=== PATIENT | female | born 1965 | race Two or more races ===

== ENCOUNTER 2017-03-18 12:18 | Emergency (ER) | payer MEDICARE, OTHER ==
[2017-03-18 12:25] VITALS: BP 127/71; PULSE 81; TEMP 97.5; BMI 39.1
[2017-03-18] MEDS ORDERED: SODIUM CHLORIDE 0.9% 1000 ML INFUS.BAG IV ONE (13:14)
--- NOTE | 2017-03-18 13:26 | PDOC ---
History of Present Illness - General Chief Complaint: Pain Stated Complaint: CONSTIPATED Time Seen by Provider: 03/18/17 12:57 History Source: Patient Exam Limitations: No Limitations - History of Present Illness Initial Comments: 03/18/17 13:23 The patient is a 51F with a PMH of HTN, DM, hypothyroidism, depression, and anxiety who presents to the ED with 2.5-3 weeks of constipation. She has not had a bowel movement or any type of feces excretion in 3 weeks. She has been passing gas. She has no hx of abdominal surgery. She is also complaining of CP that is 3 days old, and she describes it as a pressure in her chest that radiates everywhere and is associated with SOB. She also states that she has palpitations and feels dizzy. All: none Soc: does not smoke, drink, or use recreational drugs Has a hx of hep c but was treated w/ susie. Past History - Past Medical History Allergies/Adverse Reactions: Allergies Allergy/AdvReac Type Severity Reaction Status Date / Time No Known Drug Allergies Allergy Verified 03/18/17 12:22 Home Medications: Ambulatory Orders Clonazepam [KlonoPIN] 1 mg PO DAILY 01/17/14 Levothyroxine Sodium [Synthroid] 150 mcg PO DAILY 01/17/14 Lisinopril [Prinivil] 10 mg PO DAILY 01/17/14 Oxycodone HCl [Roxicodone] 30 mg PO TID 01/17/14 Sertraline HCl [Zoloft -] 200 mg PO HS 01/17/14 Furosemide [Lasix -] 40 mg PO DAILY 01/31/14 Trazodone HCl 100 mg PO HS 10/26/14 Zolpidem Tartrate [Ambien] 10 mg PO HS 10/26/14 Aripiprazole [Abilify -] 2 mg PO DAILY 08/17/15 Atorvastatin Ca [Lipitor] 20 mg PO DAILY 08/17/15 Clonazepam 2 mg PO HS 08/17/15 Duloxetine HCl [Cymbalta -] 60 mg PO DAILY 08/17/15 Gabapentin 600 mg PO TID 08/17/15 Omeprazole [Prilosec] 20 mg PO DAILY 08/17/15 Estradiol [Estrace] 42.5 gm VG HS #1 cream.appl 08/18/15 Anemia: No Asthma: No Cancer: No Cardiac Disorders: No CVA: No COPD: No CHF: No Dementia: No Diabetes: No GI Disorders: Yes (GERD, COLON POLYP, RECTAL BLEEDING) Disorders: No HTN: Yes Hypercholesterolemia: Yes Liver Disease: No Psychiatric Problems: Yes (DEPRESSION, ANXEITY) Seizures: No Thyroid Disease: Yes (HYPOTHYROIDISM) Other medical history: FIBROMYALGIA - Surgical History Abdominal Surgery: No Appendectomy: No Cardiac Surgery: No Cholecystectomy: No Lung Surgery: No Neurologic Surgery: Yes (CERVICAL NECK SX) Orthopedic Surgery: No - Immunization History Immunization Up to Date: Yes - Psycho/Social/Smoking Cessation Hx Anxiety: No Suicidal Ideation: No Smoking History: Never smoked Have you smoked in the past 12 months: No Information on smoking cessation initiated: No Hx Alcohol Use: No Drug/Substance Use Hx: No Substance Use Type: None Hx Substance Use Treatment: No Review of Systems - Review of Systems Able to Perform ROS?: Yes Is the patient limited Tristanian proficient: No Constitutional: Yes: Chills. No: Fever Respiratory: Yes: Shortness of Breath Cardiac (ROS): Yes: Chest Pain, Lightheadedness, Palpitations ABD/GI: Yes: Other (diffuse abd pain) : No: Burning, Dysuria, Discharge Neurological: No: Numbness, Tingling, Weakness *Physical Exam - Vital Signs Last Vital Signs Temp Pulse Resp BP Pulse Ox 97.5 F L 81 18 127/71 100 03/18/17 12:22 03/18/17 12:22 03/18/17 12:22 03/18/17 12:22 03/18/17 12:22 - Physical Exam General Appearance: Yes: Nourished, Appropriately Dressed, Obese HEENT: positive: Normal Voice, Hearing Grossly Normal Respiratory/Chest: positive: Lungs Clear, Normal Breath Sounds. negative: Chest Tender, Respiratory Distress, Accessory Muscle Use, Labored Respiration Cardiovascular: positive: Regular Rhythm, Regular Rate, S1, S2. negative: Diastolic Murmur, Systolic Murmur Gastrointestinal/Abdominal: positive: Tender, Flat, Soft, Increased Bowel Sounds , Distended. negative: Guarding Musculoskeletal: positive: CVA Tenderness, CVA Tenderness (L) Extremity: positive: Swelling (1+ in b/l lower extremities) Integumentary: positive: Dry, Warm. negative: Clammy, Diaphoresis Neurologic: positive: Fully Oriented, Normal Mood/Affect, Motor Strength 5/5 ED Treatment Course - LABORATORY CBC & Chemistry Diagram: 03/18/17 13:10 03/18/17 13:10 Medical Decision Making - Medical Decision Making 03/18/17 13:31 The patient is a 51F with a PMH of DM, HTN, hypothyroidism, depression, anxiety , depression who presents with 3 weeks of constipation and 3 days of CP. I want to R/O ACS and treat her constipation by R/O an obstruction. I will reassess after labs return. *DC/Admit/Observation/Transfer Diagnosis at time of Disposition: Constipation Qualifiers: Constipation type: unspecified constipation type Qualified Code(s): K59.00 - Constipation, unspecified - Discharge Dispostion Disposition: HOME Condition at time of disposition: Improved Admit: No - Referrals Referrals: Ki Pat MD, MD [Primary Care Provider] - Mario Gaming MD [Staff Physician] - - Patient Instructions Printed Discharge Instructions: Constipation (Alternative Therapy), DI for Constipation, Increased Dietary Fiber May Improve Constipation Conditions With Pelvic Krishan Additional Instructions: Please return to the ER if symptoms persist, worsen, or if new symptoms arise. Please follow up with Dr. Gaming ([phone]) for the fluid found on your CT. Print Language: LITHUANIAN - Attestations Physician Attestion: 03/18/17 17:52 I, Dr. Renard Juarez, attest that this document has been prepared under my direction and personally reviewed by me in its entirety. I further attest, that it accurately reflects all work, treatment, procedures and medical decision -making performed by me.
[2017-03-18 14:18] LABS: BASOPHIL 0.7 % (0-2.0); EOSINOPHIL 2.7 % (0-4.5); MCH 32.3 pg (25.7-33.7); MCHC 33.7 g/dl (32.0-36.0); MEAN CELL VOLUME 95.9 fl (80-96); MEAN PLT VOLUME 9.1 fl (7.5-11.1); NEUTROPHILS 65.9 % (42.8-82.8); WHITE BLOOD COUNT 11.5 K/mm3 (4.0-10.0)
[2017-03-18 15:00] LABS: URINE APPEARANCE SLCLOUDY; URINE BILIRUBIN NEGATIVE (NEGATIVE); URINE BLOOD 1+ (NEGATIVE); URINE COLOR YELLOW; URINE GLUCOSE (UA) NEGATIVE (NEGATIVE); URINE KETONE NEGATIVE (NEGATIVE); URINE NITRITE NEGATIVE (NEGATIVE); URINE PROTEIN NEGATIVE (NEGATIVE); URINE UROBILINOGEN NEGATIVE mg/dL (0.2-1.0)
[2017-03-18 15:20] LABS: URINE LEUK ESTERASE 2+ (NEGATIVE)
[2017-03-18 15:24] LABS: PLATELET COUNT 330 K/MM3 (134-434)
[2017-03-18 15:52] LABS: URINE BACTERIA RARE /hpf (NONE SEEN); URINE HYALINE CAST 17 /lpf; URINE MUCUS RARE; URINE RBC 1 /hpf (0-3); URINE WBC 11 /hpf (3-5)
--- NOTE | 2017-03-18 16:16 | PDOC ---
Attending Attestation - Resident Resident Name: QuetemijosRenard - ED Attending Attestation I have performed the following: I have examined & evaluated the patient, The case was reviewed & discussed with the resident, I agree w/resident's findings & plan, Exceptions are as noted - HPI HPI: 03/18/17 16:06 51 yo F presenting with a complaint of 1) constipation x 3 weeks 2) chest pain 3) Recent renal stent (to be removed tomorrow) no fevers No chills No nausea, vomiting - Physicial Exam PE: 03/18/17 16:11 - Medical Decision Making 03/18/17 16:11 51 yo f presenting to the ER with a complaint of constipation and chest pain Will do labs Will do CT Will re assess 03/18/17 19:03 Laboratory Tests 03/18/17 03/18/17 03/18/17 13:10 13:45 17:50 WBC 11.5 H Hgb 14.2 Hct 42.3 Plt Count 330 BUN Creatinine Troponin I < 0.02 Urine Blood 1+ H Ur Leukocyte Esterase 2+ H Urine RBC 1 Urine WBC 11 03/18/17 17:50 WBC Hgb Hct Plt Count BUN 15 D Creatinine 1.1 H Troponin I Urine Blood Ur Leukocyte Esterase Urine RBC Urine WBC UTI Pt had recent urinary stent Should be given abx Heart Score/ECG Review #1 ECG reviewed & interpreted by me at: 16:16 03/18/17 16:16 Twelve-lead EKG was performed and reviewed by me. There is normal sinus rhythm with a normal rate of 59 bpm. The axis is normal. The intervals are normal - pr: 142ms, QRS:94ms, QTc:439ms. There are no ST elevations or depressions. T wave flattening through out
[2017-03-18] MEDS ORDERED: MINERAL OIL ENEMA 133 ML ENEMA PR ONE (16:45)
[2017-03-18] MEDS ORDERED: SODIUM PHOSPHATE/NA BIPHOS 133 ML ENEMA PR ONE (17:08)
[2017-03-18 18:27] LABS: ALBUMIN 4.6 g/dl (3.4-5.0); ANION GAP 9 (8-16); CALCIUM 8.8 mg/dL (8.5-10.1); CO2 28 mmol/L (21-32); GLUCOSE,RANDOM 129 mg/dL (74-106)
[2017-03-18 18:31] LABS: ALK PHOS 67 U/L (45-117); BILIRUBIN,TOTAL 0.4 mg/dL (0.2-1.0); CREATININE 1.1 mg/dL (0.55-1.02); SGOT/AST 34 U/L (15-37); SGPT/ALT 35 U/L (12-78); TOT PROT 8.4 g/dl (6.4-8.2)
--- NOTE | 2017-03-18 20:52 | EKG ---
Test Reason : Blood Pressure : / mmHG Vent. Rate : 059 BPM Atrial Rate : 059 BPM P-R Int : 142 ms QRS Dur : 094 ms QT Int : 444 ms P-R-T Axes : 035 -03 010 degrees QTc Int : 439 ms SINUS BRADYCARDIA NONSPECIFIC T WAVE ABNORMALITY ABNORMAL ECG WHEN COMPARED WITH ECG OF 27-SEP-2015 23:45, NONSPECIFIC T WAVE ABNORMALITY HAS REPLACED INVERTED T WAVES IN INFERIOR LEADS NONSPECIFIC T WAVE ABNORMALITY NOW EVIDENT IN LATERAL LEADS REPEAT EKG IF CLINICALLY INDICATED Confirmed by VANESSA ESTEVES MD ([id number]) on 03/18/2017 8:52:17 PM Referred By: Confirmed By:VANESSA ESTEVES MD
== END 2017-03-18 19:37 | disposition home or self-care (01) ==
LOC: JER 12:18
DX: K59.00 Constipation, unspecified (principal); I10 Essential (primary) hypertension; E11.9 Type 2 diabetes mellitus without complications; E03.9 Hypothyroidism, unspecified; F32.9 Major depressive disorder, single episode, unspecified; F41.9 Anxiety disorder, unspecified; K21.9 Gastro-esophageal reflux disease without esophagitis; M79.7 Fibromyalgia
CPT/HCPCS: 36415; 74176-TC; 80053; 81003; 81015; 84484; 85025; 93005; 93010; 99285-25

== ENCOUNTER 2017-04-29 14:20 | Observation (INO) | payer MEDICARE, OTHER ==
[2017-04-29 14:49] VITALS: BMI 38.4
--- NOTE | 2017-04-29 15:31 | PDOC ---
Attending Attestation - HPI HPI: 04/29/17 16:54 51 y/o F with a PMHx of fibromyalgia, bladder stimulator with frequent UTIs, presents to the ED from PT office after taking Oxycodone 10 mg. Patient is prescribed oxycodone for her fibromyalgia for when she needs it. However, every time she takes it she becomes lethargic and out of it. Patient was on her way to physical therapy today, who told her not to take the Oxycodone, but she did anyway. When she got to PT, they felt she was too sedated to participate and told her to go to the ED. At the office, her BP was 80 systolic. Patients is at the bedside, providing history. He confirms that this is her usual state after taking oxycodone. Patients only complaint is dysuria. Denies chest pain, SOB, nausea, vomiting, diarrhea. - Physicial Exam PE: 04/29/17 16:54 GENERAL: Awake, alert, and fully oriented, in no acute distress. Lethargic. HEAD: No signs of trauma EYES: PERRLA, EOMI, sclera anicteric, conjunctiva clear ENT: Auricles normal inspection, hearing grossly normal, nares patent, oropharynx clear without exudates. Moist mucosa NECK: Normal ROM, supple, no lymphadenopathy, JVD, or masses LUNGS: Breath sounds equal, clear to auscultation bilaterally. No wheezes, and no crackles HEART: Regular rate and rhythm, normal S1 and S2, no murmurs, rubs or gallops ABDOMEN: Soft, nontender, normoactive bowel sounds. No guarding, no rebound. No masses EXTREMITIES: Moving all extremities. Normal range of motion, no edema. No clubbing or cyanosis. No cords, erythema, or tenderness NEUROLOGICAL: Cranial nerves II through XII grossly intact. Normal speech. SKIN: Warm, Dry, normal turgor, no rashes or lesions noted. - Medical Decision Making 04/29/17 16:54 Documentation prepared by India Connor, acting as medical observer for Shelby Oropeza DO. <India Connor - Last Filed: 04/29/17 16:54> - Resident Resident Name: Ki Degroot - ED Attending Attestation I have performed the following: I have examined & evaluated the patient, The case was reviewed & discussed with the resident, I agree w/resident's findings & plan, Exceptions are as noted - Medical Decision Making 04/29/17 19:54 a/p: 51yo female with lethargy after taking oxycodone today -concern for polypharmacy -will check labs -head ct -place in obs 04/29/17 19:57 pt more awake 04/29/17 19:57 case discussed with [employer] for medicine who accepts pt to obs under Dr. Olivares 04/29/17 19:58 I, Dr. Shelby Oropeza, DO, attest that this document has been prepared under my direction and personally reviewed by me in its entirety. I further attest, that it accurately reflects all work, treatment, procedures and medical decision -making performed by me. <Shelby Oropeza - Last Filed: 04/29/17 19:58> Discharge Disposition - Discharge Dispostion Last Admission D/C Date: 10/02/15 Admit: Yes <Shelby Oropeza - Last Filed: 04/29/17 19:58> - Diagnosis Polypharmacy - Discharge Dispostion Condition at time of disposition: Stable Heart Score/ECG Review - ECG Intrepretation Comment:: 04/29/17 17:11 sinus at 64, nl axis, nl interval, t wave flattening diffusely, t wave inversions v3-v6 <Shelby Oropeza - Last Filed: 04/29/17 19:58>
[2017-04-29 15:52] LABS: BASOPHIL 0.7 % (0-2.0); EOSINOPHIL 2.4 % (0-4.5); MCHC 33.4 g/dl (32.0-36.0); MEAN CELL VOLUME 95.8 fl (80-96); MEAN PLT VOLUME 8.6 fl (7.5-11.1); NEUTROPHILS 60.2 % (42.8-82.8); PLATELET COUNT 276 K/MM3 (134-434); WHITE BLOOD COUNT 8.3 K/mm3 (4.0-10.0)
[2017-04-29] MEDS ORDERED: SODIUM CHLORIDE 1,000 ML IV STA (15:55)
--- NOTE | 2017-04-29 16:21 | PDOC ---
History of Present Illness - General Chief Complaint: Weakness Stated Complaint: WEAKNESS Time Seen by Provider: 04/29/17 15:24 History Source: Patient, Family Exam Limitations: Clinical Condition - History of Present Illness Initial Comments: 04/29/17 16:16 Patient is a 51F with history of fibromyalgia, DM, GERD, HLD and hypothyroidism here today complaining of hypotension. She was at her therapists office when it was noticed her blood pressure was in the high 80s and she was confused. Her family member says that she took oxycodone 10 today, which normally makes her confused. She also takes ambien and klonopin. She is confused but is able to respond to questions with redirection. She says that she took one oxycodone pill today and that she has had some pain with urination, but is unsure how long that is going on. Her family member states that she's had bladder stimulator installed before and that has led to problems in the past. Patient denies focal weakness, chest pain, abdominal pain and shortness of breath. She denies fevers, chills, nausea and vomiting. Past History - Past Medical History Allergies/Adverse Reactions: Allergies Allergy/AdvReac Type Severity Reaction Status Date / Time No Known Drug Allergies Allergy Verified 04/29/17 14:49 Home Medications: Ambulatory Orders Clonazepam [KlonoPIN] 1 mg PO DAILY 01/17/14 Levothyroxine Sodium [Synthroid] 150 mcg PO DAILY 01/17/14 Lisinopril [Prinivil] 10 mg PO DAILY 01/17/14 Oxycodone HCl [Roxicodone] 30 mg PO TID 01/17/14 Sertraline HCl [Zoloft -] 200 mg PO HS 01/17/14 Furosemide [Lasix -] 40 mg PO DAILY 01/31/14 Trazodone HCl 100 mg PO HS 10/26/14 Zolpidem Tartrate [Ambien] 10 mg PO HS 10/26/14 Aripiprazole [Abilify -] 2 mg PO DAILY 08/17/15 Atorvastatin Ca [Lipitor] 20 mg PO DAILY 08/17/15 Clonazepam 2 mg PO HS 08/17/15 Duloxetine HCl [Cymbalta -] 60 mg PO DAILY 08/17/15 Gabapentin 600 mg PO TID 08/17/15 Omeprazole [Prilosec] 20 mg PO DAILY 08/17/15 Estradiol [Estrace] 42.5 gm VG HS #1 cream.appl 08/18/15 Anemia: No Asthma: No Cancer: No Cardiac Disorders: No CVA: No COPD: No CHF: No Dementia: No Diabetes: No GI Disorders: Yes (GERD, COLON POLYP, RECTAL BLEEDING) Disorders: No HTN: Yes Hypercholesterolemia: Yes Liver Disease: No Psychiatric Problems: Yes (DEPRESSION, ANXEITY) Seizures: No Thyroid Disease: Yes (HYPOTHYROIDISM) - Surgical History Abdominal Surgery: No Appendectomy: No Cardiac Surgery: No Cholecystectomy: No Lung Surgery: No Neurologic Surgery: Yes (CERVICAL NECK SX) Orthopedic Surgery: No - Immunization History Immunization Up to Date: Yes - Suicide/Smoking/Psychosocial Hx Smoking History: Never smoked Have you smoked in the past 12 months: No Hx Alcohol Use: No Drug/Substance Use Hx: (denies) Substance Use Type: None Hx Substance Use Treatment: No Review of Systems - Review of Systems Comments:: 04/29/17 16:19 GENERAL/CONSTITUTIONAL: No fever or chills. Positive for generalized weakness. HEAD, EYES, EARS, NOSE AND THROAT: No change in vision. No sore throat. CARDIOVASCULAR: No chest pain or shortness of breath RESPIRATORY: No cough, wheezing, or hemoptysis. GASTROINTESTINAL: No nausea, vomiting, diarrhea or constipation. GENITOURINARY: Positive for dysuria. Negative for frequency, or change in urination. MUSCULOSKELETAL: No joint or muscle swelling or pain. No neck or back pain. SKIN: No rash NEUROLOGIC: No headache, vertigo, loss of consciousness, or change in strength/ sensation. HEMATOLOGIC/LYMPHATIC: No anemia, easy bleeding, or history of blood clots. ALLERGIC/IMMUNOLOGIC: No hives or skin allergy. *Physical Exam - Vital Signs Last Vital Signs Temp Pulse Resp BP Pulse Ox 97.3 F L 68 18 100/55 90 L 04/29/17 14:37 04/29/17 14:37 04/29/17 14:37 04/29/17 16:10 04/29/17 14:37 - Physical Exam Comments: 04/29/17 16:20 GENERAL: Sleepy but arousable. Fully oriented but easily distracted. In no acute distress HEAD: No signs of trauma, normocephalic, atraumatic EYES: PERRLA, pupils 3mm EOMI, sclera anicteric, conjunctiva clear ENT: Auricles normal inspection, hearing grossly normal, nares patent, oropharynx clear without exudates. Moist mucosa LUNGS: No distress, speaks full sentences, clear to auscultation bilaterally HEART: Regular rate and rhythm, normal S1 and S2, no murmurs, rubs or gallops, peripheral pulses normal and equal bilaterally. ABDOMEN: Soft, nontender, normoactive bowel sounds. No guarding, no rebound. No masses EXTREMITIES: Normal inspection, Normal range of motion, no edema. No clubbing or cyanosis. NEUROLOGICAL: Cranial nerves II through XII grossly intact. Normal speech, no focal sensorimotor deficits SKIN: Warm, Dry, normal turgor, no rashes or lesions noted. ED Treatment Course - LABORATORY CBC & Chemistry Diagram: 04/29/17 13:14 04/29/17 18:50 - ADDITIONAL ORDERS Additional order review: 04/29/17 13:14 RBC 4.15 MCV 95.8 MCHC 33.4 RDW 14.0 MPV 8.6 Neutrophils % 60.2 Lymphocytes % 31.5 D Monocytes % 5.2 Eosinophils % 2.4 Basophils % 0.7 - RADIOLOGY Radiology Studies Ordered: Category Date Time Status HEAD CT WITHOUT CONTRAST [CT] Stat CT Scan 04/29/17 15:55 Ordered Medical Decision Making - Medical Decision Making 04/29/17 16:21 51F with history of fibromyalgia, htn, dm, hld and hypothyroidism here today complaining of weakness. Vital signs stable, sbp is 100. Differential diagnosis includes, but is not limited to: polypharmacy causing accidental minor opiate overdose, acs, arrhythmia, hypoglycemia, intracranial mass. Will treat with fluids. Will evaluate with labs, ecg and CXR. 04/29/17 16:27 ECG shows normal sinus rhythm, normal rate, QT prolonged to 480ms, no st elevations, flattened t waves in I, II, II, aVL, aVF, V1, V4-6. Inverted t wave in V3. 04/29/17 17:22 CXR shows no acute cardiopulmonary process. 04/29/17 19:32 CT head shows no acute process. 04/29/17 20:27 Laboratory Tests 04/29/17 04/29/17 04/29/17 13:14 13:14 18:50 WBC 8.3 Hgb 13.3 Hct 39.8 Plt Count 276 INR 1.19 H Troponin I < 0.02 CBC normal, INR slightly elevated, trop neg, cmp reassuring. Admitted for observation for polypharmacy, possible overdose. *DC/Admit/Observation/Transfer Diagnosis at time of Disposition: Polypharmacy - Discharge Dispostion Condition at time of disposition: Stable - Referrals Referrals: Ki Pat MD, [Primary Care Provider] -
[2017-04-29 16:43] LABS: INR 1.19 (0.82-1.09); PROTHROMBIN TIME (PATIENT) 13.1 SEC (9.98-11.88)
[2017-04-29] MEDS ORDERED: LIDOCAINE HCL 1%, 10 MG/ML (50 mL VIAL) SQ ONE (17:00)
[2017-04-29] MEDS ORDERED: LIDOCAINE HCL 1%, 10 MG/ML (20ML VIAL) ONE (17:00)
[2017-04-29 19:28] LABS: ALBUMIN 3.8 g/dl (3.4-5.0); ANION GAP 6 (8-16); BILIRUBIN,TOTAL 0.4 mg/dL (0.2-1.0); CALCIUM 8.7 mg/dL (8.5-10.1); CO2 27 mmol/L (21-32); CREATININE 0.7 mg/dL (0.55-1.02); GLUCOSE,RANDOM 98 mg/dL (74-106); SGPT/ALT 30 U/L (12-78); TOT PROT 7.4 g/dl (6.4-8.2)
[2017-04-29 19:29] LABS: ALK PHOS 53 U/L (45-117)
[2017-04-29 19:36] LABS: SGOT/AST 30 U/L (15-37)
[2017-04-29 19:39] LABS: CPK 353 IU/L (26-192); TROPONIN I < 0.02 ng/ml (0.00-0.05)
--- NOTE | 2017-04-29 19:43 | EKG ---
Test Reason : Blood Pressure : / mmHG Vent. Rate : 064 BPM Atrial Rate : 064 BPM P-R Int : 138 ms QRS Dur : 088 ms QT Int : 466 ms P-R-T Axes : 019 -05 -03 degrees QTc Int : 480 ms NORMAL SINUS RHYTHM NONSPECIFIC T WAVE ABNORMALITY PROLONGED QT ABNORMAL ECG WHEN COMPARED WITH ECG OF 18-MAR-2017 15:08, NONSPECIFIC T WAVE ABNORMALITY, WORSE IN ANTERIOR LEADS REPEAT EKG IF CLINICALLY INDICATED Confirmed by VANESSA ESTEVES MD ([id number]) on 04/29/2017 7:43:04 PM Referred By: Confirmed By:VANESSA ESTEVES MD
--- NOTE | 2017-04-29 21:13 | HP ---
Admitting History and Physical - Primary Care Physician PCP: Ki Pat MD - Admission Chief Complaint: lethargic after taking Oxycodone 30mg History of Present Illness: This is a 51yo woman with PMH: HTN, fibromyalgia, hypothyroidism, anxiety, depression, OAB s/p bladder stimulator who presents today with lethargy after taking 30mg of oxycodone today prior to doctor's appointment. She arrived at her PMD with lethargy and was noted to have a SBP in the 80's. She denies, fevers, chills, chest pain, headaches, SOB, dizziness, nausea, vomiting or diarrhea. She endorses abdominal pain, back pain, pain at her joints, RLE pain all of which she states as her usual fibromyalgia pain. She states she took the oxycodone because the pain in her hands was worse today. History Source: Patient, Significant Other Limitations to Obtaining History: No Limitations - Past Medical History Cardiovascular: Yes: HTN, Hyperlipdemia Gastrointestinal: Yes: GERD Hepatobiliary: Yes: Hepatitis C (treated with Harvoni) Rheumatology: Yes: Fibromyalgia Endocrine: Yes: Hypothyroidism, Other (hypothyroidism) - Smoking History Smoking history: Never smoked Have you smoked in the past 12 months: No - Alcohol/Substance Use Hx Alcohol Use: No History of Substance Use: reports: None - Social History Usual Living Arrangement: Yes: With Significant Other ADL: Support Services (6 hours daily) History of Recent Travel: No Home Medications - Allergies Allergies/Adverse Reactions: Allergies Allergy/AdvReac Type Severity Reaction Status Date / Time No Known Drug Allergies Allergy Verified 04/29/17 14:49 - Home Medications Home Medications: Ambulatory Orders Clonazepam [KlonoPIN] 1 mg PO DAILY 01/17/14 Levothyroxine Sodium [Synthroid] 150 mcg PO DAILY 01/17/14 Lisinopril [Prinivil] 10 mg PO DAILY 01/17/14 Oxycodone HCl [Roxicodone] 30 mg PO TID 01/17/14 Sertraline HCl [Zoloft -] 200 mg PO HS 01/17/14 Furosemide [Lasix -] 40 mg PO DAILY 01/31/14 Trazodone HCl 100 mg PO HS 10/26/14 Zolpidem Tartrate [Ambien] 10 mg PO HS 10/26/14 Aripiprazole [Abilify -] 2 mg PO DAILY 08/17/15 Atorvastatin Ca [Lipitor] 20 mg PO DAILY 08/17/15 Clonazepam 2 mg PO HS 08/17/15 Duloxetine HCl [Cymbalta -] 60 mg PO DAILY 08/17/15 Gabapentin 600 mg PO TID 08/17/15 Omeprazole [Prilosec] 20 mg PO DAILY 08/17/15 Estradiol [Estrace] 42.5 gm VG HS #1 cream.appl 08/18/15 Family Disease History - Family Disease History Family Disease History: Heart Disease: Mother ( of PA at 46), Sister (x2 of PA age 56 and 60) Review of Systems - Review of Systems Constitutional: reports: No Symptoms Eyes: reports: No Symptoms HENT: reports: Throat Pain Neck: reports: Pain on Movement Cardiovascular: reports: No Symptoms Respiratory: reports: No Symptoms Gastrointestinal: reports: Abdominal Pain Breasts: reports: No Symptoms Reported Musculoskeletal: reports: Back Pain, Extremity Pain (bilateral lower and bilateral fingers x10), Joint Pain Integumentary: reports: No Symptoms Neurological: reports: No Symptoms Endocrine: reports: No Symptoms Hematology/Lymphatic: reports: No Symptoms Psychiatric: reports: No Symptoms Physical Examination Vital Signs: Vital Signs Temperature 97.5 F L 04/29/17 20:31 Pulse Rate 80 04/29/17 20:31 Respiratory Rate 16 04/29/17 20:31 Blood Pressure 119/60 04/29/17 20:31 O2 Sat by Pulse Oximetry (%) 96 04/29/17 20:31 Constitutional: Yes: No Distress, Calm Eyes: Yes: WNL, Conjunctiva Clear, EOM Intact HENT: Yes: WNL Neck: Yes: Supple, Trachea Midline. No: Lymphadenopathy, Tenderness Cardiovascular: Yes: Regular Rate and Rhythm. No: Bruit, JVD, Gallop, Murmur, Rub Respiratory: Yes: Regular, CTA Bilaterally. No: Accessory Muscle Use Gastrointestinal: Yes: Normal Bowel Sounds, Soft, Abdomen, Obese. No: Distention, Tenderness ...Rectal Exam: Yes: Deferred Renal/: Yes: WNL Musculoskeletal: Yes: Back Pain, Joint Stiffness, Muscle Pain, Muscle Weakness Extremities: Yes: WNL Edema: No Peripheral Pulses: Left Radial: 2+, Right Radial: 2+, Left Doralis Pedis: 2+, Right Dorsalis Pedis: 2+ Integumentary: Yes: WNL Neurological: Yes: Oriented, Cran Nerves II-XII Intact, Lethargy (easily arousable to voice). No: Confusion, Loss of Sensation, Numbness, Paresthesia ...Motor Strength: RLE (3/5- ambulates with cane at baseline) Psychiatric: Yes: WNL Labs: CBC, BMP 04/29/17 13:14 04/29/17 18:50 Imaging - Results Chest X-ray: Report Reviewed, Image Reviewed Cat Scan: Report Reviewed, Image Reviewed EKG: Image Reviewed Problem List - Problems (1) Polypharmacy Code(s): Z79.899 - OTHER DOG BEHAVIORIST (CURRENT) DRUG THERAPY (2) HTN (hypertension) Code(s): I10 - ESSENTIAL (PRIMARY) HYPERTENSION (3) Hypothyroid Code(s): E03.9 - HYPOTHYROIDISM, UNSPECIFIED (4) Fibromyalgia Code(s): M79.7 - FIBROMYALGIA Assessment/Plan A: 51 year old woman with continued lethargy after taking her prn oxycodone. P: 1. Polypharmacy - pt does not have an active med list with her and does not know the names of her medications - many psychoactive medications on her med list from previous visits - pharmacy closed when called to verify medications - will need to contact Medicine Cabinet to verify meds - hold sedatives until verified 2. HTN - hold meds- given hypotension earlier today - monitor BP - restart home meds when MS improves and doses verified 3. Hypothyroidism - synthroid 4. Anxiety - no acute issues - hold meds until verified 5. Depression - no acute issues - hold meds until verified 6. Fibromyalgia - hold meds until MS improves - restart meds once MS improves and doses verified 7. F/E/N - low Na diet - replete prn 8. PPX - sqh Dispo- observation overnight with probable discharge in AM Visit type - Emergency Visit Emergency Visit: Yes Care time: The patient presented to the Emergency Department on the above date and was hospitalized for further evaluation of their emergent condition. - New Patient This patient is new to me today: Yes Date on this admission: 04/29/17 - Critical Care Critical Care patient: No
[2017-04-30 06:19] VITALS: BP 129/72; PULSE 70; TEMP 98.1
[2017-04-30 08:17] LABS: BASOPHIL 0.5 % (0-2.0); EOSINOPHIL 2.6 % (0-4.5); MCH 31.6 pg (25.7-33.7); MEAN CELL VOLUME 95.9 fl (80-96); MEAN PLT VOLUME 8.6 fl (7.5-11.1); NEUTROPHILS 57.4 % (42.8-82.8); PLATELET COUNT 254 K/MM3 (134-434); RDW 13.7 % (11.6-15.6); WHITE BLOOD COUNT 9.4 K/mm3 (4.0-10.0)
[2017-04-30 08:43] LABS: ANION GAP 7 (8-16); CALCIUM 8.6 mg/dL (8.5-10.1); CO2 31 mmol/L (21-32); GLUCOSE,RANDOM 81 mg/dL (74-106)
[2017-04-30 08:48] LABS: CREATININE 0.7 mg/dL (0.55-1.02); PHOSPHOROUS 2.6 mg/dL (2.5-4.9)
--- NOTE | 2017-04-30 10:34 | DS ---
Physical Examination Vital Signs: Vital Signs Temperature 98.1 F 04/30/17 06:00 Pulse Rate 70 04/30/17 06:00 Respiratory Rate 18 04/30/17 06:00 Blood Pressure 129/72 04/30/17 06:00 O2 Sat by Pulse Oximetry (%) 97 04/30/17 00:48 Labs: CBC, BMP 04/30/17 06:30 04/30/17 06:30 Discharge Summary Reason For Visit: POLYPHARMACY Current Active Problems Fibromyalgia (Acute) Polypharmacy (Acute) Condition: Improved - Instructions Diet, Activity, Other Instructions: Please return to the ED with new, persistent, or worsening symptoms. Please follow-up with providers as indicated. Referrals: Fortunato Blankenship MD [Staff Physician] - (Please follow-up with Dr. Blankenship (pain management) within the next 2-3 days for management of your chronic pain secondary to fibromyalgia) Ki Pat MD, MD [Primary Care Provider] - (Please follow-up with your primary care provider as scheduled today.) Disposition: HOME - Home Medications Comprehensive Discharge Medication List: Ambulatory Orders Clonazepam [KlonoPIN] 1 mg PO DAILY 01/17/14 Levothyroxine Sodium [Synthroid] 150 mcg PO DAILY 01/17/14 Lisinopril [Prinivil] 10 mg PO DAILY 01/17/14 Oxycodone HCl [Roxicodone] 30 mg PO TID 01/17/14 Sertraline HCl [Zoloft -] 200 mg PO HS 01/17/14 Furosemide [Lasix -] 40 mg PO DAILY 01/31/14 Trazodone HCl 100 mg PO HS 10/26/14 Zolpidem Tartrate [Ambien] 10 mg PO HS 10/26/14 Atorvastatin Ca [Lipitor] 20 mg PO DAILY 08/17/15 Omeprazole [Prilosec] 20 mg PO DAILY 08/17/15 Clonazepam 1 mg PO HS #0 tab 04/30/17 Duloxetine HCl [Cymbalta -] 30 mg PO DAILY #0 tab 04/30/17
[2017-04-30] MEDS ORDERED: HEPARIN NA (PORCINE) 5,000 UNITS/ML 1ML VIAL SQ SCH (22:00)
== END 2017-04-30 10:45 | disposition home health service (06) ==
LOC: JER 14:20 → JERBED 19:58 → J6S 04-30 00:28
PROVIDERS: ADMIT Internal Medicine; ATTEND Registered Nurse
PROC: 3E0337Z Introduction of Electrolytic and Water Balance Substance into Peripheral Vein, Percutaneous Approach (ICD-10-PCS; principal; 2017-04-29)
DX: M79.7 Fibromyalgia (principal); T40.2X5A Adverse effect of other opioids, initial encounter; R53.83 Other fatigue; E11.9 Type 2 diabetes mellitus without complications; K21.9 Gastro-esophageal reflux disease without esophagitis; E78.5 Hyperlipidemia, unspecified; E03.9 Hypothyroidism, unspecified; I10 Essential (primary) hypertension; F41.9 Anxiety disorder, unspecified; F32.9 Major depressive disorder, single episode, unspecified; B18.2 Chronic viral hepatitis C; Z79.891 Long term (current) use of opiate analgesic; Y92.9 Unspecified place or not applicable
CPT/HCPCS: 36415; 70450-TC; 71010-TC; 80048; 80053; 82553; 84100; 84484; 85025; 85610; 93005; 93010; 99285-25; G0378

== ENCOUNTER 2017-08-04 19:34 | Inpatient (IN) | payer MEDICARE, OTHER ==
[2017-08-04 19:49] VITALS: BMI 36.6
[2017-08-04] MEDS ORDERED: SODIUM CHLORIDE 1,000 ML IV STA (19:51)
[2017-08-04] MEDS ORDERED: ONDANSETRON 4 MG/2 ML VIAL IVPUSH ONE (19:51)
--- NOTE | 2017-08-04 19:52 | PDOC ---
Rapid Medical Evaluation Time Seen by Provider: 08/04/17 19:47 Medical Evaluation: Allergies Allergy/AdvReac Type Severity Reaction Status Date / Time No Known Drug Allergies Allergy Verified 06/03/17 11:52 08/04/17 19:47 The patient presents with a chief complaint of: LLQ pain with fevers for 2-3 days. Pain goes to the back. Hx of UTI's in the past. Pt endorses vomiting. I have performed a brief in-person evaluation of this patient; Pertinent physical exam findings: LLQ pain, Temp 99 orally, CVA tenderness b/l, Diffuse abdominal tenderness. I have ordered the following: CBC, CMP, PT/INR, UA, UC, The patient will proceed to the ED for further evaluation.
--- NOTE | 2017-08-04 20:12 | PDOC ---
History of Present Illness - History of Present Illness Initial Comments: 08/04/17 20:26 Ms. Decker is a 51 yo female w/ pmh of fibromyalgia, DM, GERD, HLD, hypothyroidism, hysterectomy 2/2 prolapse, urinary slings x2, bladder stimulator with frequent UTIs, and recent admission 06/04 for pyelonephritis who presents complaining of dysuria, abdominal pain radiating to her back, and subjective fevers and chills. She reports this feels exactly like her prior UTIs. The patient denies chest pain, shortness of breath, headache and dizziness. Denies vomit, diarrhea and constipation. Allergies: NKDA <Stephen Mccarty - Last Filed: 08/04/17 22:03> <Diane Torres - Last Filed: 08/05/17 00:32> - General Chief Complaint: Pain, Acute Stated Complaint: STOMACH PAIN Time Seen by Provider: 08/04/17 19:47 Past History - Past Medical History Anemia: No Asthma: No Cancer: No Cardiac Disorders: No CVA: No COPD: No CHF: No Dementia: No Diabetes: No GI Disorders: Yes (GERD, COLON POLYP, RECTAL BLEEDING) Disorders: No HTN: Yes Hypercholesterolemia: Yes Liver Disease: No Psychiatric Problems: Yes (DEPRESSION, ANXEITY) Seizures: No Thyroid Disease: Yes (HYPOTHYROIDISM) - Surgical History Abdominal Surgery: No Appendectomy: No Cardiac Surgery: No Cholecystectomy: No Lung Surgery: No Neurologic Surgery: Yes (CERVICAL NECK SX) Orthopedic Surgery: No - Immunization History Immunization Up to Date: Yes - Suicide/Smoking/Psychosocial Hx Smoking History: Never smoked Have you smoked in the past 12 months: No Information on smoking cessation initiated: No Hx Alcohol Use: No Drug/Substance Use Hx: No Substance Use Type: None Hx Substance Use Treatment: No <Stephen Mccarty - Last Filed: 08/04/17 22:03> <Diane Torres - Last Filed: 08/05/17 00:32> - Past Medical History Allergies/Adverse Reactions: Allergies Allergy/AdvReac Type Severity Reaction Status Date / Time No Known Drug Allergies Allergy Verified 08/04/17 19:50 Home Medications: Ambulatory Orders Levothyroxine Sodium [Synthroid] 150 mcg PO DAILY 01/17/14 Lisinopril [Prinivil] 10 mg PO DAILY 01/17/14 Oxycodone HCl [Roxicodone] 30 mg PO TID 01/17/14 Zolpidem Tartrate [Ambien] 10 mg PO HS 10/26/14 Atorvastatin Ca [Lipitor] 20 mg PO DAILY 08/17/15 Omeprazole [Prilosec] 20 mg PO DAILY 08/17/15 Clonazepam 1 mg PO HS #0 tab 04/30/17 Duloxetine HCl [Cymbalta -] 30 mg PO DAILY #0 tab 04/30/17 Pregabalin [Lyrica] 0 mg PO DAILY 06/03/17 Acetaminophen [Tylenol .Regular Strength -] 650 mg PO Q4H PRN #0 tablet Trazodone HCl 100 mg PO HS #0 tab 06/06/17 Review of Systems - Review of Systems Comments:: 08/04/17 20:55 GENERAL/CONSTITUTIONAL: +Subjective fever and chills for 1 day. No weakness. HEAD, EYES, EARS, NOSE AND THROAT: No change in vision. No ear pain or discharge. No sore throat. CARDIOVASCULAR: No chest pain or shortness of breath RESPIRATORY: +1 day cough after being out in the cold last night. No wheezing or hemoptysis. GASTROINTESTINAL: No nausea, vomiting, diarrhea or constipation. GENITOURINARY: Dysuria with increase in frequency for the last day. MUSCULOSKELETAL: No joint or muscle swelling or pain. No neck or back pain. SKIN: No rash NEUROLOGIC: No headache, vertigo, loss of consciousness, or change in strength/ sensation. ENDOCRINE: No increased thirst. No abnormal weight change HEMATOLOGIC/LYMPHATIC: No anemia, easy bleeding, or history of blood clots. ALLERGIC/IMMUNOLOGIC: No hives or skin allergy. <Stephen Mccarty - Last Filed: 08/04/17 22:03> *Physical Exam - Vital Signs Last Vital Signs Temp Pulse Resp BP Pulse Ox 99 F 92 H 22 125/72 96 08/04/17 19:47 08/04/17 19:47 08/04/17 19:47 08/04/17 19:47 08/04/17 19:47 - Physical Exam Comments: 08/04/17 20:58 GENERAL: Awake, alert, and fully oriented, in no acute distress HEAD: No signs of trauma, normocephalic, atraumatic EYES: PERRLA, EOMI, sclera anicteric, conjunctiva clear ENT: Auricles normal inspection, hearing grossly normal, nares patent, oropharynx clear without exudates. Moist mucosa NECK: Normal ROM, supple, no lymphadenopathy, JVD, or masses LUNGS: No distress, speaks full sentences, clear to auscultation bilaterally HEART: Regular rate and rhythm, normal S1 and S2, no murmurs, rubs or gallops, peripheral pulses normal and equal bilaterally. ABDOMEN: +Diffusely TTP, Soft, normoactive bowel sounds. No guarding, no rebound. No masses EXTREMITIES: Normal inspection, Normal range of motion, no edema. No clubbing or cyanosis. NEUROLOGICAL: Cranial nerves II through XII grossly intact. Normal speech, normal gait, no focal sensorimotor deficits SKIN: Warm, Dry, normal turgor, no rashes or lesions noted. <Stephen Mccarty - Last Filed: 08/04/17 22:03> - Vital Signs Last Vital Signs Temp Pulse Resp BP Pulse Ox 99 F 61 18 127/74 95 08/04/17 19:47 08/04/17 23:15 08/04/17 23:15 08/04/17 23:15 08/04/17 23:15 <Diane Torres - Last Filed: 08/05/17 00:32> ED Treatment Course - LABORATORY CBC & Chemistry Diagram: 08/04/17 20:10 08/04/17 20:10 <Stephen Mccarty - Last Filed: 08/04/17 22:03> - LABORATORY CBC & Chemistry Diagram: 08/04/17 20:10 08/04/17 20:10 - ADDITIONAL ORDERS Additional order review: Laboratory Results 08/04/17 08/04/17 08/04/17 21:10 21:10 21:10 PT with INR INR PTT (Actin FS) VBG pH 7.51 H POC VBG pCO2 31.0 L POC VBG pO2 61.9 H Mixed VBG HCO3 25.1 H Sodium Potassium Chloride Carbon Dioxide Anion Gap BUN Creatinine Creat Clearance w eGFR Random Glucose Lactic Acid 1.5 Calcium Total Bilirubin AST ALT Alkaline Phosphatase Creatine Kinase Troponin I Total Protein Albumin Lipase Urine Color Urine Appearance Urine pH Ur Specific [place] Urine Protein Urine Glucose (UA) Urine Ketones Urine Blood Urine Nitrite Urine Bilirubin Urine Urobilinogen Ur Leukocyte Esterase Urine WBC (Auto) Urine RBC (Auto) Ur Epithelial Cells Blood Type A POSITIVE Antibody Screen Negative 08/04/17 08/04/17 08/04/17 21:00 21:00 20:10 PT with INR INR PTT (Actin FS) 29.8 VBG pH POC VBG pCO2 POC VBG pO2 Mixed VBG HCO3 Sodium Potassium Chloride Carbon Dioxide Anion Gap BUN Creatinine Creat Clearance w eGFR Random Glucose Lactic Acid Calcium Total Bilirubin AST ALT Alkaline Phosphatase Creatine Kinase 48 Troponin I < 0.02 Total Protein Albumin Lipase 100 Urine Color Urine Appearance Urine pH Ur Specific [place] Urine Protein Urine Glucose (UA) Urine Ketones Urine Blood Urine Nitrite Urine Bilirubin Urine Urobilinogen Ur Leukocyte Esterase Urine WBC (Auto) Urine RBC (Auto) Ur Epithelial Cells Blood Type Antibody Screen 08/04/17 08/04/17 08/04/17 20:10 20:10 20:06 PT with INR 14.10 H INR 1.25 H PTT (Actin FS) VBG pH POC VBG pCO2 POC VBG pO2 Mixed VBG HCO3 Sodium 137 Potassium 3.7 Chloride 103 Carbon Dioxide 24 Anion Gap 10 BUN 8 D Creatinine 0.8 Creat Clearance w eGFR > 60 Random Glucose 116 H Lactic Acid Calcium 8.6 Total Bilirubin 0.7 D AST 13 L D ALT 22 D Alkaline Phosphatase 92 D Creatine Kinase Troponin I Total Protein 7.6 Albumin 3.5 Lipase Urine Color Yellow Urine Appearance Cloudy Urine pH 6.0 Ur Specific [place] 1.008 Urine Protein 1+ H Urine Glucose (UA) Negative Urine Ketones Negative Urine Blood 2+ H Urine Nitrite Positive Urine Bilirubin Negative Urine Urobilinogen Negative Ur Leukocyte Esterase 3+ H Urine WBC (Auto) 1425 Urine RBC (Auto) 27 Ur Epithelial Cells Many Blood Type Antibody Screen 08/04/17 20:10 RBC 4.38 MCV 88.6 MCHC 33.4 RDW 13.4 MPV 8.2 Neutrophils % 71.2 D Lymphocytes % 19.3 D Monocytes % 8.9 Eosinophils % 0.3 D Basophils % 0.3 - Medications Given in the ED: ED Medications Discontinued Medications Generic Name Dose Route Start Last Admin Trade Name Freq PRN Reason Stop Dose Admin Sodium Chloride 1,000 mls @ 1,000 mls/hr 08/04/17 19:51 08/04/17 21:21 Normal Saline - IV 08/04/17 20:50 Not Given ASDIR STA Ondansetron HCl 4 mg 08/04/17 19:51 08/04/17 21:00 Zofran Injection IVPUSH 08/04/17 19:52 4 mg ONCE ONE Administration Piperacillin Sod/Tazobactam Sod 3.375 gm 08/04/17 21:45 08/04/17 22:28 Zosyn 3.375gm Ivpb (Pre-Docked) IVPB 08/04/17 21:46 3.375 gm ONCE ONE Administration Protocol Sodium Chloride 3,089 ml 08/04/17 20:33 08/04/17 21:21 Normal Saline - 30 ml/kg (3089 ml) 08/04/17 20:34 3,089 ml IV Administration ONCE STA <Diane Torres - Last Filed: 08/05/17 00:32> Medical Decision Making - Medical Decision Making 08/04/17 22:03 Patient presents w/ symptoms c/w UTI. Sepsis workup confirmatory for urosepsis. Zosyn started, patient admitted for further treatment. <Stephen Mccarty - Last Filed: 08/04/17 22:03> *DC/Admit/Observation/Transfer <Stephen Mccarty - Last Filed: 08/04/17 22:03> - Discharge Dispostion Admit: Yes <Diane Torres - Last Filed: 08/05/17 00:32> Diagnosis at time of Disposition: Pyelonephritis, Fever, UTI (urinary tract infection), Cystitis - Discharge Dispostion Condition at time of disposition: Guarded - Referrals Referrals: Ki Pat MD, MD [Primary Care Provider] -
[2017-08-04 20:24] LABS: BASO % 0.3 % (0-2.0); EOS % 0.3 % (0-4.5); HEMATOCRIT 38.8 % (32.4-45.2); LYMPH % 19.3 % (8-40); MCH 29.6 pg (25.7-33.7); MCHC 33.4 g/dl (32.0-36.0); MEAN CELL VOLUME 88.6 fl (80-96); MEAN PLT VOLUME 8.2 fl (7.5-11.1); MONO % 8.9 % (3.8-10.2); NEUT % 71.2 % (42.8-82.8); PLATELET COUNT 372 K/MM3 (134-434); RBC 4.38 M/mm3 (3.60-5.2); RDW 13.4 % (11.6-15.6); WHITE BLOOD COUNT 14.9 K/mm3 (4.0-10.0)
[2017-08-04] MEDS ORDERED: SODIUM CHLORIDE 0.9% 1000 ML INFUS.BAG IV STA (20:33)
[2017-08-04 20:37] LABS: URINE APPEARANCE CLOUDY; URINE BILIRUBIN NEGATIVE (NEGATIVE); URINE BLOOD 2+ (NEGATIVE); URINE COLOR YELLOW; URINE GLUCOSE (UA) NEGATIVE (NEGATIVE); URINE KETONE NEGATIVE (NEGATIVE); URINE NITRITE POSITIVE (NEGATIVE); URINE UROBILINOGEN NEGATIVE mg/dL (0.2-1.0)
[2017-08-04 20:39] LABS: URINE LEUK ESTERASE 3+ (NEGATIVE); URINE PROTEIN 1+ (NEGATIVE)
[2017-08-04 20:40] LABS: EPI CELLS MANY /HPF (FEW)
[2017-08-04 20:42] LABS: INR 1.25 (0.82-1.09); PROTHROMBIN TIME (PATIENT) 14.1 SEC (9.98-11.88)
[2017-08-04] MEDS ORDERED: ONDANSETRON 4 MG/2 ML VIAL ONE (20:48)
[2017-08-04 20:50] LABS: ALBUMIN 3.5 g/dl (3.4-5.0); ANION GAP 10 (8-16); BLOOD UREA NITROGEN 8 mg/dL (7-18); CALCIUM 8.6 mg/dL (8.5-10.1); CHLORIDE 103 mmol/L (98-107); CO2 24 mmol/L (21-32); CREATININE 0.8 mg/dL (0.55-1.02); GLUCOSE,RANDOM 116 mg/dL (74-106); POTASSIUM 3.7 mmol/L (3.5-5.1); SGOT/AST 13 U/L (15-37); SGPT/ALT 22 U/L (12-78); SODIUM 137 mmol/L (136-145)
[2017-08-04 20:51] LABS: ALK PHOS 92 U/L (45-117); BILIRUBIN,TOTAL 0.7 mg/dL (0.2-1.0); TOT PROT 7.6 g/dl (6.4-8.2)
[2017-08-04 21:19] LABS: VENOUS PH 7.51 (7.32-7.42); VENOUS PO2 61.9 mmHg (28-48)
[2017-08-04] MEDS ORDERED: PIPERACILLIN/TAZOB 3.375 GM/50 ML PRE-DOCKED IVPB ONE (21:45)
--- NOTE | 2017-08-04 23:49 | PDOC ---
Attending Attestation - Resident Resident Name: Stephen Mccarty - ED Attending Attestation I have performed the following: I have examined & evaluated the patient, The case was reviewed & discussed with the resident, I agree w/resident's findings & plan - HPI HPI: 08/04/17 23:45 Pt comes with abd pain, fever, dysuria, flank pain and long hx of issues, including incontinence of urine, multiple procedures for bladder lifting, and most recently some kind of stent placement in May 2017. Pt is also being evaluated by oncology for cancer, she's not sure what type. Pt has diffuse abd tenderness in the ER 08/04/17 23:48 Fever and dysuria and abd pain and nausea began today. - Physicial Exam PE: 08/04/17 23:47 Diffusely tender in the lower abdomen and periumbilical area. Pt is afebrile in the ER. Flank pain with percussion as well as palpation. Pt is awake and alert. Mild distress. - Medical Decision Making 08/04/17 23:48 Admit to hospitalist, as pt's PMD is Dr. Pat. Pt's urologist is Dr. Gretchen Baez. Pt will be admitted for pyelonephritis.
[2017-08-05] MEDS ORDERED: ZOLPIDEM TARTRATE 5 MG TABLET PO ONE (00:27)
--- NOTE | 2017-08-05 00:34 | PN ---
Teaching Attending Note Name of Resident: Mars Yoo ATTENDING PHYSICIAN STATEMENT I saw and evaluated the patient. I reviewed the resident's note and discussed the case with the resident. I agree with the resident's findings and plan as documented. SUBJECTIVE: OBJECTIVE: ASSESSMENT AND PLAN:
--- NOTE | 2017-08-05 00:52 | HP ---
CHIEF COMPLAINT: Abdominal Pain/ Fever PCP: Dr. Pat HISTORY OF PRESENT ILLNESS: 51 F with pmhx. of cervical stenosis, fibromyalgia, hysterectomy due to prolapse , urinary incontinance, cane to ambulate, Obturator externus mass/posterior nasophryngeal mass (being [facility] out[facility]) and recurrent UTI's, L. ureteral stent ( 05.20), who presents with dysuria, abdominal pain, and fevers at home. No chest pain or pressure. States she did not measure her temp. Also, notes bilateral flank pain. ER course was notable for: (1) + UA (2) CT Abdomen orderes (3) Zosyn given in ED Recent Travel: NO PAST MEDICAL HISTORY: HTN, HLD PAST SURGICAL HISTORY: As Above Social History: Smoking: No Alcohol:No Drugs: No Family History: Allergies No Known Drug Allergies Allergy (Verified 08/04/17 19:50) HOME MEDICATIONS: Home Medications Medication Instructions Recorded Levothyroxine Sodium [Synthroid] 150 mcg PO DAILY 01/17/14 Lisinopril [Prinivil] 10 mg PO DAILY 01/17/14 Oxycodone HCl [Roxicodone] 30 mg PO TID 01/17/14 Zolpidem Tartrate [Ambien] 10 mg PO HS 10/26/14 Atorvastatin Ca [Lipitor] 20 mg PO DAILY 08/17/15 Omeprazole [Prilosec] 20 mg PO DAILY 08/17/15 Clonazepam 1 mg PO HS #0 tab 04/30/17 Duloxetine HCl [Cymbalta -] 30 mg PO DAILY #0 tab 04/30/17 Pregabalin [Lyrica] 0 mg PO DAILY 06/03/17 Acetaminophen [Tylenol .Regular 650 mg PO Q4H PRN #0 tablet 06/06/17 Strength -] Trazodone HCl 100 mg PO HS #0 tab 06/06/17 REVIEW OF SYSTEMS CONSTITUTIONAL: Absent: fever, chills, diaphoresis, generalized weakness, malaise, loss of appetite, weight change HEENT: Absent: rhinorrhea, nasal congestion, throat pain, throat swelling, difficulty swallowing, mouth swelling, ear pain, eye pain, visual changes CARDIOVASCULAR: Absent: chest pain, syncope, palpitations, irregular heart rate, lightheadedness , peripheral edema RESPIRATORY: Absent: cough, shortness of breath, dyspnea with exertion, orthopnea, wheezing, stridor, hemoptysis GASTROINTESTINAL: Absent: abdominal pain, abdominal distension, nausea, vomiting, diarrhea, constipation, melena, hematochezia GENITOURINARY: Absent: dysuria, frequency, urgency, hesitancy, hematuria, flank pain, genital pain MUSCULOSKELETAL: Absent: myalgia, arthralgia, joint swelling, back pain, neck pain SKIN: Absent: rash, itching, pallor HEMATOLOGIC/IMMUNOLOGIC: Absent: easy bleeding, easy bruising, lymphadenopathy, frequent infections ENDOCRINE: Absent: unexplained weight gain, unexplained weight loss, heat intolerance, cold intolerance NEUROLOGIC: Absent: headache, focal weakness or paresthesias, dizziness, unsteady gait, seizure, mental status changes, bladder or bowel incontinence PSYCHIATRIC: Absent: anxiety, depression, suicidal or homicidal ideation, hallucinations. PHYSICAL EXAMINATION Vital Signs - 24 hr 08/04/17 08/04/17 19:47 23:15 Temperature 99 F Pulse Rate 92 H Pulse Rate [ 61 Apical] Respiratory 22 18 Rate Blood Pressure 125/72 Blood Pressure 127/74 [Right Arm] O2 Sat by Pulse 96 95 Oximetry (%) GENERAL: Awake, alert, and fully oriented, in no acute distress. HEAD: Normal with no signs of trauma. EYES: Pupils equal, round and reactive to light, extraocular movements intact, sclera anicteric, conjunctiva clear. No lid lag. EARS, NOSE, THROAT: Ears normal, nares patent, oropharynx clear without exudates. Moist mucous membranes. NECK: Normal range of motion, supple without lymphadenopathy, JVD, or masses. LUNGS: Breath sounds equal, clear to auscultation bilaterally. No wheezes, and no crackles. No accessory muscle use. HEART: Regular rate and rhythm, normal S1 and S2 without murmur, rub or gallop. ABDOMEN: Soft, nontender, not distended, normoactive bowel sounds, no guarding, no rebound, no masses. No hepatomegaly or splenomegaly. MUSCULOSKELETAL: Normal range of motion at all joints. No bony deformities or tenderness. No CVA tenderness. UPPER EXTREMITIES: 2+ pulses, warm, well-perfused. No cyanosis. No clubbing. No peripheral edema. LOWER EXTREMITIES: 2+ pulses, warm, well-perfused. No calf tenderness. No peripheral edema. NEUROLOGICAL: Cranial nerves II-XII intact. Normal speech. Normal gait. PSYCHIATRIC: Cooperative. Good eye contact. Appropriate mood and affect. SKIN: Warm, dry, normal turgor, no rashes or lesions noted, normal capillary refill. Laboratory Results - last 24 hr 08/04/17 08/04/17 08/04/17 20:06 20:10 20:10 WBC 14.9 H D RBC 4.38 Hgb 13.0 D Hct 38.8 MCV 88.6 MCH 29.6 MCHC 33.4 RDW 13.4 Plt Count 372 D MPV 8.2 Neutrophils % 71.2 D Lymphocytes % 19.3 D Monocytes % 8.9 Eosinophils % 0.3 D Basophils % 0.3 PT with INR INR PTT (Actin FS) VBG pH POC VBG pCO2 POC VBG pO2 Mixed VBG HCO3 Sodium 137 Potassium 3.7 Chloride 103 Carbon Dioxide 24 Anion Gap 10 BUN 8 D Creatinine 0.8 Creat Clearance w eGFR > 60 Random Glucose 116 H Lactic Acid Calcium 8.6 Total Bilirubin 0.7 D AST 13 L D ALT 22 D Alkaline Phosphatase 92 D Creatine Kinase Troponin I Total Protein 7.6 Albumin 3.5 Lipase Urine Color Yellow Urine Appearance Cloudy Urine pH 6.0 Ur Specific [place] 1.008 Urine Protein 1+ H Urine Glucose (UA) Negative Urine Ketones Negative Urine Blood 2+ H Urine Nitrite Positive Urine Bilirubin Negative Urine Urobilinogen Negative Ur Leukocyte Esterase 3+ H Urine WBC (Auto) 1425 Urine RBC (Auto) 27 Ur Epithelial Cells Many Blood Type Antibody Screen 08/04/17 08/04/17 08/04/17 20:10 20:10 21:00 WBC RBC Hgb Hct MCV MCH MCHC RDW Plt Count MPV Neutrophils % Lymphocytes % Monocytes % Eosinophils % Basophils % PT with INR 14.10 H INR 1.25 H PTT (Actin FS) 29.8 VBG pH POC VBG pCO2 POC VBG pO2 Mixed VBG HCO3 Sodium Potassium Chloride Carbon Dioxide Anion Gap BUN Creatinine Creat Clearance w eGFR Random Glucose Lactic Acid Calcium Total Bilirubin AST ALT Alkaline Phosphatase Creatine Kinase Troponin I Total Protein Albumin Lipase 100 Urine Color Urine Appearance Urine pH Ur Specific [place] Urine Protein Urine Glucose (UA) Urine Ketones Urine Blood Urine Nitrite Urine Bilirubin Urine Urobilinogen Ur Leukocyte Esterase Urine WBC (Auto) Urine RBC (Auto) Ur Epithelial Cells Blood Type Antibody Screen 08/04/17 08/04/17 08/04/17 21:00 21:10 21:10 WBC RBC Hgb Hct MCV MCH MCHC RDW Plt Count MPV Neutrophils % Lymphocytes % Monocytes % Eosinophils % Basophils % PT with INR INR PTT (Actin FS) VBG pH 7.51 H POC VBG pCO2 31.0 L POC VBG pO2 61.9 H Mixed VBG HCO3 25.1 H Sodium Potassium Chloride Carbon Dioxide Anion Gap BUN Creatinine Creat Clearance w eGFR Random Glucose Lactic Acid 1.5 Calcium Total Bilirubin AST ALT Alkaline Phosphatase Creatine Kinase 48 Troponin I < 0.02 Total Protein Albumin Lipase Urine Color Urine Appearance Urine pH Ur Specific [place] Urine Protein Urine Glucose (UA) Urine Ketones Urine Blood Urine Nitrite Urine Bilirubin Urine Urobilinogen Ur Leukocyte Esterase Urine WBC (Auto) Urine RBC (Auto) Ur Epithelial Cells Blood Type Antibody Screen 08/04/17 21:10 WBC RBC Hgb Hct MCV MCH MCHC RDW Plt Count MPV Neutrophils % Lymphocytes % Monocytes % Eosinophils % Basophils % PT with INR INR PTT (Actin FS) VBG pH POC VBG pCO2 POC VBG pO2 Mixed VBG HCO3 Sodium Potassium Chloride Carbon Dioxide Anion Gap BUN Creatinine Creat Clearance w eGFR Random Glucose Lactic Acid Calcium Total Bilirubin AST ALT Alkaline Phosphatase Creatine Kinase Troponin I Total Protein Albumin Lipase Urine Color Urine Appearance Urine pH Ur Specific [place] Urine Protein Urine Glucose (UA) Urine Ketones Urine Blood Urine Nitrite Urine Bilirubin Urine Urobilinogen Ur Leukocyte Esterase Urine WBC (Auto) Urine RBC (Auto) Ur Epithelial Cells Blood Type A POSITIVE Antibody Screen Negative Home Medications Medication Instructions Recorded Levothyroxine Sodium [Synthroid] 150 mcg PO DAILY 01/17/14 Lisinopril [Prinivil] 10 mg PO DAILY 01/17/14 Oxycodone HCl [Roxicodone] 30 mg PO TID 01/17/14 Zolpidem Tartrate [Ambien] 10 mg PO HS 10/26/14 Atorvastatin Ca [Lipitor] 20 mg PO DAILY 08/17/15 Omeprazole [Prilosec] 20 mg PO DAILY 08/17/15 Clonazepam 1 mg PO HS #0 tab 04/30/17 Duloxetine HCl [Cymbalta -] 30 mg PO DAILY #0 tab 04/30/17 Pregabalin [Lyrica] 0 mg PO DAILY 06/03/17 Acetaminophen [Tylenol .Regular 650 mg PO Q4H PRN #0 tablet 06/06/17 Strength -] Trazodone HCl 100 mg PO HS #0 tab 06/06/17 ASSESSMENT/PLAN: 51 F with pmhx. of cervical stenosis, fibromyalgia, hysterectomy due to prolapse , urinary incontinance, cane to ambulate, Obturator externus mass/posterior nasophryngeal mass (being [facility] outpt) and recurrent UTIs, ?ureteral stent placement who presents with dysuria and flank pain being admitted for pyelonephritis 1.) Pyelonephritis - Ceftriaxone - Ucx- Prior cx's + for Prov. Stuarti and E. Coli - CT abdomen- ?hydro - Consulted 2.) HTN - C/W home meds 3.) Nasophryngeal/Obturator mass - Being [facility] oupt. - Outpt, Pet/Ct 4.) Fibromyalgia - C/W home pain meds 5.) Dvt Ppx - Heparin [address] in Med-sx Visit type - Emergency Visit Emergency Visit: Yes ED Registration Date: 08/05/17 Care time: The patient presented to the Emergency Department on the above date and was hospitalized for further evaluation of their emergent condition. - New Patient This patient is new to me today: Yes Date on this admission: 08/05/17 - Critical Care Critical Care patient: No
[2017-08-05] MEDS ORDERED: oxyCODONE HCL 5 MG TABLET ONE ×3 (06:19→14:55)
[2017-08-05] MEDS: oxyCODONE HCL 5 MG TABLET PO SCH ×3 (06:26→21:23)
[2017-08-05] MEDS ORDERED: LEVOTHYROXINE NA 25 MCG TABLET (FP) ONE (07:57)
[2017-08-05] MEDS: LEVOTHYROXINE NA 150 MCG TABLET PO SCH (07:57)
[2017-08-05 08:01] LABS: HEMATOCRIT 34.6 % (32.4-45.2); HEMOGLOBIN 11.2 GM/dL (10.7-15.3); MCH 29.2 pg (25.7-33.7); MCHC 32.5 g/dl (32.0-36.0); MEAN CELL VOLUME 90.1 fl (80-96); MEAN PLT VOLUME 7.8 fl (7.5-11.1); PLATELET COUNT 298 K/MM3 (134-434); RBC 3.84 M/mm3 (3.60-5.2); RDW 13.6 % (11.6-15.6); WHITE BLOOD COUNT 11.9 K/mm3 (4.0-10.0)
[2017-08-05 08:22] LABS: ANION GAP 7 (8-16); BLOOD UREA NITROGEN 8 mg/dL (7-18); CALCIUM 7.5 mg/dL (8.5-10.1); CHLORIDE 107 mmol/L (98-107); CO2 26 mmol/L (21-32); CREATININE 0.6 mg/dL (0.55-1.02); GLUCOSE,RANDOM 101 mg/dL (74-106); SODIUM 140 mmol/L (136-145)
[2017-08-05 08:23] LABS: POTASSIUM 3.7 mmol/L (3.5-5.1)
[2017-08-05 08:28] LABS: INR 1.26 (0.82-1.09); PROTHROMBIN TIME (PATIENT) 14.2 SEC (9.98-11.88)
[2017-08-05 08:30] LABS: ACTIVATED PTT 26.1 SECONDS (26.9-34.4)
[2017-08-05] MEDS ORDERED: CEFTRIAXONE 1 GM/50 ML BAG ONE (09:33)
[2017-08-05] MEDS ORDERED: PREGABALIN 25 MG CAPSULE ONE (09:33)
[2017-08-05] MEDS ORDERED: CEFTRIAXONE 1 G/50 ML PREMIX 50 ML IVPB SCH (10:00)
[2017-08-05] MEDS: ATORVASTATIN CA 20 MG TABLET (FP) PO SCH (10:01)
[2017-08-05] MEDS: DULoxetine HCL 30 MG CAPSULE.DR (FP) PO SCH (10:01)
[2017-08-05] MEDS: PREGABALIN 25 MG CAPSULE PO SCH (10:01)
[2017-08-05] MEDS: PANTOPRAZOLE 20 MG TABLET (FP) PO SCH (10:01)
[2017-08-05] MEDS: LISINOPRIL 10 MG TABLET (FP) PO SCH (10:01)
--- NOTE | 2017-08-05 14:12 | CON.ID ---
Consult Consult Specialty:: infectious diseases Reason for Consultation:: abd pain,uti - History of Present Illness Chief Complaint: abd pain uti,flank pain History of Present Illness: 51 yo female w/ pmh of fibromyalgia, DM, GERD, HLD, hypothyroidism, hysterectomy 2/2 prolapse, urinary slings x2, bladder stimulator with frequent UTIs, and recent admission 06/04 for pyelonephritis who presents complaining of dysuria, abdominal pain radiating to her back, and subjective fevers and chills. She reports this feels exactly like her prior UTIs. patient mentions that the pain is severe and radiating to the flanks she cannot give number on fevers but says she is in a lot of distress sh has been following with urology patient is obese in the er work up was done and ct scan showed a l air in the rt kidney ,ueter collecting system patient also c/o of lot of pain - History Source History Provided By: Patient - Past Medical History Cardio/Vascular: Yes: HTN, Hyperlipdemia Gastrointestinal: Yes: GERD Hepatobiliary: Yes: Hepatitis C (treated with Harvoni) Rheumatology: Yes: Fibromyalgia Endocrine: Yes: Hypothyroidism, Other (hypothyroidism) - Alcohol/Substance Use Hx Alcohol Use: No History of Substance Use: reports: None - Smoking History Smoking history: Never smoked Have you smoked in the past 12 months: No - Social History ADL: Support Services (6 hours daily) History of Recent Travel: No Home Medications - Allergies Allergies/Adverse Reactions: Allergies Allergy/AdvReac Type Severity Reaction Status Date / Time No Known Drug Allergies Allergy Verified 08/04/17 19:50 - Home Medications Home Medications: Ambulatory Orders Levothyroxine Sodium [Synthroid] 150 mcg PO DAILY 01/17/14 Lisinopril [Prinivil] 10 mg PO DAILY 01/17/14 Oxycodone HCl [Roxicodone] 30 mg PO TID 01/17/14 Zolpidem Tartrate [Ambien] 10 mg PO HS 10/26/14 Atorvastatin Ca [Lipitor] 20 mg PO DAILY 08/17/15 Omeprazole [Prilosec] 20 mg PO DAILY 08/17/15 Clonazepam 1 mg PO HS #0 tab 04/30/17 Duloxetine HCl [Cymbalta -] 30 mg PO DAILY #0 tab 04/30/17 Pregabalin [Lyrica] 0 mg PO DAILY 06/03/17 Acetaminophen [Tylenol .Regular Strength -] 650 mg PO Q4H PRN #0 tablet Trazodone HCl 100 mg PO HS #0 tab 06/06/17 Family Disease History - Family Disease History Family Disease History: Heart Disease: Mother ( of [place] at 46), Sister (x2 of [place] age 56 and 60) Review of Systems - Review of Systems Constitutional: reports: Fever Eyes: reports: No Symptoms HENT: reports: No Symptoms Neck: reports: No Symptoms Cardiovascular: reports: No Symptoms Respiratory: reports: No Symptoms Gastrointestinal: reports: No Symptoms Genitourinary: reports: Other (suprapubic pain, bilat flank pain) Musculoskeletal: reports: No Symptoms Integumentary: reports: No Symptoms Neurological: reports: No Symptoms Endocrine: reports: No Symptoms Hematology/Lymphatic: reports: No Symptoms Psychiatric: reports: No Symptoms Physical Exam Vital Signs: Vital Signs Temperature 98.1 F 08/05/17 11:25 Pulse Rate 80 08/05/17 12:31 Respiratory Rate 18 08/05/17 12:31 Blood Pressure 119/88 08/05/17 12:31 O2 Sat by Pulse Oximetry (%) 98 08/05/17 12:32 Constitutional: Yes: Mild Distress, Obese Neck: Yes: Supple Cardiovascular: Yes: Regular Rate and Rhythm Respiratory: Yes: Regular, CTA Bilaterally Gastrointestinal: Yes: Normal Bowel Sounds, Soft Renal/: Yes: Other (suprapubic pain) Musculoskeletal: Yes: WNL Extremities: Yes: WNL Neurological: Yes: Alert, Oriented Psychiatric: Yes: Alert, Oriented Labs: CBC, BMP 08/05/17 07:38 08/05/17 07:38 Assessment/Plan after looking at the ct scan i am worried that the patient might be having empysematous pyelitits or could be having severe pyelo though the ct scan says it could be due to recent instrumentation i am worried it could be the above thing we will wait for the blood cx to come and urine cx to come and then see how to deal with the problem Problem List - Problems (1) Cystitis Code(s): N30.90 - CYSTITIS, UNSPECIFIED WITHOUT HEMATURIA (2) Fever Code(s): R50.9 - FEVER, UNSPECIFIED Qualifiers: Fever type: unspecified Qualified Code(s): R50.9 - Fever, unspecified (3) Pyelonephritis Code(s): N12 - TUBULO-INTERSTITIAL NEPHRITIS, NOT SPCF ACUTE OR CHRONIC (4) UTI (urinary tract infection) Code(s): N39.0 - URINARY TRACT INFECTION, SITE NOT SPECIFIED Qualifiers: Urinary tract infection type: acute pyelonephritis Qualified Code(s): N10 - Acute pyelonephritis (5) Bronchitis with asthma, acute Code(s): J20.9 - ACUTE BRONCHITIS, UNSPECIFIED; J45.909 - UNSPECIFIED ASTHMA, UNCOMPLICATED 6 r/o emphysematous pyelitis plan will start patient on zosyn hydration very close watch on patient turning septic rest continue current mgmt
[2017-08-05] MEDS ORDERED: PIPERACILLIN/TAZOB 3.375 GM 3.375 GM in DEXTROSE 5%-WATER - 100 ML IVPB SCH (14:15)
--- NOTE | 2017-08-05 15:20 | PN ---
Progress Note, Physician Chief Complaint: AWAKE ALERT CHART AND NOTES REVIEWED - Current Medication List Current Medications: Active Medications Atorvastatin Calcium (Lipitor -) 20 mg PO DAILY [facility] Last Admin: 08/05/17 10:01 Dose: 20 mg Clonazepam (Klonopin -) 1 mg PO HS [facility] Duloxetine HCl (Cymbalta -) 30 mg PO DAILY [facility] Last Admin: 08/05/17 10:01 Dose: 30 mg Piperacillin/Tazobactam/Dextrose (Zosyn 3.375gm Ivpb (Premix)) 50 mls @ 100 mls /hr IVPB Q8H-IV [facility] PRN Reason: Protocol Levothyroxine Sodium (Synthroid -) 150 mcg PO DAILY@0700 [facility] Last Admin: 08/05/17 07:57 Dose: 150 mcg Lisinopril (Prinivil) 10 mg PO DAILY [facility] Last Admin: 08/05/17 10:01 Dose: 10 mg Oxycodone HCl (Roxicodone -) 30 mg PO TID [facility] Last Admin: 08/05/17 14:55 Dose: 30 mg Pantoprazole Sodium (Protonix -) 20 mg PO DAILY [facility] Last Admin: 08/05/17 10:01 Dose: 20 mg Pregabalin (Lyrica -) 25 mg PO DAILY [facility] Last Admin: 08/05/17 10:01 Dose: 25 mg Trazodone HCl (Desyrel -) 100 mg PO HS [facility] Zolpidem Tartrate (Ambien -) 10 mg PO HS PRN PRN Reason: INSOMNIA - Objective Vital Signs: Vital Signs Temperature 98.1 F 08/05/17 11:25 Pulse Rate 81 08/05/17 14:10 Respiratory Rate 18 08/05/17 14:10 Blood Pressure 120/69 08/05/17 14:10 O2 Sat by Pulse Oximetry (%) 95 08/05/17 14:10 Constitutional: Yes: Mild Distress Eyes: Yes: WNL HENT: Yes: WNL Neck: Yes: WNL Cardiovascular: Yes: WNL Respiratory: Yes: WNL Gastrointestinal: Yes: WNL Genitourinary: Yes: Other Musculoskeletal: Yes: Back Pain Extremities: Yes: WNL Edema: No Peripheral Pulses WNL: Yes Integumentary: Yes: WNL Wound/Incision: Yes: Clean/Dry Neurological: Yes: WNL ...Motor Strength: WNL Psychiatric: Yes: WNL Labs: CBC, BMP 08/05/17 07:38 08/05/17 07:38 INR, PTT INR 1.26 (0.82-1.09) H 08/05/17 07:38 Problem List - Problems (1) Cystitis Code(s): N30.90 - CYSTITIS, UNSPECIFIED WITHOUT HEMATURIA (2) Fever Code(s): R50.9 - FEVER, UNSPECIFIED Qualifiers: Fever type: unspecified Qualified Code(s): R50.9 - Fever, unspecified (3) Pyelonephritis Code(s): N12 - TUBULO-INTERSTITIAL NEPHRITIS, NOT SPCF ACUTE OR CHRONIC (4) UTI (urinary tract infection) Code(s): N39.0 - URINARY TRACT INFECTION, SITE NOT SPECIFIED Qualifiers: Urinary tract infection type: acute pyelonephritis Qualified Code(s): N10 - Acute pyelonephritis (5) Bronchitis with asthma, acute Code(s): J20.9 - ACUTE BRONCHITIS, UNSPECIFIED; J45.909 - UNSPECIFIED ASTHMA, UNCOMPLICATED Assessment/Plan ID AND CONSULT IV ABX PAIN CONTROL
[2017-08-05] MEDS ORDERED: SODIUM CHLORIDE NASAL SPRAY 44 ML BOTTLE NS PRN (17:48)
[2017-08-05] MEDS ORDERED: traZODone HCL 50 MG TABLET (FP) ONE (21:01)
[2017-08-05] MEDS: clonazePAM 0.5 MG TABLET PO SCH (21:24)
[2017-08-05] MEDS ORDERED: traZODone HCL 100 MG TABLET (FP) PO SCH (22:00)
--- NOTE | 2017-08-06 01:22 | HOSP ---
Subjective - Review of Symptoms Events since last encounter: Nurse called to report allergic reaction. Subjective: pt reports she had hives on abdomen, arms and was itching on the outside of her neck. She denies any difficulty swallowing or tickle in her throat. Physical Examination Vital Signs: Vital Signs Temperature 97.9 F 08/06/17 00:29 Pulse Rate 89 08/06/17 00:29 Respiratory Rate 20 08/06/17 00:29 Blood Pressure 148/77 08/06/17 00:29 O2 Sat by Pulse Oximetry (%) 96 08/05/17 21:34 Constitutional: Yes: No Distress, Calm Cardiovascular: Yes: WNL Respiratory: Yes: WNL Gastrointestinal: Yes: WNL Integumentary: Yes: Other (no hives, no areas of erythema. No swelling noted to face.) Labs: CBC, BMP 08/05/17 07:38 08/05/17 07:38 Hospitalist Encounter Assessment: Probable allergic reaction to zosyn. Resolved at time of exam approx 1h post benadryl. will DC zosyn. s/p ceftriaxone at 10am yesterday. Will hold further antibiotic until ID reevaluates. Addendum [id number] DW Dr. Aragon who will evaluate pt and order antibiotic.
[2017-08-06] MEDS: LEVOTHYROXINE NA 150 MCG TABLET PO SCH (06:11)
[2017-08-06] MEDS: oxyCODONE HCL 5 MG TABLET PO SCH ×3 (06:11→21:31)
[2017-08-06] MEDS: LISINOPRIL 10 MG TABLET (FP) PO SCH (09:20)
[2017-08-06] MEDS: PREGABALIN 25 MG CAPSULE PO SCH (09:20)
[2017-08-06] MEDS: PANTOPRAZOLE 20 MG TABLET (FP) PO SCH (09:20)
[2017-08-06] MEDS: DULoxetine HCL 30 MG CAPSULE.DR (FP) PO SCH (09:20)
[2017-08-06] MEDS: ATORVASTATIN CA 20 MG TABLET (FP) PO SCH (09:20)
[2017-08-06] MEDS: hydrOXYzine HCL 25 MG TABLET (FP) PO SCH ×4 (09:35→23:08)
--- NOTE | 2017-08-06 10:50 | PN ---
Progress Note, Physician Chief Complaint: AWAKE ALERT EVENTS REVIEWED REACTION TO ZOSYN BENADRYL GIVEN PATIENT NO COMPLAINTS AT TIS TIME OF RASH OR FEVER - Current Medication List Current Medications: Active Medications Atorvastatin Calcium (Lipitor -) 20 mg PO DAILY [facility] Last Admin: 08/06/17 09:20 Dose: 20 mg Clonazepam (Klonopin -) 1 mg PO HS [facility] Last Admin: 08/05/17 21:24 Dose: 1 mg Duloxetine HCl (Cymbalta -) 30 mg PO DAILY [facility] Last Admin: 08/06/17 09:20 Dose: 30 mg Hydroxyzine HCl (Atarax -) 25 mg PO Q6HPO [facility] Last Admin: 08/06/17 09:35 Dose: 25 mg Meropenem (Merrem (Restricted To Id) -) 1 gm in 20 mls @ 240 mls/hr IVPUSH Q8H- IV [facility] PRN Reason: Protocol Levothyroxine Sodium (Synthroid -) 150 mcg PO DAILY@0700 [facility] Last Admin: 08/06/17 06:11 Dose: 150 mcg Lisinopril (Prinivil) 10 mg PO DAILY [facility] Last Admin: 08/06/17 09:20 Dose: 10 mg Oxycodone HCl (Roxicodone -) 30 mg PO TID [facility] Last Admin: 08/06/17 06:11 Dose: 30 mg Pantoprazole Sodium (Protonix -) 20 mg PO DAILY [facility] Last Admin: 08/06/17 09:20 Dose: 20 mg Pregabalin (Lyrica -) 25 mg PO DAILY [facility] Last Admin: 08/06/17 09:20 Dose: 25 mg Sodium Chloride ([place] Nasal [place] -) 2 spray NS BID PRN PRN Reason: NASAL CONGESTION Last Admin: 08/05/17 21:20 Dose: 2 spray Trazodone HCl (Desyrel -) 100 mg PO HS [facility] Zolpidem Tartrate (Ambien -) 10 mg PO HS PRN PRN Reason: INSOMNIA - Objective Vital Signs: Vital Signs Temperature 98.3 F 08/06/17 09:00 Pulse Rate 79 08/06/17 09:00 Respiratory Rate 20 08/06/17 09:00 Blood Pressure 122/53 08/06/17 09:00 O2 Sat by Pulse Oximetry (%) 95 08/06/17 09:00 Constitutional: Yes: No Distress Eyes: Yes: WNL HENT: Yes: WNL Neck: Yes: WNL Cardiovascular: Yes: WNL Respiratory: Yes: WNL Gastrointestinal: Yes: WNL Musculoskeletal: Yes: Back Pain, Muscle Weakness Edema: No Peripheral Pulses WNL: Yes Integumentary: Yes: WNL Wound/Incision: Yes: Clean/Dry Neurological: Yes: WNL ...Motor Strength: WNL Psychiatric: Yes: WNL Labs: CBC, BMP 08/05/17 07:38 08/05/17 07:38 INR, PTT INR 1.26 (0.82-1.09) H 08/05/17 07:38 Problem List - Problems (1) Cystitis Code(s): N30.90 - CYSTITIS, UNSPECIFIED WITHOUT HEMATURIA (2) Fever Code(s): R50.9 - FEVER, UNSPECIFIED Qualifiers: Fever type: unspecified Qualified Code(s): R50.9 - Fever, unspecified (3) Pyelonephritis Code(s): N12 - TUBULO-INTERSTITIAL NEPHRITIS, NOT SPCF ACUTE OR CHRONIC (4) UTI (urinary tract infection) Code(s): N39.0 - URINARY TRACT INFECTION, SITE NOT SPECIFIED Qualifiers: Urinary tract infection type: acute pyelonephritis Qualified Code(s): N10 - Acute pyelonephritis (5) Bronchitis with asthma, acute Code(s): J20.9 - ACUTE BRONCHITIS, UNSPECIFIED; J45.909 - UNSPECIFIED ASTHMA, UNCOMPLICATED Assessment/Plan IV ABX DISCUSSED WITH ID WILL MONITOR FOR PYELONEPHRITIS VS PNEUMONITIS. AFEBRILE, LEUKOCYTES TRENDING DOWN TOLERATING PO DIET AWAIT CX DVT PROPHYLAXIS
[2017-08-06] MEDS: MEROPENEM 1 GM PUSH 1 GM/20 ML DISP.SYRIN IVPUSH SCH ×2 (12:11→17:10)
--- NOTE | 2017-08-06 13:18 | EKG ---
Test Reason : Blood Pressure : / mmHG Vent. Rate : 054 BPM Atrial Rate : 054 BPM P-R Int : 126 ms QRS Dur : 090 ms QT Int : 454 ms P-R-T Axes : 036 011 005 degrees QTc Int : 430 ms POOR DATA QUALITY, INTERPRETATION MAY BE ADVERSELY AFFECTED SINUS BRADYCARDIA WITH MARKED SINUS ARRHYTHMIA OTHERWISE NORMAL ECG WHEN COMPARED WITH ECG OF 03-JUN-2017 11:10, NONSPECIFIC T WAVE ABNORMALITY NO LONGER EVIDENT IN LATERAL LEADS Confirmed by LC GOTTI MD ([id number]) on 08/06/2017 1:18:29 PM Referred By: Confirmed By:LC GOTTI MD
--- NOTE | 2017-08-06 16:32 | PN ---
Progress Note, Physician History of Present Illness: still with lot of pain developed some rash to and wierd feeling to zosyn switched abx pain still present slightly better - Current Medication List Current Medications: Active Medications Atorvastatin Calcium (Lipitor -) 20 mg PO DAILY [facility] Last Admin: 08/06/17 09:20 Dose: 20 mg Clonazepam (Klonopin -) 1 mg PO HS [facility] Last Admin: 08/05/17 21:24 Dose: 1 mg Duloxetine HCl (Cymbalta -) 30 mg PO DAILY [facility] Last Admin: 08/06/17 09:20 Dose: 30 mg Hydroxyzine HCl (Atarax -) 25 mg PO Q6HPO [facility] Last Admin: 08/06/17 11:56 Dose: 25 mg Meropenem (Merrem (Restricted To Id) -) 1 gm in 20 mls @ 240 mls/hr IVPUSH Q8H- IV [facility] PRN Reason: Protocol Last Admin: 08/06/17 12:11 Dose: 240 mls/hr Levothyroxine Sodium (Synthroid -) 150 mcg PO DAILY@0700 [facility] Last Admin: 08/06/17 06:11 Dose: 150 mcg Lisinopril (Prinivil) 10 mg PO DAILY [facility] Last Admin: 08/06/17 09:20 Dose: 10 mg Oxycodone HCl (Roxicodone -) 30 mg PO TID [facility] Last Admin: 08/06/17 13:19 Dose: 30 mg Pantoprazole Sodium (Protonix -) 20 mg PO DAILY [facility] Last Admin: 08/06/17 09:20 Dose: 20 mg Pregabalin (Lyrica -) 25 mg PO DAILY [facility] Last Admin: 08/06/17 09:20 Dose: 25 mg Sodium Chloride ([place] Nasal [place] -) 2 spray NS BID PRN PRN Reason: NASAL CONGESTION Last Admin: 08/05/17 21:20 Dose: 2 spray Trazodone HCl (Desyrel -) 100 mg PO HS [facility] Zolpidem Tartrate (Ambien -) 10 mg PO HS PRN PRN Reason: INSOMNIA - Objective Vital Signs: Vital Signs Temperature 97.5 F L 08/06/17 14:02 Pulse Rate 99 H 08/06/17 14:02 Respiratory Rate 20 08/06/17 14:02 Blood Pressure 111/66 08/06/17 14:02 O2 Sat by Pulse Oximetry (%) 95 08/06/17 09:00 Constitutional: Yes: Calm, Mild Distress, Obese Cardiovascular: Yes: Regular Rate and Rhythm Respiratory: Yes: Regular, CTA Bilaterally Gastrointestinal: Yes: Normal Bowel Sounds, Soft Genitourinary: Yes: Other (suprapubic tenderness with some flank discomfort) Musculoskeletal: Yes: WNL Extremities: Yes: WNL Neurological: Yes: Alert, Oriented Psychiatric: Yes: Alert, Oriented Labs: CBC, BMP 08/05/17 07:38 08/05/17 07:38 INR, PTT INR 1.26 (0.82-1.09) H 08/05/17 07:38 Assessment/Plan after looking at the ct scan i am worried that the patient might be having empysematous pyelitits or could be having severe pyelo though the ct scan says it could be due to recent instrumentation i am worried it could be the above thing we will wait for the blood cx to come and urine cx to come and then see how to deal with the problem Problem List - Problems (1) Cystitis Code(s): N30.90 - CYSTITIS, UNSPECIFIED WITHOUT HEMATURIA (2) Fever Code(s): R50.9 - FEVER, UNSPECIFIED Qualifiers: Fever type: unspecified Qualified Code(s): R50.9 - Fever, unspecified (3) Pyelonephritis Code(s): N12 - TUBULO-INTERSTITIAL NEPHRITIS, NOT SPCF ACUTE OR CHRONIC (4) UTI (urinary tract infection) Code(s): N39.0 - URINARY TRACT INFECTION, SITE NOT SPECIFIED Qualifiers: Urinary tract infection type: acute pyelonephritis Qualified Code(s): N10 - Acute pyelonephritis (5) Bronchitis with asthma, acute Code(s): J20.9 - ACUTE BRONCHITIS, UNSPECIFIED; J45.909 - UNSPECIFIED ASTHMA, UNCOMPLICATED 6 r/o emphysematous pyelitis 7 gm negative bactermia patient has positive blood cx and urine cx plan will change abx to meropenam very close watch rest as per primary team ct current mgmt
[2017-08-06] MEDS ORDERED: PT OWN MED DRAWER 7, Y5N ONE ×2 (17:06→23:00)
[2017-08-06] MEDS: clonazePAM 0.5 MG TABLET PO SCH (21:30)
[2017-08-06] MEDS: ZOLPIDEM TARTRATE 5 MG TABLET PO PRN (21:30)
[2017-08-06] MEDS: traZODone HCL 50 MG TABLET (FP) PO SCH (21:30)
[2017-08-07] MEDS ORDERED: PT OWN MED DRAWER 7, Y5N ONE ×4 (01:10→16:59)
[2017-08-07] MEDS: MEROPENEM 1 GM PUSH 1 GM/20 ML DISP.SYRIN IVPUSH SCH ×3 (02:00→17:03)
[2017-08-07] MEDS: hydrOXYzine HCL 25 MG TABLET (FP) PO SCH ×3 (06:20→17:03)
[2017-08-07] MEDS: LEVOTHYROXINE NA 150 MCG TABLET PO SCH (06:20)
[2017-08-07] MEDS: oxyCODONE HCL 5 MG TABLET PO SCH ×3 (06:21→21:18)
[2017-08-07 08:04] LABS: HEMATOCRIT 35.1 % (32.4-45.2); HEMOGLOBIN 11.3 GM/dL (10.7-15.3); MCH 29.3 pg (25.7-33.7); MCHC 32.2 g/dl (32.0-36.0); MEAN PLT VOLUME 7.7 fl (7.5-11.1); PLATELET COUNT 327 K/MM3 (134-434); RBC 3.86 M/mm3 (3.60-5.2); RDW 13.5 % (11.6-15.6)
[2017-08-07 09:00] LABS: ALBUMIN 2.8 g/dl (3.4-5.0); ANION GAP 7 (8-16); BILIRUBIN,TOTAL 0.2 mg/dL (0.2-1.0); BLOOD UREA NITROGEN 3 mg/dL (7-18); CALCIUM 8.6 mg/dL (8.5-10.1); CHLORIDE 103 mmol/L (98-107); CO2 31 mmol/L (21-32); CREATININE 0.7 mg/dL (0.55-1.02); GLUCOSE,RANDOM 94 mg/dL (74-106); POTASSIUM 3.9 mmol/L (3.5-5.1); SGOT/AST 15 U/L (15-37); SGPT/ALT 23 U/L (12-78); SODIUM 141 mmol/L (136-145); TOT PROT 6.6 g/dl (6.4-8.2)
[2017-08-07 09:01] LABS: ALK PHOS 70 U/L (45-117)
[2017-08-07] MEDS: PREGABALIN 25 MG CAPSULE PO SCH (09:08)
[2017-08-07] MEDS: PANTOPRAZOLE 20 MG TABLET (FP) PO SCH (09:08)
[2017-08-07] MEDS: ATORVASTATIN CA 20 MG TABLET (FP) PO SCH (09:08)
[2017-08-07] MEDS: LISINOPRIL 10 MG TABLET (FP) PO SCH (09:09)
[2017-08-07] MEDS: DULoxetine HCL 30 MG CAPSULE.DR (FP) PO SCH (09:09)
--- NOTE | 2017-08-07 17:14 | PN ---
Physical Exam: SUBJECTIVE: Patient seen and examined OBJECTIVE: Vital Signs Period Temp Pulse Resp BP Sys/Richard Pulse Ox Last 24 Hr 98.1 F-99.6 F 80-101 20-20 98-121/61-74 93-95 GENERAL: The patient is awake, alert, and fully oriented, in no acute distress. LUNGS: Breath sounds equal, clear to auscultation bilaterally. HEART: Regular rate and rhythm, S1, S2 without murmur, rub or gallop. ABDOMEN: SNTND NEUROLOGICAL: Cranial nerves II through XII grossly intact. Normal speech, gait not observed. Laboratory Results - last 24 hr 08/07/17 08/07/17 06:00 06:00 WBC 8.0 D RBC 3.86 Hgb 11.3 Hct 35.1 MCV 91.0 MCH 29.3 MCHC 32.2 RDW 13.5 Plt Count 327 MPV 7.7 Sodium 141 Potassium 3.9 Chloride 103 Carbon Dioxide 31 Anion Gap 7 L BUN 3 L D Creatinine 0.7 Creat Clearance w eGFR > 60 Random Glucose 94 Calcium 8.6 Total Bilirubin 0.2 D AST 15 ALT 23 Alkaline Phosphatase 70 D Total Protein 6.6 Albumin 2.8 L Active Medications Generic Name Dose Route Start Last Admin Trade Name Freq PRN Reason Stop Dose Admin Atorvastatin Calcium 20 mg 08/05/17 10:00 08/07/17 09:08 Lipitor - PO 20 mg DAILY [facility] Administration Clonazepam 1 mg 08/05/17 22:00 08/06/17 21:30 Klonopin - PO 1 mg HS [facility] Administration Duloxetine HCl 30 mg 08/05/17 10:00 08/07/17 09:09 Cymbalta - PO 30 mg DAILY [facility] Administration Hydroxyzine HCl 25 mg 08/06/17 08:30 08/07/17 17:03 Atarax - PO 25 mg Q6HPO [facility] Administration Meropenem 1 gm in 20 mls @ 240 mls/hr 08/06/17 10:00 08/07/17 17:03 Merrem (Restricted To Id) - IVPUSH 240 mls/hr Q8H-IV [facility] Administration Protocol Levothyroxine Sodium 150 mcg 08/05/17 07:00 08/07/17 06:20 Synthroid - PO 150 mcg DAILY@0700 [facility] Administration Lisinopril 10 mg 08/05/17 10:00 08/07/17 09:09 Prinivil PO 10 mg DAILY [facility] Administration Oxycodone HCl 30 mg 08/05/17 06:00 08/07/17 13:40 Roxicodone - PO 30 mg TID [facility] Administration Pantoprazole Sodium 20 mg 08/05/17 10:00 08/07/17 09:08 Protonix - PO 20 mg DAILY [facility] Administration Pregabalin 25 mg 08/05/17 10:00 08/07/17 09:08 Lyrica - PO 25 mg DAILY [facility] Administration Sodium Chloride 2 spray 08/05/17 17:48 08/05/17 21:20 [place] Nasal [place] - NS 2 spray BID PRN Administration NASAL CONGESTION Trazodone HCl 100 mg 08/06/17 22:00 08/06/17 21:30 Desyrel - PO 100 mg HS [facility] Administration Zolpidem Tartrate 10 mg 08/05/17 02:02 08/06/17 21:30 Ambien - PO 10 mg HS PRN Administration INSOMNIA Microbiology 08/06/17 10:45 Blood - Arterial Blood Culture - Preliminary NO GROWTH OBTAINED AFTER 24 HOURS, INCUBATION TO CONTINUE FOR 4 DAYS. 08/06/17 10:30 Blood - Arterial Blood Culture - Preliminary NO GROWTH OBTAINED AFTER 24 HOURS, INCUBATION TO CONTINUE FOR 4 DAYS. 08/04/17 21:10 Blood - Peripheral Venous Blood Culture - Preliminary Escherichia Coli Pending Organism 08/04/17 21:10 Blood - Peripheral Venous Blood Culture - Preliminary Pending Organism 08/04/17 20:06 Urine - Urine Clean Catch Urine Culture - Final Escherichia Coli ASSESSMENT/PLAN: A/P: 51yo woman with pmh hypothyroidism, htn, hld who is admittd for UTI Uti - Meropenem - ID following - E. Coli bacteremia PPX - sq Visit type - Emergency Visit Emergency Visit: Yes ED Registration Date: 08/05/17 Care time: The patient presented to the Emergency Department on the above date and was hospitalized for further evaluation of their emergent condition. - New Patient This patient is new to me today: Yes Date on this admission: 08/07/17 - Critical Care Critical Care patient: No
[2017-08-07] MEDS: clonazePAM 0.5 MG TABLET PO SCH (21:17)
[2017-08-07] MEDS: traZODone HCL 50 MG TABLET (FP) PO SCH (21:17)
[2017-08-08] MEDS: hydrOXYzine HCL 25 MG TABLET (FP) PO SCH ×5 (00:33→23:15)
[2017-08-08] MEDS: MEROPENEM 1 GM PUSH 1 GM/20 ML DISP.SYRIN IVPUSH SCH ×3 (01:11→17:27)
[2017-08-08] MEDS: oxyCODONE HCL 5 MG TABLET PO SCH ×3 (05:58→21:31)
[2017-08-08] MEDS: LEVOTHYROXINE NA 150 MCG TABLET PO SCH (05:59)
[2017-08-08 07:47] LABS: BASO % 1.1 % (0-2.0); EOS % 4.1 % (0-4.5); HEMATOCRIT 34.7 % (32.4-45.2); HEMOGLOBIN 11.3 GM/dL (10.7-15.3); LYMPH % 28.1 % (8-40); MCH 29.6 pg (25.7-33.7); MCHC 32.6 g/dl (32.0-36.0); MEAN CELL VOLUME 90.6 fl (80-96); MEAN PLT VOLUME 7.5 fl (7.5-11.1); MONO % 8.4 % (3.8-10.2); NEUT % 58.3 % (42.8-82.8); PLATELET COUNT 343 K/MM3 (134-434); RBC 3.83 M/mm3 (3.60-5.2); RDW 13.4 % (11.6-15.6); WHITE BLOOD COUNT 7.8 K/mm3 (4.0-10.0)
[2017-08-08 08:54] LABS: ANION GAP 9 (8-16); BLOOD UREA NITROGEN 4 mg/dL (7-18); CALCIUM 8.7 mg/dL (8.5-10.1); CHLORIDE 102 mmol/L (98-107); CO2 31 mmol/L (21-32); CREATININE 0.6 mg/dL (0.55-1.02); GLUCOSE,RANDOM 103 mg/dL (74-106); POTASSIUM 4.2 mmol/L (3.5-5.1); SODIUM 142 mmol/L (136-145)
[2017-08-08] MEDS ORDERED: PT OWN MED DRAWER 7, Y5N ONE ×2 (09:09→17:24)
[2017-08-08] MEDS: PREGABALIN 25 MG CAPSULE PO SCH (09:11)
[2017-08-08] MEDS: DULoxetine HCL 30 MG CAPSULE.DR (FP) PO SCH (09:11)
[2017-08-08] MEDS: ATORVASTATIN CA 20 MG TABLET (FP) PO SCH (09:11)
[2017-08-08] MEDS: LISINOPRIL 10 MG TABLET (FP) PO SCH (09:11)
[2017-08-08] MEDS: PANTOPRAZOLE 20 MG TABLET (FP) PO SCH (09:11)
--- NOTE | 2017-08-08 10:23 | PN ---
Progress Note, Physician History of Present Illness: still c/o of pain in the abd left side rt side no pain - Current Medication List Current Medications: Active Medications Atorvastatin Calcium (Lipitor -) 20 mg PO DAILY [facility] Last Admin: 08/08/17 09:11 Dose: 20 mg Clonazepam (Klonopin -) 1 mg PO HS [facility] Last Admin: 08/07/17 21:17 Dose: 1 mg Duloxetine HCl (Cymbalta -) 30 mg PO DAILY [facility] Last Admin: 08/08/17 09:11 Dose: 30 mg Hydroxyzine HCl (Atarax -) 25 mg PO Q6HPO [facility] Last Admin: 08/08/17 05:59 Dose: 25 mg Meropenem (Merrem (Restricted To Id) -) 1 gm in 20 mls @ 240 mls/hr IVPUSH Q8H- IV [facility] PRN Reason: Protocol Last Admin: 08/08/17 09:11 Dose: 240 mls/hr Levothyroxine Sodium (Synthroid -) 150 mcg PO DAILY@0700 [facility] Last Admin: 08/08/17 05:59 Dose: 150 mcg Lisinopril (Prinivil) 10 mg PO DAILY [facility] Last Admin: 08/08/17 09:11 Dose: 10 mg Oxycodone HCl (Roxicodone -) 30 mg PO TID [facility] Last Admin: 08/08/17 05:58 Dose: 30 mg Pantoprazole Sodium (Protonix -) 20 mg PO DAILY [facility] Last Admin: 08/08/17 09:11 Dose: 20 mg Pregabalin (Lyrica -) 25 mg PO DAILY [facility] Last Admin: 08/08/17 09:11 Dose: 25 mg Sodium Chloride ([place] Nasal [place] -) 2 spray NS BID PRN PRN Reason: NASAL CONGESTION Last Admin: 08/05/17 21:20 Dose: 2 spray Trazodone HCl (Desyrel -) 100 mg PO HS [facility] Last Admin: 08/07/17 21:17 Dose: 100 mg Zolpidem Tartrate (Ambien -) 10 mg PO HS PRN PRN Reason: INSOMNIA Last Admin: 08/06/17 21:30 Dose: 10 mg - Objective Vital Signs: Vital Signs Temperature 98.7 F 08/08/17 09:00 Pulse Rate 90 08/08/17 09:00 Respiratory Rate 20 08/08/17 09:00 Blood Pressure 131/74 08/08/17 09:00 O2 Sat by Pulse Oximetry (%) 96 08/08/17 09:00 Constitutional: Yes: Calm, Mild Distress, Obese Cardiovascular: Yes: Regular Rate and Rhythm Respiratory: Yes: Regular, CTA Bilaterally Gastrointestinal: Yes: Normal Bowel Sounds, Soft Musculoskeletal: Yes: WNL Extremities: Yes: WNL Neurological: Yes: Alert, Oriented Psychiatric: Yes: Alert, Oriented Labs: CBC, BMP 08/08/17 06:00 08/08/17 06:00 INR, PTT INR 1.26 (0.82-1.09) H 08/05/17 07:38 Assessment/Plan after looking at the ct scan i am worried that the patient might be having empysematous pyelitits or could be having severe pyelo though the ct scan says it could be due to recent instrumentation i am worried it could be the above thing we will wait for the blood cx to come and urine cx to come and then see how to deal with the problem Problem List - Problems (1) Cystitis Code(s): N30.90 - CYSTITIS, UNSPECIFIED WITHOUT HEMATURIA (2) Fever Code(s): R50.9 - FEVER, UNSPECIFIED Qualifiers: Fever type: unspecified Qualified Code(s): R50.9 - Fever, unspecified (3) Pyelonephritis Code(s): N12 - TUBULO-INTERSTITIAL NEPHRITIS, NOT SPCF ACUTE OR CHRONIC (4) UTI (urinary tract infection) Code(s): N39.0 - URINARY TRACT INFECTION, SITE NOT SPECIFIED Qualifiers: Urinary tract infection type: acute pyelonephritis Qualified Code(s): N10 - Acute pyelonephritis (5) Bronchitis with asthma, acute Code(s): J20.9 - ACUTE BRONCHITIS, UNSPECIFIED; J45.909 - UNSPECIFIED ASTHMA, UNCOMPLICATED 6 r/o emphysematous pyelitis 7 gm negative bactermia patient has positive blood cx and urine cx plan continue meropenam await for urology to see the patient rest continue current mgmt and as primary team repat cx negative after 24 hours
[2017-08-08] MEDS ORDERED: POLYETHYLENE GLYCOL 3350 119 GM BTL PO ONE (11:30)
[2017-08-08] MEDS ORDERED: MAGNESIUM HYDROX 2400MG/30ML ORAL SUSPENSION 30 ML CUP PO ONE (11:30)
--- NOTE | 2017-08-08 12:10 | PN ---
Progress Note, Physician Chief Complaint: AWAKE ALERT STILL WITH PAIN - Current Medication List Current Medications: Active Medications Atorvastatin Calcium (Lipitor -) 20 mg PO DAILY [facility] Last Admin: 08/08/17 09:11 Dose: 20 mg Clonazepam (Klonopin -) 1 mg PO HS [facility] Last Admin: 08/07/17 21:17 Dose: 1 mg Duloxetine HCl (Cymbalta -) 30 mg PO DAILY [facility] Last Admin: 08/08/17 09:11 Dose: 30 mg Hydroxyzine HCl (Atarax -) 25 mg PO Q6HPO [facility] Last Admin: 08/08/17 11:25 Dose: 25 mg Meropenem (Merrem (Restricted To Id) -) 1 gm in 20 mls @ 240 mls/hr IVPUSH Q8H- IV JAVIER PRN Reason: Protocol Last Admin: 08/08/17 09:11 Dose: 240 mls/hr Levothyroxine Sodium (Synthroid -) 150 mcg PO DAILY@0700 [facility] Last Admin: 08/08/17 05:59 Dose: 150 mcg Lisinopril (Prinivil) 10 mg PO DAILY [facility] Last Admin: 08/08/17 09:11 Dose: 10 mg Oxycodone HCl (Roxicodone -) 30 mg PO TID [facility] Last Admin: 08/08/17 05:58 Dose: 30 mg Pantoprazole Sodium (Protonix -) 20 mg PO DAILY [facility] Last Admin: 08/08/17 09:11 Dose: 20 mg Polyethylene Glycol (Miralax (For Daily Use) -) 17 gm PO DAILY [facility] Pregabalin (Lyrica -) 25 mg PO DAILY [facility] Last Admin: 08/08/17 09:11 Dose: 25 mg Sodium Chloride ([place] Nasal [place] -) 2 spray NS BID PRN PRN Reason: NASAL CONGESTION Last Admin: 08/05/17 21:20 Dose: 2 spray Trazodone HCl (Desyrel -) 100 mg PO HS [facility] Last Admin: 08/07/17 21:17 Dose: 100 mg Zolpidem Tartrate (Ambien -) 10 mg PO HS PRN PRN Reason: INSOMNIA Last Admin: 08/06/17 21:30 Dose: 10 mg - Objective Vital Signs: Vital Signs Temperature 98.7 F 08/08/17 09:00 Pulse Rate 90 08/08/17 09:00 Respiratory Rate 20 08/08/17 09:00 Blood Pressure 131/74 08/08/17 09:00 O2 Sat by Pulse Oximetry (%) 96 08/08/17 09:00 Constitutional: Yes: Mild Distress Eyes: Yes: WNL HENT: Yes: WNL Neck: Yes: WNL Cardiovascular: Yes: WNL Respiratory: Yes: WNL Gastrointestinal: Yes: WNL Genitourinary: Yes: WNL Musculoskeletal: Yes: Back Pain, Muscle Weakness Extremities: Yes: WNL Edema: No Peripheral Pulses WNL: Yes Integumentary: Yes: WNL Wound/Incision: Yes: Clean/Dry Neurological: Yes: Pre-Existing Deficit ...Motor Strength: LLE, RLE Psychiatric: Yes: Other Labs: CBC, BMP 08/08/17 06:00 08/08/17 06:00 INR, PTT INR 1.26 (0.82-1.09) H 08/05/17 07:38 Problem List - Problems (1) Cystitis Code(s): N30.90 - CYSTITIS, UNSPECIFIED WITHOUT HEMATURIA (2) Fever Code(s): R50.9 - FEVER, UNSPECIFIED Qualifiers: Fever type: unspecified Qualified Code(s): R50.9 - Fever, unspecified (3) Pyelonephritis Code(s): N12 - TUBULO-INTERSTITIAL NEPHRITIS, NOT SPCF ACUTE OR CHRONIC (4) UTI (urinary tract infection) Code(s): N39.0 - URINARY TRACT INFECTION, SITE NOT SPECIFIED Qualifiers: Urinary tract infection type: acute pyelonephritis Qualified Code(s): N10 - Acute pyelonephritis (5) Bronchitis with asthma, acute Code(s): J20.9 - ACUTE BRONCHITIS, UNSPECIFIED; J45.909 - UNSPECIFIED ASTHMA, UNCOMPLICATED Assessment/Plan IV ABX CONSULT OOB TO CHAIR PT EVAL PAIN CONTROL
--- NOTE | 2017-08-08 12:54 | CON.GU ---
Consult Consult Specialty:: for Dr. Baez Referred by:: Rosmery Reason for Consultation:: pyelonephritis - History of Present Illness Chief Complaint: abd pain, fever History of Present Illness: 51 yo f pres to ER c/o fever, abd and flank pain, found to have UTI/ pyelonephritis and gas in R renal collecting system and proximal ureter. - History Source History Provided By: Patient, Medical Record Limitations to Obtaining History: No Limitations - Past Medical History Cardio/Vascular: Yes: HTN, Hyperlipdemia Gastrointestinal: Yes: GERD Hepatobiliary: Yes: Hepatitis C (treated with Harvoni) Rheumatology: Yes: Fibromyalgia Endocrine: Yes: Hypothyroidism, Other (hypothyroidism) - Alcohol/Substance Use Hx Alcohol Use: No History of Substance Use: reports: None - Smoking History Smoking history: Never smoked Have you smoked in the past 12 months: No - Social History ADL: Support Services (6 hours daily) History of Recent Travel: No Home Medications - Allergies Allergies/Adverse Reactions: Allergies Allergy/AdvReac Type Severity Reaction Status Date / Time piperacillin [From Zosyn] Allergy Verified 08/06/17 19:15 tazobactam [From Zosyn] Allergy Verified 08/06/17 19:15 - Home Medications Home Medications: Ambulatory Orders Levothyroxine Sodium [Synthroid] 150 mcg PO DAILY 01/17/14 Lisinopril [Prinivil] 10 mg PO DAILY 01/17/14 Oxycodone HCl [Roxicodone] 30 mg PO TID 01/17/14 Zolpidem Tartrate [Ambien] 10 mg PO HS 10/26/14 Atorvastatin Ca [Lipitor] 20 mg PO DAILY 08/17/15 Omeprazole [Prilosec] 20 mg PO DAILY 08/17/15 Clonazepam 1 mg PO HS #0 tab 04/30/17 Duloxetine HCl [Cymbalta -] 30 mg PO DAILY #0 tab 04/30/17 Pregabalin [Lyrica] 0 mg PO DAILY 06/03/17 Acetaminophen [Tylenol .Regular Strength -] 650 mg PO Q4H PRN #0 tablet Trazodone HCl 100 mg PO HS #0 tab 06/06/17 Family Disease History - Family Disease History Family Disease History: Heart Disease: Mother ( of [place] at 46), Sister (x2 of [place] age 56 and 60) Physical Exam- Vital Signs: Vital Signs Temperature 98.7 F 08/08/17 09:00 Pulse Rate 90 08/08/17 09:00 Respiratory Rate 20 08/08/17 09:00 Blood Pressure 131/74 08/08/17 09:00 O2 Sat by Pulse Oximetry (%) 96 08/08/17 09:00 Constitutional: Yes: Well Nourished Labs: CBC, BMP 08/08/17 06:00 08/08/17 06:00 Imaging - Results Cat Scan: Report Reviewed, Image Reviewed Assessment/Plan Imp: emphysematous R pyelonephritis, UTI, urinary incontinence Rec: urine c+s, IV abxs, f/u w Dr. Baez after disch.
[2017-08-08] MEDS: clonazePAM 0.5 MG TABLET PO SCH (21:30)
[2017-08-08] MEDS: traZODone HCL 50 MG TABLET (FP) PO SCH (21:30)
[2017-08-08] MEDS: ZOLPIDEM TARTRATE 5 MG TABLET PO PRN (21:31)
[2017-08-09] MEDS: MEROPENEM 1 GM PUSH 1 GM/20 ML DISP.SYRIN IVPUSH SCH ×3 (01:43→17:23)
[2017-08-09] MEDS: oxyCODONE HCL 5 MG TABLET PO SCH ×3 (06:28→22:29)
[2017-08-09] MEDS: LEVOTHYROXINE NA 150 MCG TABLET PO SCH (06:28)
[2017-08-09] MEDS: hydrOXYzine HCL 25 MG TABLET (FP) PO SCH ×3 (06:28→17:24)
[2017-08-09] MEDS ORDERED: PT OWN MED DRAWER 7, Y5N ONE ×2 (09:44→17:06)
[2017-08-09] MEDS: ATORVASTATIN CA 20 MG TABLET (FP) PO SCH (10:03)
[2017-08-09] MEDS: LISINOPRIL 10 MG TABLET (FP) PO SCH (10:03)
[2017-08-09] MEDS: PANTOPRAZOLE 20 MG TABLET (FP) PO SCH (10:03)
[2017-08-09] MEDS: PREGABALIN 25 MG CAPSULE PO SCH (10:03)
[2017-08-09] MEDS: DULoxetine HCL 30 MG CAPSULE.DR (FP) PO SCH (10:03)
[2017-08-09] MEDS: POLYETHYLENE GLYCOL 3350 119 GM BTL PO SCH (10:04)
--- NOTE | 2017-08-09 10:31 | PN ---
Progress Note, Physician History of Present Illness: C/O FLANK PAIN C/O COUGH - Current Medication List Current Medications: Active Medications Atorvastatin Calcium (Lipitor -) 20 mg PO DAILY [facility] Last Admin: 08/09/17 10:03 Dose: 20 mg Clonazepam (Klonopin -) 1 mg PO HS [facility] Last Admin: 08/08/17 21:30 Dose: 1 mg Duloxetine HCl (Cymbalta -) 30 mg PO DAILY [facility] Last Admin: 08/09/17 10:03 Dose: 30 mg Hydroxyzine HCl (Atarax -) 25 mg PO Q6HPO [facility] Last Admin: 08/09/17 06:28 Dose: 25 mg Meropenem (Merrem (Restricted To Id) -) 1 gm in 20 mls @ 240 mls/hr IVPUSH Q8H- IV JAVIER PRN Reason: Protocol Last Admin: 08/09/17 10:04 Dose: 240 mls/hr Levothyroxine Sodium (Synthroid -) 150 mcg PO DAILY@0700 [facility] Last Admin: 08/09/17 06:28 Dose: 150 mcg Lisinopril (Prinivil) 10 mg PO DAILY [facility] Last Admin: 08/09/17 10:03 Dose: 10 mg Oxycodone HCl (Roxicodone -) 30 mg PO TID [facility] Last Admin: 08/09/17 06:28 Dose: 30 mg Pantoprazole Sodium (Protonix -) 20 mg PO DAILY [facility] Last Admin: 08/09/17 10:03 Dose: 20 mg Polyethylene Glycol (Miralax (For Daily Use) -) 17 gm PO DAILY [facility] Last Admin: 08/09/17 10:04 Dose: 17 grams Pregabalin (Lyrica -) 25 mg PO DAILY [facility] Last Admin: 08/09/17 10:03 Dose: 25 mg Sodium Chloride ([place] Nasal [place] -) 2 spray NS BID PRN PRN Reason: NASAL CONGESTION Last Admin: 08/05/17 21:20 Dose: 2 spray Trazodone HCl (Desyrel -) 100 mg PO HS [facility] Last Admin: 08/08/17 21:30 Dose: 100 mg Zolpidem Tartrate (Ambien -) 10 mg PO HS PRN PRN Reason: INSOMNIA Last Admin: 08/08/17 21:31 Dose: 10 mg - Objective Vital Signs: Vital Signs Temperature 98.1 F 08/09/17 05:00 Pulse Rate 62 08/09/17 05:00 Respiratory Rate 18 08/09/17 05:00 Blood Pressure 116/56 08/09/17 05:00 O2 Sat by Pulse Oximetry (%) 98 08/08/17 21:37 Cardiovascular: Yes: Regular Rate and Rhythm Respiratory: Yes: Regular, CTA Bilaterally Gastrointestinal: Yes: Normal Bowel Sounds, Soft, Tenderness Labs: CBC, BMP 08/08/17 06:00 08/08/17 06:00 INR, PTT INR 1.26 (0.82-1.09) H 08/05/17 07:38 Problem List - Problems (1) Pyelonephritis Assessment/Plan: IV ABX ID AND UROLOGY ON [employer] LABS FUA Code(s): N12 - TUBULO-INTERSTITIAL NEPHRITIS, NOT SPCF ACUTE OR CHRONIC (2) Cough Assessment/Plan: CXR NEBS Code(s): R05 - COUGH (3) HTN (hypertension) Assessment/Plan: Vital Signs Period Temp Pulse Resp BP Sys/Richard Pulse Ox Last 24 Hr 98 F-98.4 F 60-82 18-18 114-135/56-76 96-98 Code(s): I10 - ESSENTIAL (PRIMARY) HYPERTENSION
[2017-08-09 10:59] LABS: BASO % 0.5 % (0-2.0); EOS % 4.2 % (0-4.5); HEMATOCRIT 36.4 % (32.4-45.2); HEMOGLOBIN 11.8 GM/dL (10.7-15.3); LYMPH % 34.1 % (8-40); MCH 29.5 pg (25.7-33.7); MCHC 32.4 g/dl (32.0-36.0); MEAN CELL VOLUME 91.3 fl (80-96); MEAN PLT VOLUME 7.2 fl (7.5-11.1); MONO % 8.8 % (3.8-10.2); NEUT % 52.4 % (42.8-82.8); PLATELET COUNT 332 K/MM3 (134-434); RBC 3.99 M/mm3 (3.60-5.2); RDW 13.4 % (11.6-15.6); WHITE BLOOD COUNT 7.2 K/mm3 (4.0-10.0)
[2017-08-09 11:14] LABS: CHLORIDE 100 mmol/L (98-107); CREATININE 0.6 mg/dL (0.55-1.02); POTASSIUM 4.3 mmol/L (3.5-5.1); SODIUM 141 mmol/L (136-145)
[2017-08-09 11:28] LABS: ALK PHOS 67 U/L (45-117); ANION GAP 5 (8-16); BILIRUBIN,TOTAL 0.6 mg/dL (0.2-1.0); BLOOD UREA NITROGEN 7 mg/dL (7-18); CALCIUM 8.5 mg/dL (8.5-10.1); CO2 36 mmol/L (21-32); GLUCOSE,RANDOM 101 mg/dL (74-106); SGOT/AST 15 U/L (15-37); SGPT/ALT 20 U/L (12-78); TOT PROT 6.9 g/dl (6.4-8.2)
--- NOTE | 2017-08-09 13:22 | EKG ---
Test Reason : Blood Pressure : / mmHG Vent. Rate : 055 BPM Atrial Rate : 055 BPM P-R Int : 134 ms QRS Dur : 084 ms QT Int : 436 ms P-R-T Axes : 050 019 013 degrees QTc Int : 417 ms POOR DATA QUALITY, INTERPRETATION MAY BE ADVERSELY AFFECTED SINUS BRADYCARDIA OTHERWISE NORMAL ECG WHEN COMPARED WITH ECG OF 04-AUG-2017 23:00, NO SIGNIFICANT CHANGE WAS FOUND Confirmed by FELIBERTO AHUJA, ERVIN ([id number]) on 08/09/2017 1:22:32 PM Referred By: Jennifer REID Confirmed By:ERVIN DAO MD
--- NOTE | 2017-08-09 13:24 | PN ---
Progres Note Chief Complaint: pt w/o c/o - Objective Vital Signs: Vital Signs Temperature 98.0 F 08/09/17 10:34 Pulse Rate 82 08/09/17 10:34 Respiratory Rate 18 08/09/17 10:34 Blood Pressure 130/60 08/09/17 10:34 O2 Sat by Pulse Oximetry (%) 96 08/09/17 09:00 Labs/Additional Data: CBC, BMP 08/09/17 10:00 08/09/17 10:00 INR, PTT INR 1.26 (0.82-1.09) H 08/05/17 07:38 Blood Type Blood Type A POSITIVE 08/04/17 21:10 Antibody Screen Negative 08/04/17 21:10 Imaging - Results X-ray: Report Reviewed Assessment/Plan Imp: ecoli emphysematous R pyelonephritis Rec: cont iv abxs, change to PO per ID.
[2017-08-09 13:39] LABS: ERYTHROCYTE SEDIMENTATION RATE 53 mm/hr (0-30)
--- NOTE | 2017-08-09 13:51 | PN ---
Progress Note, Physician History of Present Illness: Infectious Disease f/u: Pt states she is feeling better. Still with some Rt flank pain but improved. Lt sided abdominal mild discomfort only when she coughs occasionally but she is not short of breath or producing sputum. Is afebrile and without other complaints. - Current Medication List Current Medications: Active Medications Atorvastatin Calcium (Lipitor -) 20 mg PO DAILY [facility] Last Admin: 08/09/17 10:03 Dose: 20 mg Clonazepam (Klonopin -) 1 mg PO HS [facility] Last Admin: 08/08/17 21:30 Dose: 1 mg Duloxetine HCl (Cymbalta -) 30 mg PO DAILY [facility] Last Admin: 08/09/17 10:03 Dose: 30 mg Hydroxyzine HCl (Atarax -) 25 mg PO Q6HPO [facility] Last Admin: 08/09/17 11:49 Dose: 25 mg Meropenem (Merrem (Restricted To Id) -) 1 gm in 20 mls @ 240 mls/hr IVPUSH Q8H- IV JAVIER PRN Reason: Protocol Last Admin: 08/09/17 10:04 Dose: 240 mls/hr Levothyroxine Sodium (Synthroid -) 150 mcg PO DAILY@0700 [facility] Last Admin: 08/09/17 06:28 Dose: 150 mcg Lisinopril (Prinivil) 10 mg PO DAILY [facility] Last Admin: 08/09/17 10:03 Dose: 10 mg Oxycodone HCl (Roxicodone -) 30 mg PO TID [facility] Last Admin: 08/09/17 13:41 Dose: 30 mg Pantoprazole Sodium (Protonix -) 20 mg PO DAILY [facility] Last Admin: 08/09/17 10:03 Dose: 20 mg Polyethylene Glycol (Miralax (For Daily Use) -) 17 gm PO DAILY [facility] Last Admin: 08/09/17 10:04 Dose: 17 grams Pregabalin (Lyrica -) 25 mg PO DAILY [facility] Last Admin: 08/09/17 10:03 Dose: 25 mg Sodium Chloride ([place] Nasal [place] -) 2 spray NS BID PRN PRN Reason: NASAL CONGESTION Last Admin: 08/05/17 21:20 Dose: 2 spray Trazodone HCl (Desyrel -) 100 mg PO HS [facility] Last Admin: 08/08/17 21:30 Dose: 100 mg Zolpidem Tartrate (Ambien -) 10 mg PO HS PRN PRN Reason: INSOMNIA Last Admin: 08/08/17 21:31 Dose: 10 mg - Objective Vital Signs: Vital Signs Temperature 98.3 F 08/09/17 13:25 Pulse Rate 61 08/09/17 13:25 Respiratory Rate 18 08/09/17 13:25 Blood Pressure 124/76 08/09/17 13:25 O2 Sat by Pulse Oximetry (%) 96 08/09/17 09:00 Constitutional: Yes: No Distress, Calm HENT: Yes: Atraumatic Neck: Yes: Supple Cardiovascular: Yes: Regular Rate and Rhythm Respiratory: Yes: CTA Bilaterally Gastrointestinal: Yes: Normal Bowel Sounds, Soft Genitourinary: Yes: CVA Tenderness - Right (minimal) Extremities: Yes: WNL Integumentary: Yes: WNL Neurological: Yes: Alert, Oriented Labs: CBC, BMP 08/09/17 10:00 08/09/17 10:00 INR, PTT INR 1.26 (0.82-1.09) H 08/05/17 07:38 Microbiology 08/06/17 10:45 Blood - Arterial Blood Culture - Preliminary NO GROWTH OBTAINED AFTER 72 HOURS, INCUBATION TO CONTINUE FOR 2 DAYS. 08/06/17 10:30 Blood - Arterial Blood Culture - Preliminary NO GROWTH OBTAINED AFTER 72 HOURS, INCUBATION TO CONTINUE FOR 2 DAYS. 08/04/17 21:10 Blood - Peripheral Venous Blood Culture - Final Brevundimonas Species 08/04/17 21:10 Blood - Peripheral Venous Blood Culture - Final Escherichia Coli Corynebacterium Minutissumum Streptococcus Viridans 08/04/17 20:06 Urine - Urine Clean Catch Urine Culture - Final Escherichia Coli Problem List - Problems (1) Pyelonephritis Code(s): N12 - TUBULO-INTERSTITIAL NEPHRITIS, NOT SPCF ACUTE OR CHRONIC (2) UTI (urinary tract infection) Code(s): N39.0 - URINARY TRACT INFECTION, SITE NOT SPECIFIED Qualifiers: Urinary tract infection type: acute pyelonephritis Qualified Code(s): N10 - Acute pyelonephritis Assessment/Plan Rt emphysematous pyelonephritis Polymicrobial Bacteremia Leukocytosis/Fever - resolved - latest blood cultures normal - cont IV antibiotics for now, evaluation noted monitor closely
[2017-08-09] MEDS: traZODone HCL 50 MG TABLET (FP) PO SCH (22:28)
[2017-08-09] MEDS: clonazePAM 0.5 MG TABLET PO SCH (22:28)
[2017-08-09] MEDS: ALBUTEROL SO4 2.5/IPRATROPIUM 0.5 INH SOL 3 ML VIAL.NEB. NEB SCH (23:35)
[2017-08-10] MEDS: hydrOXYzine HCL 25 MG TABLET (FP) PO SCH ×4 (01:28→18:31)
[2017-08-10] MEDS: MEROPENEM 1 GM PUSH 1 GM/20 ML DISP.SYRIN IVPUSH SCH ×3 (01:29→18:31)
[2017-08-10] MEDS: oxyCODONE HCL 5 MG TABLET PO SCH ×3 (06:23→22:00)
[2017-08-10] MEDS: LEVOTHYROXINE NA 150 MCG TABLET PO SCH (06:24)
[2017-08-10] MEDS: ALBUTEROL SO4 2.5/IPRATROPIUM 0.5 INH SOL 3 ML VIAL.NEB. NEB SCH ×4 (06:24→23:03)
[2017-08-10 06:36] LABS: SERUM IRON SATURATION 22 % (15-55); TOTAL IRON BINDING CAPACITY 251 ug/dL (250-450); UIBC 195 ug/dL (131-425)
[2017-08-10] MEDS ORDERED: PT OWN MED DRAWER 7, Y5N ONE ×2 (09:07→18:17)
[2017-08-10] MEDS: PREGABALIN 25 MG CAPSULE PO SCH (09:12)
[2017-08-10] MEDS: DULoxetine HCL 30 MG CAPSULE.DR (FP) PO SCH (09:12)
[2017-08-10] MEDS: PANTOPRAZOLE 20 MG TABLET (FP) PO SCH (09:12)
[2017-08-10] MEDS: LISINOPRIL 10 MG TABLET (FP) PO SCH (09:12)
[2017-08-10] MEDS: ATORVASTATIN CA 20 MG TABLET (FP) PO SCH (09:12)
[2017-08-10] MEDS: POLYETHYLENE GLYCOL 3350 119 GM BTL PO SCH (09:13)
--- NOTE | 2017-08-10 11:32 | PN ---
Progress Note, Physician History of Present Illness: C/O LESS FLANK PAIN NO COUGH - Current Medication List Current Medications: Active Medications Albuterol/Ipratropium (Duoneb -) 1 amp NEB QIDR [facility] Last Admin: 08/10/17 06:24 Dose: 1 amp Atorvastatin Calcium (Lipitor -) 20 mg PO DAILY [facility] Last Admin: 08/10/17 09:12 Dose: 20 mg Clonazepam (Klonopin -) 1 mg PO HS [facility] Last Admin: 08/09/17 22:28 Dose: 1 mg Duloxetine HCl (Cymbalta -) 30 mg PO DAILY [facility] Last Admin: 08/10/17 09:12 Dose: 30 mg Hydroxyzine HCl (Atarax -) 25 mg PO Q6HPO [facility] Last Admin: 08/10/17 11:07 Dose: 25 mg Meropenem (Merrem (Restricted To Id) -) 1 gm in 20 mls @ 240 mls/hr IVPUSH Q8H- IV JAVIER PRN Reason: Protocol Last Admin: 08/10/17 09:12 Dose: 240 mls/hr Levothyroxine Sodium (Synthroid -) 150 mcg PO DAILY@0700 [facility] Last Admin: 08/10/17 06:24 Dose: 150 mcg Lisinopril (Prinivil) 10 mg PO DAILY [facility] Last Admin: 08/10/17 09:12 Dose: 10 mg Oxycodone HCl (Roxicodone -) 30 mg PO TID [facility] Last Admin: 08/10/17 06:23 Dose: 30 mg Pantoprazole Sodium (Protonix -) 20 mg PO DAILY [facility] Last Admin: 08/10/17 09:12 Dose: 20 mg Polyethylene Glycol (Miralax (For Daily Use) -) 17 gm PO DAILY [facility] Last Admin: 08/10/17 09:13 Dose: 17 grams Pregabalin (Lyrica -) 25 mg PO DAILY [facility] Last Admin: 08/10/17 09:12 Dose: 25 mg Sodium Chloride ([place] Nasal [place] -) 2 spray NS BID PRN PRN Reason: NASAL CONGESTION Last Admin: 08/05/17 21:20 Dose: 2 spray Trazodone HCl (Desyrel -) 100 mg PO HS [facility] Last Admin: 08/09/17 22:28 Dose: 100 mg - Objective Vital Signs: Vital Signs Temperature 97.7 F 08/10/17 09:09 Pulse Rate 77 08/10/17 09:09 Respiratory Rate 18 08/10/17 09:09 Blood Pressure 120/73 08/10/17 09:09 O2 Sat by Pulse Oximetry (%) 98 08/09/17 20:40 Cardiovascular: Yes: Regular Rate and Rhythm Respiratory: Yes: Regular, CTA Bilaterally Gastrointestinal: Yes: Normal Bowel Sounds, Soft. No: Tenderness Labs: CBC, BMP 08/09/17 10:00 08/09/17 10:00 INR, PTT INR 1.26 (0.82-1.09) H 08/05/17 07:38 Problem List - Problems (1) Pyelonephritis Assessment/Plan: IV ABX ID AND UROLOGY ON [employer] LABS FUA Code(s): N12 - TUBULO-INTERSTITIAL NEPHRITIS, NOT SPCF ACUTE OR CHRONIC (2) Cough Assessment/Plan: RESOLVED CXR NOTED NEBS Code(s): R05 - COUGH (3) HTN (hypertension) Assessment/Plan: Vital Signs Period Temp Pulse Resp BP Sys/Richard Pulse Ox Last 24 Hr 98 F-98.4 F 60-82 18-18 114-135/56-76 96-98 Code(s): I10 - ESSENTIAL (PRIMARY) HYPERTENSION
--- NOTE | 2017-08-10 13:16 | PN ---
Progress Note, Physician History of Present Illness: Pt states she feel a bit better today. No new complaints. No fever/chills. - Current Medication List Current Medications: Active Medications Albuterol/Ipratropium (Duoneb -) 1 amp NEB QIDR [facility] Last Admin: 08/10/17 12:00 Dose: 1 amp Atorvastatin Calcium (Lipitor -) 20 mg PO DAILY [facility] Last Admin: 08/10/17 09:12 Dose: 20 mg Clonazepam (Klonopin -) 1 mg PO HS [facility] Last Admin: 08/09/17 22:28 Dose: 1 mg Duloxetine HCl (Cymbalta -) 30 mg PO DAILY [facility] Last Admin: 08/10/17 09:12 Dose: 30 mg Hydroxyzine HCl (Atarax -) 25 mg PO Q6HPO [facility] Last Admin: 08/10/17 11:07 Dose: 25 mg Meropenem (Merrem (Restricted To Id) -) 1 gm in 20 mls @ 240 mls/hr IVPUSH Q8H- IV JAVIER PRN Reason: Protocol Last Admin: 08/10/17 09:12 Dose: 240 mls/hr Levothyroxine Sodium (Synthroid -) 150 mcg PO DAILY@0700 [facility] Last Admin: 08/10/17 06:24 Dose: 150 mcg Lisinopril (Prinivil) 10 mg PO DAILY [facility] Last Admin: 08/10/17 09:12 Dose: 10 mg Oxycodone HCl (Roxicodone -) 30 mg PO TID [facility] Last Admin: 08/10/17 06:23 Dose: 30 mg Pantoprazole Sodium (Protonix -) 20 mg PO DAILY [facility] Last Admin: 08/10/17 09:12 Dose: 20 mg Polyethylene Glycol (Miralax (For Daily Use) -) 17 gm PO DAILY [facility] Last Admin: 08/10/17 09:13 Dose: 17 grams Pregabalin (Lyrica -) 25 mg PO DAILY [facility] Last Admin: 08/10/17 09:12 Dose: 25 mg Sodium Chloride ([place] Nasal [place] -) 2 spray NS BID PRN PRN Reason: NASAL CONGESTION Last Admin: 08/05/17 21:20 Dose: 2 spray Trazodone HCl (Desyrel -) 100 mg PO HS [facility] Last Admin: 08/09/17 22:28 Dose: 100 mg - Objective Vital Signs: Vital Signs Temperature 97.7 F 08/10/17 09:09 Pulse Rate 77 08/10/17 09:09 Respiratory Rate 18 08/10/17 09:09 Blood Pressure 120/73 08/10/17 09:09 O2 Sat by Pulse Oximetry (%) 95 08/10/17 09:00 Constitutional: Yes: No Distress, Calm Neck: Yes: Supple Cardiovascular: Yes: Regular Rate and Rhythm Respiratory: Yes: CTA Bilaterally Gastrointestinal: Yes: Normal Bowel Sounds, Soft Genitourinary: Yes: CVA Tenderness - Right Extremities: Yes: WNL Neurological: Yes: Alert, Oriented Labs: CBC, BMP 08/09/17 10:00 08/09/17 10:00 INR, PTT INR 1.26 (0.82-1.09) H 08/05/17 07:38 Problem List - Problems (1) Pyelonephritis Code(s): N12 - TUBULO-INTERSTITIAL NEPHRITIS, NOT SPCF ACUTE OR CHRONIC (2) UTI (urinary tract infection) Code(s): N39.0 - URINARY TRACT INFECTION, SITE NOT SPECIFIED Qualifiers: Urinary tract infection type: acute pyelonephritis Qualified Code(s): N10 - Acute pyelonephritis Assessment/Plan Rt emphysematous pyelonephritis Polymicrobial Bacteremia Leukocytosis/Fever - resolved - continue current antibiotics - does not appear septic, is afebrile, without acute distress
--- NOTE | 2017-08-10 13:52 | CON.GI ---
Consult Consult Specialty:: GI Reason for Consultation:: generalized abdomina pain since . - History of Present Illness History of Present Illness: Chart reviewed. Events noted. A 51 yof with chronic constipation on senna and Amitiza daily at home presented with generalized abdominal pain of acute onset w/o nausea, vomiting, diarrhea, jaundice, join, skin symptoms. Had fever, chills. No recent travel, exposure to ill, new medications. NO dysphagia, odynophagia, dyspepsia, GERD-like sympotoms. No melena, hematochezia, hematemesis. Reports recurrent UTIs and was admitted on Friday with working diagnosis of pyelonephritis/UTI. A CT a/p few days ago showed air in renal system, no acute GI findings. Follow up x-ray of the abdoen yesterday revealed dilated colon. No BMs since 08/03/17. Colonoscopy 3 years go was normal. No hx of EGD. Hx of HCV s/p Rx with Harvoni. - History Source History Provided By: Patient, Medical Record - Past Medical History Cardio/Vascular: Yes: HTN, Hyperlipdemia Gastrointestinal: Yes: GERD Hepatobiliary: Yes: Hepatitis C (treated with Harvoni) Rheumatology: Yes: Fibromyalgia Endocrine: Yes: Hypothyroidism, Other (hypothyroidism) - Alcohol/Substance Use Hx Alcohol Use: No History of Substance Use: reports: None - Smoking History Smoking history: Never smoked Have you smoked in the past 12 months: No - Social History ADL: Support Services (6 hours daily) History of Recent Travel: No Home Medications - Allergies Allergies/Adverse Reactions: Allergies Allergy/AdvReac Type Severity Reaction Status Date / Time piperacillin [From Zosyn] Allergy Verified 08/06/17 19:15 tazobactam [From Zosyn] Allergy Verified 08/06/17 19:15 - Home Medications Home Medications: Ambulatory Orders Levothyroxine Sodium [Synthroid] 150 mcg PO DAILY 01/17/14 Lisinopril [Prinivil] 10 mg PO DAILY 01/17/14 Oxycodone HCl [Roxicodone] 30 mg PO TID 01/17/14 Zolpidem Tartrate [Ambien] 10 mg PO HS 10/26/14 Atorvastatin Ca [Lipitor] 20 mg PO DAILY 08/17/15 Omeprazole [Prilosec] 20 mg PO DAILY 08/17/15 Clonazepam 1 mg PO HS #0 tab 04/30/17 Duloxetine HCl [Cymbalta -] 30 mg PO DAILY #0 tab 04/30/17 Pregabalin [Lyrica] 0 mg PO DAILY 06/03/17 Acetaminophen [Tylenol .Regular Strength -] 650 mg PO Q4H PRN #0 tablet Trazodone HCl 100 mg PO HS #0 tab 06/06/17 Family Disease History - Family Disease History Family Disease History: Heart Disease: Mother ( of [place] at 46), Sister (x2 of [place] age 56 and 60) Review of Systems Findings/Remarks: As per H&P ankita HPI Physical Exam-GI Vital Signs: Vital Signs Temperature 97.7 F 08/10/17 09:09 Pulse Rate 77 08/10/17 09:09 Respiratory Rate 18 08/10/17 09:09 Blood Pressure 120/73 08/10/17 09:09 O2 Sat by Pulse Oximetry (%) 95 08/10/17 09:00 Constitutional: Yes: Well Nourished, No Distress, Calm Eyes: Yes: Conjunctiva Clear HENT: Yes: Atraumatic Neck: Yes: Supple Cardiovascular: Yes: Regular Rate and Rhythm Respiratory: Yes: Regular Gastrointestinal Inspection: Yes: Distention ...Auscultate: Yes: Normoactive Bowel Sounds ...Palpate: No: Firm/Rigid, Guarding, Tenderness Neurological: Yes: Alert, Oriented Labs: CBC, BMP 08/09/17 10:00 08/09/17 10:00 INR, PTT INR 1.26 (0.82-1.09) H 08/05/17 07:38 Laboratory Tests 08/04/17 08/04/17 08/04/17 10:02 20:06 20:10 WBC 14.9 H D RBC 4.38 Hgb 13.0 D Hct 38.8 MCV 88.6 MCH 29.6 MCHC 33.4 RDW 13.4 Plt Count 372 D MPV 8.2 Neutrophils % 71.2 D Lymphocytes % 19.3 D Monocytes % 8.9 Eosinophils % 0.3 D Basophils % 0.3 ESR PT with INR INR PTT (Actin FS) 29.8 VBG pH POC VBG pCO2 POC VBG pO2 Mixed VBG HCO3 Sodium Potassium Chloride Carbon Dioxide Anion Gap BUN Creatinine Creat Clearance w eGFR Random Glucose Lactic Acid Calcium Iron TIBC Iron Saturation Ferritin Total Bilirubin AST ALT Alkaline Phosphatase Creatine Kinase Troponin I C-Reactive Protein Total Protein Albumin Lipase TSH Urine Color Yellow Urine Appearance Cloudy Urine pH 6.0 Ur Specific [place] 1.008 Urine Protein 1+ H Urine Glucose (UA) Negative Urine Ketones Negative Urine Blood 2+ H Urine Nitrite Positive Urine Bilirubin Negative Urine Urobilinogen Negative Ur Leukocyte Esterase 3+ H Urine WBC (Auto) 1425 Urine RBC (Auto) 27 Ur Epithelial Cells Many Blood Type Antibody Screen 08/04/17 08/04/17 08/04/17 20:10 20:10 20:10 WBC RBC Hgb Hct MCV MCH MCHC RDW Plt Count MPV Neutrophils % Lymphocytes % Monocytes % Eosinophils % Basophils % ESR PT with INR 14.10 H INR 1.25 H PTT (Actin FS) VBG pH POC VBG pCO2 POC VBG pO2 Mixed VBG HCO3 Sodium 137 Potassium 3.7 Chloride 103 Carbon Dioxide 24 Anion Gap 10 BUN 8 D Creatinine 0.8 Creat Clearance w eGFR > 60 Random Glucose 116 H Lactic Acid Calcium 8.6 Iron TIBC Iron Saturation Ferritin Total Bilirubin 0.7 D AST 13 L D ALT 22 D Alkaline Phosphatase 92 D Creatine Kinase Troponin I C-Reactive Protein Total Protein 7.6 Albumin 3.5 Lipase 100 TSH Urine Color Urine Appearance Urine pH Ur Specific [place] Urine Protein Urine Glucose (UA) Urine Ketones Urine Blood Urine Nitrite Urine Bilirubin Urine Urobilinogen Ur Leukocyte Esterase Urine WBC (Auto) Urine RBC (Auto) Ur Epithelial Cells Blood Type Antibody Screen 08/04/17 08/04/17 08/04/17 21:00 21:10 21:10 WBC RBC Hgb Hct MCV MCH MCHC RDW Plt Count MPV Neutrophils % Lymphocytes % Monocytes % Eosinophils % Basophils % ESR PT with INR INR PTT (Actin FS) VBG pH 7.51 H POC VBG pCO2 31.0 L POC VBG pO2 61.9 H Mixed VBG HCO3 25.1 H Sodium Potassium Chloride Carbon Dioxide Anion Gap BUN Creatinine Creat Clearance w eGFR Random Glucose Lactic Acid 1.5 Calcium Iron TIBC Iron Saturation Ferritin Total Bilirubin AST ALT Alkaline Phosphatase Creatine Kinase 48 Troponin I < 0.02 C-Reactive Protein Total Protein Albumin Lipase TSH Urine Color Urine Appearance Urine pH Ur Specific [place] Urine Protein Urine Glucose (UA) Urine Ketones Urine Blood Urine Nitrite Urine Bilirubin Urine Urobilinogen Ur Leukocyte Esterase Urine WBC (Auto) Urine RBC (Auto) Ur Epithelial Cells Blood Type Antibody Screen 08/04/17 08/05/17 08/05/17 21:10 07:38 07:38 WBC 11.9 H RBC 3.84 Hgb 11.2 D Hct 34.6 MCV 90.1 MCH 29.2 MCHC 32.5 RDW 13.6 Plt Count 298 MPV 7.8 Neutrophils % Lymphocytes % Monocytes % Eosinophils % Basophils % ESR PT with INR 14.20 H INR 1.26 H PTT (Actin FS) 26.1 L VBG pH POC VBG pCO2 POC VBG pO2 Mixed VBG HCO3 Sodium Potassium Chloride Carbon Dioxide Anion Gap BUN Creatinine Creat Clearance w eGFR Random Glucose Lactic Acid Calcium Iron TIBC Iron Saturation Ferritin Total Bilirubin AST ALT Alkaline Phosphatase Creatine Kinase Troponin I C-Reactive Protein Total Protein Albumin Lipase TSH Urine Color Urine Appearance Urine pH Ur Specific [place] Urine Protein Urine Glucose (UA) Urine Ketones Urine Blood Urine Nitrite Urine Bilirubin Urine Urobilinogen Ur Leukocyte Esterase Urine WBC (Auto) Urine RBC (Auto) Ur Epithelial Cells Blood Type A POSITIVE Antibody Screen Negative 08/05/17 08/07/17 08/07/17 07:38 06:00 06:00 WBC 8.0 D RBC 3.86 Hgb 11.3 Hct 35.1 MCV 91.0 MCH 29.3 MCHC 32.2 RDW 13.5 Plt Count 327 MPV 7.7 Neutrophils % Lymphocytes % Monocytes % Eosinophils % Basophils % ESR PT with INR INR PTT (Actin FS) VBG pH POC VBG pCO2 POC VBG pO2 Mixed VBG HCO3 Sodium 140 141 Potassium 3.7 3.9 Chloride 107 103 Carbon Dioxide 26 31 Anion Gap 7 L 7 L BUN 8 3 L D Creatinine 0.6 D 0.7 Creat Clearance w eGFR > 60 Random Glucose 101 94 Lactic Acid Calcium 7.5 L 8.6 Iron TIBC Iron Saturation Ferritin Total Bilirubin 0.2 D AST 15 ALT 23 Alkaline Phosphatase 70 D Creatine Kinase Troponin I C-Reactive Protein Total Protein 6.6 Albumin 2.8 L Lipase TSH Urine Color Urine Appearance Urine pH Ur Specific [place] Urine Protein Urine Glucose (UA) Urine Ketones Urine Blood Urine Nitrite Urine Bilirubin Urine Urobilinogen Ur Leukocyte Esterase Urine WBC (Auto) Urine RBC (Auto) Ur Epithelial Cells Blood Type Antibody Screen 08/08/17 08/08/17 08/09/17 06:00 06:00 10:00 WBC 7.8 RBC 3.83 Hgb 11.3 Hct 34.7 MCV 90.6 MCH 29.6 MCHC 32.6 RDW 13.4 Plt Count 343 MPV 7.5 Neutrophils % 58.3 Lymphocytes % 28.1 D Monocytes % 8.4 Eosinophils % 4.1 D Basophils % 1.1 D ESR PT with INR INR PTT (Actin FS) VBG pH POC VBG pCO2 POC VBG pO2 Mixed VBG HCO3 Sodium 142 141 Potassium 4.2 4.3 Chloride 102 100 Carbon Dioxide 31 36 H Anion Gap 9 5 L BUN 4 L D 7 D Creatinine 0.6 0.6 Creat Clearance w eGFR > 60 Random Glucose 103 101 Lactic Acid Calcium 8.7 8.5 Iron TIBC Iron Saturation Ferritin 114.989 Total Bilirubin 0.6 D AST 15 ALT 20 Alkaline Phosphatase 67 Creatine Kinase 42 Troponin I < 0.02 C-Reactive Protein 2.4 H D Total Protein 6.9 Albumin 3.0 L Lipase TSH 1.35 D Urine Color Urine Appearance Urine pH Ur Specific [place] Urine Protein Urine Glucose (UA) Urine Ketones Urine Blood Urine Nitrite Urine Bilirubin Urine Urobilinogen Ur Leukocyte Esterase Urine WBC (Auto) Urine RBC (Auto) Ur Epithelial Cells Blood Type Antibody Screen 08/09/17 08/09/17 10:00 10:00 WBC 7.2 RBC 3.99 Hgb 11.8 Hct 36.4 MCV 91.3 MCH 29.5 MCHC 32.4 RDW 13.4 Plt Count 332 MPV 7.2 L Neutrophils % 52.4 Lymphocytes % 34.1 D Monocytes % 8.8 Eosinophils % 4.2 Basophils % 0.5 ESR 53 H PT with INR INR PTT (Actin FS) VBG pH POC VBG pCO2 POC VBG pO2 Mixed VBG HCO3 Sodium Potassium Chloride Carbon Dioxide Anion Gap BUN Creatinine Creat Clearance w eGFR Random Glucose Lactic Acid Calcium Iron 56 TIBC 251 Iron Saturation 22 Ferritin Total Bilirubin AST ALT Alkaline Phosphatase Creatine Kinase Troponin I C-Reactive Protein Total Protein Albumin Lipase TSH Urine Color Urine Appearance Urine pH Ur Specific [place] Urine Protein Urine Glucose (UA) Urine Ketones Urine Blood Urine Nitrite Urine Bilirubin Urine Urobilinogen Ur Leukocyte Esterase Urine WBC (Auto) Urine RBC (Auto) Ur Epithelial Cells Blood Type Antibody Screen Imaging - Results Chest X-ray: Report Reviewed X-ray: Report Reviewed (Distended colon) Cat Scan: Report Reviewed (No acute GI pathology) Problem List - Problems (1) Cystitis Code(s): N30.90 - CYSTITIS, UNSPECIFIED WITHOUT HEMATURIA (2) Pyelonephritis Code(s): N12 - TUBULO-INTERSTITIAL NEPHRITIS, NOT SPCF ACUTE OR CHRONIC (3) UTI (urinary tract infection) Code(s): N39.0 - URINARY TRACT INFECTION, SITE NOT SPECIFIED Qualifiers: Urinary tract infection type: acute pyelonephritis Qualified Code(s): N10 - Acute pyelonephritis (4) Constipation Code(s): K59.00 - CONSTIPATION, UNSPECIFIED Qualifiers: Constipation type: unspecified constipation type Qualified Code(s): K59.00 - Constipation, unspecified (5) Fibromyalgia Code(s): M79.7 - FIBROMYALGIA Assessment/Plan Probably slow transit constipation with recent x-ray evidence of dilated colon. CT a/p 5 days ago offered no acute GI pathology. Normal liver chemistry, ALP, bili, Hgb. The pain may be related to the underlying, acute renal issues that are being addressed. As discussed with the patient, trial of Golyte-based bowel prep today followed by Miramax 17 g tid-bid. Restart Amitiza on discharge. Will follow
[2017-08-10] MEDS ORDERED: PEG 3350/NA SULF BICARB CL/KCL 4000 ML SOLN.RECON PO ONE (14:03)
[2017-08-10] MEDS ORDERED: BISACODYL 5 MG TABLET.DR (FP) PO ONE (14:03)
--- NOTE | 2017-08-10 14:27 | CONS ---
DATE OF CONSULTATION: DATE OF DICTATION: 08/10/2017 The patient is a 51-year-old female with history of emphysematous pyelonephritis. Urine cultures grew out Escherichia coli. Presently, the patient's temperature maximum is 98, her blood pressure is 120/73. Her last CBC revealed a white count of 7.2, hemoglobin 11.8, hematocrit 36.2. Chemistries revealed BUN 7, creatinine 7.6, random glucose is 101. The urine still shows 2+ blood, positive nitrites. The patient is complaining of itching. She is presently voiding without dysuria or frequency. A previous CT scan of the abdomen and pelvis revealed moderate amount of air within the right collecting system and ureter and the urinary bladder. There was no evidence of urinary tract stones, mass lesions, or obstruction. There was a cystic structure, proximal left thigh, of uncertain etiology. An MRI with gadolinium will be performed to assess the etiology of the mass. Presently, the patient is afebrile, her abdomen is soft. There is no CVA tenderness. Her fever and flank pain have resolved. She is urologically stable for discharge. Will workup the left upper thigh lesion as an outpatient. LAYLA NARANJO M.D. [id number]
[2017-08-10] MEDS: traZODone HCL 50 MG TABLET (FP) PO SCH (22:00)
[2017-08-10] MEDS: clonazePAM 0.5 MG TABLET PO SCH (22:00)
[2017-08-11] MEDS: hydrOXYzine HCL 25 MG TABLET (FP) PO SCH ×4 (00:05→17:11)
[2017-08-11] MEDS: MEROPENEM 1 GM PUSH 1 GM/20 ML DISP.SYRIN IVPUSH SCH ×3 (02:36→17:11)
[2017-08-11] MEDS: oxyCODONE HCL 5 MG TABLET PO SCH ×3 (05:56→21:57)
[2017-08-11] MEDS: LEVOTHYROXINE NA 150 MCG TABLET PO SCH (05:59)
[2017-08-11] MEDS: ALBUTEROL SO4 2.5/IPRATROPIUM 0.5 INH SOL 3 ML VIAL.NEB. NEB SCH ×3 (06:24→17:14)
[2017-08-11] MEDS: DULoxetine HCL 30 MG CAPSULE.DR (FP) PO SCH (09:36)
[2017-08-11] MEDS: ATORVASTATIN CA 20 MG TABLET (FP) PO SCH (09:36)
[2017-08-11] MEDS: PREGABALIN 25 MG CAPSULE PO SCH (09:36)
[2017-08-11] MEDS: PANTOPRAZOLE 20 MG TABLET (FP) PO SCH (09:37)
[2017-08-11] MEDS: POLYETHYLENE GLYCOL 3350 119 GM BTL PO SCH ×3 (09:37→21:56)
[2017-08-11] MEDS: LISINOPRIL 10 MG TABLET (FP) PO SCH (09:37)
--- NOTE | 2017-08-11 11:12 | PN ---
Progress Note, Physician History of Present Illness: Chart reviewed. Had good bms after 2/3 of Golytely. No melena, hematochezia. Abdomen not distended. Still has generalized abdominal pain and states it's similar to Fibromyalgia-type pain. - Current Medication List Current Medications: Active Medications Albuterol/Ipratropium (Duoneb -) 1 amp NEB QIDR [facility] Last Admin: 08/11/17 06:24 Dose: 1 amp Atorvastatin Calcium (Lipitor -) 20 mg PO DAILY [facility] Last Admin: 08/11/17 09:36 Dose: 20 mg Clonazepam (Klonopin -) 1 mg PO HS [facility] Last Admin: 08/10/17 22:00 Dose: 1 mg Duloxetine HCl (Cymbalta -) 30 mg PO DAILY [facility] Last Admin: 08/11/17 09:36 Dose: 30 mg Hydroxyzine HCl (Atarax -) 25 mg PO Q6HPO [facility] Last Admin: 08/11/17 05:55 Dose: 25 mg Meropenem (Merrem (Restricted To Id) -) 1 gm in 20 mls @ 240 mls/hr IVPUSH Q8H- IV JAVIER PRN Reason: Protocol Last Admin: 08/11/17 09:36 Dose: 240 mls/hr Levothyroxine Sodium (Synthroid -) 150 mcg PO DAILY@0700 [facility] Last Admin: 08/11/17 05:59 Dose: 150 mcg Lisinopril (Prinivil) 10 mg PO DAILY [facility] Last Admin: 08/11/17 09:37 Dose: 10 mg Oxycodone HCl (Roxicodone -) 30 mg PO TID [facility] Last Admin: 08/11/17 05:56 Dose: 30 mg Pantoprazole Sodium (Protonix -) 20 mg PO DAILY [facility] Last Admin: 08/11/17 09:37 Dose: 20 mg Polyethylene Glycol (Miralax (For Daily Use) -) 17 gm PO DAILY [facility] Last Admin: 08/11/17 09:37 Dose: 17 grams Pregabalin (Lyrica -) 25 mg PO DAILY [facility] Last Admin: 08/11/17 09:36 Dose: 25 mg Sodium Chloride ([place] Nasal [place] -) 2 spray NS BID PRN PRN Reason: NASAL CONGESTION Last Admin: 08/05/17 21:20 Dose: 2 spray Trazodone HCl (Desyrel -) 100 mg PO HS [facility] Last Admin: 08/10/17 22:00 Dose: 100 mg - Objective Vital Signs: Vital Signs Temperature 98.3 F 08/11/17 06:00 Pulse Rate 72 08/11/17 06:00 Respiratory Rate 18 08/11/17 06:00 Blood Pressure 116/75 08/11/17 06:00 O2 Sat by Pulse Oximetry (%) 96 08/10/17 21:00 Constitutional: Yes: Well Nourished, No Distress, Calm Eyes: Yes: Conjunctiva Clear HENT: Yes: Atraumatic Neck: Yes: Supple Cardiovascular: Yes: Regular Rate and Rhythm Respiratory: Yes: Regular Gastrointestinal: No: Distention, Melena, Rectal Bleeding, Tenderness, Tenderness, Epigastrium, Tenderness, Rebound Neurological: Yes: Alert, Oriented Labs: CBC, BMP 08/09/17 10:00 08/09/17 10:00 INR, PTT INR 1.26 (0.82-1.09) H 08/05/17 07:38 Problem List - Problems (1) Cystitis Code(s): N30.90 - CYSTITIS, UNSPECIFIED WITHOUT HEMATURIA (2) Pyelonephritis Code(s): N12 - TUBULO-INTERSTITIAL NEPHRITIS, NOT SPCF ACUTE OR CHRONIC (3) UTI (urinary tract infection) Code(s): N39.0 - URINARY TRACT INFECTION, SITE NOT SPECIFIED Qualifiers: Urinary tract infection type: acute pyelonephritis Qualified Code(s): N10 - Acute pyelonephritis (4) Constipation Code(s): K59.00 - CONSTIPATION, UNSPECIFIED Qualifiers: Constipation type: unspecified constipation type Qualified Code(s): K59.00 - Constipation, unspecified (5) Fibromyalgia Code(s): M79.7 - FIBROMYALGIA Assessment/Plan Probably slow transit constipation with recent x-ray evidence of dilated colon. CT a/p 5 days ago offered no acute GI pathology. Normal liver chemistry, ALP, bili, Hgb. The pain may be related to fibromyalgia and/or underlying, acute renal issues that are being addressed. Will continue to monitor Miralax po tid Renal work up in progress fibromyalgia pain management.
--- NOTE | 2017-08-11 13:07 | PN ---
Progress Note, Physician History of Present Illness: patient continues to feels still very sick sweating at night according to her abd pain left side still present - Current Medication List Current Medications: Active Medications Albuterol/Ipratropium (Duoneb -) 1 amp NEB QIDR [facility] Last Admin: 08/11/17 06:24 Dose: 1 amp Atorvastatin Calcium (Lipitor -) 20 mg PO DAILY [facility] Last Admin: 08/11/17 09:36 Dose: 20 mg Clonazepam (Klonopin -) 1 mg PO HS [facility] Last Admin: 08/10/17 22:00 Dose: 1 mg Duloxetine HCl (Cymbalta -) 30 mg PO DAILY [facility] Last Admin: 08/11/17 09:36 Dose: 30 mg Hydroxyzine HCl (Atarax -) 25 mg PO Q6HPO [facility] Last Admin: 08/11/17 05:55 Dose: 25 mg Meropenem (Merrem (Restricted To Id) -) 1 gm in 20 mls @ 240 mls/hr IVPUSH Q8H- IV JAVIER PRN Reason: Protocol Last Admin: 08/11/17 09:36 Dose: 240 mls/hr Levothyroxine Sodium (Synthroid -) 150 mcg PO DAILY@0700 [facility] Last Admin: 08/11/17 05:59 Dose: 150 mcg Lisinopril (Prinivil) 10 mg PO DAILY [facility] Last Admin: 08/11/17 09:37 Dose: 10 mg Oxycodone HCl (Roxicodone -) 30 mg PO TID [facility] Last Admin: 08/11/17 05:56 Dose: 30 mg Pantoprazole Sodium (Protonix -) 20 mg PO DAILY [facility] Last Admin: 08/11/17 09:37 Dose: 20 mg Polyethylene Glycol (Miralax (For Daily Use) -) 17 gm PO TID [facility] Pregabalin (Lyrica -) 25 mg PO DAILY [facility] Last Admin: 08/11/17 09:36 Dose: 25 mg Sodium Chloride ([place] Nasal [place] -) 2 spray NS BID PRN PRN Reason: NASAL CONGESTION Last Admin: 08/05/17 21:20 Dose: 2 spray Trazodone HCl (Desyrel -) 100 mg PO HS [facility] Last Admin: 08/10/17 22:00 Dose: 100 mg - Objective Vital Signs: Vital Signs Temperature 98.2 F 08/11/17 09:00 Pulse Rate 76 08/11/17 09:00 Respiratory Rate 20 08/11/17 09:00 Blood Pressure 107/64 08/11/17 09:00 O2 Sat by Pulse Oximetry (%) 96 08/11/17 09:00 Constitutional: Yes: Calm, Moderate Distress Cardiovascular: Yes: Regular Rate and Rhythm Respiratory: Yes: Regular, CTA Bilaterally Gastrointestinal: Yes: Normal Bowel Sounds, Soft Musculoskeletal: Yes: WNL Extremities: Yes: WNL Neurological: Yes: Alert, Oriented Psychiatric: Yes: Alert, Oriented Labs: CBC, BMP 08/09/17 10:00 08/09/17 10:00 INR, PTT INR 1.26 (0.82-1.09) H 08/05/17 07:38 Assessment/Plan Problem List - Problems (1) Cystitis Code(s): N30.90 - CYSTITIS, UNSPECIFIED WITHOUT HEMATURIA (2) Fever Code(s): R50.9 - FEVER, UNSPECIFIED Qualifiers: Fever type: unspecified Qualified Code(s): R50.9 - Fever, unspecified (3) Pyelonephritis Code(s): N12 - TUBULO-INTERSTITIAL NEPHRITIS, NOT SPCF ACUTE OR CHRONIC (4) UTI (urinary tract infection) Code(s): N39.0 - URINARY TRACT INFECTION, SITE NOT SPECIFIED Qualifiers: Urinary tract infection type: acute pyelonephritis Qualified Code(s): N10 - Acute pyelonephritis (5) Bronchitis with asthma, acute Code(s): J20.9 - ACUTE BRONCHITIS, UNSPECIFIED; J45.909 - UNSPECIFIED ASTHMA, UNCOMPLICATED 6 r/o emphysematous pyelitis 7 gm negative bactermia patient has positive blood cx and urine cx plan continue meropenam cx negative so far patient will need 2 weeks of abx close watch on the aptient patient remaining afebrile with vitals wnl
--- NOTE | 2017-08-11 13:35 | PN ---
Progress Note, Physician Chief Complaint: complaining of right sided flank pain on iv abx - Current Medication List Current Medications: Active Medications Albuterol/Ipratropium (Duoneb -) 1 amp NEB QIDR [facility] Last Admin: 08/11/17 11:06 Dose: 1 amp Atorvastatin Calcium (Lipitor -) 20 mg PO DAILY [facility] Last Admin: 08/11/17 09:36 Dose: 20 mg Clonazepam (Klonopin -) 1 mg PO HS [facility] Last Admin: 08/10/17 22:00 Dose: 1 mg Duloxetine HCl (Cymbalta -) 30 mg PO DAILY [facility] Last Admin: 08/11/17 09:36 Dose: 30 mg Hydroxyzine HCl (Atarax -) 25 mg PO Q6HPO [facility] Last Admin: 08/11/17 05:55 Dose: 25 mg Meropenem (Merrem (Restricted To Id) -) 1 gm in 20 mls @ 240 mls/hr IVPUSH Q8H- IV [facility] PRN Reason: Protocol Last Admin: 08/11/17 09:36 Dose: 240 mls/hr Levothyroxine Sodium (Synthroid -) 150 mcg PO DAILY@0700 [facility] Last Admin: 08/11/17 05:59 Dose: 150 mcg Lisinopril (Prinivil) 10 mg PO DAILY [facility] Last Admin: 08/11/17 09:37 Dose: 10 mg Oxycodone HCl (Roxicodone -) 30 mg PO TID [facility] Last Admin: 08/11/17 05:56 Dose: 30 mg Pantoprazole Sodium (Protonix -) 20 mg PO DAILY [facility] Last Admin: 08/11/17 09:37 Dose: 20 mg Polyethylene Glycol (Miralax (For Daily Use) -) 17 gm PO TID [facility] Pregabalin (Lyrica -) 25 mg PO DAILY [facility] Last Admin: 08/11/17 09:36 Dose: 25 mg Sodium Chloride ([place] Nasal [place] -) 2 spray NS BID PRN PRN Reason: NASAL CONGESTION Last Admin: 08/05/17 21:20 Dose: 2 spray Trazodone HCl (Desyrel -) 100 mg PO HS [facility] Last Admin: 08/10/17 22:00 Dose: 100 mg - Objective Vital Signs: Vital Signs Temperature 98.2 F 08/11/17 09:00 Pulse Rate 57 L 08/11/17 11:05 Respiratory Rate 20 08/11/17 09:00 Blood Pressure 107/64 08/11/17 09:00 O2 Sat by Pulse Oximetry (%) 94 L 08/11/17 11:05 Constitutional: Yes: Calm Cardiovascular: Yes: Regular Rate and Rhythm, S1, S2 Respiratory: Yes: CTA Bilaterally Gastrointestinal: Yes: Other (right sided tenderness) Neurological: Yes: Alert, Oriented Labs: CBC, BMP 08/09/17 10:00 08/09/17 10:00 INR, PTT INR 1.26 (0.82-1.09) H 08/05/17 07:38 Problem List - Problems (1) Pyelonephritis Assessment/Plan: iv abx per ID Code(s): N12 - TUBULO-INTERSTITIAL NEPHRITIS, NOT SPCF ACUTE OR CHRONIC (2) Fibromyalgia Assessment/Plan: duloxetine Code(s): M79.7 - FIBROMYALGIA (3) HTN (hypertension) Assessment/Plan: lisinopriil Code(s): I10 - ESSENTIAL (PRIMARY) HYPERTENSION (4) Hypothyroid Assessment/Plan: tsh ok on synthroid Code(s): E03.9 - HYPOTHYROIDISM, UNSPECIFIED
[2017-08-11] MEDS: clonazePAM 0.5 MG TABLET PO SCH (21:54)
[2017-08-11] MEDS: traZODone HCL 50 MG TABLET (FP) PO SCH (21:55)
[2017-08-12] MEDS: hydrOXYzine HCL 25 MG TABLET (FP) PO SCH ×2 (00:55→06:17)
[2017-08-12] MEDS: MEROPENEM 1 GM PUSH 1 GM/20 ML DISP.SYRIN IVPUSH SCH ×2 (01:13→10:18)
[2017-08-12] MEDS: ALBUTEROL SO4 2.5/IPRATROPIUM 0.5 INH SOL 3 ML VIAL.NEB. NEB SCH ×2 (06:15)
[2017-08-12] MEDS: POLYETHYLENE GLYCOL 3350 119 GM BTL PO SCH (06:18)
[2017-08-12] MEDS: LEVOTHYROXINE NA 150 MCG TABLET PO SCH (06:18)
[2017-08-12] MEDS ORDERED: PT OWN MED DRAWER 7, Y5N ONE (09:26)
[2017-08-12] MEDS: DULoxetine HCL 30 MG CAPSULE.DR (FP) PO SCH (10:18)
[2017-08-12] MEDS: LISINOPRIL 10 MG TABLET (FP) PO SCH (10:19)
[2017-08-12] MEDS: PANTOPRAZOLE 20 MG TABLET (FP) PO SCH (10:19)
[2017-08-12] MEDS ORDERED: ALBUTEROL SO4 2.5/IPRATROPIUM 0.5 INH SOL 3 ML VIAL.NEB. NEB SCH (10:22)
[2017-08-12] MEDS: ATORVASTATIN CA 20 MG TABLET (FP) PO SCH (10:24)
--- NOTE | 2017-08-12 12:22 | PN ---
Progress Note, Physician History of Present Illness: States abdominal pain better today. No events. No melena, hematochezia. Abdomen not distended. - Current Medication List Current Medications: Active Medications Albuterol/Ipratropium (Duoneb -) 1 amp NEB RQID [facility] Last Admin: 08/12/17 12:02 Dose: 1 amp Atorvastatin Calcium (Lipitor -) 20 mg PO DAILY [facility] Last Admin: 08/12/17 10:24 Dose: 20 mg Clonazepam (Klonopin -) 1 mg PO HS [facility] Last Admin: 08/11/17 21:54 Dose: 1 mg Duloxetine HCl (Cymbalta -) 30 mg PO DAILY [facility] Last Admin: 08/12/17 10:18 Dose: 30 mg Hydroxyzine HCl (Atarax -) 25 mg PO Q6HPO [facility] Last Admin: 08/12/17 06:17 Dose: Not Given Meropenem (Merrem (Restricted To Id) -) 1 gm in 20 mls @ 240 mls/hr IVPUSH Q8H- IV [facility] PRN Reason: Protocol Last Admin: 08/12/17 10:18 Dose: 240 mls/hr Levothyroxine Sodium (Synthroid -) 150 mcg PO DAILY@0700 [facility] Last Admin: 08/12/17 06:18 Dose: 150 mcg Lisinopril (Prinivil) 10 mg PO DAILY [facility] Last Admin: 08/12/17 10:19 Dose: 10 mg Pantoprazole Sodium (Protonix -) 20 mg PO DAILY [facility] Last Admin: 08/12/17 10:19 Dose: 20 mg Polyethylene Glycol (Miralax (For Daily Use) -) 17 gm PO TID [facility] Last Admin: 08/12/17 06:18 Dose: 17 gm Sodium Chloride ([place] -) 2 spray NS BID PRN PRN Reason: NASAL CONGESTION Last Admin: 08/05/17 21:20 Dose: 2 spray Trazodone HCl (Desyrel -) 100 mg PO [facility] Last Admin: 08/11/17 21:55 Dose: 100 mg - Objective Vital Signs: Vital Signs Temperature 98.4 F 08/12/17 06:00 Pulse Rate 69 08/12/17 06:00 Respiratory Rate 18 08/12/17 06:00 Blood Pressure 122/66 08/12/17 06:00 O2 Sat by Pulse Oximetry (%) 96 08/11/17 20:43 Constitutional: Yes: No Distress, Calm Eyes: Yes: Conjunctiva Clear HENT: Yes: Atraumatic Neurological: Yes: Alert, Oriented Labs: CBC, BMP 08/09/17 10:00 08/09/17 10:00 INR, PTT INR 1.26 (0.82-1.09) H 08/05/17 07:38 Problem List - Problems (1) Cystitis Code(s): N30.90 - CYSTITIS, UNSPECIFIED WITHOUT HEMATURIA (2) Pyelonephritis Code(s): N12 - TUBULO-INTERSTITIAL NEPHRITIS, NOT SPCF ACUTE OR CHRONIC (3) UTI (urinary tract infection) Code(s): N39.0 - URINARY TRACT INFECTION, SITE NOT SPECIFIED Qualifiers: Urinary tract infection type: acute pyelonephritis Qualified Code(s): N10 - Acute pyelonephritis (4) Constipation Code(s): K59.00 - CONSTIPATION, UNSPECIFIED Qualifiers: Constipation type: unspecified constipation type Qualified Code(s): K59.00 - Constipation, unspecified (5) Fibromyalgia Code(s): M79.7 - FIBROMYALGIA Assessment/Plan Will continue to monitor Miralax po bid Renal work up in progress fibromyalgia pain management.
--- NOTE | 2017-08-12 14:26 | PN ---
Progress Note, Physician History of Present Illness: still continues to c/o of abd pain sweating - Current Medication List Current Medications: Active Medications Albuterol/Ipratropium (Duoneb -) 1 amp NEB RQID [facility] Last Admin: 08/12/17 12:02 Dose: 1 amp Atorvastatin Calcium (Lipitor -) 20 mg PO DAILY [facility] Last Admin: 08/12/17 10:24 Dose: 20 mg Clonazepam (Klonopin -) 1 mg PO HS [facility] Last Admin: 08/11/17 21:54 Dose: 1 mg Duloxetine HCl (Cymbalta -) 30 mg PO DAILY [facility] Last Admin: 08/12/17 10:18 Dose: 30 mg Hydroxyzine HCl (Atarax -) 25 mg PO Q6HPO [facility] Last Admin: 08/12/17 06:17 Dose: Not Given Meropenem (Merrem (Restricted To Id) -) 1 gm in 20 mls @ 240 mls/hr IVPUSH Q8H- IV [facility] PRN Reason: Protocol Last Admin: 08/12/17 10:18 Dose: 240 mls/hr Levothyroxine Sodium (Synthroid -) 150 mcg PO DAILY@0700 [facility] Last Admin: 08/12/17 06:18 Dose: 150 mcg Lisinopril (Prinivil) 10 mg PO DAILY [facility] Last Admin: 08/12/17 10:19 Dose: 10 mg Pantoprazole Sodium (Protonix -) 20 mg PO DAILY [facility] Last Admin: 08/12/17 10:19 Dose: 20 mg Polyethylene Glycol (Miralax (For Daily Use) -) 17 gm PO TID [facility] Last Admin: 08/12/17 06:18 Dose: 17 gm Sodium Chloride ([place] Nasal [place] -) 2 spray NS BID PRN PRN Reason: NASAL CONGESTION Last Admin: 08/05/17 21:20 Dose: 2 spray Trazodone HCl (Desyrel -) 100 mg PO HS [facility] Last Admin: 08/11/17 21:55 Dose: 100 mg - Objective Vital Signs: Vital Signs Temperature 98.4 F 08/12/17 06:00 Pulse Rate 69 08/12/17 06:00 Respiratory Rate 18 08/12/17 06:00 Blood Pressure 122/66 08/12/17 06:00 O2 Sat by Pulse Oximetry (%) 96 01/08/18 20:43 Constitutional: Yes: Calm, Mild Distress, Obese Cardiovascular: Yes: Regular Rate and Rhythm Respiratory: Yes: Regular, CTA Bilaterally Gastrointestinal: Yes: Normal Bowel Sounds, Soft Musculoskeletal: Yes: WNL Extremities: Yes: WNL Neurological: Yes: Alert, Oriented Psychiatric: Yes: Alert, Oriented Labs: CBC, BMP 08/09/17 10:00 08/09/17 10:00 INR, PTT INR 1.26 (0.82-1.09) H 08/05/17 07:38 Assessment/Plan Problem List - Problems (1) Cystitis Code(s): N30.90 - CYSTITIS, UNSPECIFIED WITHOUT HEMATURIA (2) Fever Code(s): R50.9 - FEVER, UNSPECIFIED Qualifiers: Fever type: unspecified Qualified Code(s): R50.9 - Fever, unspecified (3) Pyelonephritis Code(s): N12 - TUBULO-INTERSTITIAL NEPHRITIS, NOT SPCF ACUTE OR CHRONIC (4) UTI (urinary tract infection) Code(s): N39.0 - URINARY TRACT INFECTION, SITE NOT SPECIFIED Qualifiers: Urinary tract infection type: acute pyelonephritis Qualified Code(s): N10 - Acute pyelonephritis (5) Bronchitis with asthma, acute Code(s): J20.9 - ACUTE BRONCHITIS, UNSPECIFIED; J45.909 - UNSPECIFIED ASTHMA, UNCOMPLICATED 6 r/o emphysematous pyelitis 7 gm negative bactermia patient has positive blood cx and urine cx plan continue meropenam cx negative so far patient will need 2 weeks of abx continue monitoring wbc and vitals normal
[2017-08-12 14:57] VITALS: BP 124/58; PULSE 82; TEMP 98.7
--- NOTE | 2017-08-12 15:09 | DS ---
Physical Examination Vital Signs: Vital Signs Temperature 98.7 F 08/12/17 14:56 Pulse Rate 82 08/12/17 14:56 Respiratory Rate 18 08/12/17 14:56 Blood Pressure 124/58 08/12/17 14:56 O2 Sat by Pulse Oximetry (%) 96 08/11/17 20:43 Constitutional: Yes: Mild Distress Eyes: Yes: WNL HENT: Yes: WNL Neck: Yes: WNL Cardiovascular: Yes: WNL Respiratory: Yes: WNL Gastrointestinal: Yes: Tenderness Renal/: Yes: WNL Musculoskeletal: Yes: Back Pain, Muscle Pain, Muscle Weakness Extremities: Yes: WNL Edema: No Peripheral Pulses WNL: Yes Integumentary: Yes: WNL Wound/Incision: Yes: Clean/Dry Neurological: Yes: WNL ...Motor Strength: WNL Psychiatric: Yes: WNL Labs: CBC, BMP 08/09/17 10:00 08/09/17 10:00 Discharge Summary Reason For Visit: URINIARY TRACT INFECTION,FEVER,PYELONEPHRITIS Current Active Problems Cough (Acute) Cystitis (Acute) Fever (Acute) Pyelonephritis (Acute) UTI (urinary tract infection) (Acute) Procedures: Principal: CT SCAN Hospital Course: ADMITTED FOR PYELONEPHRITIS AND SEEN BY DR MACY NARANJO. PATIENT WAS CLEARED BUT NEEDS 14 DAYS OF ABX. CEFTIN 500MG FOR 14DAYS Condition: Improved - Instructions Diet, Activity, Other Instructions: LOW SALT DIET SEE DR PAT IN 3 DAYS FOR LABS Referrals: Ki Pat MD, MD [Primary Care Provider] - Disposition: VNS/HOME HEALTH CARE - Home Medications Comprehensive Discharge Medication List: Ambulatory Orders Levothyroxine Sodium [Synthroid] 150 mcg PO DAILY 01/17/14 Lisinopril [Prinivil] 10 mg PO DAILY 01/17/14 Oxycodone HCl [Roxicodone] 30 mg PO TID 01/17/14 Zolpidem Tartrate [Ambien] 10 mg PO HS 10/26/14 Atorvastatin Ca [Lipitor] 20 mg PO DAILY 08/17/15 Omeprazole [Prilosec] 20 mg PO DAILY 08/17/15 Clonazepam 1 mg PO HS #0 tab 04/30/17 Duloxetine HCl [Cymbalta -] 30 mg PO DAILY #0 tab 04/30/17 Pregabalin [Lyrica] 0 mg PO DAILY 06/03/17 Acetaminophen [Tylenol .Regular Strength -] 650 mg PO Q4H PRN #0 tablet Trazodone HCl 100 mg PO HS #0 tab 06/06/17
[2017-08-12] MEDS ORDERED: CEFUROXIME AXETIL 500 MG TABLET PO SCH (22:00)
== END 2017-08-12 18:11 | disposition home health service (06) | DRG 690 ==
LOC: JER 19:34 → JERBED 08-05 00:32 → J7W 08-05 15:58
PROVIDERS: ADMIT Family Medicine; ATTEND Family Medicine
DX: N10 Acute pyelonephritis (principal); E11.9 Type 2 diabetes mellitus without complications; E78.5 Hyperlipidemia, unspecified; E03.9 Hypothyroidism, unspecified; M79.7 Fibromyalgia; K63.5 Polyp of colon; F41.8 Other specified anxiety disorders; N30.80 Other cystitis without hematuria; J34.89 Other specified disorders of nose and nasal sinuses; J20.9 Acute bronchitis, unspecified; J45.909 Unspecified asthma, uncomplicated; L27.1 Localized skin eruption due to drugs and medicaments taken internally; T36.0X5A Adverse effect of penicillins, initial encounter; R50.9 Fever, unspecified; N39.498 Other specified urinary incontinence; B96.29 Other Escherichia coli [E. coli] as the cause of diseases classified elsewhere; D72.828 Other elevated white blood cell count; R05 Cough; K59.00 Constipation, unspecified
CPT/HCPCS: 36415; 71045-TC; 71046-TC; 74019-TC; 74176; 80048; 80053; 81003; 81015; 82550; 82728; 82803; 83540; 83550; 83605; 83690; 84443; 84484; 85025; 85027; 85610; 85651; 85730; 86140; 86850; 86900; 86901; 87040; 87077; 87086; 87186; 93005; 93010; 94640; 99285-25

== ENCOUNTER 2018-02-04 15:55 | Inpatient (IN) | payer OTHER ==
[2018-02-04 16:06] VITALS: BMI 35.9
--- NOTE | 2018-02-04 16:07 | PDOC ---
History of Present Illness - General Chief Complaint: SIRS, Suspected/Possible Stated Complaint: BACK PAIN Time Seen by Provider: 02/04/18 16:07 - History of Present Illness Initial Comments: 02/04/18 16:29 52 year old female with PMH of chronic UTI, pyelo, HTN, fibromyalgia, sleep apnea, depression, anxiety presents to ED today for burning with urination, lower back pain, fever since this morning. She states her fever was a 103-104F today, she took two aleve with resolution of fever. LMP at 41 years old. Past History - Past Medical History Allergies/Adverse Reactions: Allergies Allergy/AdvReac Type Severity Reaction Status Date / Time piperacillin [From Zosyn] Allergy Hives Verified 02/04/18 23:14 tazobactam [From Zosyn] Allergy Hives Verified 02/04/18 23:14 Home Medications: Ambulatory Orders RX: Levothyroxine Sodium [Synthroid] 150 mcg PO DAILY 01/17/14 RX: Lisinopril [Prinivil] 10 mg PO DAILY 01/17/14 RX: Oxycodone HCl [Roxicodone] 30 mg PO TID PRN 01/17/14 RX: Atorvastatin Ca [Lipitor] 20 mg PO DAILY 08/17/15 RX: Omeprazole [Prilosec] 20 mg PO DAILY 08/17/15 RX: Duloxetine HCl [Cymbalta -] 30 mg PO DAILY #0 tab 04/30/17 RX: Acetaminophen [Tylenol .Regular Strength -] 650 mg PO Q4H PRN #0 tablet 10/18 RX: Trazodone HCl 100 mg PO HS #0 tab 06/06/17 RX: Polyethylene Glycol 3350 [Miralax 119 gm Btl -] 17 gm PO BID 02/04/18 RX: clonazePAM [Clonazepam] 0.5 mg PO BID 02/04/18 RX: Ketorolac Tromethamine [Toradol -] 10 mg PO Q6HPO PRN #10 tablet MDD 3 02/10 RX: Sulfamethoxazole/Trimethoprim [Bactrim DS -] 1 each PO BID #10 tablet MDD 2 02/10/18 Sulfamethoxazole/Trimethoprim [Bactrim Ds -] 1 tab PO BID #14 tablet MDD 2 02/10 Anemia: No Asthma: No Cancer: No Cardiac Disorders: No CVA: No COPD: No CHF: No DVT: No Dementia: No Diabetes: No GI Disorders: Yes (GERD, COLON POLYP, RECTAL BLEEDING) Disorders: No HTN: Yes Hypercholesterolemia: Yes Liver Disease: No Psychiatric Problems: Yes (DEPRESSION, ANXEITY) Seizures: No Thyroid Disease: Yes (HYPOTHYROIDISM) Other medical history: fibromyalgia - Surgical History Abdominal Surgery: No Appendectomy: No Cardiac Surgery: No Cholecystectomy: No Lung Surgery: No Neurologic Surgery: Yes (CERVICAL NECK SX) Orthopedic Surgery: No - Immunization History Immunization Up to Date: Yes - Suicide/Smoking/Psychosocial Hx Smoking History: Never smoked Have you smoked in the past 12 months: No Information on smoking cessation initiated: No Hx Alcohol Use: No Drug/Substance Use Hx: No Substance Use Type: None Hx Substance Use Treatment: No Review of Systems - Review of Systems Comments:: 02/04/18 16:31 General: positive for fever, chills, night sweats. negative for generalized weakness. HEENT: negative for sore throat, rhinorrhea, ear pain. Heart: negative for chest pain, palpitations, syncope, lower extremity swelling. Respiratory: negative for shortness of breath, cough, sputum production, hematemesis. Abdomen: positive for abdominal pain, constipation. negative for nausea, vomiting, diarrhea, blood in stool. : positive for dysuria, urinary frequency. negative for hematuria. Musculoskeletal: positive for back pain. negative for joint pain, joint swelling. Neurological: negative for headache, dizziness, numbness, tingling, Skin: negative for rash, laceration, abrasion. *Physical Exam - Vital Signs Last Vital Signs Temp Pulse Resp BP Pulse Ox 99.7 F H 115 H 20 152/79 97 02/04/18 16:01 02/04/18 16:01 02/04/18 16:01 02/04/18 16:01 02/04/18 16:01 - Physical Exam Comments: 02/04/18 16:33 General: awake, alert and oriented X3, no apparent distress HEENT: head is normocephalic, atraumatic. EOMI. PERRLA. Neck: supple without lymphadenopathy Heart: regular rate, normal rhythm. no murmurs, rubs or gallops. Lungs: clear to auscultation bilaterally. no crackles, rhonchi or wheezing. no stridor. Abdomen: CVA tenderness positive bilaterally, right greater than left. soft. generalized tenderness, worse in the lower abdomen, RLQ>LLQ. normal bowel sounds. no rebound, guarding, masses. Extremities: no cyanosis, no edema. Neurological: CN2-12 intact. 5/5 muscle strength all extremities. Sensation intact all extremities. ED Treatment Course - LABORATORY CBC & Chemistry Diagram: 02/10/18 07:00 02/10/18 07:00 Medical Decision Making - Medical Decision Making 02/10/18 12:18 Initial Vital Signs Temp Pulse Resp BP Pulse Ox 99.7 F H 115 H 20 152/79 97 02/04/18 16:01 02/04/18 16:01 02/04/18 16:01 02/04/18 16:01 02/04/18 16:01 Laboratory Tests 02/04/18 02/04/18 02/04/18 16:56 17:14 17:14 WBC 15.2 H RBC 4.47 Hgb 12.6 Hct 38.8 MCV 86.8 MCH 28.2 MCHC 32.5 RDW 13.8 Plt Count 313 MPV 8.0 D Sodium 141 Potassium 3.7 Chloride 103 Carbon Dioxide 28 Anion Gap 10 BUN 10 Creatinine 0.8 Creat Clearance w eGFR > 60 Random Glucose 88 Lactic Acid Calcium 9.1 Total Bilirubin 0.7 AST 39 H ALT 49 Alkaline Phosphatase 109 Total Protein 8.1 Albumin 3.9 Urine Color Carri Urine Appearance Turbid Urine pH 6.0 Ur Specific [place] 1.010 Urine Protein 2+ H Urine Glucose (UA) Negative Urine Ketones Negative Urine Blood 2+ H Urine Nitrite Negative Urine Bilirubin Negative Urine Urobilinogen 2.0 H Ur Leukocyte Esterase 3+ H Urine WBC (Auto) 2359 Urine RBC (Auto) 49 Urine Bacteria Moderate Urine Yeast Rare 02/04/18 17:14 WBC RBC Hgb Hct MCV MCH MCHC RDW Plt Count MPV Sodium Potassium Chloride Carbon Dioxide Anion Gap BUN Creatinine Creat Clearance w eGFR Random Glucose Lactic Acid 1.1 Calcium Total Bilirubin AST ALT Alkaline Phosphatase Total Protein Albumin Urine Color Urine Appearance Urine pH Ur Specific [place] Urine Protein Urine Glucose (UA) Urine Ketones Urine Blood Urine Nitrite Urine Bilirubin Urine Urobilinogen Ur Leukocyte Esterase Urine WBC (Auto) Urine RBC (Auto) Urine Bacteria Urine Yeast CT Abdomen and Pelvis - bilateral hydronephrosis and hydroureter with thickening of the urinary bladder wall. Hypodense left pelvic mass. *DC/Admit/Observation/Transfer Diagnosis at time of Disposition: Pyelonephritis, SIRS (systemic inflammatory response syndrome) - Discharge Dispostion Condition at time of disposition: Guarded Decision to Admit order: Yes - Prescriptions - Referrals - Patient Instructions - Post Discharge Activity
--- NOTE | 2018-02-04 16:19 | PDOC ---
Attending Attestation - HPI HPI: 02/04/18 17:43 The patient is a 52 year old female, with a significant past medical history of chronic UTI, pyelo, HTN, fibromyalgia, sleep apnea, depression, anxiety, who presents to the ED complaining of fever, chills, frequency and dysuria. She reports that her fever has been as high as 104 degrees Fahrenheit. She notes that she took Aleve at 11am today. She states that she was at [facility] 2 weeks ago and was treated with antibiotics and admitted for pyelo. The patient denies chest pain, shortness of breath, headache and dizziness. Denies nausea, vomiting, diarrhea or constipation. Denies urgency and hematuria. Allergies: Zosyn Past surgical history: Cervical Neck Surgery Social History: No alcohol, tobacco or drug use reported Urology: DR. Blaise Baez - Physicial Exam PE: 02/04/18 17:46 Constitutional: Awake, alert, oriented. No acute distress. Head: Normocephalic. Atraumatic Eyes: PERRL. EOMI. Conjunctivae are not pale. ENT: Mucous membranes are moist and intact. Posterior pharynx without exudates or erythema. Uvula midline. Neck: Supple. Full ROM. No lymphadenopathy. Cardiovascular: (+) Tachycardia. Regular rhythm. S1, S2 regular. Distal pulses are 2+ and symmetric. Pulmonary/Chest: No evidence of respiratory distress. Clear to auscultation bilaterally No wheezing, rales or rhonchi. Abdominal: (+) Generalized abdominal tenderness. Soft and non-distended. No rebound, guarding or rigidity. No organomegaly. No palpable masses. Good bowel sounds. Back: (+) Bilateral CVA tenderness, right greater than left. Musculoskeletal: No edema. No cyanosis. No clubbing. Full range of motion in all extremities. Nocalf tenderness. Radial/pedal pulses are intact and 2+ bilaterally Skin: Skin is warm and dry. No petechiae. No purpura. Neurological: Alert and oriented to person, place, and time. Cranial nerves II -XII are grossly intact. Normal speech. Strength is grossly symmetric. No sensory deficits. Psychiatric: Good eye contact. Normal interaction, affect and behavior. <Shreyas Coleman - Last Filed: 02/04/18 17:48> - Resident Resident Name: Braulio,Laury - ED Attending Attestation I have performed the following: I have examined & evaluated the patient, The case was reviewed & discussed with the resident, I agree w/resident's findings & plan, Exceptions are as noted - Medical Decision Making 02/04/18 16:19 I, Dr. Shelby Oropeza, DO, attest that this document has been prepared under my direction and personally reviewed by me in its entirety. I further attest, that it accurately reflects all work, treatment, procedures and medical decision -making performed by me. 02/04/18 17:00 a/p: 52yo female with fever of 104 today and dysuria -at [facility] 2 weeks ago, treated with abx and admitted for pyelo -fever today, chills today -urine sample is purulent -b/l cva ttp -Urology is DR. Blaise Snow -will send labs, cultures, ua, ucx, lactate -took aleve at 11am -will give ivf hydration, will start iv abx - merrem per last cultures -will need ID consult -ct abd/pelvis to eval pyelo 02/04/18 17:55 UTI on labs lactate 1 iv abx ordered concern for pyelo had emphysematous pyelo in 02/04/18 19:44 case discussed with Vandana savage [facility] who accepts pt to service <Shelby Oropeza - Last Filed: 02/04/18 19:54> Discharge Disposition <Shreyas Coleman - Last Filed: 02/04/18 17:48> - Discharge Dispostion Decision to Admit order: Yes <Shelby Oropeza - Last Filed: 02/04/18 19:54> - Diagnosis Pyelonephritis - Discharge Dispostion Condition at time of disposition: Guarded - Referrals Referrals: Ki Pat MD, MD [Primary Care Provider] - - Patient Instructions - Post Discharge Activity Heart Score/ECG Review - ECG Intrepretation Comment:: 02/04/18 19:54 sinus at 71, nl axis, nl interval, no acute st/t wave findings <Shelby Oropeza - Last Filed: 02/04/18 19:54>
[2018-02-04] MEDS ORDERED: SODIUM CHLORIDE 1,000 ML IV STA (16:44)
[2018-02-04] MEDS ORDERED: morphine CARPU-JECT 4 MG/1 ML DISP.SYRIN IVPUSH ONE (16:44)
[2018-02-04] MEDS ORDERED: ACETAMINOPHEN 1000 MG/100 ML VIAL (NON FORMULARY) IVPB ONE (16:51)
[2018-02-04] MEDS ORDERED: MEROPENEM 1 GM in DEXTROSE 5%-WATER 100 ML IVPB ONE (17:00)
[2018-02-04 17:08] LABS: URINE APPEARANCE TURBID; URINE BILIRUBIN NEGATIVE (<2.0 mg/dL); URINE COLOR AMBER; URINE GLUCOSE (UA) NEGATIVE (NEGATIVE); URINE KETONE NEGATIVE (NEGATIVE); URINE NITRITE NEGATIVE (NEGATIVE)
[2018-02-04 17:10] LABS: URINE LEUK ESTERASE 3+ (NEGATIVE); URINE PROTEIN 2+ (NEGATIVE)
[2018-02-04 17:14] LABS: URINE BACTERIA MODERATE /hpf (NONE SEEN); YEAST RARE
[2018-02-04] MEDS ORDERED: morphine SULFATE 4 MG/ML VIAL ONE (17:20)
[2018-02-04] MEDS ORDERED: ACETAMINOPHEN INJECTION 100 ML IVPB ONE (17:20)
[2018-02-04 17:23] LABS: HEMATOCRIT 38.8 % (32.4-45.2); HEMOGLOBIN 12.6 GM/dL (10.7-15.3); MCH 28.2 pg (25.7-33.7); MCHC 32.5 g/dl (32.0-36.0); MEAN CELL VOLUME 86.8 fl (80-96); PLATELET COUNT 313 K/MM3 (134-434); RBC 4.47 M/mm3 (3.60-5.2); RDW 13.8 % (11.6-15.6); WHITE BLOOD COUNT 15.2 K/mm3 (4.0-10.0)
[2018-02-04 17:52] LABS: ALBUMIN 3.9 g/dl (3.4-5.0); ANION GAP 10 (8-16); BILIRUBIN,TOTAL 0.7 mg/dL (0.2-1.0); BLOOD UREA NITROGEN 10 mg/dL (7-18); CALCIUM 9.1 mg/dL (8.5-10.1); CHLORIDE 103 mmol/L (98-107); CO2 28 mmol/L (21-32); CREATININE 0.8 mg/dL (0.55-1.02); GLUCOSE,RANDOM 88 mg/dL (74-106); POTASSIUM 3.7 mmol/L (3.5-5.1); SGOT/AST 39 U/L (15-37); SGPT/ALT 49 U/L (12-78); SODIUM 141 mmol/L (136-145); TOT PROT 8.1 g/dl (6.4-8.2)
[2018-02-04 17:53] LABS: ALK PHOS 109 U/L (45-117)
[2018-02-04] MEDS ORDERED: ONDANSETRON 4 MG/2 ML VIAL IVPUSH PRN (21:02)
--- NOTE | 2018-02-04 21:08 | HP ---
CHIEF COMPLAINT: B/L flank pain, hematuria, urgency, fever PCP: Trisha Pat, Urology: Castillo Baez HISTORY OF PRESENT ILLNESS: This is a 52 year old female with a significant past medical history of UTI/ pyelo who presented to the ED with fever (up to 104 at home), chills, frequency and dysuria. Pt also reports B/L flank pain. She was admitted at [facility] for UTI/ pyelo 2 weeks ago and treated with 4 days of IV antibiotics. She was admitted here for emphysematous R pyelonephritis in August and treated with meropenem. ER course was notable for: (1) WBC 15.2 (2) u/a c/w UTI Recent Travel: pt denies PAST MEDICAL HISTORY: UTI/pyelonephritis, HTN, fibromyalgia, sleep apnea, depression, anxiety, Hep C s /p Harvoni tx, hypothyroid PAST SURGICAL HISTORY: c-spine surgery hysterectomy bladder sling and multiple revisions Social History: Smoking: pt denies Alcohol: pt denies Drugs: pt denies Family History: mother age 46, brain aneurysm sisters age 56 and 60, brain aneurysm Allergies piperacillin [From Zosyn] Allergy (Verified 02/04/18 16:01) hives tazobactam [From Zosyn] Allergy (Verified 02/04/18 16:01) hives HOME MEDICATIONS: 3 Medication Instructions Recorded Levothyroxine Sodium [Synthroid] 150 mcg PO DAILY 01/17/14 Lisinopril [Prinivil] 10 mg PO DAILY 01/17/14 Oxycodone HCl [Roxicodone] 30 mg PO TID 01/17/14 Zolpidem Tartrate [Ambien] 10 mg PO HS 10/26/14 Atorvastatin Ca [Lipitor] 20 mg PO DAILY 08/17/15 Omeprazole [Prilosec] 20 mg PO DAILY 08/17/15 Duloxetine HCl [Cymbalta -] 30 mg PO DAILY #0 tab 04/30/17 clonazePAM [Clonazepam] 1 mg PO HS #0 tab 04/30/17 Acetaminophen [Tylenol .Regular 650 mg PO Q4H PRN #0 tablet 06/06/17 Strength -] Trazodone HCl 100 mg PO HS #0 tab 06/06/17 Cefuroxime Axetil [Ceftin -] 500 mg PO BID #14 tablet 08/12/17 Polyethylene Glycol 3350 [Miralax 17 gm PO TID bottle 08/12/17 119 gm Btl -] Sodium Chloride Nasal [place] [[place] 2 spray NS BID PRN spray 08/12/17 [place] Nasal [place] -] hydrOXYzine HCL [Atarax -] 25 mg PO Q6HPO #30 tablet 08/12/17 REVIEW OF SYSTEMS CONSTITUTIONAL: Present: fever, chills Absent: diaphoresis, generalized weakness, malaise, loss of appetite, weight change HEENT: Absent: rhinorrhea, nasal congestion, throat pain, throat swelling, difficulty swallowing, mouth swelling, ear pain, eye pain, visual changes CARDIOVASCULAR: Absent: chest pain, syncope, palpitations, irregular heart rate, lightheadedness , peripheral edema RESPIRATORY: Absent: cough, shortness of breath, dyspnea with exertion, orthopnea, wheezing, stridor, hemoptysis GASTROINTESTINAL: Absent: abdominal pain, abdominal distension, nausea, vomiting, diarrhea, constipation, melena, hematochezia GENITOURINARY: Present: dysuria, frequency, flank pain Absent: urgency, hesitancy, hematuria, genital pain MUSCULOSKELETAL: Absent: myalgia, arthralgia, joint swelling, back pain, neck pain SKIN: Absent: rash, itching, pallor HEMATOLOGIC/IMMUNOLOGIC: Absent: easy bleeding, easy bruising, lymphadenopathy, frequent infections ENDOCRINE: Absent: unexplained weight gain, unexplained weight loss, heat intolerance, cold intolerance NEUROLOGIC: Absent: headache, focal weakness or paresthesias, dizziness, unsteady gait, seizure, mental status changes, bladder or bowel incontinence PSYCHIATRIC: Absent: anxiety, depression, suicidal or homicidal ideation, hallucinations. PHYSICAL EXAMINATION Vital Signs - 24 hr 3 02/04/18 02/04/18 02/04/18 16:01 17:14 19:13 Temperature 99.7 F H 98.5 F Pulse Rate 115 H Pulse Rate [ 89 66 Left Radial] Respiratory 20 16 16 Rate Blood Pressure 152/79 Blood Pressure 111/65 109/77 [Right Arm] O2 Sat by Pulse 97 98 98 Oximetry (%) GENERAL: Awake, alert, and fully oriented, in no acute distress. HEAD: Normal with no signs of trauma. EYES: Pupils equal, round and reactive to light, extraocular movements intact, sclera anicteric, conjunctiva clear. No lid lag. EARS, NOSE, THROAT: Ears normal, nares patent, oropharynx clear without exudates. Moist mucous membranes. NECK: Normal range of motion, supple without lymphadenopathy, JVD, or masses. LUNGS: Breath sounds equal, clear to auscultation bilaterally. No wheezes, and no crackles. No accessory muscle use. HEART: Regular rate and rhythm, normal S1 and S2 without murmur, rub or gallop. ABDOMEN: Soft, nontender, not distended, normoactive bowel sounds, no guarding, no rebound, no masses. No hepatomegaly or splenomegaly. MUSCULOSKELETAL: Normal range of motion at all joints. No bony deformities or tenderness. B/L CVA tenderness L>R. UPPER EXTREMITIES: 2+ pulses, warm, well-perfused. No cyanosis. No clubbing. No peripheral edema. LOWER EXTREMITIES: 2+ pulses, warm, well-perfused. No calf tenderness. No peripheral edema. NEUROLOGICAL: Cranial nerves II-XII intact. Normal speech. Normal gait. PSYCHIATRIC: Cooperative. Good eye contact. Appropriate mood and affect. SKIN: Warm, dry, normal turgor, no rashes or lesions noted, normal capillary refill. Laboratory Results - last 24 hr 3 02/04/18 02/04/18 02/04/18 16:56 17:14 17:14 WBC 15.2 H RBC 4.47 Hgb 12.6 Hct 38.8 MCV 86.8 MCH 28.2 MCHC 32.5 RDW 13.8 Plt Count 313 MPV 8.0 D Sodium 141 Potassium 3.7 Chloride 103 Carbon Dioxide 28 Anion Gap 10 BUN 10 Creatinine 0.8 Creat Clearance w eGFR > 60 Random Glucose 88 Lactic Acid 1.1 Calcium 9.1 Total Bilirubin 0.7 AST 39 H ALT 49 Alkaline Phosphatase 109 Total Protein 8.1 Albumin 3.9 Urine Color Carri Urine Appearance Turbid Urine pH 6.0 Ur Specific [place] 1.010 Urine Protein 2+ H Urine Glucose (UA) Negative Urine Ketones Negative Urine Blood 2+ H Urine Nitrite Negative Urine Bilirubin Negative Urine Urobilinogen 2.0 H Ur Leukocyte Esterase 3+ H Urine WBC (Auto) 2359 Urine RBC (Auto) 49 Urine Bacteria Moderate Urine Yeast Rare ECG Normal sinus rhythm vent rate 71, QTC [address]/T wave changes Radiology Reports CT abdomen/pelvis without contrast PRELIMINARY REPORT FROM IMAGING MACHINIST MECHANIC FINDINGS: Liver, spleen, pancreas, adrenals, gallbladder, kidneys, bowel, appendix, aorta , bones \T\ soft tissues show no definite acute abnormality, unless noted below. IMPRESSION: Bilateral renal cortical scarring. Bilateral moderate hydronephrosis and hydroureter and stranding. No calculi seen. Lateral wall appears thickened. Compatible with urinary tract infection. 4 cm hypodensity seen at left piriformis muscle (possible hematoma, abscess, or low density mass). THIS DOCUMENT HAS BEEN ELECTRONICALLY SIGNED Sekou Pope MD 02/04/2018 20:16 EST ASSESSMENT/PLAN: 52yF with PMH UTI/pyelonephritis, HTN, fibromyalgia, sleep apnea, depression, anxiety, Hep C s/p Harvoni tx, hypothyroid presented to the ED with fever, chills, dysuria, frequency and flank pain. pyelonephritis - cont merropenem, previous culture sensitive to same - ID consult - urology consult - follow final CT reading ? mass L piriformis - follow final CT reading - consider CT with contrast for further imaging. HTN - cont home lisinopril sleep apnea - pt reports that she was on CPAP or BiPAP at home but machine is broken. She does not know her settings. depression/anxiety - cont home cymbalta, xanax, atarax fibromyalgia - cont home oxycodone PRN, cymbalta DVT PPX - heparin 5000u TID FEN - tolerating po - BMP in am - low sodium diet as tolerated Dispo: pt admitted for further inpatient management. Visit type - Emergency Visit Emergency Visit: Yes ED Registration Date: 02/04/18 Care time: The patient presented to the Emergency Department on the above date and was hospitalized for further evaluation of their emergent condition. - New Patient This patient is new to me today: Yes Date on this admission: 02/04/18 - Critical Care Critical Care patient: No Hospitalist Screening - Colonoscopy Questionnaire Colonoscopy Questionnaire: Colonoscopy Questionnaire - Patient: 50 - 75 years old and never had a screening colonoscopy: Unknown History of colon or rectal polyps, or CA: Unknown History of IBD, Crohn's disease or UC: Unknown History of abdominal radiation therapy as a child: Unknown - Relative: 1 with colon or rectal CA, or polyps at age 60 or younger: Unknown Colon or rectal CA diagnosed at age 45 or younger: Unknown Multiple relatives with colon or rectal CA: Unknown - Outcome: Screening Result: Negative Screen
[2018-02-04] MEDS ORDERED: hydrOXYzine HCL 25 MG TABLET (FP) PO PRN (21:12)
[2018-02-04] MEDS ORDERED: ACETAMINOPHEN 325 MG TABLET (FP) PO PRN (21:12)
[2018-02-04] MEDS ORDERED: oxyCODONE HCL 5 MG TABLET PO PRN (21:12)
[2018-02-04] MEDS ORDERED: SODIUM CHLORIDE NASAL SPRAY 44 ML BOTTLE NS PRN (21:12)
[2018-02-04] MEDS: HEPARIN NA (PORCINE) 5,000 UNITS/ML 1ML VIAL SQ SCH (23:28)
[2018-02-04] MEDS: clonazePAM 0.5 MG TABLET PO SCH (23:29)
[2018-02-04] MEDS: traZODone HCL 50 MG TABLET (FP) PO SCH (23:29)
[2018-02-04] MEDS: ZOLPIDEM TARTRATE 5 MG TABLET PO PRN (23:29)
[2018-02-04] MEDS: POLYETHYLENE GLYCOL 3350 119 GM BTL PO SCH (23:30)
[2018-02-05] MEDS ORDERED: MEROPENEM 1 GM in DEXTROSE 5%-WATER 100 ML IVPB ONE (02:00)
[2018-02-05] MEDS: LEVOTHYROXINE NA 75 MCG TABLET (FP) PO SCH (06:17)
[2018-02-05] MEDS: HEPARIN NA (PORCINE) 5,000 UNITS/ML 1ML VIAL SQ SCH ×3 (06:17→21:04)
[2018-02-05 07:37] LABS: BASO % 0.4 % (0-2.0); EOS % 3.5 % (0-4.5); HEMATOCRIT 36.2 % (32.4-45.2); HEMOGLOBIN 11.8 GM/dL (10.7-15.3); LYMPH % 40.8 % (8-40); MCH 28.9 pg (25.7-33.7); MCHC 32.6 g/dl (32.0-36.0); MEAN CELL VOLUME 88.7 fl (80-96); MEAN PLT VOLUME 7.9 fl (7.5-11.1); MONO % 8.2 % (3.8-10.2); NEUT % 47.1 % (42.8-82.8); PLATELET COUNT 263 K/MM3 (134-434); RBC 4.08 M/mm3 (3.60-5.2); RDW 13.9 % (11.6-15.6); WHITE BLOOD COUNT 8.1 K/mm3 (4.0-10.0)
[2018-02-05 08:10] LABS: ANION GAP 8 (8-16); BLOOD UREA NITROGEN 12 mg/dL (7-18); CALCIUM 8.2 mg/dL (8.5-10.1); CHLORIDE 104 mmol/L (98-107); CO2 31 mmol/L (21-32); CREATININE 0.7 mg/dL (0.55-1.02); GLUCOSE,RANDOM 89 mg/dL (74-106); MAGNESIUM 2.1 mg/dL (1.8-2.4); PHOSPHOROUS 4.8 mg/dL (2.5-4.9); POTASSIUM 3.9 mmol/L (3.5-5.1); SODIUM 143 mmol/L (136-145)
--- NOTE | 2018-02-05 09:46 | CON.ID ---
Consult Consult Specialty:: infectious diseases Reason for Consultation:: rt flank pain,fever - History of Present Illness Chief Complaint: rt flank pain,fever History of Present Illness: 52 year old female, with a significant past medical history of chronic UTI, pyelo, HTN, fibromyalgia, sleep apnea, depression, anxiety, who presents to the ED complaining of fever, chills, frequency and dysuria. She reports that her fever has been as high as 105 She notes that she took Aleve . She states that she was at [facility] 2 weeks ago and was treated with antibiotics and admitted for pyelo. according to the patient he was only treated for 4 days and then send home and she had not given any abx to go home now patient coming again with the pain i the rt flank The patient denies chest pain, shortness of breath, headache and dizziness. Denies nausea, vomiting, diarrhea or constipation. Denies urgency and hematuria. - History Source History Provided By: Patient Limitations to Obtaining History: No Limitations - Past Medical History Cardio/Vascular: Yes: HTN, Hyperlipdemia Gastrointestinal: Yes: GERD Hepatobiliary: Yes: Hepatitis C (treated with Harvoni) Rheumatology: Yes: Fibromyalgia Endocrine: Yes: Hypothyroidism, Other (hypothyroidism) - Alcohol/Substance Use Hx Alcohol Use: No History of Substance Use: reports: None - Smoking History Smoking history: Never smoked Have you smoked in the past 12 months: No - Social History ADL: Support Services (6 hours daily) History of Recent Travel: No Home Medications - Allergies Allergies/Adverse Reactions: Allergies Allergy/AdvReac Type Severity Reaction Status Date / Time piperacillin [From Zosyn] Allergy Hives Verified 02/04/18 23:14 tazobactam [From Zosyn] Allergy Hives Verified 02/04/18 23:14 - Home Medications Home Medications: Ambulatory Orders Levothyroxine Sodium [Synthroid] 150 mcg PO DAILY 01/17/14 Lisinopril [Prinivil] 10 mg PO DAILY 01/17/14 Oxycodone HCl [Roxicodone] 30 mg PO TID PRN 01/17/14 Zolpidem Tartrate [Ambien] 10 mg PO HS 10/26/14 Atorvastatin Ca [Lipitor] 20 mg PO DAILY 08/17/15 Omeprazole [Prilosec] 20 mg PO DAILY 08/17/15 Duloxetine HCl [Cymbalta -] 30 mg PO DAILY #0 tab 04/30/17 Acetaminophen [Tylenol .Regular Strength -] 650 mg PO Q4H PRN #0 tablet Trazodone HCl 100 mg PO HS #0 tab 06/06/17 Cefuroxime Axetil [Ceftin -] 500 mg PO BID #14 tablet 08/12/17 Sodium Chloride Nasal [place] [[place] Nasal [place] -] 2 spray NS BID PRN spray 08/12/17 Polyethylene Glycol 3350 [Miralax 119 gm Btl -] 17 gm PO BID 02/04/18 clonazePAM [Clonazepam] 0.5 mg PO BID 02/04/18 hydrOXYzine HCL [Atarax -] 25 mg PO Q6HPO PRN 02/04/18 Family Disease History - Family Disease History Family Disease History: Heart Disease: Mother ( of [place] at 46), Sister (x2 of [place] age 56 and 60) Review of Systems - Review of Systems Constitutional: reports: Fever Eyes: reports: No Symptoms HENT: reports: No Symptoms Neck: reports: No Symptoms Cardiovascular: reports: No Symptoms Respiratory: reports: No Symptoms Gastrointestinal: reports: No Symptoms Genitourinary: reports: Flank Pain Musculoskeletal: reports: No Symptoms Integumentary: reports: No Symptoms Neurological: reports: No Symptoms Endocrine: reports: No Symptoms Hematology/Lymphatic: reports: No Symptoms Psychiatric: reports: No Symptoms Physical Exam Vital Signs: Vital Signs Temperature 98.4 F 02/05/18 09:03 Pulse Rate 73 02/05/18 09:03 Respiratory Rate 18 02/05/18 09:03 Blood Pressure 90/50 02/05/18 09:03 O2 Sat by Pulse Oximetry (%) 98 02/04/18 19:50 Constitutional: Yes: Well Nourished, Obese HENT: Yes: Atraumatic, Normocephalic Neck: Yes: Supple, Trachea Midline Cardiovascular: Yes: Regular Rate and Rhythm Respiratory: Yes: Regular, CTA Bilaterally Gastrointestinal: Yes: Normal Bowel Sounds, Soft Renal/: Yes: CVA Tenderness - Right Musculoskeletal: Yes: WNL Extremities: Yes: WNL Neurological: Yes: Alert, Oriented Psychiatric: Yes: Alert Labs: CBC, BMP 02/05/18 06:20 02/05/18 06:20 Imaging - Results Chest X-ray: Report Reviewed, Image Reviewed X-ray: Report Reviewed, Image Reviewed Assessment/Plan after looking at the patient and the imaging studies diagnosis of pyelo is on the lower side will await for all results to come katie pyelo uti abd pain fever plan will start patient on meropenam await for all cx reports urology to see the patient rest continue current mgmt
[2018-02-05] MEDS ORDERED: PT OWN MED DRAWER 7, Y5N ONE ×2 (09:52→18:32)
[2018-02-05] MEDS: ATORVASTATIN CA 20 MG TABLET (FP) PO SCH (10:04)
[2018-02-05] MEDS: DULoxetine HCL 30 MG CAPSULE.DR (FP) PO SCH (10:04)
[2018-02-05] MEDS: LISINOPRIL 10 MG TABLET (FP) PO SCH (10:04)
[2018-02-05] MEDS: clonazePAM 0.5 MG TABLET PO SCH ×2 (10:05→21:04)
[2018-02-05] MEDS: POLYETHYLENE GLYCOL 3350 119 GM BTL PO SCH ×2 (10:05→21:04)
--- NOTE | 2018-02-05 11:17 | PN ---
Progress Note, Physician Chief Complaint: Hydronephrosis History of Present Illness: NAD, in bed take oxycodone ER 30 mg TID prn at home for fibromyalgia? received her usual dose, is still c/o pain BL hydronephrosis without uretral obstruction Seen by ID, on IV abx Awaiting Urology consult BC/UC pending otherwise self ambulatory - Current Medication List Current Medications: Active Medications Acetaminophen (Tylenol -) 650 mg PO Q6H PRN PRN Reason: FEVER Atorvastatin Calcium (Lipitor -) 20 mg PO DAILY [facility] Last Admin: 02/05/18 10:04 Dose: 20 mg Clonazepam (Klonopin -) 0.5 mg PO BID [facility] Last Admin: 02/05/18 10:05 Dose: 0.5 mg Duloxetine HCl (Cymbalta -) 30 mg PO DAILY [facility] Last Admin: 02/05/18 10:04 Dose: 30 mg Heparin Sodium (Porcine) (Heparin -) 5,000 unit SQ TID [facility] Last Admin: 02/05/18 06:17 Dose: 5,000 unit Hydroxyzine HCl (Atarax -) 25 mg PO Q6H PRN PRN Reason: ANXIETY Meropenem 1 gm/ Dextrose 100 mls @ 200 mls/hr IVPB Q8H-IV JAVIER Levothyroxine Sodium (Synthroid -) 150 mcg PO DAILY@0700 [facility] Last Admin: 02/05/18 06:17 Dose: 150 mcg Lisinopril (Prinivil) 10 mg PO DAILY [facility] Last Admin: 02/05/18 10:04 Dose: 10 mg Ondansetron HCl (Zofran Injection) 4 mg IVPUSH Q6H PRN PRN Reason: NAUSEA Oxycodone HCl (Roxicodone -) 30 mg PO Q8H PRN PRN Reason: PAIN LEVEL 6-10 Last Admin: 02/04/18 23:29 Dose: 30 mg Polyethylene Glycol (Miralax (For Daily Use) -) 17 gm PO BID [facility] Last Admin: 02/05/18 10:05 Dose: 17 gm Sodium Chloride ([place] Nasal [place] -) 2 spray NS BID PRN PRN Reason: NASAL CONGESTION Trazodone HCl (Desyrel -) 100 mg PO HS [facility] Last Admin: 02/04/18 23:29 Dose: 100 mg Zolpidem Tartrate (Ambien -) 10 mg PO HS PRN PRN Reason: INSOMNIA Last Admin: 02/04/18 23:29 Dose: 10 mg - Objective Vital Signs: Vital Signs Temperature 98.4 F 02/05/18 09:03 Pulse Rate 73 02/05/18 09:03 Respiratory Rate 18 02/05/18 09:03 Blood Pressure 90/50 02/05/18 09:03 O2 Sat by Pulse Oximetry (%) 98 02/04/18 19:50 Constitutional: Yes: Well Nourished, No Distress, Calm Cardiovascular: Yes: Regular Rate and Rhythm Respiratory: Yes: Regular Gastrointestinal: Yes: Normal Bowel Sounds, Soft Genitourinary: Yes: CVA Tenderness - Left, CVA Tenderness - Right Musculoskeletal: Yes: WNL Extremities: Yes: WNL Edema: No Peripheral Pulses WNL: Yes Neurological: Yes: Alert, Oriented Psychiatric: Yes: Alert, Oriented Labs: CBC, BMP 02/05/18 06:20 02/05/18 06:20 Problem List - Problems (1) Pyelonephritis Assessment/Plan: -ID consult appreciated -IV Meropenum, Ecoli in UC in the past -UC pending Code(s): N12 - TUBULO-INTERSTITIAL NEPHRITIS, NOT SPCF ACUTE OR CHRONIC (2) Leukocytosis Assessment/Plan: -Improved -monitor trend -afebrile Code(s): D72.829 - ELEVATED WHITE BLOOD CELL COUNT, UNSPECIFIED (3) UTI (urinary tract infection) Assessment/Plan: -Awaiting Urology consult -UC pending -ID on board -IV abx Code(s): N39.0 - URINARY TRACT INFECTION, SITE NOT SPECIFIED Qualifiers: Urinary tract infection type: acute pyelonephritis Qualified Code(s): N10 - Acute pyelonephritis Assessment/Plan see problem list DVT prophylaxis
--- NOTE | 2018-02-05 11:29 | EKG ---
Test Reason : Blood Pressure : / mmHG Vent. Rate : 071 BPM Atrial Rate : 071 BPM P-R Int : 124 ms QRS Dur : 090 ms QT Int : 408 ms P-R-T Axes : 041 012 020 degrees QTc Int : 443 ms POOR DATA QUALITY, INTERPRETATION MAY BE ADVERSELY AFFECTED NORMAL SINUS RHYTHM NORMAL ECG WHEN COMPARED WITH ECG OF 09-AUG-2017 10:28, NO SIGNIFICANT CHANGE WAS FOUND Confirmed by ROSANNE AHUJA, ADILIA ([id number]) on 02/05/2018 11:28:51 AM Referred By: Confirmed By:ADILIA LAY MD
[2018-02-05] MEDS: MEROPENEM 1 GM in DEXTROSE 5%-WATER 100 ML IVPB SCH ×2 (12:25→18:38)
[2018-02-05] MEDS ORDERED: morphine SULFATE 4 MG/ML VIAL IVPUSH PRN (14:11)
[2018-02-05] MEDS ORDERED: RANITIDINE HCL 150 MG TABLET (FP) PO ONE (18:00)
--- NOTE | 2018-02-05 19:13 | CONS ---
DATE OF CONSULTATION: DATE OF DICTATION: 02/05/2018 HISTORY OF PRESENT ILLNESS: The patient is a 52-year-old female admitted via the emergency room on February 04, 2018, with fever and bilateral flank pain. The patient came in with a diagnosis of pyelonephritis. Her temperature was 104 Fahrenheit at home. She also had chills, frequency, dysuria and urgency. The patient also reported bilateral flank pain. She was admitted to [facility] 2 years prior to history of bilateral pyelonephritis. She was on IV antibiotics and was discharged home. Here she was admitted with a diagnosis of emphysematous pyelonephritis and was treated with meropenem in August 2016. She denies any recent travel. She does have a history of high blood pressure, fibromyalgia, sleep apnea, depression, anxiety. She has had a history of hepatitis C and was treated with Harvoni. The patient also has history of hypothyroidism. She has had a hysterectomy, a bladder sling and C spine surgery in the past. She denies any ethanolism, tobacco or drugs. The patient was commenced on Zosyn. PHYSICAL EXAMINATION: Abdomen: Soft. There was bilateral CVA tenderness. There was also suprapubic tenderness. Extremities: Revealed full range of motion with no cyanosis, clubbing or edema. STUDIES: The patient's white count was 16,200 on admission. Her urinalysis revealed 2+ blood. CT scan of the abdomen revealed bilateral hydroureteronephrosis to the level of the bladder. There appeared to be thickening of the bladder. There was also a 4 cm hypodense left piriformis muscle mass. DIAGNOSIS: The patient is admitted with a diagnosis of pyelonephritis, bilateral hydroureteronephrosis, a left pelvic mass over the left piriformis muscle. Will recommend a cystoscopy and bilateral retrograde pyelogram, possible bilateral stenting, possibly biopsy of the bladder when patient is cleared. Will follow with you. Мария [id number]
[2018-02-05] MEDS: traZODone HCL 50 MG TABLET (FP) PO SCH (21:05)
[2018-02-05] MEDS: oxyCODONE HCL 5 MG TABLET PO PRN (21:06)
[2018-02-05] MEDS: ZOLPIDEM TARTRATE 5 MG TABLET PO PRN (22:41)
[2018-02-06] MEDS ORDERED: PT OWN MED DRAWER 7, Y5N ONE ×4 (01:52→17:38)
[2018-02-06] MEDS: MEROPENEM 1 GM in DEXTROSE 5%-WATER 100 ML IVPB SCH ×3 (02:21→17:39)
[2018-02-06] MEDS: HEPARIN NA (PORCINE) 5,000 UNITS/ML 1ML VIAL SQ SCH ×3 (06:42→22:13)
[2018-02-06] MEDS: LEVOTHYROXINE NA 75 MCG TABLET (FP) PO SCH (06:43)
--- NOTE | 2018-02-06 10:23 | PN ---
Progress Note, Physician History of Present Illness: stable leukocytosis has resolved patient c/o of some itching no fevers - Current Medication List Current Medications: Active Medications Acetaminophen (Tylenol -) 650 mg PO Q6H PRN PRN Reason: FEVER Atorvastatin Calcium (Lipitor -) 20 mg PO DAILY [facility] Last Admin: 02/05/18 10:04 Dose: 20 mg Clonazepam (Klonopin -) 0.5 mg PO BID [facility] Last Admin: 02/05/18 21:04 Dose: 0.5 mg Duloxetine HCl (Cymbalta -) 30 mg PO DAILY [facility] Last Admin: 02/05/18 10:04 Dose: 30 mg Heparin Sodium (Porcine) (Heparin -) 5,000 unit SQ TID [facility] Last Admin: 02/06/18 06:42 Dose: 5,000 unit Hydroxyzine HCl (Atarax -) 25 mg PO Q6H PRN PRN Reason: ANXIETY Meropenem 1 gm/ Dextrose 100 mls @ 200 mls/hr IVPB Q8H-IV [facility] Last Admin: 02/06/18 02:21 Dose: 200 mls/hr Levothyroxine Sodium (Synthroid -) 150 mcg PO DAILY@0700 [facility] Last Admin: 02/06/18 06:43 Dose: 150 mcg Lisinopril (Prinivil) 10 mg PO DAILY [facility] Last Admin: 02/05/18 10:04 Dose: 10 mg Morphine Sulfate (Morphine Sulfate) 6 mg IVPUSH Q8H PRN PRN Reason: PAIN LEVEL 7 - 10 Last Admin: 02/05/18 15:14 Dose: 6 mg Ondansetron HCl (Zofran Injection) 4 mg IVPUSH Q6H PRN PRN Reason: NAUSEA Oxycodone HCl (Roxicodone -) 30 mg PO Q8H PRN PRN Reason: PAIN LEVEL 4 - 6 Last Admin: 02/05/18 21:06 Dose: 30 mg Polyethylene Glycol (Miralax (For Daily Use) -) 17 gm PO BID [facility] Last Admin: 02/05/18 21:04 Dose: 17 gm Sodium Chloride ([place] Nasal [place] -) 2 spray NS BID PRN PRN Reason: NASAL CONGESTION Trazodone HCl (Desyrel -) 100 mg PO HS [facility] Last Admin: 02/05/18 21:05 Dose: 100 mg Zolpidem Tartrate (Ambien -) 10 mg PO HS PRN PRN Reason: INSOMNIA Last Admin: 02/05/18 22:41 Dose: 10 mg - Objective Vital Signs: Vital Signs Temperature 98.3 F 02/06/18 06:00 Pulse Rate 54 L 02/06/18 06:00 Respiratory Rate 20 02/06/18 06:00 Blood Pressure 119/71 02/06/18 06:00 O2 Sat by Pulse Oximetry (%) 96 02/05/18 21:00 Constitutional: Yes: Calm, Mild Distress Cardiovascular: Yes: Regular Rate and Rhythm Respiratory: Yes: Regular, CTA Bilaterally Gastrointestinal: Yes: Normal Bowel Sounds, Soft Musculoskeletal: Yes: WNL Extremities: Yes: WNL Neurological: Yes: Alert, Oriented Psychiatric: Yes: Alert, Oriented Labs: CBC, BMP 02/05/18 06:20 02/05/18 06:20 Assessment/Plan pyelo uti abd pain fever all cx results noted urine still not back plan await for urology to see the patient await for urine cx to come back if urology no intervention and urine cx is negative can stop abx
[2018-02-06] MEDS: LISINOPRIL 10 MG TABLET (FP) PO SCH (10:51)
[2018-02-06] MEDS: DULoxetine HCL 30 MG CAPSULE.DR (FP) PO SCH (10:51)
[2018-02-06] MEDS: POLYETHYLENE GLYCOL 3350 119 GM BTL PO SCH ×2 (10:51→22:06)
[2018-02-06] MEDS: clonazePAM 0.5 MG TABLET PO SCH ×2 (10:52→22:11)
[2018-02-06] MEDS: ATORVASTATIN CA 20 MG TABLET (FP) PO SCH (10:52)
--- NOTE | 2018-02-06 11:16 | PN ---
Progress Note, Physician Chief Complaint: Hydronephrosis History of Present Illness: NAD, in bed take oxycodone ER 30 mg TID prn at home for fibromyalgia? received her usual dose, is still c/o pain BL hydronephrosis without uretral obstruction Seen by ID, on IV abx Urology consult BC/UC pending otherwise self ambulatory - Current Medication List Current Medications: Active Medications Acetaminophen (Tylenol -) 650 mg PO Q6H PRN PRN Reason: FEVER Atorvastatin Calcium (Lipitor -) 20 mg PO DAILY [facility] Last Admin: 02/06/18 10:52 Dose: 20 mg Clonazepam (Klonopin -) 0.5 mg PO BID [facility] Last Admin: 02/06/18 10:52 Dose: 0.5 mg Duloxetine HCl (Cymbalta -) 30 mg PO DAILY [facility] Last Admin: 02/06/18 10:51 Dose: 30 mg Heparin Sodium (Porcine) (Heparin -) 5,000 unit SQ TID [facility] Last Admin: 02/06/18 06:42 Dose: 5,000 unit Hydroxyzine HCl (Atarax -) 25 mg PO Q6H PRN PRN Reason: ANXIETY Meropenem 1 gm/ Dextrose 100 mls @ 200 mls/hr IVPB Q8H-IV [facility] Last Admin: 02/06/18 10:50 Dose: 200 mls/hr Ketorolac Tromethamine (Toradol) 10 mg PO Q6HPO [facility] Stop: 02/11/18 11:59 Levothyroxine Sodium (Synthroid -) 150 mcg PO DAILY@0700 [facility] Last Admin: 02/06/18 06:43 Dose: 150 mcg Lisinopril (Prinivil) 10 mg PO DAILY [facility] Last Admin: 02/06/18 10:51 Dose: 10 mg Ondansetron HCl (Zofran Injection) 4 mg IVPUSH Q6H PRN PRN Reason: NAUSEA Oxycodone HCl (Roxicodone -) 30 mg PO Q8H PRN PRN Reason: PAIN LEVEL 4 - 6 Last Admin: 02/05/18 21:06 Dose: 30 mg Polyethylene Glycol (Miralax (For Daily Use) -) 17 gm PO BID [facility] Last Admin: 02/06/18 10:51 Dose: 17 gm Sodium Chloride ([place] Nasal [place] -) 2 spray NS BID PRN PRN Reason: NASAL CONGESTION Trazodone HCl (Desyrel -) 100 mg PO HS [facility] Last Admin: 02/05/18 21:05 Dose: 100 mg Zolpidem Tartrate (Ambien -) 10 mg PO HS PRN PRN Reason: INSOMNIA Last Admin: 02/05/18 22:41 Dose: 10 mg - Objective Vital Signs: Vital Signs Temperature 98.3 F 02/06/18 06:00 Pulse Rate 54 L 02/06/18 06:00 Respiratory Rate 20 02/06/18 06:00 Blood Pressure 119/71 02/06/18 06:00 O2 Sat by Pulse Oximetry (%) 96 02/05/18 21:00 Constitutional: Yes: Well Nourished, No Distress, Calm Cardiovascular: Yes: Regular Rate and Rhythm Respiratory: Yes: Regular Gastrointestinal: Yes: Normal Bowel Sounds, Soft Musculoskeletal: Yes: WNL Extremities: Yes: WNL Edema: No Peripheral Pulses WNL: Yes Neurological: Yes: Alert, Oriented Psychiatric: Yes: Alert, Oriented Labs: CBC, BMP 02/05/18 06:20 02/05/18 06:20 Problem List - Problems (1) Pyelonephritis Assessment/Plan: -ID consult appreciated -IV Meropenum, Ecoli in UC in the past -UC pending Code(s): N12 - TUBULO-INTERSTITIAL NEPHRITIS, NOT SPCF ACUTE OR CHRONIC (2) Leukocytosis Assessment/Plan: -Improved -monitor trend -afebrile Code(s): D72.829 - ELEVATED WHITE BLOOD CELL COUNT, UNSPECIFIED (3) UTI (urinary tract infection) Assessment/Plan: -Urology consult -UC pending -ID on board -IV abx Code(s): N39.0 - URINARY TRACT INFECTION, SITE NOT SPECIFIED Qualifiers: Urinary tract infection type: acute pyelonephritis Qualified Code(s): N10 - Acute pyelonephritis (4) Hydronephrosis Assessment/Plan: -seen by Urology -plan for cystoscopy with JJ stents Code(s): N13.30 - UNSPECIFIED HYDRONEPHROSIS Assessment/Plan see problem list
[2018-02-06] MEDS: KETOROLAC TROMETHAMINE 10 MG TABLET PO SCH ×2 (11:43→17:33)
[2018-02-06] MEDS ORDERED: PHENAZOPYRIDINE HCL 100 MG TABLET (FP) PO PRN (12:13)
--- NOTE | 2018-02-06 18:05 | PN ---
Progress Note (short form) - Note Progress Note: UROLOGY NOTE 52 Y/O Female patient with history of recurrent UTI, OAB, SNM implant, developed pyelonephritis on IV antibiotics, CT-scan bilateral hydronephrosis, thick bladder wall and left pelvic mass. plan: will schedule her for cystoscopy and bilateral URS, JJ stent insertion.
[2018-02-06] MEDS: traZODone HCL 50 MG TABLET (FP) PO SCH (22:12)
[2018-02-06] MEDS: oxyCODONE HCL 5 MG TABLET PO PRN (22:22)
[2018-02-06] MEDS: ZOLPIDEM TARTRATE 5 MG TABLET PO PRN (22:22)
[2018-02-07] MEDS: KETOROLAC TROMETHAMINE 10 MG TABLET PO SCH ×4 (01:23→17:25)
[2018-02-07] MEDS: MEROPENEM 1 GM in DEXTROSE 5%-WATER 100 ML IVPB SCH ×3 (03:08→17:22)
[2018-02-07] MEDS: HEPARIN NA (PORCINE) 5,000 UNITS/ML 1ML VIAL SQ SCH ×3 (06:07→21:18)
[2018-02-07] MEDS: LEVOTHYROXINE NA 75 MCG TABLET (FP) PO SCH (06:07)
--- NOTE | 2018-02-07 07:15 | PN ---
Progress Note, Physician Chief Complaint: Hydronephrosis History of Present Illness: NAD, in bed take oxycodone ER 30 mg TID prn at home for fibromyalgia? received her usual dose, is still c/o pain BL hydronephrosis without uretral obstruction Seen by ID, on IV abx Urology consult appreciated- Plan for cystoscopy with JJ stents otherwise self ambulatory - Current Medication List Current Medications: Active Medications Acetaminophen (Tylenol -) 650 mg PO Q6H PRN PRN Reason: FEVER Last Admin: 02/06/18 22:12 Dose: 650 mg Atorvastatin Calcium (Lipitor -) 20 mg PO DAILY [facility] Last Admin: 02/06/18 10:52 Dose: 20 mg Clonazepam (Klonopin -) 0.5 mg PO BID [facility] Last Admin: 02/06/18 22:11 Dose: 0.5 mg Duloxetine HCl (Cymbalta -) 30 mg PO DAILY [facility] Last Admin: 02/06/18 10:51 Dose: 30 mg Heparin Sodium (Porcine) (Heparin -) 5,000 unit SQ TID [facility] Last Admin: 02/07/18 06:07 Dose: 5,000 unit Hydroxyzine HCl (Atarax -) 25 mg PO Q6H PRN PRN Reason: ANXIETY Meropenem 1 gm/ Dextrose 100 mls @ 200 mls/hr IVPB Q8H-IV [facility] Last Admin: 02/07/18 03:08 Dose: 200 mls/hr Ketorolac Tromethamine (Toradol) 10 mg PO Q6HPO [facility] Stop: 02/11/18 11:59 Last Admin: 02/07/18 07:05 Dose: Not Given Levothyroxine Sodium (Synthroid -) 150 mcg PO DAILY@0700 [facility] Last Admin: 02/07/18 06:07 Dose: 150 mcg Lisinopril (Prinivil) 10 mg PO DAILY [facility] Last Admin: 02/06/18 10:51 Dose: 10 mg Ondansetron HCl (Zofran Injection) 4 mg IVPUSH Q6H PRN PRN Reason: NAUSEA Oxycodone HCl (Roxicodone -) 30 mg PO Q8H PRN PRN Reason: PAIN LEVEL 4 - 6 Last Admin: 02/06/18 22:22 Dose: 30 mg Phenazopyridine HCl (Pyridium -) 100 mg PO TID PRN PRN Reason: dysuria Polyethylene Glycol (Miralax (For Daily Use) -) 17 gm PO BID [facility] Last Admin: 02/06/18 22:06 Dose: Not Given Sodium Chloride ([place] Nasal [place] -) 2 spray NS BID PRN PRN Reason: NASAL CONGESTION Trazodone HCl (Desyrel -) 100 mg PO HS [facility] Last Admin: 02/06/18 22:12 Dose: 100 mg Zolpidem Tartrate (Ambien -) 10 mg PO HS PRN PRN Reason: INSOMNIA Last Admin: 02/06/18 22:22 Dose: 10 mg - Objective Vital Signs: Vital Signs Temperature 98.6 F 02/06/18 21:00 Pulse Rate 53 L 02/06/18 21:00 Respiratory Rate 20 02/06/18 21:00 Blood Pressure 133/70 02/06/18 21:00 O2 Sat by Pulse Oximetry (%) 97 02/06/18 21:00 Constitutional: Yes: Well Nourished, No Distress, Calm Cardiovascular: Yes: Regular Rate and Rhythm Respiratory: Yes: Regular Gastrointestinal: Yes: Normal Bowel Sounds, Soft, Abdomen, Obese Edema: No Peripheral Pulses WNL: Yes Neurological: Yes: Alert, Oriented Psychiatric: Yes: Alert, Oriented Labs: CBC, BMP 02/05/18 06:20 02/05/18 06:20 Problem List - Problems (1) Pyelonephritis Assessment/Plan: -ID consult appreciated -IV Meropenum, Ecoli in UC in the past -UC: Microbiology 02/04/18 17:30 Blood Culture - Preliminary Blood - Peripheral Venous NO GROWTH OBTAINED AFTER 48 HOURS, INCUBATION TO CONTINUE FOR 3 DAYS. 02/04/18 17:14 Blood Culture - Preliminary Blood - Peripheral Venous NO GROWTH OBTAINED AFTER 48 HOURS, INCUBATION TO CONTINUE FOR 3 DAYS. 02/04/18 16:56 Urine Culture - Preliminary Urine - Urine Clean Catch Pseudomonas Species Code(s): N12 - TUBULO-INTERSTITIAL NEPHRITIS, NOT SPCF ACUTE OR CHRONIC (2) Leukocytosis Assessment/Plan: -Improved -monitor trend -afebrile Code(s): D72.829 - ELEVATED WHITE BLOOD CELL COUNT, UNSPECIFIED (3) UTI (urinary tract infection) Assessment/Plan: -Urology consult -UC pending -ID on board -IV abx Code(s): N39.0 - URINARY TRACT INFECTION, SITE NOT SPECIFIED Qualifiers: Urinary tract infection type: acute pyelonephritis Qualified Code(s): N10 - Acute pyelonephritis (4) Hydronephrosis Assessment/Plan: -seen by Urology -plan for cystoscopy with JJ stents Code(s): N13.30 - UNSPECIFIED HYDRONEPHROSIS Assessment/Plan see problem list DVT prophylaxis
[2018-02-07] MEDS ORDERED: PT OWN MED DRAWER 7, Y5N ONE ×3 (08:58→17:24)
[2018-02-07] MEDS: DULoxetine HCL 30 MG CAPSULE.DR (FP) PO SCH (09:03)
[2018-02-07] MEDS: LISINOPRIL 10 MG TABLET (FP) PO SCH (09:03)
[2018-02-07] MEDS: clonazePAM 0.5 MG TABLET PO SCH ×2 (09:03→21:18)
[2018-02-07] MEDS: ATORVASTATIN CA 20 MG TABLET (FP) PO SCH (09:03)
[2018-02-07] MEDS: POLYETHYLENE GLYCOL 3350 119 GM BTL PO SCH ×2 (09:05→21:20)
--- NOTE | 2018-02-07 15:35 | PN ---
Progress Note, Physician History of Present Illness: Pt seen and examined. Pt with decrease in Rt abd pain, afebrile. c/o nonspecific itching but no rash. No other specific complaints. - Current Medication List Current Medications: Active Medications Acetaminophen (Tylenol -) 650 mg PO Q6H PRN PRN Reason: FEVER Last Admin: 02/06/18 22:12 Dose: 650 mg Atorvastatin Calcium (Lipitor -) 20 mg PO DAILY [facility] Last Admin: 02/07/18 09:03 Dose: 20 mg Clonazepam (Klonopin -) 0.5 mg PO BID [facility] Last Admin: 02/07/18 09:03 Dose: 0.5 mg Duloxetine HCl (Cymbalta -) 30 mg PO DAILY [facility] Last Admin: 02/07/18 09:03 Dose: 30 mg Heparin Sodium (Porcine) (Heparin -) 5,000 unit SQ TID [facility] Last Admin: 02/07/18 14:36 Dose: 5,000 unit Hydroxyzine HCl (Atarax -) 25 mg PO Q6H PRN PRN Reason: ANXIETY Meropenem 1 gm/ Dextrose 100 mls @ 200 mls/hr IVPB Q8H-IV [facility] Last Admin: 02/07/18 09:03 Dose: 200 mls/hr Ketorolac Tromethamine (Toradol) 10 mg PO Q6HPO [facility] Stop: 02/11/18 11:59 Last Admin: 02/07/18 12:36 Dose: Not Given Levothyroxine Sodium (Synthroid -) 150 mcg PO DAILY@0700 [facility] Last Admin: 02/07/18 06:07 Dose: 150 mcg Lisinopril (Prinivil) 10 mg PO DAILY [facility] Last Admin: 02/07/18 09:03 Dose: 10 mg Ondansetron HCl (Zofran Injection) 4 mg IVPUSH Q6H PRN PRN Reason: NAUSEA Oxycodone HCl (Roxicodone -) 30 mg PO Q8H PRN PRN Reason: PAIN LEVEL 4 - 6 Last Admin: 02/06/18 22:22 Dose: 30 mg Phenazopyridine HCl (Pyridium -) 100 mg PO TID PRN PRN Reason: dysuria Last Admin: 02/07/18 09:03 Dose: 100 mg Polyethylene Glycol (Miralax (For Daily Use) -) 17 gm PO BID [facility] Last Admin: 02/07/18 09:05 Dose: 17 gm Sodium Chloride ([place] Nasal [place] -) 2 spray NS BID PRN PRN Reason: NASAL CONGESTION Trazodone HCl (Desyrel -) 100 mg PO HS [facility] Last Admin: 02/06/18 22:12 Dose: 100 mg Zolpidem Tartrate (Ambien -) 10 mg PO HS PRN PRN Reason: INSOMNIA Last Admin: 02/06/18 22:22 Dose: 10 mg - Objective Vital Signs: Vital Signs Temperature 97.9 F 02/07/18 15:10 Pulse Rate 73 02/07/18 15:10 Respiratory Rate 18 02/07/18 15:10 Blood Pressure 129/71 02/07/18 15:10 O2 Sat by Pulse Oximetry (%) 97 02/07/18 09:00 Constitutional: Yes: No Distress, Calm Cardiovascular: Yes: Regular Rate and Rhythm Respiratory: Yes: Regular Gastrointestinal: Yes: Normal Bowel Sounds, Soft, Tenderness (Rt abd pain without guarding) Genitourinary: Yes: WNL Extremities: Yes: WNL Integumentary: Yes: WNL Neurological: Yes: Alert, Oriented Labs: CBC, BMP 02/05/18 06:20 02/05/18 06:20 Problem List - Problems (1) Leukocytosis Code(s): D72.829 - ELEVATED WHITE BLOOD CELL COUNT, UNSPECIFIED (2) Pyelonephritis Code(s): N12 - TUBULO-INTERSTITIAL NEPHRITIS, NOT SPCF ACUTE OR CHRONIC (3) HTN (hypertension) Code(s): I10 - ESSENTIAL (PRIMARY) HYPERTENSION (4) Hydronephrosis Code(s): N13.30 - UNSPECIFIED HYDRONEPHROSIS (5) UTI (urinary tract infection) Code(s): N39.0 - URINARY TRACT INFECTION, SITE NOT SPECIFIED Qualifiers: Urinary tract infection type: acute pyelonephritis Qualified Code(s): N10 - Acute pyelonephritis Assessment/Plan 52 y.o. female with recurrent UTI/pyelonephritis, b/l hydronephrosis presenting with dysuria, Rt sided abd pain and leukocytosis. Previous history of E. coli UTI Pseudomonas UTI/Pyelonephritis Resolved leukocytosis - continue antibiotics - Urology following, plan for cystoscopy/JJ stent wbc normal, pt with some improvement in pain, remains afebrile
[2018-02-07] MEDS: traZODone HCL 50 MG TABLET (FP) PO SCH (21:19)
[2018-02-07] MEDS: oxyCODONE HCL 5 MG TABLET PO PRN (21:59)
[2018-02-08] MEDS ORDERED: PT OWN MED DRAWER 7, Y5N ONE ×5 (00:32→17:05)
[2018-02-08] MEDS: KETOROLAC TROMETHAMINE 10 MG TABLET PO SCH ×4 (00:35→17:16)
[2018-02-08] MEDS: MEROPENEM 1 GM in DEXTROSE 5%-WATER 100 ML IVPB SCH ×3 (01:17→17:17)
[2018-02-08] MEDS: HEPARIN NA (PORCINE) 5,000 UNITS/ML 1ML VIAL SQ SCH ×3 (06:18→21:06)
[2018-02-08] MEDS: LEVOTHYROXINE NA 75 MCG TABLET (FP) PO SCH (06:19)
--- NOTE | 2018-02-08 06:32 | PN ---
Progress Note, Physician Chief Complaint: Hydronephrosis History of Present Illness: NAD, in bed take oxycodone ER 30 mg TID prn at home for fibromyalgia? received her usual dose, is still c/o pain BL hydronephrosis without uretral obstruction Seen by ID, on IV abx Urology consult BC negative UC shows Pseudomonas otherwise self ambulatory Going for Cystoscopy tomorrow - Current Medication List Current Medications: Active Medications Acetaminophen (Tylenol -) 650 mg PO Q6H PRN PRN Reason: FEVER Last Admin: 02/06/18 22:12 Dose: 650 mg Atorvastatin Calcium (Lipitor -) 20 mg PO DAILY [facility] Last Admin: 02/07/18 09:03 Dose: 20 mg Clonazepam (Klonopin -) 0.5 mg PO BID [facility] Last Admin: 02/07/18 21:18 Dose: 0.5 mg Duloxetine HCl (Cymbalta -) 30 mg PO DAILY [facility] Last Admin: 02/07/18 09:03 Dose: 30 mg Heparin Sodium (Porcine) (Heparin -) 5,000 unit SQ TID [facility] Last Admin: 02/08/18 06:18 Dose: 5,000 unit Hydroxyzine HCl (Atarax -) 25 mg PO Q6H PRN PRN Reason: ANXIETY Meropenem 1 gm/ Dextrose 100 mls @ 200 mls/hr IVPB Q8H-IV [facility] Last Admin: 02/08/18 01:17 Dose: 200 mls/hr Ketorolac Tromethamine (Toradol) 10 mg PO Q6HPO [facility] Stop: 02/11/18 11:59 Last Admin: 02/08/18 06:21 Dose: 10 mg Levothyroxine Sodium (Synthroid -) 150 mcg PO DAILY@0700 [facility] Last Admin: 02/08/18 06:19 Dose: 150 mcg Lisinopril (Prinivil) 10 mg PO DAILY [facility] Last Admin: 02/07/18 09:03 Dose: 10 mg Ondansetron HCl (Zofran Injection) 4 mg IVPUSH Q6H PRN PRN Reason: NAUSEA Oxycodone HCl (Roxicodone -) 30 mg PO Q8H PRN PRN Reason: PAIN LEVEL 4 - 6 Last Admin: 02/07/18 21:59 Dose: 30 mg Phenazopyridine HCl (Pyridium -) 100 mg PO TID PRN PRN Reason: dysuria Last Admin: 02/07/18 09:03 Dose: 100 mg Polyethylene Glycol (Miralax (For Daily Use) -) 17 gm PO BID [facility] Last Admin: 02/07/18 21:20 Dose: 17 gm Sodium Chloride ([place] Nasal [place] -) 2 spray NS BID PRN PRN Reason: NASAL CONGESTION Trazodone HCl (Desyrel -) 100 mg PO HS [facility] Last Admin: 02/07/18 21:19 Dose: 100 mg - Objective Vital Signs: Vital Signs Temperature 98.1 F 02/08/18 01:00 Pulse Rate 74 02/08/18 01:00 Respiratory Rate 18 02/08/18 01:00 Blood Pressure 120/65 02/08/18 01:00 O2 Sat by Pulse Oximetry (%) 98 02/07/18 21:00 Constitutional: Yes: Well Nourished, No Distress, Calm Cardiovascular: Yes: Regular Rate and Rhythm Respiratory: Yes: Regular Gastrointestinal: Yes: Normal Bowel Sounds, Soft, Abdomen, Obese Musculoskeletal: Yes: WNL Extremities: Yes: WNL Edema: No Peripheral Pulses WNL: Yes Neurological: Yes: Alert, Oriented Psychiatric: Yes: Alert, Oriented Labs: CBC, BMP 02/05/18 06:20 02/05/18 06:20 Problem List - Problems (1) Pyelonephritis Assessment/Plan: -ID consult appreciated -IV Meropenum day 5 Code(s): N12 - TUBULO-INTERSTITIAL NEPHRITIS, NOT SPCF ACUTE OR CHRONIC (2) Leukocytosis Assessment/Plan: -Improved -monitor trend -afebrile Code(s): D72.829 - ELEVATED WHITE BLOOD CELL COUNT, UNSPECIFIED (3) UTI (urinary tract infection) Assessment/Plan: -Urology consult - shows pseudomonas -ID on board -IV abx Code(s): N39.0 - URINARY TRACT INFECTION, SITE NOT SPECIFIED Qualifiers: Urinary tract infection type: acute pyelonephritis Qualified Code(s): N10 - Acute pyelonephritis (4) Hydronephrosis Assessment/Plan: -seen by Urology -plan for cystoscopy with JJ stents on Friday Code(s): N13.30 - UNSPECIFIED HYDRONEPHROSIS Assessment/Plan see problem list
[2018-02-08] MEDS: LISINOPRIL 10 MG TABLET (FP) PO SCH (09:37)
[2018-02-08] MEDS: DULoxetine HCL 30 MG CAPSULE.DR (FP) PO SCH (09:37)
[2018-02-08] MEDS: clonazePAM 0.5 MG TABLET PO SCH ×2 (09:37→21:06)
[2018-02-08] MEDS: ATORVASTATIN CA 20 MG TABLET (FP) PO SCH (09:37)
[2018-02-08] MEDS: Methylnaltrexone Bromide 12 MG/0.6 ML KIT SQ SCH (11:05)
[2018-02-08] MEDS: traZODone HCL 50 MG TABLET (FP) PO SCH (21:06)
--- NOTE | 2018-02-08 22:51 | PN ---
Progress Note (short form) - Note Progress Note: UROLOGY NOTE. pt. with aditi. hydronephrosis and a hypodense lt. pelvic mass. Will go for cysto aditi. retro., poss. aditi. jj stents in am.
[2018-02-08] MEDS: oxyCODONE HCL 5 MG TABLET PO PRN (23:44)
[2018-02-09] MEDS: KETOROLAC TROMETHAMINE 10 MG TABLET PO SCH ×4 (00:05→17:35)
[2018-02-09] MEDS ORDERED: PT OWN MED DRAWER 7, Y5N ONE ×3 (01:07→17:07)
[2018-02-09] MEDS: MEROPENEM 1 GM in DEXTROSE 5%-WATER 100 ML IVPB SCH ×3 (01:31→17:10)
[2018-02-09] MEDS: HEPARIN NA (PORCINE) 5,000 UNITS/ML 1ML VIAL SQ SCH ×3 (06:06→21:18)
[2018-02-09] MEDS: LEVOTHYROXINE NA 75 MCG TABLET (FP) PO SCH (07:02)
[2018-02-09 08:24] LABS: BASO % 0.5 % (0-2.0); EOS % 3.3 % (0-4.5); HEMATOCRIT 37.8 % (32.4-45.2); HEMOGLOBIN 12.5 GM/dL (10.7-15.3); MCH 29.2 pg (25.7-33.7); MEAN CELL VOLUME 88.3 fl (80-96); MEAN PLT VOLUME 7.9 fl (7.5-11.1); MONO % 8.4 % (3.8-10.2); NEUT % 48.8 % (42.8-82.8); PLATELET COUNT 299 K/MM3 (134-434); RBC 4.28 M/mm3 (3.60-5.2); RDW 13.7 % (11.6-15.6); WHITE BLOOD COUNT 6.7 K/mm3 (4.0-10.0)
[2018-02-09 08:47] LABS: ALBUMIN 3.5 g/dl (3.4-5.0); ANION GAP 6 (8-16); BLOOD UREA NITROGEN 12 mg/dL (7-18); CALCIUM 9.5 mg/dL (8.5-10.1); CHLORIDE 103 mmol/L (98-107); CO2 32 mmol/L (21-32); GLUCOSE,RANDOM 79 mg/dL (74-106); POTASSIUM 4.1 mmol/L (3.5-5.1); SODIUM 141 mmol/L (136-145)
[2018-02-09 08:51] LABS: ALK PHOS 94 U/L (45-117); BILIRUBIN,TOTAL 0.3 mg/dL (0.2-1.0); CREATININE 0.8 mg/dL (0.55-1.02); SGOT/AST 43 U/L (15-37); SGPT/ALT 55 U/L (12-78); TOT PROT 7.7 g/dl (6.4-8.2)
[2018-02-09 08:57] LABS: INR 1.09 (0.82-1.09); PROTHROMBIN TIME (PATIENT) 12.3 SEC (9.7-13.0)
[2018-02-09 09:00] LABS: ACTIVATED PTT 31.8 SECONDS (25.2-36.5)
--- NOTE | 2018-02-09 10:31 | PN ---
Progress Note, Physician Chief Complaint: patient seen and examined in bed no distress sleeping afebrile normal WBC - Current Medication List Current Medications: Active Medications Acetaminophen (Tylenol -) 650 mg PO Q6H PRN PRN Reason: FEVER Last Admin: 02/06/18 22:12 Dose: 650 mg Atorvastatin Calcium (Lipitor -) 20 mg PO DAILY [facility] Last Admin: 02/08/18 09:37 Dose: 20 mg Clonazepam (Klonopin -) 0.5 mg PO BID [facility] Last Admin: 02/08/18 21:06 Dose: 0.5 mg Duloxetine HCl (Cymbalta -) 30 mg PO DAILY [facility] Last Admin: 02/08/18 09:37 Dose: 30 mg Heparin Sodium (Porcine) (Heparin -) 5,000 unit SQ TID [facility] Last Admin: 02/09/18 06:06 Dose: Not Given Hydroxyzine HCl (Atarax -) 25 mg PO Q6H PRN PRN Reason: ANXIETY Meropenem 1 gm/ Dextrose 100 mls @ 200 mls/hr IVPB Q8H-IV [facility] Last Admin: 02/09/18 09:12 Dose: 200 mls/hr Ketorolac Tromethamine (Toradol) 10 mg PO Q6HPO [facility] Stop: 02/11/18 11:59 Last Admin: 02/09/18 07:02 Dose: Not Given Levothyroxine Sodium (Synthroid -) 150 mcg PO DAILY@0700 [facility] Last Admin: 02/09/18 07:02 Dose: Not Given Lisinopril (Prinivil) 10 mg PO DAILY [facility] Last Admin: 02/08/18 09:37 Dose: 10 mg Methylnaltrexone [place] (Relistor -) 12 mg SQ DAILY [facility] Last Admin: 02/08/18 11:05 Dose: 12 mg Ondansetron HCl (Zofran Injection) 4 mg IVPUSH Q6H PRN PRN Reason: NAUSEA Oxycodone HCl (Roxicodone -) 30 mg PO Q8H PRN PRN Reason: PAIN LEVEL 4 - 6 Last Admin: 02/08/18 23:44 Dose: 30 mg Phenazopyridine HCl (Pyridium -) 100 mg PO TID PRN PRN Reason: dysuria Last Admin: 02/07/18 09:03 Dose: 100 mg Sodium Chloride ([place] Nasal [place] -) 2 spray NS BID PRN PRN Reason: NASAL CONGESTION Trazodone HCl (Desyrel -) 100 mg PO HS [facility] Last Admin: 02/08/18 21:06 Dose: 100 mg - Objective Vital Signs: Vital Signs Temperature 97.7 F 02/09/18 10:07 Pulse Rate 62 02/09/18 10:07 Respiratory Rate 16 02/09/18 10:07 Blood Pressure 120/64 02/09/18 10:07 O2 Sat by Pulse Oximetry (%) 98 02/08/18 20:31 Constitutional: Yes: Calm Cardiovascular: Yes: Regular Rate and Rhythm, S1, S2 Respiratory: Yes: CTA Bilaterally Gastrointestinal: Yes: Normal Bowel Sounds, Soft Edema: No Neurological: Yes: Alert Labs: CBC, BMP 02/09/18 07:00 02/09/18 07:00 INR, PTT INR 1.09 (0.82-1.09) 02/09/18 07:00 Problem List - Problems (1) Hydronephrosis Assessment/Plan: NPO going for cystocopy today possible JJ stents placement urology on board Code(s): N13.30 - UNSPECIFIED HYDRONEPHROSIS (2) Hypothyroid Assessment/Plan: on synthroid check tsh Code(s): E03.9 - HYPOTHYROIDISM, UNSPECIFIED (3) UTI (urinary tract infection) Assessment/Plan: Microbiology 02/04/18 16:56 Urine - Urine Clean Catch Urine Culture - Final Pseudomonas Aeruginosa IV meropenem Code(s): N39.0 - URINARY TRACT INFECTION, SITE NOT SPECIFIED Qualifiers: Urinary tract infection type: acute pyelonephritis Qualified Code(s): N10 - Acute pyelonephritis
[2018-02-09] MEDS: clonazePAM 0.5 MG TABLET PO SCH ×2 (11:09→21:18)
[2018-02-09] MEDS: ATORVASTATIN CA 20 MG TABLET (FP) PO SCH (11:10)
[2018-02-09] MEDS: LISINOPRIL 10 MG TABLET (FP) PO SCH (11:10)
[2018-02-09] MEDS: DULoxetine HCL 30 MG CAPSULE.DR (FP) PO SCH (11:10)
[2018-02-09] MEDS: Methylnaltrexone Bromide 12 MG/0.6 ML KIT SQ SCH (11:32)
--- NOTE | 2018-02-09 11:48 | PN ---
Progress Note, Physician History of Present Illness: stable plan for procedure and stent - Current Medication List Current Medications: Active Medications Acetaminophen (Tylenol -) 650 mg PO Q6H PRN PRN Reason: FEVER Last Admin: 02/06/18 22:12 Dose: 650 mg Atorvastatin Calcium (Lipitor -) 20 mg PO DAILY [facility] Last Admin: 02/09/18 11:10 Dose: Not Given Clonazepam (Klonopin -) 0.5 mg PO BID [facility] Last Admin: 02/09/18 11:09 Dose: Not Given Duloxetine HCl (Cymbalta -) 30 mg PO DAILY [facility] Last Admin: 02/09/18 11:10 Dose: Not Given Heparin Sodium (Porcine) (Heparin -) 5,000 unit SQ TID [facility] Last Admin: 02/09/18 06:06 Dose: Not Given Hydroxyzine HCl (Atarax -) 25 mg PO Q6H PRN PRN Reason: ANXIETY Meropenem 1 gm/ Dextrose 100 mls @ 200 mls/hr IVPB Q8H-IV [facility] Last Admin: 02/09/18 09:12 Dose: 200 mls/hr Ketorolac Tromethamine (Toradol) 10 mg PO Q6HPO [facility] Stop: 02/11/18 11:59 Last Admin: 02/09/18 11:10 Dose: Not Given Levothyroxine Sodium (Synthroid -) 150 mcg PO DAILY@0700 [facility] Last Admin: 02/09/18 07:02 Dose: Not Given Lisinopril (Prinivil) 10 mg PO DAILY [facility] Last Admin: 02/09/18 11:10 Dose: Not Given Methylnaltrexone [place] (Relistor -) 12 mg SQ DAILY [facility] Last Admin: 02/09/18 11:32 Dose: Not Given Ondansetron HCl (Zofran Injection) 4 mg IVPUSH Q6H PRN PRN Reason: NAUSEA Oxycodone HCl (Roxicodone -) 30 mg PO Q8H PRN PRN Reason: PAIN LEVEL 4 - 6 Last Admin: 02/08/18 23:44 Dose: 30 mg Phenazopyridine HCl (Pyridium -) 100 mg PO TID PRN PRN Reason: dysuria Last Admin: 02/07/18 09:03 Dose: 100 mg Sodium Chloride ([place] Nasal [place] -) 2 spray NS BID PRN PRN Reason: NASAL CONGESTION Trazodone HCl (Desyrel -) 100 mg PO HS [facility] Last Admin: 02/08/18 21:06 Dose: 100 mg - Objective Vital Signs: Vital Signs Temperature 97.7 F 02/09/18 10:07 Pulse Rate 62 02/09/18 10:07 Respiratory Rate 16 02/09/18 10:07 Blood Pressure 120/64 02/09/18 10:07 O2 Sat by Pulse Oximetry (%) 98 02/08/18 20:31 Constitutional: Yes: No Distress, Calm, Obese Eyes: Yes: Conjunctiva Clear Cardiovascular: Yes: Regular Rate and Rhythm Respiratory: Yes: Regular, CTA Bilaterally Gastrointestinal: Yes: Normal Bowel Sounds, Soft Musculoskeletal: Yes: WNL Extremities: Yes: WNL Neurological: Yes: Alert, Oriented Psychiatric: Yes: Alert, Oriented Labs: CBC, BMP 02/09/18 07:00 02/09/18 07:00 INR, PTT INR 1.09 (0.82-1.09) 02/09/18 07:00 Assessment/Plan pyelo uti abd pain fever all cx results noted urine still not back plan continue current mgmt rest as per primary team
--- NOTE | 2018-02-09 14:50 | OP ---
Operative Note - Note: Operative Date: 02/09/18 Pre-Operative Diagnosis: Bilateral Hydronephrosis Operation: Cysto Insertion Bilateral Stents Findings: Golf hole shaped ureteral orifices possible vesico ureteral reflux Post-Operative Diagnosis: Same as Pre-op Anesthesia: General Drains & Tubes with Location: Bilateral Stents 24f 6mm Operative Report Dictated: Yes
[2018-02-09] MEDS ORDERED: LACTATED RINGERS SOLUTION 1,000 ML IV SCH ×2 (15:00→15:21)
[2018-02-09] MEDS ORDERED: ACETAMINOPHEN 325 MG TABLET (FP) PO PRN (15:21)
[2018-02-09] MEDS ORDERED: hydrOXYzine HCL 25 MG TABLET (FP) PO PRN (15:21)
[2018-02-09] MEDS: SULFAMETHOXAZOLE/TRIMETHOPRIM 800MG/160MG D.S. TABLET PO SCH (21:18)
[2018-02-09] MEDS: traZODone HCL 50 MG TABLET (FP) PO SCH (21:18)
[2018-02-09] MEDS: oxyCODONE HCL 5 MG TABLET PO PRN (21:18)
[2018-02-09] MEDS ORDERED: MELATONIN 5 MG TABLETS PO ONE (23:45)
[2018-02-10] MEDS ORDERED: PT OWN MED DRAWER 7, Y5N ONE ×2 (01:19→10:30)
[2018-02-10] MEDS: KETOROLAC TROMETHAMINE 10 MG TABLET PO SCH ×2 (01:35→06:42)
[2018-02-10] MEDS: MEROPENEM 1 GM in DEXTROSE 5%-WATER 100 ML IVPB SCH ×2 (01:39→10:31)
--- NOTE | 2018-02-10 06:24 | OP ---
DATE OF OPERATION: 02/09/2018 SURGEON: Nano Oliver MD ANESTHESIA: General. PREOPERATIVE DIAGNOSES: Bilateral hydronephrosis, recurrent urinary tract infection. POSTOPERATIVE DIAGNOSES: Bilateral hydronephrosis, recurrent urinary tract infection. PROCEDURE: Bilateral stent placement, cystoscopy. FINDINGS: Urethra normal. Bladder shows marked trabeculation. Areas of cystitis changes noted. Both ureteral orifices are laterally placed with a golf-hole type of opening, most likely causing vesicoureteral reflux bilaterally. The upper tracts look slightly dilated. No point of obstruction noted. DESCRIPTION OF PROCEDURE: Patient in lithotomy position under anesthesia was prepped and draped in the usual manner. Using 22 scope cystoscopy performed and findings were noted above. Then, a guidewire was placed and x-rays taken. Then the stent placed, confirmed with x-ray. Patient tolerated the procedure well and left the operating room in satisfactory condition. Мария BOWMAN/[id number]
[2018-02-10] MEDS: HEPARIN NA (PORCINE) 5,000 UNITS/ML 1ML VIAL SQ SCH (06:40)
[2018-02-10] MEDS: LEVOTHYROXINE NA 75 MCG TABLET (FP) PO SCH (06:42)
[2018-02-10 07:35] VITALS: TEMP 98.6
[2018-02-10 08:01] LABS: BASO % 0.6 % (0-2.0); HEMATOCRIT 39.8 % (32.4-45.2); HEMOGLOBIN 13.2 GM/dL (10.7-15.3); LYMPH % 41.1 % (8-40); MCH 29.4 pg (25.7-33.7); MCHC 33.1 g/dl (32.0-36.0); MEAN CELL VOLUME 88.6 fl (80-96); MONO % 5.9 % (3.8-10.2); NEUT % 49.4 % (42.8-82.8); PLATELET COUNT 339 K/MM3 (134-434); RBC 4.49 M/mm3 (3.60-5.2); WHITE BLOOD COUNT 7.9 K/mm3 (4.0-10.0)
[2018-02-10 08:39] LABS: ALBUMIN 3.8 g/dl (3.4-5.0); BILIRUBIN,TOTAL 0.4 mg/dL (0.2-1.0); BLOOD UREA NITROGEN 13 mg/dL (7-18); CALCIUM 9.4 mg/dL (8.5-10.1); CO2 28 mmol/L (21-32); CREATININE 0.9 mg/dL (0.55-1.02); GLUCOSE,RANDOM 149 mg/dL (74-106); SGOT/AST 37 U/L (15-37); SGPT/ALT 56 U/L (12-78); TOT PROT 8.3 g/dl (6.4-8.2)
[2018-02-10 08:48] VITALS: BP 120/60; PULSE 72
[2018-02-10 08:48] LABS: ALK PHOS 97 U/L (45-117); ANION GAP 10 (8-16); CHLORIDE 101 mmol/L (98-107); POTASSIUM 3.7 mmol/L (3.5-5.1); SODIUM 139 mmol/L (136-145)
[2018-02-10 08:49] LABS: CHOLESTEROL 164 mg/dL (50-200); TRIGLYCERIDES 230 mg/dL (35-160)
[2018-02-10 08:51] LABS: HDL CHOLESTEROL 56 mg/dL (40-60)
--- NOTE | 2018-02-10 09:49 | DS ---
Physical Examination Vital Signs: Vital Signs Temperature 98.6 F 02/10/18 08:47 Pulse Rate 72 02/10/18 08:47 Respiratory Rate 18 02/10/18 08:47 Blood Pressure 120/60 02/10/18 08:47 O2 Sat by Pulse Oximetry (%) 96 02/09/18 16:07 Constitutional: Yes: Calm Neck: Yes: Trachea Midline Cardiovascular: Yes: Regular Rate and Rhythm, S1, S2 Respiratory: Yes: CTA Bilaterally Gastrointestinal: Yes: Normal Bowel Sounds, Soft Edema: No Neurological: Yes: Alert, Oriented Labs: CBC, BMP 02/10/18 07:00 02/10/18 07:00 Discharge Summary Reason For Visit: PYELONEPHRITIS Current Active Problems Leukocytosis (Acute) Pyelonephritis (Acute) Hospital Course: CHIEF COMPLAINT: B/L flank pain, hematuria, urgency, fever PCP: Trisha Pat, Urology: Castillo Baez HISTORY OF PRESENT ILLNESS: This is a 52 year old female with a significant past medical history of UTI/ pyelo who presented to the ED with fever (up to 104 at home), chills, frequency and dysuria. Pt also reports B/L flank pain. She was admitted at [facility] for UTI/ pyelo 2 weeks ago and treated with 4 days of IV antibiotics. She was admitted here for emphysematous R pyelonephritis in August and treated with meropenem. ER course was notable for: (1) WBC 15.2 (2) u/a c/w UTI Recent Travel: pt denies PAST MEDICAL HISTORY: UTI/pyelonephritis, HTN, fibromyalgia, sleep apnea, depression, anxiety, Hep C s /p Harvoni tx, hypothyroid PAST SURGICAL HISTORY: c-spine surgery hysterectomy bladder sling and multiple revisions - Note: Operative Date: 02/09/18 Pre-Operative Diagnosis: Bilateral Hydronephrosis Operation: Cysto Insertion Bilateral Stents Findings: Golf hole shaped ureteral orifices possible vesico ureteral reflux Post-Operative Diagnosis: Same as Pre-op Anesthesia: General Drains & Tubes with Location: Bilateral Stents 24f 6mm Operative Report Dictated: Yes patient started on meropenem iv abx s/p stents placement and then now changed to bactrim and toradol to follow up with urology in one week Condition: Guarded - Instructions Diet, Activity, Other Instructions: bactrim for one week folllow up with urology in one week Referrals: Nano Oliver MD [Staff Physician] - 2 Weeks (to folllow up regarding stent placement) Ki Pat MD, MD [Primary Care Provider] - 1 Week Disposition: HOME - Home Medications Comprehensive Discharge Medication List: Ambulatory Orders Levothyroxine Sodium [Synthroid] 150 mcg PO DAILY 01/17/14 Lisinopril [Prinivil] 10 mg PO DAILY 01/17/14 Oxycodone HCl [Roxicodone] 30 mg PO TID PRN 01/17/14 Zolpidem Tartrate [Ambien] 10 mg PO HS 10/26/14 Atorvastatin Ca [Lipitor] 20 mg PO DAILY 08/17/15 Omeprazole [Prilosec] 20 mg PO DAILY 08/17/15 Duloxetine HCl [Cymbalta -] 30 mg PO DAILY #0 tab 04/30/17 Acetaminophen [Tylenol .Regular Strength -] 650 mg PO Q4H PRN #0 tablet Trazodone HCl 100 mg PO HS #0 tab 06/06/17 Cefuroxime Axetil [Ceftin -] 500 mg PO BID #14 tablet 08/12/17 Sodium Chloride Nasal [place] [[place] Nasal [place] -] 2 spray NS BID PRN spray 08/12/17 Polyethylene Glycol 3350 [Miralax 119 gm Btl -] 17 gm PO BID 02/04/18 clonazePAM [Clonazepam] 0.5 mg PO BID 02/04/18 hydrOXYzine HCL [Atarax -] 25 mg PO Q6HPO PRN 02/04/18
[2018-02-10] MEDS ORDERED: DULoxetine HCL 30 MG CAPSULE.DR (FP) PO SCH (10:00)
[2018-02-10] MEDS ORDERED: ATORVASTATIN CA 20 MG TABLET (FP) PO SCH (10:00)
[2018-02-10] MEDS ORDERED: PANTOPRAZOLE 20 MG TABLET (FP) PO SCH (10:00)
[2018-02-10] MEDS: LISINOPRIL 10 MG TABLET (FP) PO SCH (10:20)
[2018-02-10] MEDS: SULFAMETHOXAZOLE/TRIMETHOPRIM 800MG/160MG D.S. TABLET PO SCH (10:21)
[2018-02-10] MEDS: clonazePAM 0.5 MG TABLET PO SCH (10:22)
[2018-02-10] MEDS: Methylnaltrexone Bromide 12 MG/0.6 ML KIT SQ SCH (10:35)
== END 2018-02-10 12:02 | disposition home or self-care (01) | DRG 690 ==
LOC: JER 15:55 → JERBED 19:47 → J8W 22:25
PROVIDERS: ADMIT Internal Medicine; ATTEND Family Medicine
PROC: 0T788DZ Dilation of Bilateral Ureters with Intraluminal Device, Via Natural or Artificial Opening Endoscopic (ICD-10-PCS; principal; 2018-02-09 11:00)
DX: N12 Tubulo-interstitial nephritis, not specified as acute or chronic (principal); M79.7 Fibromyalgia; I10 Essential (primary) hypertension; F32.9 Major depressive disorder, single episode, unspecified; F41.9 Anxiety disorder, unspecified; G47.30 Sleep apnea, unspecified; B19.20 Unspecified viral hepatitis C without hepatic coma; E03.9 Hypothyroidism, unspecified; E66.9 Obesity, unspecified; D72.829 Elevated white blood cell count, unspecified; N13.30 Unspecified hydronephrosis; N10 Acute pyelonephritis; B96.5 Pseudomonas (aeruginosa) (mallei) (pseudomallei) as the cause of diseases classified elsewhere; N13.70 Vesicoureteral-reflux, unspecified
CPT/HCPCS: 36415; 71045-TC-FY; 74176-TC; 76000-TC-FY; 80048; 80053; 80061; 81003; 81015; 83605; 83721; 83735; 84100; 84439; 84443; 85025; 85027; 85610; 85730; 87040; 87086; 87186; 93005; 93010; 94760; 99285-25; J0131; J1644; J7030

== ENCOUNTER 2018-04-17 14:16 | Inpatient (IN) | payer OTHER ==
--- NOTE | 2018-04-17 14:30 | PDOC ---
Rapid Medical Evaluation Time Seen by Provider: 04/17/18 14:27 Medical Evaluation: Allergies Allergy/AdvReac Type Severity Reaction Status Date / Time piperacillin [From Zosyn] Allergy Hives Verified 02/04/18 23:14 tazobactam [From Zosyn] Allergy Hives Verified 02/04/18 23:14 04/17/18 14:27 I have performed a brief in-person evaluation of this patient. The patient presents with a chief complaint of:lower abd pain radiating to back w/ dysuria and frequency x 2 days, similar to prior utis. No hematuria, n/v/f/ c. H/o recurrent utis, pyelo, s/p b/l ureteral stents placed at [facility] 02/18, f/u with , Dr Gretchen Baez, HTN, hypothyroid and fibromyalgia. Also reports dry mouth x weeks. Pertinent physical exam findings:stable w/ +ttp to and mid suprapubic area, no CVAT I have ordered the following:labs/ua/ucx The patient will proceed to the ED for further evaluation. Discharge Disposition - Diagnosis Dysuria - Referrals - Patient Instructions - Post Discharge Activity
[2018-04-17 15:21] LABS: BASO % 0.5 % (0-2.0); EOS % 1.7 % (0-4.5); HEMATOCRIT 37.3 % (32.4-45.2); HEMOGLOBIN 12.6 GM/dL (10.7-15.3); LYMPH % 32.2 % (8-40); MCH 30.4 pg (25.7-33.7); MCHC 33.7 g/dl (32.0-36.0); MEAN CELL VOLUME 90.1 fl (80-96); MEAN PLT VOLUME 7.9 fl (7.5-11.1); MONO % 7.2 % (3.8-10.2); NEUT % 58.4 % (42.8-82.8); PLATELET COUNT 311 K/MM3 (134-434); RBC 4.14 M/mm3 (3.60-5.2); WHITE BLOOD COUNT 8.4 K/mm3 (4.0-10.0)
[2018-04-17 15:37] LABS: ALK PHOS 90 U/L (45-117); ANION GAP 11 MMOL/L (8-16); BILIRUBIN,TOTAL 0.5 mg/dL (0.2-1.0); BLOOD UREA NITROGEN 8 mg/dL (7-18); CHLORIDE 104 mmol/L (98-107); CO2 29 mmol/L (21-32); GLUCOSE,RANDOM 119 mg/dL (74-106); POTASSIUM 3.8 mmol/L (3.5-5.1); SGOT/AST 16 U/L (15-37); SGPT/ALT 28 U/L (13-61); SODIUM 144 mmol/L (136-145); TOT PROT 8.5 g/dl (6.4-8.2)
[2018-04-17] MEDS ORDERED: morphine CARPU-JECT 4 MG/1 ML DISP.SYRIN IVPUSH ONE ×2 (15:49→18:46)
[2018-04-17] MEDS ORDERED: LACTATED RINGERS SOLUTION 1000 ML INFUS.BAG IV ONE (15:49)
[2018-04-17] MEDS ORDERED: morphine SULFATE 4 MG/ML VIAL ONE (16:00)
--- NOTE | 2018-04-17 16:01 | PDOC ---
History of Present Illness <Sami Bearden - Last Filed: 04/17/18 17:03> - General History Source: Patient Exam Limitations: No Limitations - History of Present Illness Initial Comments: 04/17/18 16:16 52 YOF, with a significant past medical history of chronic UTI, pyelo, HTN, fibromyalgia, sleep apnea, depression, anxiety, and hyperthyroidism who presents to the emergency department with, dysuria, frequency, and lower abdominal pain x 1 month, worsening in the past 1 day. She describes her suprapubic pain as radiating to her right sided back and flank. She describes her pain as a 10/10, burning-like sensation. Her pain is alleviated with 30mg of Oxycodone. She denies any worsening factors. She describes her urine as foul smelling with associated retention, and a thin mucus-like discharge. Her symptoms are ongoing for the past month worsening in the past 2 days. She reports prior episodes of similar symptoms due to her UTIs. She reports UTIs monthly. The patient also endorses subjective fevers and chills, dry mouth. She denies recent headache or dizziness. She denies recent nausea, vomit, diarrhea or constipation. She denies recent urgency or hematuria. She denies recent chest pain or shortness of breath. Allergies: Zosyn, tazobactam Past surgical history: Cervical Neck Surgery. Ureteral stents. Social history: Nonsmoker. Denies EtOH use and recreational drug use. Primary Care Physician: Dr. Ki Pat Urologist: Dr. Gretchen Baez <Tianna Argueta - Last Filed: 04/17/18 20:00> - General Chief Complaint: Urinary Problem Stated Complaint: UTI/PAIN Time Seen by Provider: 04/17/18 14:27 Past History <Sami Bearden - Last Filed: 04/17/18 17:03> - Past Medical History Anemia: No Asthma: No Cancer: No Cardiac Disorders: No CVA: No COPD: No CHF: No DVT: No Dementia: No Diabetes: No GI Disorders: Yes (GERD, COLON POLYP, RECTAL BLEEDING) Disorders: No HTN: Yes Hypercholesterolemia: Yes Liver Disease: No Psychiatric Problems: Yes (DEPRESSION, ANXEITY) Seizures: No Thyroid Disease: Yes (HYPOTHYROIDISM) - Surgical History Abdominal Surgery: No Appendectomy: No Cardiac Surgery: No Cholecystectomy: No Lung Surgery: No Neurologic Surgery: Yes (CERVICAL NECK SX) Orthopedic Surgery: No - Immunization History Immunization Up to Date: Yes - Suicide/Smoking/Psychosocial Hx Smoking History: Never smoked Have you smoked in the past 12 months: No Hx Alcohol Use: No Drug/Substance Use Hx: No Substance Use Type: None Hx Substance Use Treatment: No <Tianna Argueta - Last Filed: 04/17/18 20:00> - Past Medical History Allergies/Adverse Reactions: Allergies Allergy/AdvReac Type Severity Reaction Status Date / Time piperacillin [From Zosyn] Allergy Hives Verified 02/04/18 23:14 tazobactam [From Zosyn] Allergy Hives Verified 02/04/18 23:14 Home Medications: Ambulatory Orders Levothyroxine Sodium [Synthroid] 150 mcg PO DAILY 01/17/14 Oxycodone HCl [Roxicodone] 30 mg PO TID PRN 01/17/14 Atorvastatin Ca [Lipitor] 20 mg PO DAILY 08/17/15 Omeprazole [Prilosec] 20 mg PO DAILY 08/17/15 Duloxetine HCl [Cymbalta -] 30 mg PO DAILY #0 tab 04/30/17 Trazodone HCl 100 mg PO HS #0 tab 06/06/17 Polyethylene Glycol 3350 [Miralax 119 gm Btl -] 17 gm PO BID 02/04/18 clonazePAM [Clonazepam] 0.5 mg PO BID 02/04/18 Metoprolol Succinate [Toprol Xl] 50 mg PO DAILY 04/17/18 Zolpidem Tartrate [Ambien] 10 mg PO HS 04/17/18 Review of Systems - Review of Systems Able to Perform ROS?: Yes Comments:: 04/17/18 16:21 GENERAL/CONSTITUTIONAL: +subjective fever or chills. No weakness. no sweats. CARDIOVASCULAR: No chest pain or palpitations, syncope or edema. RESPIRATORY: No SOB, cough, wheezing, or hemoptysis. GASTROINTESTINAL No nausea/vomiting. No diarrhea or constipation. +abdominal pain GENITOURINARY: +dysuria, frequency, urgency . MUSCULOSKELETAL: No joint or muscle swelling or pain. No neck or back pain. SKIN: No rash or changes in skin color or lesions. NEUROLOGIC: No headache, vertigo, loss of consciousness, or change in strength/ sensation. No gait instability. HEMATOLOGIC/LYMPHATIC: No anemia, easy bruising/bleeding, or history of blood clots. ALLERGIC/IMMUNOLOGIC: No allergies All other systems reviewed and negative, or as documented in HPI. <Tianna Argueta - Last Filed: 04/17/18 20:00> *Physical Exam - Vital Signs Last Vital Signs Temp Pulse Resp BP Pulse Ox 98.9 F 82 20 124/80 99 04/17/18 14:30 04/17/18 14:30 04/17/18 14:30 04/17/18 14:30 04/17/18 14:30 <Sami Bearden - Last Filed: 04/17/18 17:03> - Vital Signs Last Vital Signs Temp Pulse Resp BP Pulse Ox 98.9 F 82 20 124/80 99 04/17/18 14:30 04/17/18 14:30 04/17/18 14:30 04/17/18 14:30 04/17/18 14:30 - Physical Exam Comments: 04/17/18 16:17 General: Well appearing, awake and alert, NAD. HEENT: NCAT, PERRL, EOMI, clear conjunctiva, anicteric, moist mucus membranes, clear oropharynx, no oral lesions.. Neck: neck supple, FROM Resp: CTAB, normal and even respirations, no respiratory distress CVS: RRR, no murmurs, 2+ peripheral pulses throughout, no peripheral edema Abdomen: soft, obese, +suprapubic and right flank/pelvic TTP. Back: +right CVAT. MSK: no edema, SANDOVAL x4, ROM intact. No clubbing or cyanosis. normal bulk and tone. Neuro: alert, oriented appropriately Skin: warm and well perfused, cap refill <2 sec, normal color <Tianna Argueta - Last Filed: 04/17/18 20:00> ED Treatment Course - LABORATORY CBC & Chemistry Diagram: 04/17/18 15:10 04/17/18 15:10 - ADDITIONAL ORDERS Additional order review: Laboratory Results 04/17/18 15:10 Sodium 144 Potassium 3.8 Chloride 104 Carbon Dioxide 29 Anion Gap 11 BUN 8 Creatinine 1.0 Creat Clearance w eGFR 58.00 Random Glucose 119 H Calcium 9.0 Total Bilirubin 0.5 AST 16 ALT 28 Alkaline Phosphatase 90 Total Protein 8.5 H Albumin 4.0 04/17/18 15:10 RBC 4.14 MCV 90.1 MCHC 33.7 RDW 15.0 MPV 7.9 Neutrophils % 58.4 Lymphocytes % 32.2 D Monocytes % 7.2 Eosinophils % 1.7 Basophils % 0.5 <Sami Bearden - Last Filed: 04/17/18 17:03> - LABORATORY CBC & Chemistry Diagram: 04/17/18 15:10 04/17/18 15:10 - ADDITIONAL ORDERS Additional order review: Laboratory Results 04/17/18 15:10 Sodium 144 Potassium 3.8 Chloride 104 Carbon Dioxide 29 Anion Gap 11 BUN 8 Creatinine 1.0 Random Glucose 119 H Calcium 9.0 Total Bilirubin 0.5 AST 16 ALT 28 Alkaline Phosphatase 90 Total Protein 8.5 H Albumin 4.0 04/17/18 15:10 RBC 4.14 MCV 90.1 MCHC 33.7 RDW 15.0 MPV 7.9 Neutrophils % 58.4 Lymphocytes % 32.2 D Monocytes % 7.2 Eosinophils % 1.7 Basophils % 0.5 - RADIOLOGY Radiology Studies Ordered: Category Date Time Status SPIRAL- RENAL-STONE CT [CT] Stat CT Scan 04/17/18 15:50 Ordered <Tianna Argueta - Last Filed: 04/17/18 20:00> Medical Decision Making - Medical Decision Making 04/17/18 16:18 Decker 52 YOF with PMHx recurrent utis, pyelo, s/p b/l ureteral stents placed at [facility] 02/18, f/u with , Dr Gretchen Baez, HTN, hypothyroid and fibromyalgia. ? 1 month history of lower abd pain radiating to back and right flank w/ dysuria and frequency x 2 days, similar to prior utis. No hematuria, n/v/f/c. Also reports dry mouth x weeks. DDx abdominal pain: GERD, PUD, esophageal spasm, pancreatitis, hepatitis, biliary colic, constipation, renal colic, UTI, pyelonephritis, hernia low suspicion for biliary etiology or appy, as more pelvic/urinary sx to suggest UTI/pyelo Vital signs reviewed, wnl. no fever rectally, but LGF ~99.9 Prior notes reviewed, including admissions, discharges and consultations. laboratory results and imaging reviewed, basic labs and lytes wnl, including WBC ct and Cr.. EKG normal sinus rhythm, no interval abnormalities, narrow QRS, ST and T wave segments and morphology normal. Nonspecific T wave abnormalities analgesia with morphine, IVF. CT a/p will with b/l nephroureteral stents, b/l hydro which is present from prior, no stones. nonspecific cystic structure in iliopsoas bursa but unchanged. CT a/p in 02/2018 with b/l hydronephrosis/hydroureter. IV meropenem, checked prior microbiology and sensitivities and pend urine culture. Prior urine cultures with pseudomonas, Brevundimonas, E. coli, Corynebacterium, Strep Viridins, E. coli and Providencia. checked prior notes, start broad and narrow based on cultures appropriately. Dispo: admit for early pyelo/UTI, given flank/clinical sx. +UTI/ascending infection, IV abx, fluids and pain control - spoke with Dr. Gilomre, agree with admission. 04/17/18 18:46 04/17/18 20:00 <Tianna Argueta - Last Filed: 04/17/18 20:00> *DC/Admit/Observation/Transfer - Attestations Scribe Attestion: 04/17/18 17:03 Documentation prepared by Sami Bearden, acting as medical practice administrator for Tianna Argueta MD. <Sami Bearden - Last Filed: 04/17/18 17:03> - Discharge Dispostion Decision to Admit order: Yes Decision to Admit order Date/Time: Decision to Admit Order Category Date Time Status Decision to Admit to Hospital Routine Admission 04/17/18 18:24 Active <Tianna Argueta - Last Filed: 04/17/18 20:00> Diagnosis at time of Disposition: Dysuria, UTI (urinary tract infection) - Discharge Dispostion Condition at time of disposition: Guarded
[2018-04-17 18:11] LABS: URINE APPEARANCE CLOUDY; URINE BILIRUBIN NEGATIVE (<2.0 mg/dL); URINE COLOR YELLOW; URINE GLUCOSE (UA) NEGATIVE (NEGATIVE); URINE KETONE NEGATIVE (NEGATIVE); URINE NITRITE NEGATIVE (NEGATIVE); URINE UROBILINOGEN NEGATIVE mg/dL (0.2-1.0)
[2018-04-17 18:12] LABS: URINE LEUK ESTERASE 3+ (NEGATIVE); URINE PROTEIN 1+ (NEGATIVE)
[2018-04-17 18:21] LABS: EPI CELLS RARE /HPF (FEW); URINE BACTERIA FEW /hpf (NONE SEEN); URINE HYALINE CAST 4 /lpf; URINE MUCUS RARE
[2018-04-17] MEDS ORDERED: CEFTRIAXONE 1,000 MG in DEXTROSE 5%-WATER - 50 ML IVPB ONE (18:26)
[2018-04-17] MEDS ORDERED: MEROPENEM 1 GM in DEXTROSE 5%-WATER 100 ML IVPB ONE (18:32)
--- NOTE | 2018-04-17 19:56 | HP ---
CHIEF COMPLAINT: abdominal pain PCP: Suyapa Pat; Urology: Castillo Baez HISTORY OF PRESENT ILLNESS: This is a 52 year old female with a past medical history of UTI/pyelo/ hydronephrosis s/p B/L ureteral stents placed 02/09/18 who presented to the ED with dysuria, frequency and lower abdominal pain x 1 month, worse x 1 day. She also reports pain radiating to right flank. She reports foul smelling urine. ER course was notable for: (1) u/a c/w UTI (2) CT neg for stones, + hydro (3) WBC 8.4 Recent Travel: pt denies PAST MEDICAL HISTORY: UTI/pyelonephritis, HTN, HLD, fibromyalgia, sleep apnea, depression, anxiety, Hep C s/p Harvoni tx, GERD, colon polyps, hypothyroid PAST SURGICAL HISTORY: c-spine surgery hysterectomy bladder sling and multiple revisions Social History: Smoking: pt denies Alcohol: pt denies Drugs: pt denies Family History: mother age 46, brain aneurysm sisters age 56 and 60, brain aneurysm Allergies piperacillin [From Zosyn] Allergy (Verified 02/04/18 23:14) Hives tazobactam [From Zosyn] Allergy (Verified 02/04/18 23:14) Hives HOME MEDICATIONS: 3 Medication Instructions Recorded Levothyroxine Sodium [Synthroid] 150 mcg PO DAILY 01/17/14 Oxycodone HCl [Roxicodone] 30 mg PO TID PRN 01/17/14 Atorvastatin Ca [Lipitor] 20 mg PO DAILY 08/17/15 Omeprazole [Prilosec] 20 mg PO DAILY 08/17/15 Duloxetine HCl [Cymbalta -] 30 mg PO DAILY #0 tab 04/30/17 Trazodone HCl 100 mg PO HS #0 tab 06/06/17 Polyethylene Glycol 3350 [Miralax 17 gm PO BID 02/04/18 119 gm Btl -] clonazePAM [Clonazepam] 0.5 mg PO BID 02/04/18 Metoprolol Succinate [Toprol Xl] 50 mg PO DAILY 04/17/18 Zolpidem Tartrate [Ambien] 10 mg PO HS 04/17/18 REVIEW OF SYSTEMS CONSTITUTIONAL: Absent: fever, chills, diaphoresis, generalized weakness, malaise, loss of appetite, weight change HEENT: Absent: rhinorrhea, nasal congestion, throat pain, throat swelling, difficulty swallowing, mouth swelling, ear pain, eye pain, visual changes CARDIOVASCULAR: Absent: chest pain, syncope, palpitations, irregular heart rate, lightheadedness , peripheral edema RESPIRATORY: Absent: cough, shortness of breath, dyspnea with exertion, orthopnea, wheezing, stridor, hemoptysis GASTROINTESTINAL: Present: abdominal pain Absent: abdominal distension, nausea, vomiting, diarrhea, constipation, melena, hematochezia GENITOURINARY: Present: dysuria, frequency, flank pain Absent: urgency, hesitancy, hematuria, genital pain MUSCULOSKELETAL: Absent: myalgia, arthralgia, joint swelling, back pain, neck pain SKIN: Absent: rash, itching, pallor HEMATOLOGIC/IMMUNOLOGIC: Absent: easy bleeding, easy bruising, lymphadenopathy, frequent infections ENDOCRINE: Absent: unexplained weight gain, unexplained weight loss, heat intolerance, cold intolerance NEUROLOGIC: Absent: headache, focal weakness or paresthesias, dizziness, unsteady gait, seizure, mental status changes, bladder or bowel incontinence PSYCHIATRIC: Absent: anxiety, depression, suicidal or homicidal ideation, hallucinations. PHYSICAL EXAMINATION 3 04/17/18 04/17/18 04/17/18 14:30 18:26 18:52 Temperature 98.9 F 99.9 F H Pulse Rate 82 Pulse Rate [ 73 Radial] Respiratory 20 18 Rate Blood Pressure 124/80 Blood Pressure 130/59 [Right Arm] O2 Sat by Pulse 99 95 Oximetry (%) GENERAL: Awake, alert, and fully oriented, in no acute distress. HEAD: Normal with no signs of trauma. EYES: Pupils equal, round and reactive to light, extraocular movements intact, sclera anicteric, conjunctiva clear. No lid lag. EARS, NOSE, THROAT: Ears normal, nares patent, oropharynx clear without exudates. Moist mucous membranes. NECK: Normal range of motion, supple without lymphadenopathy, JVD, or masses. LUNGS: Breath sounds equal, clear to auscultation bilaterally. No wheezes, and no crackles. No accessory muscle use. HEART: Regular rate and rhythm, normal S1 and S2 without murmur, rub or gallop. ABDOMEN: Soft, tender B/L LQ and RUQ, not distended, normoactive bowel sounds, no guarding, no rebound, no masses. No hepatomegaly or splenomegaly. MUSCULOSKELETAL: Normal range of motion at all joints. No bony deformities or tenderness. + Right CVA tenderness. UPPER EXTREMITIES: 2+ pulses, warm, well-perfused. No cyanosis. No clubbing. No peripheral edema. LOWER EXTREMITIES: 2+ pulses, warm, well-perfused. No calf tenderness. No peripheral edema. NEUROLOGICAL: Cranial nerves II-XII intact. Normal speech. Normal gait. PSYCHIATRIC: Cooperative. Good eye contact. Appropriate mood and affect. SKIN: Warm, dry, normal turgor, no rashes or lesions noted, normal capillary refill. Laboratory Results - last 24 hr 3 04/17/18 04/17/18 04/17/18 15:10 15:10 15:10 WBC 8.4 RBC 4.14 Hgb 12.6 Hct 37.3 MCV 90.1 MCH 30.4 MCHC 33.7 RDW 15.0 Plt Count 311 MPV 7.9 Absolute Neuts (auto) 4.9 Neutrophils % 58.4 Lymphocytes % 32.2 D Monocytes % 7.2 Eosinophils % 1.7 Basophils % 0.5 Nucleated RBC % 0 Sodium 144 Potassium 3.8 Chloride 104 Carbon Dioxide 29 Anion Gap 11 BUN 8 Creatinine 1.0 Creat Clearance w eGFR 58.00 Random Glucose 119 H Calcium 9.0 Total Bilirubin 0.5 AST 16 ALT 28 Alkaline Phosphatase 90 Total Protein 8.5 H Albumin 4.0 Urine Color Yellow Urine Appearance Cloudy Urine pH 6.0 Ur Specific Duff 1.004 Urine Protein 1+ H Urine Glucose (UA) Negative Urine Ketones Negative Urine Blood 1+ H Urine Nitrite Negative Urine Bilirubin Negative Urine Urobilinogen Negative Ur Leukocyte Esterase 3+ H Urine WBC (Auto) 366 Urine RBC (Auto) 8 Ur Epithelial Cells Rare Urine Bacteria Few Hyaline Casts 4 Urine Mucus Rare Radiology Reports CT abd/pelvis ASSESSMENT/PLAN: 52yF with PMH UTI/pyelonephritis, HTN, HLD, fibromyalgia, sleep apnea, depression, anxiety, Hep C s/p Harvoni tx, GERD, colon polyps, hypothyroid presented to the ED with abdominal pain, dysuria, frequency, foul smelling urine. Pyelonephritis/UTI - h/o pseudomonas in urine 02/04/18, E coli R to levaquin, ampicillin and gent in August - will treat with meropenem - ID consult - urology consult HTN/HLD - cont home meds: toprol, lipitor GERD - home omeprazole changed to formulary protonix hypothyroid - cont synthroid, check TSH fibromyalgia - cont home meds: oxycodone, cymbalta depression anxiety - cont home meds: cymbalta, trazodone, klonopin DVT PPX - heparin TID FEN - NS @ 50cc/hr x 1 liter - bmp in am - low sodium diet as tolerated Dispo: pt currently requires further inpatient management of her emergent condition. Visit type - Emergency Visit Emergency Visit: Yes ED Registration Date: 04/17/18 Care time: The patient presented to the Emergency Department on the above date and was hospitalized for further evaluation of their emergent condition. - New Patient This patient is new to me today: Yes Date on this admission: 04/17/18 - Critical Care Critical Care patient: No Hospitalist Screening - Colonoscopy Questionnaire Colonoscopy Questionnaire: Colonoscopy Questionnaire - Patient: 50 - 75 years old and never had a screening colonoscopy: No History of colon or rectal polyps, or CA: Yes History of IBD, Crohn's disease or UC: No History of abdominal radiation therapy as a child: No - Relative: 1 with colon or rectal CA, or polyps at age 60 or younger: No Colon or rectal CA diagnosed at age 45 or younger: No Multiple relatives with colon or rectal CA: No - Outcome: Screening Result: Positive Screen
[2018-04-17 23:05] VITALS: BMI 37.0
[2018-04-17] MEDS: HEPARIN NA (PORCINE) 5,000 UNITS/ML 1ML VIAL SQ SCH (23:17)
[2018-04-17] MEDS: oxyCODONE HCL 5 MG TABLET PO PRN (23:18)
[2018-04-17] MEDS: clonazePAM 0.5 MG TABLET PO SCH (23:18)
[2018-04-17] MEDS: traZODone HCL 50 MG TABLET (FP) PO SCH (23:18)
[2018-04-17] MEDS: ZOLPIDEM TARTRATE 5 MG TABLET PO PRN (23:21)
[2018-04-17] MEDS: POLYETHYLENE GLYCOL 3350 119 GM BTL PO SCH (23:23)
[2018-04-17] MEDS: SODIUM CHLORIDE 1,000 ML IV SCH (23:25)
[2018-04-18] MEDS ORDERED: MEROPENEM 1 GM in DEXTROSE 5%-WATER 100 ML IVPB ONE (05:33)
[2018-04-18] MEDS: LEVOTHYROXINE NA 150 MCG TABLET PO SCH (06:17)
[2018-04-18] MEDS: HEPARIN NA (PORCINE) 5,000 UNITS/ML 1ML VIAL SQ SCH ×3 (06:18→21:50)
[2018-04-18 08:14] LABS: BASO % 0.5 % (0-2.0); EOS % 1.9 % (0-4.5); HEMATOCRIT 36.4 % (32.4-45.2); HEMOGLOBIN 11.9 GM/dL (10.7-15.3); LYMPH % 27.7 % (8-40); MCH 29.6 pg (25.7-33.7); MCHC 32.6 g/dl (32.0-36.0); MEAN CELL VOLUME 90.7 fl (80-96); MONO % 9.6 % (3.8-10.2); NEUT % 60.3 % (42.8-82.8); PLATELET COUNT 250 K/MM3 (134-434); RBC 4.01 M/mm3 (3.60-5.2); RDW 14.6 % (11.6-15.6); WHITE BLOOD COUNT 8.3 K/mm3 (4.0-10.0)
[2018-04-18 08:46] LABS: ANION GAP 8 MMOL/L (8-16); BLOOD UREA NITROGEN 8 mg/dL (7-18); CALCIUM 8.4 mg/dL (8.5-10.1); CHLORIDE 105 mmol/L (98-107); CO2 30 mmol/L (21-32); CREATININE 0.8 mg/dL (0.55-1.3); GLUCOSE,RANDOM 102 mg/dL (74-106); MAGNESIUM 1.8 mg/dL (1.8-2.4); PHOSPHOROUS 3.9 mg/dL (2.5-4.9); POTASSIUM 3.9 mmol/L (3.5-5.1); SODIUM 143 mmol/L (136-145)
[2018-04-18] MEDS: clonazePAM 0.5 MG TABLET PO SCH ×2 (09:13→21:50)
[2018-04-18] MEDS: POLYETHYLENE GLYCOL 3350 119 GM BTL PO SCH ×2 (09:13→21:51)
[2018-04-18] MEDS: DULoxetine HCL 30 MG CAPSULE.DR (FP) PO SCH (09:13)
[2018-04-18] MEDS: PANTOPRAZOLE 20 MG TABLET (FP) PO SCH (09:13)
--- NOTE | 2018-04-18 13:15 | CON.ID ---
Consult - History of Present Illness History of Present Illness: 52 y.o. female with PMH of nephrolithiasis and b/l hydronephrosis s/p b/l stent placement, E. coli and Pseudomonas UTIs, HLD, HTN, GERD, depression, anxiety, Hepatitis C s/p treatment with Harvoni in 2013, hypothyroidism, and s/p cervical spine surgery presents with c/o dysuria/urinary frequency/incontinence with Rt flank pain extending to lower abdomen. She states that symptoms initially began about 1 month ago and recently became severe. Pt reports subjective fever and chills but denies hematuria, n/v/d, shortness of breath, cough, or chest pain. Has been started on IV Meropenem, currently tolerating without rash/shortness of breath. - History Source History Provided By: Patient Limitations to Obtaining History: No Limitations - Past Medical History Cardio/Vascular: Yes: HTN, Hyperlipdemia Gastrointestinal: Yes: GERD Hepatobiliary: Yes: Hepatitis C (treated with Harvoni) ...: No Psych: Yes: Anxiety, Depression Rheumatology: Yes: Fibromyalgia Endocrine: Yes: Hypothyroidism, Other (hypothyroidism) - Alcohol/Substance Use Hx Alcohol Use: No History of Substance Use: reports: None - Smoking History Smoking history: Never smoked Have you smoked in the past 12 months: No - Social History ADL: Support Services (6 hours daily) History of Recent Travel: No Home Medications - Allergies Allergies/Adverse Reactions: Allergies Allergy/AdvReac Type Severity Reaction Status Date / Time piperacillin [From Zosyn] Allergy Hives Verified 02/04/18 23:14 tazobactam [From Zosyn] Allergy Hives Verified 02/04/18 23:14 - Home Medications Home Medications: Ambulatory Orders Levothyroxine Sodium [Synthroid] 150 mcg PO DAILY 01/17/14 Oxycodone HCl [Roxicodone] 30 mg PO TID PRN 01/17/14 Atorvastatin Ca [Lipitor] 20 mg PO DAILY 08/17/15 Omeprazole [Prilosec] 20 mg PO DAILY 08/17/15 Duloxetine HCl [Cymbalta -] 30 mg PO DAILY #0 tab 04/30/17 Trazodone HCl 100 mg PO HS #0 tab 06/06/17 Polyethylene Glycol 3350 [Miralax 119 gm Btl -] 17 gm PO BID 02/04/18 clonazePAM [Clonazepam] 0.5 mg PO BID 02/04/18 Metoprolol Succinate [Toprol Xl] 50 mg PO DAILY 04/17/18 Zolpidem Tartrate [Ambien] 10 mg PO HS 04/17/18 Family Disease History - Family Disease History Family Disease History: Heart Disease: Mother ( of [place] at 46), Sister (x2 of [place] age 56 and 60) Review of Systems - Review of Systems Constitutional: reports: Chills, Fever, Lethargy. denies: No Symptoms, Diaphoresis, Loss of Appetite, Malaise, Night Sweats, Unintentional Wgt. Loss, Weakness, Other Eyes: reports: No Symptoms. denies: Blind Spots, Blurred Vision, Double Vision , Eye Pain, Floaters, Photophobia, Recent Change in Vision, Other HENT: reports: No Symptoms. denies: Difficult Swallowing, Ear Discharge, Ear Pain, Epistaxis, Gingival Bleeding, Hearing Loss, Mouth Swelling, Nasal Congestion, Ocular Prosthesis, Throat Pain, Toothache, Ringing in Ears, Other Neck: reports: No Symptoms. denies: Decreased ROM, Lumps, Pain on Movement, Stiffness, Swollen Glands, Tenderness, Other Cardiovascular: reports: No Symptoms. denies: Chest Pain, Edema, Palpitations, Shortness of Breath, Other Respiratory: reports: No Symptoms. denies: Cough, Exercise Intolerance, Hemoptysis, Orthopnea, PND, Snoring, SOB, SOB on Exertion, Wheezing, Other Gastrointestinal: reports: Abdominal Pain (Rt lower). denies: No Symptoms, Bloating, Constipation, Diarrhea, Dysphagia, Indigestion, Melena, Nausea, Rectal Bleeding, Vomiting, Vomiting Blood, Other Genitourinary: reports: Burning, Flank Pain, Frequency. denies: No Symptoms, Discharge, Dysuria, Hematuria, Incontinence, Lesions, Menses, Pain, Testicular Mass, Testicular Pain, Testicular Swelling, Urgency, Vaginal Bleeding, Other Integumentary: reports: No Symptoms. denies: Blister, Bruising, Change in Color , Eczema, Erythema, Incision, Lesions, Lump, Pallor, Pruritis, Rash, Wound, Other Neurological: reports: No Symptoms. denies: Change in LOC, Change in Speech, Confusion, Dizziness, Headache, Incoordination, Numbness, Parasthesia, Pre- Existing Deficit, Seizure, Syncope, Tremors, Unsteady Gait, Weakness, Other Endocrine: reports: No Symptoms. denies: Excessive Sweating, Flushing, Increased Hunger, Increased Thirst, Intolerance to Cold, Intolerance to Heat, Unexplained Weight Gain, Unexplained Weight Loss, Other Hematology/Lymphatic: reports: No Symptoms. denies: Easily Bruised, Excessive Bleeding, Swollen Glands, Other Psychiatric: reports: No Symptoms. denies: Altered Sleep Pattern, Anxiety, Depression, Hallucinations, Panic, Paranoia, Suicidal, Other Physical Exam Vital Signs: Vital Signs Temperature 99.2 F 04/18/18 07:26 Pulse Rate 80 04/18/18 07:26 Respiratory Rate 18 04/17/18 21:26 Blood Pressure 119/66 04/18/18 07:26 O2 Sat by Pulse Oximetry (%) 96 04/18/18 09:00 Constitutional: Yes: No Distress, Calm Cardiovascular: Yes: Regular Rate and Rhythm Respiratory: Yes: CTA Bilaterally Gastrointestinal: Yes: Normal Bowel Sounds, Soft, Tenderness (Rt lower abd) Renal/: Yes: CVA Tenderness - Right Breast(s): Yes: WNL Musculoskeletal: Yes: WNL Extremities: Yes: WNL Edema: No Integumentary: Yes: WNL Neurological: Yes: Alert, Oriented Psychiatric: Yes: Alert, Oriented Labs: CBC, BMP 04/18/18 07:00 04/18/18 07:00 Laboratory Tests 04/17/18 04/17/18 04/17/18 15:10 15:10 15:10 WBC 8.4 RBC 4.14 Hgb 12.6 Hct 37.3 MCV 90.1 MCH 30.4 MCHC 33.7 RDW 15.0 Plt Count 311 MPV 7.9 Absolute Neuts (auto) 4.9 Neutrophils % 58.4 Lymphocytes % 32.2 D Monocytes % 7.2 Eosinophils % 1.7 Basophils % 0.5 Nucleated RBC % 0 Sodium 144 Potassium 3.8 Chloride 104 Carbon Dioxide 29 Anion Gap 11 BUN 8 Creatinine 1.0 Creat Clearance w eGFR 58.00 Random Glucose 119 H Calcium 9.0 Phosphorus Magnesium Total Bilirubin 0.5 AST 16 ALT 28 Alkaline Phosphatase 90 Total Protein 8.5 H Albumin 4.0 TSH Urine Color Yellow Urine Appearance Cloudy Urine pH 6.0 Ur Specific [place] 1.004 Urine Protein 1+ H Urine Glucose (UA) Negative Urine Ketones Negative Urine Blood 1+ H Urine Nitrite Negative Urine Bilirubin Negative Urine Urobilinogen Negative Ur Leukocyte Esterase 3+ H Urine WBC (Auto) 366 Urine RBC (Auto) 8 Ur Epithelial Cells Rare Urine Bacteria Few Hyaline Casts 4 Urine Mucus Rare 04/18/18 04/18/18 07:00 07:00 WBC 8.3 RBC 4.01 Hgb 11.9 Hct 36.4 MCV 90.7 MCH 29.6 MCHC 32.6 RDW 14.6 Plt Count 250 MPV 8.0 Absolute Neuts (auto) 5.0 Neutrophils % 60.3 Lymphocytes % 27.7 Monocytes % 9.6 Eosinophils % 1.9 Basophils % 0.5 Nucleated RBC % 0 Sodium 143 Potassium 3.9 Chloride 105 Carbon Dioxide 30 Anion Gap 8 BUN 8 Creatinine 0.8 Creat Clearance w eGFR > 60 Random Glucose 102 Calcium 8.4 L Phosphorus 3.9 Magnesium 1.8 Total Bilirubin AST ALT Alkaline Phosphatase Total Protein Albumin TSH 0.20 L Urine Color Urine Appearance Urine pH Ur Specific [place] Urine Protein Urine Glucose (UA) Urine Ketones Urine Blood Urine Nitrite Urine Bilirubin Urine Urobilinogen Ur Leukocyte Esterase Urine WBC (Auto) Urine RBC (Auto) Ur Epithelial Cells Urine Bacteria Hyaline Casts Urine Mucus Microbiology 04/17/18 15:04 Urine - Urine Clean Catch Urine Culture - Preliminary Lactose Fermenting Neg Bacilli Imaging - Results Cat Scan: Report Reviewed (b/l hydronephrosis, no nephrolithiasis) Problem List - Problems (1) UTI (urinary tract infection) Code(s): N39.0 - URINARY TRACT INFECTION, SITE NOT SPECIFIED Qualifiers: (2) Fever Code(s): R50.9 - FEVER, UNSPECIFIED Qualifiers: Fever type: unspecified Qualified Code(s): R50.9 - Fever, unspecified (3) HTN (hypertension) Code(s): I10 - ESSENTIAL (PRIMARY) HYPERTENSION (4) Hydronephrosis Code(s): N13.30 - UNSPECIFIED HYDRONEPHROSIS (5) Hypothyroid Code(s): E03.9 - HYPOTHYROIDISM, UNSPECIFIED (6) Pyelonephritis Code(s): N12 - TUBULO-INTERSTITIAL NEPHRITIS, NOT SPCF ACUTE OR CHRONIC Assessment/Plan 52 y.o. female with PMH of E. coli/Pseudomonas UTIs, pyelonephritis, b/l hydronephrosis s/p b/l stent placement, hypothyroidism, Hepatitis C s/p treatment in 2013, GERD presents with c/o dysuria, urinary frequency, subjective fever/chills, Rt flank/lower abd pain. Gram Negative UTI/pyelonephritis B/L hydronephrosis s/p stent Fever -- continue Meropenem IV, tolerating currently -- f/u urine culture isolates -- blood cultures -- recommend Urology evaluation -- monitor temps, currently 99.9F will follow Thank you
--- NOTE | 2018-04-18 13:50 | CONS ---
DATE OF CONSULTATION: DATE OF DICTATION: 04/18/2018 HISTORY OF PRESENT ILLNESS: Patient is a 52-year-old female with past medical history of pyelonephritis, urinary tract infections and bilateral hydroureteronephrosis of unknown etiology. She is status post cystoscopy and bilateral double-J stents which were placed on February 09, 2018. She presented to the emergency room with frequency, urgency, dysuria and lower abdominal pain. She also complained of right flank pain. Her urine was odorous. In the emergency room a urinalysis was positive for blood and nitrites. A CT scan revealed bilateral hydronephrosis as well as bilateral stents. Her white count was 8.4. She does have a history of high blood pressure, recurrent urinary tract infections, fibromyalgia, sleep apnea, depression, anxiety. She is status post treatment for hepatitis C with Harvoni. She also has a history of GERD, colon polyps and hypothyroidism. She has undergone a cervical laminectomy, a hysterectomy and a cystocele with bladder slings. She denies any ethanol or alcohol use. ALLERGIES: She claims she is allergic to ZOSYN. PHYSICAL EXAMINATION: Abdomen: Revealed some tenderness over the right flank. Genitourinary: She continues to complain of dysuria and frequency. Her bladder was soft. Extremities: Revealed full range of motion. LABORATORY DATA: Her white count is 8.4, hemoglobin 12.6, hematocrit 37.3. Her urinalysis was positive for blood as well as 3+ leukocytes. CT of the abdomen again revealed hydronephrosis, right greater than left. Stents were seen. No stones were seen. A urine culture from February 04, 2018, grew out E coli. A repeat urine culture is pending. IMPRESSION: 1. At present is recurrent urinary tract infection. 2. History of bilateral stents. RECOMMENDATIONS: Will recommend patient to undergo cystoscopy, bilateral stent exchange when she is medically okay. Мария [id number]
--- NOTE | 2018-04-18 15:51 | PN ---
Progress Note, Physician Chief Complaint: ASLEEP COMFORTABLE EVENTS REVIEWED - Current Medication List Current Medications: Active Medications Atorvastatin Calcium (Lipitor -) 20 mg PO HS [facility] Clonazepam (Klonopin -) 0.5 mg PO BID [facility] Last Admin: 04/18/18 09:13 Dose: 0.5 mg Duloxetine HCl (Cymbalta -) 30 mg PO DAILY [facility] Last Admin: 04/18/18 09:13 Dose: 30 mg Heparin Sodium (Porcine) (Heparin -) 5,000 unit SQ TID [facility] Last Admin: 04/18/18 15:01 Dose: 5,000 unit Sodium Chloride (Normal Saline -) 1,000 mls @ 50 mls/hr IV ASDIR JAVIER Stop: 04/18/18 20:01 Last Admin: 04/17/18 23:25 Dose: 50 mls/hr Meropenem 1 gm/ Dextrose 100 mls @ 200 mls/hr IVPB Q8H-IV [facility] Levothyroxine Sodium (Synthroid -) 150 mcg PO DAILY@0700 [facility] Last Admin: 04/18/18 06:17 Dose: 150 mcg Metoprolol Succinate (Toprol Xl -) 50 mg PO DAILY [facility] Last Admin: 04/18/18 09:13 Dose: 50 mg Oxycodone HCl (Roxicodone -) 30 mg PO Q8H PRN PRN Reason: PAIN LEVEL 6-10 Last Admin: 04/17/18 23:18 Dose: 30 mg Pantoprazole Sodium (Protonix -) 20 mg PO DAILY [facility] Last Admin: 04/18/18 09:13 Dose: 20 mg Polyethylene Glycol (Miralax (For Daily Use) -) 17 gm PO BID [facility] Last Admin: 04/18/18 09:13 Dose: 17 grams Trazodone HCl (Desyrel -) 100 mg PO HS [facility] Last Admin: 04/17/18 23:18 Dose: 100 mg Zolpidem Tartrate (Ambien -) 10 mg PO HS PRN PRN Reason: INSOMNIA Last Admin: 04/17/18 23:21 Dose: 10 mg - Objective Vital Signs: Vital Signs Temperature 98.4 F 04/18/18 13:41 Pulse Rate 68 04/18/18 13:41 Respiratory Rate 18 04/18/18 10:00 Blood Pressure 126/58 04/18/18 13:41 O2 Sat by Pulse Oximetry (%) 96 04/18/18 09:00 Constitutional: Yes: Mild Distress Eyes: Yes: WNL HENT: Yes: WNL, Other Cardiovascular: Yes: WNL Respiratory: Yes: WNL Gastrointestinal: Yes: WNL Genitourinary: Yes: Other Musculoskeletal: Yes: Muscle Weakness Extremities: Yes: WNL Edema: No Peripheral Pulses WNL: Yes Integumentary: Yes: WNL Wound/Incision: Yes: Clean/Dry Neurological: Yes: WNL ...Motor Strength: LLE, RLE Psychiatric: Yes: WNL Labs: CBC, BMP 04/18/18 07:00 04/18/18 07:00 Problem List - Problems (1) Dysuria Code(s): R30.0 - DYSURIA (2) UTI (urinary tract infection) Code(s): N39.0 - URINARY TRACT INFECTION, SITE NOT SPECIFIED Qualifiers: (3) Pyelonephritis Code(s): N12 - TUBULO-INTERSTITIAL NEPHRITIS, NOT SPCF ACUTE OR CHRONIC Assessment/Plan IV ABX CHECK CULTURES OOB TO CHAIR PT EVAL ID F/U APPRECIATED PAIN CONTROL
[2018-04-18] MEDS: MEROPENEM 1 GM in DEXTROSE 5%-WATER 100 ML IVPB SCH (17:30)
[2018-04-18] MEDS: ATORVASTATIN CA 20 MG TABLET (FP) PO SCH (21:50)
[2018-04-18] MEDS: traZODone HCL 50 MG TABLET (FP) PO SCH (21:50)
[2018-04-18] MEDS: oxyCODONE HCL 5 MG TABLET PO PRN (21:56)
[2018-04-19] MEDS: MEROPENEM 1 GM in DEXTROSE 5%-WATER 100 ML IVPB SCH ×2 (02:46→09:29)
[2018-04-19] MEDS: SODIUM CHLORIDE 1,000 ML IV SCH (02:47)
[2018-04-19] MEDS: HEPARIN NA (PORCINE) 5,000 UNITS/ML 1ML VIAL SQ SCH ×3 (06:19→21:19)
[2018-04-19] MEDS: LEVOTHYROXINE NA 150 MCG TABLET PO SCH (06:20)
[2018-04-19] MEDS: oxyCODONE HCL 5 MG TABLET PO PRN ×2 (06:22→21:19)
[2018-04-19] MEDS: clonazePAM 0.5 MG TABLET PO SCH ×2 (09:10→21:22)
[2018-04-19] MEDS: DULoxetine HCL 30 MG CAPSULE.DR (FP) PO SCH (09:10)
[2018-04-19] MEDS: PANTOPRAZOLE 20 MG TABLET (FP) PO SCH (09:10)
[2018-04-19] MEDS: POLYETHYLENE GLYCOL 3350 119 GM BTL PO SCH ×2 (09:12→21:26)
--- NOTE | 2018-04-19 10:37 | PN ---
Progress Note, Physician Chief Complaint: AWAKE ALERT EATING BREAKFAST NAD - Current Medication List Current Medications: Active Medications Atorvastatin Calcium (Lipitor -) 20 mg PO HS [facility] Last Admin: 04/18/18 21:50 Dose: 20 mg Clonazepam (Klonopin -) 0.5 mg PO BID [facility] Last Admin: 04/19/18 09:10 Dose: 0.5 mg Duloxetine HCl (Cymbalta -) 30 mg PO DAILY [facility] Last Admin: 04/19/18 09:10 Dose: 30 mg Heparin Sodium (Porcine) (Heparin -) 5,000 unit SQ TID [facility] Last Admin: 04/19/18 06:19 Dose: 5,000 unit Meropenem 1 gm/ Dextrose 100 mls @ 200 mls/hr IVPB Q8H-IV [facility] Last Admin: 04/19/18 09:29 Dose: 200 mls/hr Levothyroxine Sodium (Synthroid -) 150 mcg PO DAILY@0700 [facility] Last Admin: 04/19/18 06:20 Dose: 150 mcg Metoprolol Succinate (Toprol Xl -) 50 mg PO DAILY [facility] Last Admin: 04/19/18 09:10 Dose: 50 mg Oxycodone HCl (Roxicodone -) 30 mg PO Q8H PRN PRN Reason: PAIN LEVEL 6-10 Last Admin: 04/19/18 06:22 Dose: 30 mg Pantoprazole Sodium (Protonix -) 20 mg PO DAILY [facility] Last Admin: 04/19/18 09:10 Dose: 20 mg Polyethylene Glycol (Miralax (For Daily Use) -) 17 gm PO BID [facility] Last Admin: 04/19/18 09:12 Dose: 17 grams Trazodone HCl (Desyrel -) 100 mg PO HS [facility] Last Admin: 04/18/18 21:50 Dose: 100 mg Zolpidem Tartrate (Ambien -) 10 mg PO HS PRN PRN Reason: INSOMNIA Last Admin: 04/17/18 23:21 Dose: 10 mg - Objective Vital Signs: Vital Signs Temperature 97.8 F 04/19/18 08:57 Pulse Rate 50 L 04/19/18 08:57 Respiratory Rate 18 04/19/18 08:57 Blood Pressure 126/72 04/19/18 08:57 O2 Sat by Pulse Oximetry (%) 95 04/19/18 08:57 Constitutional: Yes: No Distress Eyes: Yes: WNL HENT: Yes: WNL Neck: Yes: WNL Cardiovascular: Yes: WNL Respiratory: Yes: WNL Gastrointestinal: Yes: WNL Genitourinary: Yes: WNL Musculoskeletal: Yes: WNL Extremities: Yes: WNL Edema: No Peripheral Pulses WNL: Yes Integumentary: Yes: WNL Wound/Incision: Yes: Clean/Dry Neurological: Yes: WNL ...Motor Strength: WNL Psychiatric: Yes: WNL Labs: CBC, BMP 04/18/18 07:00 04/18/18 07:00 Problem List - Problems (1) Dysuria Code(s): R30.0 - DYSURIA (2) UTI (urinary tract infection) Code(s): N39.0 - URINARY TRACT INFECTION, SITE NOT SPECIFIED Qualifiers: (3) Pyelonephritis Code(s): N12 - TUBULO-INTERSTITIAL NEPHRITIS, NOT SPCF ACUTE OR CHRONIC Assessment/Plan IV ABX AWAIT CX ID/ FOLLOW UP DVT PROPHYLAXIS OOB TO CHAIR
--- NOTE | 2018-04-19 11:55 | PN ---
Progress Note, Physician History of Present Illness: Pt is alert, sitting up. She reports less flank/abd pain and is now afebrile. Pt has no other specific complaints. - Current Medication List Current Medications: Active Medications Atorvastatin Calcium (Lipitor -) 20 mg PO HS [facility] Last Admin: 04/18/18 21:50 Dose: 20 mg Clonazepam (Klonopin -) 0.5 mg PO BID [facility] Last Admin: 04/19/18 09:10 Dose: 0.5 mg Duloxetine HCl (Cymbalta -) 30 mg PO DAILY [facility] Last Admin: 04/19/18 09:10 Dose: 30 mg Heparin Sodium (Porcine) (Heparin -) 5,000 unit SQ TID [facility] Last Admin: 04/19/18 06:19 Dose: 5,000 unit Meropenem 1 gm/ Dextrose 100 mls @ 200 mls/hr IVPB Q8H-IV [facility] Last Admin: 04/19/18 09:29 Dose: 200 mls/hr Levothyroxine Sodium (Synthroid -) 150 mcg PO DAILY@0700 [facility] Last Admin: 04/19/18 06:20 Dose: 150 mcg Metoprolol Succinate (Toprol Xl -) 50 mg PO DAILY [facility] Last Admin: 04/19/18 09:10 Dose: 50 mg Oxycodone HCl (Roxicodone -) 30 mg PO Q8H PRN PRN Reason: PAIN LEVEL 6-10 Last Admin: 04/19/18 06:22 Dose: 30 mg Pantoprazole Sodium (Protonix -) 20 mg PO DAILY [facility] Last Admin: 04/19/18 09:10 Dose: 20 mg Polyethylene Glycol (Miralax (For Daily Use) -) 17 gm PO BID [facility] Last Admin: 04/19/18 09:12 Dose: 17 grams Trazodone HCl (Desyrel -) 100 mg PO HS [facility] Last Admin: 04/18/18 21:50 Dose: 100 mg Zolpidem Tartrate (Ambien -) 10 mg PO HS PRN PRN Reason: INSOMNIA Last Admin: 04/17/18 23:21 Dose: 10 mg - Objective Vital Signs: Vital Signs Temperature 97.8 F 04/19/18 08:57 Pulse Rate 50 L 04/19/18 08:57 Respiratory Rate 18 04/19/18 08:57 Blood Pressure 126/72 04/19/18 08:57 O2 Sat by Pulse Oximetry (%) 95 04/19/18 08:57 Constitutional: Yes: No Distress, Calm Cardiovascular: Yes: Regular Rate and Rhythm Respiratory: Yes: CTA Bilaterally Gastrointestinal: Yes: Normal Bowel Sounds, Soft Genitourinary: Yes: CVA Tenderness - Right (minimal with deep palpation) Extremities: Yes: WNL Neurological: Yes: Alert, Oriented Labs: CBC, BMP 04/18/18 07:00 04/18/18 07:00 Microbiology 04/17/18 15:04 Urine - Urine Clean Catch Urine Culture - Final Klebsiella Pneumoniae Problem List - Problems (1) UTI (urinary tract infection) Code(s): N39.0 - URINARY TRACT INFECTION, SITE NOT SPECIFIED Qualifiers: (2) Fever Code(s): R50.9 - FEVER, UNSPECIFIED Qualifiers: Fever type: unspecified Qualified Code(s): R50.9 - Fever, unspecified (3) HTN (hypertension) Code(s): I10 - ESSENTIAL (PRIMARY) HYPERTENSION (4) Hydronephrosis Code(s): N13.30 - UNSPECIFIED HYDRONEPHROSIS (5) Hypothyroid Code(s): E03.9 - HYPOTHYROIDISM, UNSPECIFIED (6) Pyelonephritis Code(s): N12 - TUBULO-INTERSTITIAL NEPHRITIS, NOT SPCF ACUTE OR CHRONIC Assessment/Plan 52 y.o. female with PMH of E. coli/Pseudomonas UTIs, pyelonephritis, b/l hydronephrosis s/p b/l stent placement, hypothyroidism, Hepatitis C s/p treatment in 2013, GERD presents with c/o dysuria, urinary frequency, subjective fever/chills, Rt flank/lower abd pain. Klebsiella UTI/Pyelonephritis B/L hydronephrosis s/p stent Fever -- pt afebrile, states she is feeling better -- urine culture results noted -- d/c Meropenem, switch to Levaquin IV -- f/u continue monitor
[2018-04-19] MEDS: traZODone HCL 50 MG TABLET (FP) PO SCH (21:19)
[2018-04-19] MEDS: ATORVASTATIN CA 20 MG TABLET (FP) PO SCH (21:19)
[2018-04-19] MEDS: ZOLPIDEM TARTRATE 5 MG TABLET PO PRN (21:34)
[2018-04-20 05:42] VITALS: TEMP 98.6
[2018-04-20] MEDS: HEPARIN NA (PORCINE) 5,000 UNITS/ML 1ML VIAL SQ SCH ×2 (06:11→14:48)
[2018-04-20] MEDS: LEVOTHYROXINE NA 150 MCG TABLET PO SCH (06:11)
[2018-04-20] MEDS: DULoxetine HCL 30 MG CAPSULE.DR (FP) PO SCH (10:09)
[2018-04-20] MEDS: PANTOPRAZOLE 20 MG TABLET (FP) PO SCH (10:09)
[2018-04-20] MEDS: clonazePAM 0.5 MG TABLET PO SCH (10:09)
[2018-04-20] MEDS: POLYETHYLENE GLYCOL 3350 119 GM BTL PO SCH (10:14)
--- NOTE | 2018-04-20 11:07 | DS ---
Physical Examination Vital Signs: Vital Signs Temperature 98.6 F 04/20/18 05:40 Pulse Rate 59 L 04/20/18 05:40 Respiratory Rate 20 04/20/18 05:40 Blood Pressure 142/75 04/20/18 05:40 O2 Sat by Pulse Oximetry (%) 96 04/19/18 21:00 Constitutional: Yes: Calm Cardiovascular: Yes: Regular Rate and Rhythm, S1, S2 Respiratory: Yes: CTA Bilaterally Gastrointestinal: Yes: Normal Bowel Sounds, Soft Edema: No Neurological: Yes: Alert, Oriented Labs: CBC, BMP 04/18/18 07:00 04/18/18 07:00 Discharge Summary Reason For Visit: HYDRONEPHROSIS Current Active Problems Dysuria (Acute) UTI (urinary tract infection) (Acute) Hospital Course: CHIEF COMPLAINT: abdominal pain PCP: Suyapa Pat; Urology: Castillo Baez HISTORY OF PRESENT ILLNESS: This is a 52 year old female with a past medical history of UTI/pyelo/ hydronephrosis s/p B/L ureteral stents placed 02/09/18 who presented to the ED with dysuria, frequency and lower abdominal pain x 1 month, worse x 1 day. She also reports pain radiating to right flank. She reports foul smelling urine. ER course was notable for: (1) u/a c/w UTI (2) CT neg for stones, + hydro (3) WBC 8.4 Recent Travel: pt denies PAST MEDICAL HISTORY: UTI/pyelonephritis, HTN, HLD, fibromyalgia, sleep apnea, depression, anxiety, Hep C s/p Harvoni tx, GERD, colon polyps, hypothyroid PAST SURGICAL HISTORY: c-spine surgery hysterectomy bladder sling and multiple revisions Social History: Smoking: pt denies Alcohol: pt denies Drugs: pt denies Family History: mother age 46, brain aneurysm sisters age 56 and 60, brain aneurysm in hospital on iv abx change to oral levaquin for 7 days seen by urology will need cystocopy and stent removal as outpatient Condition: Guarded - Instructions Referrals: Ki Pat MD, MD [Primary Care Provider] - Disposition: HOME - Home Medications Comprehensive Discharge Medication List: Ambulatory Orders Levothyroxine Sodium [Synthroid] 150 mcg PO DAILY 01/17/14 Oxycodone HCl [Roxicodone] 30 mg PO TID PRN 01/17/14 Atorvastatin Ca [Lipitor] 20 mg PO DAILY 08/17/15 Omeprazole [Prilosec] 20 mg PO DAILY 08/17/15 Duloxetine HCl [Cymbalta -] 30 mg PO DAILY #0 tab 04/30/17 Trazodone HCl 100 mg PO HS #0 tab 06/06/17 Polyethylene Glycol 3350 [Miralax 119 gm Btl -] 17 gm PO BID 02/04/18 clonazePAM [Clonazepam] 0.5 mg PO BID 02/04/18 Metoprolol Succinate [Toprol Xl] 50 mg PO DAILY 04/17/18 Zolpidem Tartrate [Ambien] 10 mg PO HS 04/17/18
--- NOTE | 2018-04-20 11:17 | PN ---
Progress Note (short form) - Note Progress Note: UROLOGY NOTE. pt. is afebrile, feels better, no cva-t. will need cysto and stent removal as an outpt.Pt. is urologically ok for discharge
--- NOTE | 2018-04-20 11:45 | PN ---
Progress Note, Physician History of Present Illness: doing well no complains - Current Medication List Current Medications: Active Medications Atorvastatin Calcium (Lipitor -) 20 mg PO HS [facility] Last Admin: 04/19/18 21:19 Dose: 20 mg Clonazepam (Klonopin -) 0.5 mg PO BID [facility] Last Admin: 04/20/18 10:09 Dose: 0.5 mg Duloxetine HCl (Cymbalta -) 30 mg PO DAILY [facility] Last Admin: 04/20/18 10:09 Dose: 30 mg Heparin Sodium (Porcine) (Heparin -) 5,000 unit SQ TID [facility] Last Admin: 04/20/18 06:11 Dose: 5,000 unit Levofloxacin (Levaquin 750 Mg Premixed Ivpb -) 750 mg in 150 mls @ 100 mls/hr IVPB DAILY [facility]; Protocol Last Admin: 04/20/18 10:09 Dose: 100 mls/hr Levothyroxine Sodium (Synthroid -) 150 mcg PO DAILY@0700 [facility] Last Admin: 04/20/18 06:11 Dose: 150 mcg Metoprolol Succinate (Toprol Xl -) 50 mg PO DAILY [facility] Last Admin: 04/20/18 10:09 Dose: 50 mg Oxycodone HCl (Roxicodone -) 30 mg PO Q8H PRN PRN Reason: PAIN LEVEL 6-10 Last Admin: 04/19/18 21:19 Dose: 30 mg Pantoprazole Sodium (Protonix -) 20 mg PO DAILY [facility] Last Admin: 04/20/18 10:09 Dose: 20 mg Polyethylene Glycol (Miralax (For Daily Use) -) 17 gm PO BID [facility] Last Admin: 04/20/18 10:14 Dose: 17 grams Trazodone HCl (Desyrel -) 100 mg PO HS [facility] Last Admin: 04/19/18 21:19 Dose: 100 mg Zolpidem Tartrate (Ambien -) 10 mg PO HS PRN PRN Reason: INSOMNIA Last Admin: 04/19/18 21:34 Dose: 10 mg - Objective Vital Signs: Vital Signs Temperature 98.6 F 04/20/18 05:40 Pulse Rate 59 L 04/20/18 05:40 Respiratory Rate 20 04/20/18 05:40 Blood Pressure 142/75 04/20/18 05:40 O2 Sat by Pulse Oximetry (%) 96 04/19/18 21:00 Constitutional: Yes: No Distress, Calm, Obese Cardiovascular: Yes: Regular Rate and Rhythm Respiratory: Yes: Regular, CTA Bilaterally Gastrointestinal: Yes: Normal Bowel Sounds, Soft Musculoskeletal: Yes: WNL Extremities: Yes: WNL Neurological: Yes: Alert, Oriented Psychiatric: Yes: Alert, Oriented Labs: CBC, BMP 04/18/18 07:00 04/18/18 07:00 Assessment/Plan Problem List - Problems (1) UTI (urinary tract infection) Code(s): N39.0 - URINARY TRACT INFECTION, SITE NOT SPECIFIED Qualifiers: (2) Fever Code(s): R50.9 - FEVER, UNSPECIFIED Qualifiers: Fever type: unspecified Qualified Code(s): R50.9 - Fever, unspecified (3) HTN (hypertension) Code(s): I10 - ESSENTIAL (PRIMARY) HYPERTENSION (4) Hydronephrosis Code(s): N13.30 - UNSPECIFIED HYDRONEPHROSIS (5) Hypothyroid Code(s): E03.9 - HYPOTHYROIDISM, UNSPECIFIED (6) Pyelonephritis Code(s): N12 - TUBULO-INTERSTITIAL NEPHRITIS, NOT SPCF ACUTE OR CHRONIC Assessment/Plan 52 y.o. female with PMH of E. coli/Pseudomonas UTIs, pyelonephritis, b/l hydronephrosis s/p b/l stent placement, hypothyroidism, Hepatitis C s/p treatment in 2013, GERD presents with c/o dysuria, urinary frequency, subjective fever/chills, Rt flank/lower abd pain. Klebsiella UTI/Pyelonephritis B/L hydronephrosis s/p stent Fever plan continue current mgmt if going home can switch to oral for duration as planned
[2018-04-20 12:36] VITALS: BP 148/77; PULSE 78
== END 2018-04-20 18:53 | disposition home or self-care (01) | DRG 690 ==
LOC: JER 14:16 → JERBED 18:24 → J6S 22:23
PROVIDERS: ADMIT Internal Medicine; ATTEND Family Medicine
DX: N13.6 Pyonephrosis (principal); I10 Essential (primary) hypertension; E03.9 Hypothyroidism, unspecified; F41.8 Other specified anxiety disorders; M79.7 Fibromyalgia; G47.30 Sleep apnea, unspecified; K21.9 Gastro-esophageal reflux disease without esophagitis; K63.5 Polyp of colon; E78.00 Pure hypercholesterolemia, unspecified; R50.9 Fever, unspecified; Z86.19 Personal history of other infectious and parasitic diseases; R30.0 Dysuria; B96.1 Klebsiella pneumoniae [K. pneumoniae] as the cause of diseases classified elsewhere
CPT/HCPCS: 36415; 74176; 80048; 80053; 81003; 81015; 83735; 84100; 84443; 85025; 87086; 87186; 99283-25; J1644; J7030

== ENCOUNTER 2018-06-12 07:40 | Day surgery (SDC) | payer OTHER ==
[2018-06-11 09:38] VITALS: BMI 37.8
[~2018-06-12 07:40] MED LIST: BUPIVACAINE HCL/PF (5 MG/ML) 30 ML VIAL IJ ONE; ceFAZolin SODIUM 1 GM VIAL IVPB ONE
[2018-06-12] MEDS ORDERED: MIDAZOLAM HCL 2 MG/2 ML SINGLE DOSE VIAL ONE (08:45)
[2018-06-12] MEDS ORDERED: SUCCINYLCHOLINE CHLORIDE 200 MG/10 ML VIAL ONE (08:45)
[2018-06-12] MEDS ORDERED: PROPOFOL 20 ML ONE (08:45)
[2018-06-12] MEDS ORDERED: BUPIVACAINE HCL/PF 0.5% (5MG/ML) 10 ML VIAL ONE (08:46)
[2018-06-12] MEDS ORDERED: ONDANSETRON 4 MG/2 ML VIAL IVPUSH PRN (09:03)
[2018-06-12] MEDS ORDERED: LACTATED RINGERS SOLUTION 1,000 ML IV SCH (09:15)
--- NOTE | 2018-06-12 09:20 | HP ---
History & Physical Update - History History: No Change - Physical Physical: No Change - Assessment Assessment: No Change - Plan Plan: No Change (h&p dated and signed from 05/13/18)
[2018-06-12] MEDS ORDERED: ceFAZolin SODIUM 1 GM VIAL IVPB ONE (09:50)
[2018-06-12] MEDS ORDERED: ceFAZolin SODIUM 1 GM VIAL ONE (09:52)
[2018-06-12] MEDS ORDERED: BUPIVACAINE HCL/PF (5 MG/ML) 30 ML VIAL IJ ONE (10:10)
--- NOTE | 2018-06-12 10:55 | OP ---
Operative Note - Note: Operative Date: 06/12/18 Pre-Operative Diagnosis: aditi. ureteral jj stents, and s/p sacral nerve neurostimulation battery placement Operation: cysto, d/c aditi. jj stents ,aditi. retrograde pyelograms and removal of interstim. battery and lead. Findings: gaping meatus, sm, trabeculated bladder Implants: none Post-Operative Diagnosis: Same as Pre-op Surgeon: Gretchen Baez Anesthesia: General Specimens Removed: aditi. jj stents and neurostim battery and leads Estimated Blood Loss (mls): 0 Drains & Tubes with Location: none Drains, Volume Out (mls): 0 Blood Volume Replaced (mls): 0 Fluid Volume Replaced (mls): 0 Operative Report Dictated: Yes
--- NOTE | 2018-06-12 11:50 | OP ---
DATE OF OPERATION: 06/12/2018 PREOPERATIVE DIAGNOSES: Status post bilateral J-J stents, status post bilateral lithotripsies, history of bilateral hydronephrosis, status post implantation of InterStim bladder neuromodulation battery and lead. OPERATIVE PROCEDURE: Cystourethroscopy, removal of bilateral J-J stents, bilateral retrograde pyelograms, removal of InterStim battery and removal of InterStim lead which leads to sacral nerve 2. ANESTHESIA: General. Under above-stated anesthesia patient was prepped and draped in the usual sterile manner. She was first placed in the prone position. An incision was made over the previous scar of the battery which was above her right gluteus jade. This was a 6-cm incision in a transverse fashion. This was carried down through skin and subcutaneous tissue using sharp dissection. The capsule was visualized and opened with cautery. The battery was removed via the wound. The lead was still attached to the battery. On tugging the lead a dimple was found over the sacral spine indicating the point of entrance of the lead into sacral nerve root 2. A stab incision was made over the dimple and the lead was grasped with a T-clamp and brought out the same incision. The lead was then disconnected from the battery. The battery was sent separately to Pathology. The lead was then gently removed from the sacral root. The entire lead was removed. Both wounds were irrigated with normal saline. Both wounds were closed with 3-0 Vicryl suture ligatures and skin tacos. Marcaine 10 mL was injected into the suprasacral and right subgluteal wounds for long-term analgesia. The wounds were dressed and the patient was repositioned in the dorsal lithotomy position. Cystoscopy revealed a patulous meatus. There was severe squamous metaplasia of the floor of the bladder. There was a grade 2 trabeculation of the bladder. Bilateral stents were visualized in the bladder protruding from the right and left ureteral orifices. Both orifices were large and gaping. Using a biopsy forceps the right and the left stent were removed atraumatically. Efflux of urine was noted to be clear. Bilateral retrograde pyelograms revealed mild bilateral hydroureteronephrosis to the level of the ureterovesical junction. Late films revealed moderate drainage. Therefore the bladder was emptied. The scope was removed. The patient tolerated the procedure well. She returned to the recovery room in good condition. NAМария [id number]
[2018-06-12 13:42] VITALS: BP 150/81; PULSE 86; TEMP 97.9
--- NOTE | 2018-06-12 14:12 | HP ---
DATE OF CONSULTATION: DATE OF DICTATION: 06/12/2018 HISTORY OF PRESENT ILLNESS: Patient is a 52-year-old female with history of neurogenic bladder, recurrent urinary tract infections, overflow incontinence, urgency incontinence and suprapubic pain with dyspareunia. She also has history of bilateral nephrolithiasis. Has undergone bilateral laser lithotripsies and stent placements 6 weeks earlier. Patient is admitted for ambulatory surgery for removal of her bilateral J-J stents. Due to the chronic pelvic pain and the continuation of her micturition symptoms patient wants the InterStim removed. After extensive consultation and workup the patient was adamant about the removal. Therefore she is admitted for removal of the InterStim battery as well as the lead. She does have history of anxiety, depression, high blood pressure, hypothyroidism, chronic cervical and lumbar radiculopathy. She also has history of sleep apnea. The patient is on multiple medications including Synthroid; Norvasc; atorvastatin; oxycodone; trazodone; clonazepam; duloxetine; losartan; and a PPI. She also takes metformin for her diabetes. She has undergone a total abdominal hysterectomy in the past as well as a transvaginal taping. PHYSICAL EXAMINATION:General: Revealed a 52-year-old female in mild distress. Abdomen: Globus and soft. There was no CVA tenderness. Pelvic: Revealed a grade 2 cystorectocele. Jesus test is negative. No abnormal discharge was palpated. No masses were palpated. Extremities: Revealed full range of motion with no cyanosis, clubbing or edema. Back: Revealed a 5-cm scar over the right gluteus jade and the InterStim battery was palpated. It appeared to be in proper position. Overlying skin was also well healed and within normal limits. The patient underwent a CT scan on May 06, 2018. This revealed bilateral hydroureteronephrosis with bilateral J-J stents in their proper position. There was no evidence of nephrolithiasis. Urinalysis is negative for nitrites but positive for blood. Therefore patient is admitted to undergo a cystourethroscopy, removal of bilateral J-J stents, bilateral retrograde pyelograms. If there is proper drainage will leave stents out. Will also undergo removal of the InterStim battery as well as the lead leading to sacral nerve 2. This was explained in detail to patient and she agrees. LAYLA NARANJO M.D. [id number]
--- NOTE | 2018-06-16 16:31 | PATH ---
Surgical Pathology Report Patient Name: SAAD MENA Med. Rec. #: [id number] /Age/Gender: 1965 (Age: 52) / F Account: [id number] Location: [facility] Taken: 06/12/2018 Received: 06/12/2018 Reported: 06/16/2018 Physicians: Gretchen Baez M.D. Specimen(s) Received A: INTERSTIM WITH LEADS B: BILATERAL STENT Clinical History Urinary incontinence, malfunction of interstim implant Final Diagnosis A. INTERSTIM WITH LEADS, REMOVAL: HEAVY DUTY CUSTODIAN (BATTERY). MACROSCOPIC DIAGNOSIS. B. BILATERAL JJ STENT, REMOVAL: STENTS (2). MACROSCOPIC DIAGNOSIS. Electronically Signed Cande Mcdermott M.D. Gross Description A. Received fresh labeled "InterStim with leads," is a 5.0 x 4.3 x 0.7 cm miller metallic device, consistent with a battery. The specimen has the following inscription: "[employer]onic InterStim II SN: [id number]." Also received within the same container is a 30 cm in length miller metallic wire. No soft tissue is present. No sections are submitted, gross only. B. Received fresh labeled "bilateral JJ stent," are two ward, coiled portions of tubing averaging 35 cm in length, consistent with ureteral stents. No soft tissue is present. No sections are submitted, gross only. /06/15/2018
== END 2018-06-12 13:44 | disposition home or self-care (01) ==
LOC: JASU-SURG 07:40
PROVIDERS: ATTEND Urology
PROC: BT14YZZ Fluoroscopy of Kidneys, Ureters and Bladder using Other Contrast (ICD-10-PCS; 2018-06-12)
PROC: 01PY0MZ Removal of Neurostimulator Lead from Peripheral Nerve, Open Approach (ICD-10-PCS; principal; 2018-06-12 09:00)
PROC: 0JPT0MZ Removal of Stimulator Generator from Trunk Subcutaneous Tissue and Fascia, Open Approach (ICD-10-PCS; 2018-06-12 09:00)
PROC: 0TP98DZ Removal of Intraluminal Device from Ureter, Via Natural or Artificial Opening Endoscopic (ICD-10-PCS; 2018-06-12 09:00)
DX: T85.840A Pain due to nervous system prosthetic devices, implants and grafts, initial encounter (principal); N32.81 Overactive bladder; R35.0 Frequency of micturition; R39.15 Urgency of urination; R35.1 Nocturia
CPT/HCPCS: 88300-TC; 94760

== ENCOUNTER 2018-10-26 13:03 | Inpatient (IN) | payer OTHER ==
[2018-10-26] MEDS ORDERED: SODIUM CHLORIDE 1,000 ML IV STA (13:57)
[2018-10-26] MEDS ORDERED: ACETAMINOPHEN 1000 MG/100 ML VIAL (NON FORMULARY) IVPB ONE (14:23)
--- NOTE | 2018-10-26 14:24 | PDOC ---
History of Present Illness - History of Present Illness Initial Comments: 10/26/18 14:46 53 YOF with a significant PMH of chronic UTI, pyelo s/p aditi. ureteral jj stents , and s/p sacral nerve neurostimulation battery placement, s/p removal 06/12/18, HTN, fibromyalgia, sleep apnea, depression, anxiety, and hypothyroidism, Hep C s /p treatment in 2013, GERD who presents to the emergency department with right sided abdominal and flank pain, a/w dysuria, urgency and frequency for the past week. She describes her pain as a 10/10 and states her urine is foul- smelling but no discharge. Patient notes her symptoms today are similar to her last visit in this ER. She no longer has her stents or neurostimulator battery in place s/p removal in 06/2018. She denies recent fever, chills, diaphoresis, headache or dizziness. She denies recent nausea, vomit, diarrhea or constipation. No hematuria. She denies recent chest pain or shortness of breath. Allergies: Zosyn, tazobactam Past surgical history: Cervical Neck Surgery. Ureteral stents. Social history: Nonsmoker. Denies EtOH use and recreational drug use. Primary Care Physician: Dr. Ki Pat Urologist: Dr. Gretchen Baez <Elena Lizama - Last Filed: 10/26/18 14:56> - General History Source: Patient Exam Limitations: No Limitations <Tianna Argueta - Last Filed: 10/26/18 22:08> - General Chief Complaint: Pain, Acute Stated Complaint: PAIN Time Seen by Provider: 10/26/18 13:57 Past History <Elena Lizama - Last Filed: 10/26/18 14:56> - Past Medical History Anemia: No Asthma: No Cancer: No Cardiac Disorders: No CVA: No COPD: No CHF: No DVT: No Dementia: No Diabetes: No GI Disorders: Yes (GERD, COLON POLYP, RECTAL BLEEDING) Disorders: No HTN: Yes Hypercholesterolemia: Yes Liver Disease: No Psychiatric Problems: Yes (DEPRESSION, ANXEITY) Seizures: No Thyroid Disease: Yes (HYPOTHYROIDISM) - Surgical History Abdominal Surgery: No Appendectomy: No Cardiac Surgery: No Cholecystectomy: No Lung Surgery: No Neurologic Surgery: Yes (CERVICAL NECK SX) Orthopedic Surgery: No - Immunization History Immunization Up to Date: Yes - Suicide/Smoking/Psychosocial Hx Smoking History: Never smoked Have you smoked in the past 12 months: No Hx Alcohol Use: No Drug/Substance Use Hx: No Substance Use Type: None Hx Substance Use Treatment: No <Tianna Argueta - Last Filed: 10/26/18 22:08> - Past Medical History Allergies/Adverse Reactions: Allergies Allergy/AdvReac Type Severity Reaction Status Date / Time piperacillin [From Zosyn] Allergy Hives Verified 10/26/18 13:16 tazobactam [From Zosyn] Allergy Hives Verified 10/26/18 13:16 Home Medications: Ambulatory Orders Atorvastatin Ca [Lipitor] 20 mg PO DAILY 08/17/15 Omeprazole [Prilosec] 20 mg PO DAILY 08/17/15 Duloxetine HCl [Cymbalta -] 30 mg PO DAILY #0 tab 04/30/17 Trazodone HCl 100 mg PO HS #0 tab 06/06/17 Polyethylene Glycol 3350 [Miralax 119 gm Btl -] 17 gm PO BID 02/04/18 clonazePAM [Clonazepam] 0.5 mg PO BID 02/04/18 Zolpidem Tartrate [Ambien] 10 mg PO HS 04/17/18 Levothyroxine [Synthroid -] 125 mcg PO DAILY #30 tablet 04/20/18 Losartan Potassium 50 mg PO DAILY 06/11/18 Oxycodone HCl 30 mg PO TID 06/11/18 Review of Systems - Review of Systems Able to Perform ROS?: Yes Comments:: 10/26/18 14:46 Review of systems Constitutional: no fevers or chills. HEENT: no headache or dizziness. CVS: no cp or syncope. Resp: no sob. No cough. Gastrointestinal: no nausea or vomiting or diarrhea. (+) abdominal pain. + flank pain. Genitourinary: no hematuria. (+) Dysuria (+) Frequency +urgency. +malodor. No vaginal discharge or bleeding. MUSCULOSKELETAL: No joint pain and swelling. No neck pain. (+) bilateral flank pain and back pain. SKIN: no redness or skin changes, no discharge, no rash. No wounds. Hematologic: no easy bruising/bleeding. NEUROLOGIC: No headache, dizziness, LOC or altered mental status. No weakness, numbness or tingling. Allergic/Immunologic: abx allergies All other systems reviewed and negative, or as documented in HPI. <Elena Lizama - Last Filed: 10/26/18 14:56> *Physical Exam - Vital Signs Last Vital Signs Temp Pulse Resp BP Pulse Ox 98.3 F 91 H 18 138/71 96 10/26/18 13:18 10/26/18 13:18 10/26/18 13:18 10/26/18 13:18 10/26/18 13:18 - Physical Exam Comments: 10/26/18 14:46 Physical exam: General: Well appearing, awake and alert, NAD. HEENT: NCAT, PERRL, EOMI, clear conjunctiva, anicteric, moist mucus membranes, clear oropharynx, no oral lesions.. Neck: neck supple, FROM Resp: CTAB, normal and even respirations, no respiratory distress CVS: RRR, no murmurs, 2+ peripheral pulses throughout, no peripheral edema Abdomen: soft, obese, +right sided abdominal and flank tenderness; no CVAT. no rebound or guarding. Back: diffusely tender, normal inspection and ROM MSK: no edema, SANDOVAL x4, ROM intact. No clubbing or cyanosis. normal bulk and tone. Extremities: no calf tenderness Neuro: alert Skin: warm and well perfused, cap refill <2 sec, normal color <Elena Lizama - Last Filed: 10/26/18 14:56> - Vital Signs Last Vital Signs Temp Pulse Resp BP Pulse Ox 98.3 F 91 H 18 138/71 96 10/26/18 13:18 10/26/18 13:18 10/26/18 13:18 10/26/18 13:18 10/26/18 13:18 <Tianna Argueta - Last Filed: 10/26/18 22:08> Heart Score/ECG Review #1 ECG reviewed & interpreted by me at: 14:25 General ECG Interpretation: Sinus Rhythm Compared to previous ECG there are: No significant change 10/26/18 14:38 EKG normal sinus rhythm at 63 bpm, no interval abnormalities, narrow QRS, ST and T wave segments and morphology normal. Nonspecific T wave abnormalities <Tianna Argueta - Last Filed: 10/26/18 22:08> ED Treatment Course - LABORATORY CBC & Chemistry Diagram: 10/26/18 14:11 10/26/18 14:11 - ADDITIONAL ORDERS Additional order review: Laboratory Results 10/26/18 14:09 Urine Color Yellow Urine Appearance Cloudy Urine pH 5.5 Ur Specific Superior 1.015 Urine Protein Negative Urine Glucose (UA) Negative Urine Ketones Negative Urine Blood 1+ H Urine Nitrite Positive H Urine Bilirubin Negative Urine Urobilinogen 1.0 Ur Leukocyte Esterase 3+ H Urine WBC (Auto) 156 Urine RBC (Auto) 13 U Epithel Cells (Auto) 4.8 Urine Bacteria (Auto) 4558.23 10/26/18 14:11 RBC 4.26 MCV 93.0 MCHC 34.4 RDW 13.6 MPV 7.4 L Neutrophils % 68.7 Lymphocytes % 23.5 Monocytes % 5.9 Eosinophils % 1.4 Basophils % 0.5 <Elnea Lizama - Last Filed: 10/26/18 14:56> - LABORATORY CBC & Chemistry Diagram: 10/26/18 14:11 10/26/18 14:11 <Tianna Argueta - Last Filed: 10/26/18 22:08> Medical Decision Making - Medical Decision Making 10/26/18 15:04 I, Tianna Argueta MD, attest that this document has been prepared under my direction and personally reviewed by me in its entirety. I further attest, that it accurately reflects all work, treatment, procedures and medical decision -making performed by me. See HPI for details DDx. UTI, pyelonephritis, stone, electrolyte/metabolic derangements. Dehydration. Intra abdominal infection/inflammation. Vital signs reviewed, wnl. Prior notes reviewed, including admissions, discharges and consultations. laboratory results and imaging reviewed, basic labs and lytes wnl, notable for + UA with leuk esterase, Nitrites and +bacteria. Followed up on prior urine cultures, +E coli, Pseudomonas, Klebsiella. Reviewed urine culture sensitivities , lowest KRISTIN <1 with imipenem and meropenem, used ro previously, has pcn allergy and low likelihood of cross reactivity. EKG normal sinus rhythm, no interval abnormalities, narrow QRS, ST and T wave segments and morphology normal. Nonspecific T wave abnormalities ED course: IV meropenem, for UTI, f/u urine cultures and reviewed previously. IVF, analgesia, abx CT will to eval for intra abdominal/renal pathology. bilateral mod hydro noted , jj stents removed; no stones. no acute pathology otherwise. uro cs with Dr Baez, prior urologist who removed the jj stents/stimulator Dispo: admit for pyelo, IV abx, medical management d/w Dr Botello, regarding admission. 10/26/18 15:47 10/26/18 15:48 10/26/18 22:07 <Tianna Argueta - Last Filed: 10/26/18 22:08> *DC/Admit/Observation/Transfer - Attestations Scribe Attestion: 10/26/18 14:46 Documentation prepared by Elena Lizama, acting as medical educator for Tianna Argueta MD. <Elena Lizama - Last Filed: 10/26/18 14:56> - Discharge Dispostion Decision to Admit order: Yes Decision to Admit order Date/Time: 10/26/18 15:47 Decision to Admit Order Category Date Time Status Decision to Admit to Hospital Routine Admission 10/26/18 15:04 Active <Tianna Argueta - Last Filed: 10/26/18 22:08> Diagnosis at time of Disposition: Pyelonephritis, Hydronephrosis - Discharge Dispostion Condition at time of disposition: Fair
[2018-10-26 14:27] LABS: EPI CELLS 4.8 /HPF (0-5); PH,URINE 5.5 (5.0-8.0); URINE APPEARANCE CLOUDY; URINE BACTERIA 4558.23 /hpf (NEGATIVE); URINE BILIRUBIN NEGATIVE (NEGATIVE); URINE COLOR YELLOW; URINE GLUCOSE (UA) NEGATIVE (NEGATIVE); URINE KETONE NEGATIVE (NEGATIVE); URINE LEUK ESTERASE 3+ (NEGATIVE); URINE NITRITE POSITIVE (NEGATIVE); URINE PROTEIN NEGATIVE (NEGATIVE); URINE RBC 13 /hpf (0-4); URINE WBC 156 /hpf (0-5)
[2018-10-26] MEDS ORDERED: ACETAMINOPHEN INJECTION 100 ML IVPB ONE (14:32)
[2018-10-26 14:41] LABS: BASO % 0.5 % (0-2.0); EOS % 1.4 % (0-4.5); HEMATOCRIT 39.7 % (32.4-45.2); HEMOGLOBIN 13.7 GM/dL (10.7-15.3); LYMPH % 23.5 % (8-40); MCHC 34.4 g/dl (32.0-36.0); MEAN PLT VOLUME 7.4 fl (7.5-11.1); MONO % 5.9 % (3.8-10.2); NEUT % 68.7 % (42.8-82.8); PLATELET COUNT 269 K/MM3 (134-434); RBC 4.26 M/mm3 (3.60-5.2); RDW 13.6 % (11.6-15.6)
[2018-10-26] MEDS ORDERED: MEROPENEM 1 GM in DEXTROSE 5%-WATER 100 ML IVPB ONE (14:55)
[2018-10-26 15:24] LABS: URINE CASTS 44.05 /hpf (0-8)
[2018-10-26 15:26] LABS: ALBUMIN 4.2 g/dl (3.4-5.0); ALK PHOS 117 U/L (45-117); ANION GAP 5 MMOL/L (8-16); BILIRUBIN,TOTAL 0.3 mg/dL (0.2-1); BLOOD UREA NITROGEN 16 mg/dL (7-18); CALCIUM 8.8 mg/dL (8.5-10.1); CHLORIDE 105 mmol/L (98-107); CO2 31 mmol/L (21-32); CREATININE 0.9 mg/dL (0.55-1.3); GLUCOSE,RANDOM 85 mg/dL (74-106); LIPASE 126 U/L (73-393); POTASSIUM 3.9 mmol/L (3.5-5.1); SGOT/AST 24 U/L (15-37); SGPT/ALT 30 U/L (13-61); SODIUM 141 mmol/L (136-145); TOT PROT 8.4 g/dl (6.4-8.2)
--- NOTE | 2018-10-26 15:55 | HP ---
Admitting History and Physical - Primary Care Physician PCP: Hair Botello - Admission Chief Complaint: PYELONEPHRITIS History of Present Illness: 53 YOF with a significant PMH of chronic UTI, pyelo s/p aditi. ureteral jj stents , and s/p sacral nerve neurostimulation battery placement, s/p removal 06/12/18, HTN, fibromyalgia, sleep apnea, depression, anxiety, and hypothyroidism, Hep C s /p treatment in 2013, GERD who presents to the emergency department with right sided abdominal and flank pain, a/w dysuria, urgency and frequency for the past week. She describes her pain as a 10/10 and states her urine is foul- smelling but no discharge. Patient notes her symptoms today are similar to her last visit in this ER. She no longer has her stents or neurostimulator battery in place s/p removal in 06/2018. History Source: Patient, Medical Record - Past Medical History Cardiovascular: Yes: HTN, Hyperlipdemia Gastrointestinal: Yes: GERD Hepatobiliary: Yes: Hepatitis C (treated with Harvoni) Psych: Yes: Anxiety, Depression Rheumatology: Yes: Fibromyalgia Endocrine: Yes: Hypothyroidism, Other (hypothyroidism) - Smoking History Smoking history: Never smoked Have you smoked in the past 12 months: No - Alcohol/Substance Use Hx Alcohol Use: No History of Substance Use: reports: None - Social History ADL: Support Services (6 hours daily) History of Recent Travel: No Home Medications - Allergies Allergies/Adverse Reactions: Allergies Allergy/AdvReac Type Severity Reaction Status Date / Time piperacillin [From Zosyn] Allergy Hives Verified 10/26/18 13:16 tazobactam [From Zosyn] Allergy Hives Verified 10/26/18 13:16 - Home Medications Home Medications: Ambulatory Orders Atorvastatin Ca [Lipitor] 20 mg PO DAILY 08/17/15 Omeprazole [Prilosec] 20 mg PO DAILY 08/17/15 Duloxetine HCl [Cymbalta -] 30 mg PO DAILY #0 tab 04/30/17 Trazodone HCl 100 mg PO HS #0 tab 06/06/17 Polyethylene Glycol 3350 [Miralax 119 gm Btl -] 17 gm PO BID 02/04/18 clonazePAM [Clonazepam] 0.5 mg PO BID 02/04/18 Zolpidem Tartrate [Ambien] 10 mg PO HS 04/17/18 Levothyroxine [Synthroid -] 125 mcg PO DAILY #30 tablet 04/20/18 Losartan Potassium 50 mg PO DAILY 06/11/18 Oxycodone HCl 30 mg PO TID 06/11/18 Family Disease History - Family Disease History Family Disease History: Heart Disease: Mother ( of [place] at 46), Sister (x2 of [place] age 56 and 60) Review of Systems - Review of Systems Constitutional: reports: Fever, Loss of Appetite, Weakness Eyes: reports: No Symptoms HENT: reports: No Symptoms Neck: reports: No Symptoms Cardiovascular: reports: No Symptoms Respiratory: reports: No Symptoms Gastrointestinal: reports: Abdominal Pain Genitourinary: reports: Flank Pain Musculoskeletal: reports: Back Pain Neurological: reports: Weakness Endocrine: reports: No Symptoms Hematology/Lymphatic: reports: No Symptoms Psychiatric: reports: No Symptoms Physical Examination Vital Signs: Vital Signs Temperature 98.3 F 10/26/18 13:18 Pulse Rate 91 H 10/26/18 13:18 Respiratory Rate 18 10/26/18 13:18 Blood Pressure 138/71 10/26/18 13:18 O2 Sat by Pulse Oximetry (%) 96 10/26/18 13:18 Constitutional: Yes: Mild Distress Eyes: Yes: WNL HENT: Yes: WNL Neck: Yes: WNL Cardiovascular: Yes: Regular Rate and Rhythm Respiratory: Yes: WNL Gastrointestinal: Yes: Soft Renal/: Yes: CVA Tenderness - Left, CVA Tenderness - Right Musculoskeletal: Yes: Back Pain Edema: No Peripheral Pulses WNL: Yes Wound/Incision: Yes: Clean/Dry Neurological: Yes: Pre-Existing Deficit ...Motor Strength: LLE, RLE Psychiatric: Yes: WNL Labs: CBC, BMP 10/26/18 14:11 10/26/18 14:11 Imaging - Results Cat Scan: Pending Problem List - Problems (1) Pyelonephritis Code(s): N12 - TUBULO-INTERSTITIAL NEPHRITIS, NOT SPCF ACUTE OR CHRONIC (2) Cystitis Code(s): N30.90 - CYSTITIS, UNSPECIFIED WITHOUT HEMATURIA (3) Dysuria Code(s): R30.0 - DYSURIA (4) Pelvic pain Code(s): R10.2 - PELVIC AND PERINEAL PAIN Assessment/Plan IV ABX CHECK CULTURES CT ABD/PELVIS PENDING CONSULT FOR HX JJ STENT IN KIDNEY PELVIS DVT PROPHYLAXIS PPI
[2018-10-26] MEDS ORDERED: ACETAMINOPHEN 325 MG TABLET (FP) PO PRN (15:57)
[2018-10-26] MEDS ORDERED: DOCUSATE SODIUM 100 MG CAPSULE (FP) PO PRN (15:57)
[2018-10-26] MEDS: SODIUM CHLORIDE 1,000 ML IV SCH (17:22)
[2018-10-26] MEDS: ATORVASTATIN CA 20 MG TABLET (FP) PO SCH (21:55)
[2018-10-26] MEDS: clonazePAM 0.5 MG TABLET PO PRN (21:56)
[2018-10-26] MEDS: oxyCODONE HCL 5 MG TABLET PO PRN (21:56)
[2018-10-27 00:37] VITALS: BMI 38.2
[2018-10-27] MEDS ORDERED: SODIUM CHLORIDE NASAL SPRAY 44 ML BOTTLE NS PRN (03:29)
[2018-10-27] MEDS: LEVOTHYROXINE NA 125 MCG TABLET (FP) PO SCH (06:11)
[2018-10-27 08:21] LABS: HEMOGLOBIN 12.9 GM/dL (10.7-15.3); MCH 31.3 pg (25.7-33.7); MEAN PLT VOLUME 7.8 fl (7.5-11.1); PLATELET COUNT 280 K/MM3 (134-434); RBC 4.13 M/mm3 (3.60-5.2); RDW 14.1 % (11.6-15.6); WHITE BLOOD COUNT 8.6 K/mm3 (4.0-10.0)
[2018-10-27 08:48] LABS: ALBUMIN 3.9 g/dl (3.4-5.0); ALK PHOS 112 U/L (45-117); ANION GAP 6 MMOL/L (8-16); BILIRUBIN,TOTAL 0.8 mg/dL (0.2-1); BLOOD UREA NITROGEN 13 mg/dL (7-18); CALCIUM 8.6 mg/dL (8.5-10.1); CHLORIDE 105 mmol/L (98-107); CO2 29 mmol/L (21-32); CREATININE 0.9 mg/dL (0.55-1.3); GLUCOSE,RANDOM 85 mg/dL (74-106); POTASSIUM 3.5 mmol/L (3.5-5.1); SGOT/AST 17 U/L (15-37); SGPT/ALT 24 U/L (13-61); SODIUM 140 mmol/L (136-145); TOT PROT 7.9 g/dl (6.4-8.2)
--- NOTE | 2018-10-27 09:22 | EKG ---
Test Reason : Blood Pressure : / mmHG Vent. Rate : 063 BPM Atrial Rate : 063 BPM P-R Int : 130 ms QRS Dur : 094 ms QT Int : 376 ms P-R-T Axes : 056 032 036 degrees QTc Int : 384 ms NORMAL SINUS RHYTHM WITH SINUS ARRHYTHMIA NORMAL ECG WHEN COMPARED WITH ECG OF 04-FEB-2018 19:41, QT HAS SHORTENED Confirmed by TAMMY MATTHEWS MD ([id number]) on 10/27/2018 9:22:17 AM Referred By: Confirmed By:TAMMY MATTHEWS MD
[2018-10-27] MEDS ORDERED: FLU VACCINE QUAD 60 MCG/0.5 ML (MDV 18-19) IM ONE (10:00)
[2018-10-27] MEDS ORDERED: PNEUMOC 13-VAL CONJ-DIP CRM/PF 0.5 ML DISP.SYRIN IM ONE (10:00)
[2018-10-27] MEDS ORDERED: PNEUMOCOCCAL 23 VACCINE 0.5 ML VIAL IM ONE (10:00)
[2018-10-27] MEDS: POLYETHYLENE GLYCOL 3350 119 GM BTL PO SCH (10:58)
[2018-10-27] MEDS: LOSARTAN POTASSIUM 50 MG TABLET (FP) PO SCH (10:58)
[2018-10-27] MEDS: DULoxetine HCL 30 MG CAPSULE.DR (FP) PO SCH (10:58)
[2018-10-27] MEDS: morphine SULFATE 4 MG/ML VIAL IVPUSH PRN (11:02)
--- NOTE | 2018-10-27 11:09 | PN ---
Progress Note, Physician Chief Complaint: BL hydronephrosis UTI History of Present Illness: NAD c/o pain To be seen by Urology UC: Microbiology 10/26/18 14:09 Urine - Urine Clean Catch Urine Culture - Preliminary Lactose Fermenting Neg Bacilli - Current Medication List Current Medications: Active Medications Acetaminophen (Tylenol -) 650 mg PO Q6H PRN PRN Reason: PAIN OR FEVER Atorvastatin Calcium (Lipitor -) 20 mg PO HS [facility] Last Admin: 10/26/18 21:55 Dose: 20 mg Clonazepam (Klonopin -) 0.5 mg PO Q12H PRN PRN Reason: ANXIETY Last Admin: 10/26/18 21:56 Dose: 0.5 mg Docusate Sodium (Colace -) 100 mg PO Q8H PRN PRN Reason: CONSTIPATION Duloxetine HCl (Cymbalta -) 30 mg PO DAILY [facility] Sodium Chloride (Normal Saline -) 1,000 mls @ 83 mls/hr IV ASDIR [facility] Last Admin: 10/26/18 17:22 Dose: 83 mls/hr Levothyroxine Sodium (Synthroid -) 125 mcg PO DAILY@0700 [facility] Last Admin: 10/27/18 06:11 Dose: 125 mcg Losartan Potassium (Cozaar -) 100 mg PO DAILY [facility] Morphine Sulfate (Morphine Sulfate) 4 mg IVPUSH Q6H PRN PRN Reason: PAIN LEVEL 7 - 10 Oxycodone HCl (Roxicodone -) 15 mg PO Q6H PRN PRN Reason: PAIN LEVEL 6-10 Last Admin: 10/26/18 21:56 Dose: 15 mg Polyethylene Glycol (Miralax (For Daily Use) -) 17 gm PO DAILY [facility] Sodium Chloride ([place] Nasal [place] -) 2 spray NS BID PRN PRN Reason: NASAL CONGESTION Last Admin: 10/27/18 03:36 Dose: 2 sprays Zolpidem Tartrate (Ambien -) 10 mg PO HS PRN PRN Reason: INSOMNIA - Objective Vital Signs: Vital Signs Temperature 97.4 F L 10/27/18 05:32 Pulse Rate 85 10/27/18 05:32 Respiratory Rate 18 10/27/18 05:32 Blood Pressure 122/59 L 10/27/18 05:32 O2 Sat by Pulse Oximetry (%) 97 10/26/18 21:00 Constitutional: Yes: Well Nourished, No Distress, Calm Cardiovascular: Yes: Regular Rate and Rhythm Respiratory: Yes: Regular Gastrointestinal: Yes: Normal Bowel Sounds, Soft Genitourinary: Yes: WNL Musculoskeletal: Yes: WNL Extremities: Yes: WNL Edema: No Peripheral Pulses WNL: Yes Neurological: Yes: Alert, Oriented Psychiatric: Yes: Alert, Oriented Labs: CBC, BMP 10/27/18 07:54 10/27/18 07:54 Problem List - Problems (1) Hydronephrosis Assessment/Plan: -CT abd/pelvis shows moderate to marked BL hydronephrosis -Urology consult -Treat underlying UTI -ID consult -Started on Rocephin 1 gm daily Code(s): N13.30 - UNSPECIFIED HYDRONEPHROSIS (2) UTI (urinary tract infection) Assessment/Plan: -CT abd/pelvis shows moderate to marked BL hydronephrosis -Urology consult -Treat underlying UTI -ID consult -Started on Rocephin 1 gm daily -UC: Microbiology 10/26/18 14:09 Urine - Urine Clean Catch Urine Culture - Preliminary Lactose Fermenting Neg Bacilli -IVF Code(s): N39.0 - URINARY TRACT INFECTION, SITE NOT SPECIFIED Qualifiers: Assessment/Plan See problem list
[2018-10-27] MEDS ORDERED: DEXTROSE 5%-WATER - 50 ML IVPB ONE (12:41)
[2018-10-27] MEDS ORDERED: cefTRIAXone SODIUM 1 GM VIAL ONE (12:41)
[2018-10-27] MEDS: CEFTRIAXONE 1 GM in DEXTROSE 5%-WATER - 50 ML IVPB SCH (12:52)
--- NOTE | 2018-10-27 13:01 | CON.ID ---
Consult Consult Specialty:: infectious diseases Referred by:: Reason for Consultation:: uti,abd pain - History of Present Illness Chief Complaint: abd pain History of Present Illness: 53 YOF with a significant PMH of chronic UTI, pyelo s/p aditi. ureteral jj stents , and s/p sacral nerve neurostimulation battery placement, s/p removal 06/12/18, HTN, fibromyalgia, sleep apnea, depression, anxiety, and hypothyroidism, Hep C s /p treatment in 2013, GERD who presents with right sided abdominal and flank pain, a/w dysuria, urgency and frequency for the past week. She describes her pain as a 10/10 and states her urine is foul-smelling but no discharge. She no longer has her stents or neurostimulator battery in place s/p removal in 2017. She denies recent fever, chills, diaphoresis, headache or dizziness. She denies recent nausea, vomit, diarrhea or constipation. No hematuria. She denies recent chest pain or shortness of breath. - History Source History Provided By: Patient Limitations to Obtaining History: No Limitations - Past Medical History Cardio/Vascular: Yes: HTN, Hyperlipdemia Gastrointestinal: Yes: GERD Hepatobiliary: Yes: Hepatitis C (treated with Harvoni) Psych: Yes: Anxiety, Depression Rheumatology: Yes: Fibromyalgia Endocrine: Yes: Hypothyroidism, Other (hypothyroidism) - Alcohol/Substance Use Hx Alcohol Use: No History of Substance Use: reports: None - Smoking History Smoking history: Never smoked Have you smoked in the past 12 months: No - Social History ADL: Support Services (6 hours daily) History of Recent Travel: No Home Medications - Allergies Allergies/Adverse Reactions: Allergies Allergy/AdvReac Type Severity Reaction Status Date / Time piperacillin [From Zosyn] Allergy Hives Verified 10/26/18 13:16 tazobactam [From Zosyn] Allergy Hives Verified 10/26/18 13:16 - Home Medications Home Medications: Ambulatory Orders Atorvastatin Ca [Lipitor] 20 mg PO DAILY 08/17/15 Omeprazole [Prilosec] 20 mg PO DAILY 08/17/15 Duloxetine HCl [Cymbalta -] 30 mg PO DAILY #0 tab 04/30/17 Trazodone HCl 100 mg PO HS #0 tab 06/06/17 Polyethylene Glycol 3350 [Miralax 119 gm Btl -] 17 gm PO BID 02/04/18 clonazePAM [Clonazepam] 0.5 mg PO BID 02/04/18 Zolpidem Tartrate [Ambien] 10 mg PO HS 04/17/18 Levothyroxine [Synthroid -] 125 mcg PO DAILY #30 tablet 04/20/18 Losartan Potassium 50 mg PO DAILY 06/11/18 Oxycodone HCl 30 mg PO TID 06/11/18 Family Disease History - Family Disease History Family Disease History: Heart Disease: Mother ( of [place] at 46), Sister (x2 of [place] age 56 and 60) Review of Systems - Review of Systems Constitutional: reports: No Symptoms Eyes: reports: No Symptoms Neck: reports: No Symptoms Cardiovascular: reports: No Symptoms Respiratory: reports: No Symptoms Gastrointestinal: reports: Abdominal Pain Genitourinary: reports: No Symptoms Musculoskeletal: reports: No Symptoms Integumentary: reports: No Symptoms Neurological: reports: No Symptoms Endocrine: reports: No Symptoms Hematology/Lymphatic: reports: No Symptoms Psychiatric: reports: No Symptoms Physical Exam Vital Signs: Vital Signs Temperature 97.4 F L 10/27/18 05:32 Pulse Rate 85 10/27/18 05:32 Respiratory Rate 18 10/27/18 05:32 Blood Pressure 122/59 L 10/27/18 05:32 O2 Sat by Pulse Oximetry (%) 97 10/26/18 21:00 Constitutional: Yes: Well Nourished, Mild Distress, Obese Eyes: Yes: Conjunctiva Clear HENT: Yes: Atraumatic, Normocephalic Neck: Yes: Supple, Trachea Midline Cardiovascular: Yes: Regular Rate and Rhythm Respiratory: Yes: Regular, CTA Bilaterally Gastrointestinal: Yes: Normal Bowel Sounds, Soft, Abdomen, Obese, Tenderness Musculoskeletal: Yes: WNL Extremities: Yes: WNL Neurological: Yes: Alert, Oriented Psychiatric: Yes: Alert, Oriented Labs: CBC, BMP 10/27/18 07:54 10/27/18 07:54 Imaging - Results Cat Scan: Report Reviewed, Image Reviewed Assessment/Plan Problem List - Problems (1) Hydronephrosis Code(s): N13.30 - UNSPECIFIED HYDRONEPHROSIS (2) UTI (urinary tract infection) Code(s): N39.0 - URINARY TRACT INFECTION, SITE NOT SPECIFIED Qualifiers: obesity abd pain patient has recived ro and now on cefriaxone looked a the cx plan for now will continue ceftriaxone urology to see the patient await for identification of the bacteria rest as per the team
--- NOTE | 2018-10-27 15:10 | CONSULT ---
Consult Consult Specialty:: UROLOGY Reason for Consultation:: Bilateral hydronephrosis - History of Present Illness Chief Complaint: Bilateral flank pain History of Present Illness: 53 Y/O Female patient with history of HT, anexiety, fibromyalgia, recurrent UTIs , OAB developed bilateral flank pain, no dysuria, slight smelly urine no gross hematuria. O/E tender bilateral CVA CT-Scan bilateral hydronephrosis moderate she is on cefotriaxone - Past Medical History Cardio/Vascular: Yes: HTN, Hyperlipdemia Gastrointestinal: Yes: GERD Hepatobiliary: Yes: Hepatitis C (treated with Harvoni) Psych: Yes: Anxiety, Depression Rheumatology: Yes: Fibromyalgia Endocrine: Yes: Hypothyroidism, Other (hypothyroidism) - Alcohol/Substance Use Hx Alcohol Use: No History of Substance Use: reports: None - Smoking History Smoking history: Never smoked Have you smoked in the past 12 months: No - Social History ADL: Support Services (6 hours daily) History of Recent Travel: No Home Medications - Allergies Allergies/Adverse Reactions: Allergies Allergy/AdvReac Type Severity Reaction Status Date / Time piperacillin [From Zosyn] Allergy Hives Verified 10/26/18 13:16 tazobactam [From Zosyn] Allergy Hives Verified 10/26/18 13:16 - Home Medications Home Medications: Ambulatory Orders Atorvastatin Ca [Lipitor] 20 mg PO DAILY 08/17/15 Omeprazole [Prilosec] 20 mg PO DAILY 08/17/15 Duloxetine HCl [Cymbalta -] 30 mg PO DAILY #0 tab 04/30/17 Trazodone HCl 100 mg PO HS #0 tab 06/06/17 Polyethylene Glycol 3350 [Miralax 119 gm Btl -] 17 gm PO BID 02/04/18 clonazePAM [Clonazepam] 0.5 mg PO BID 02/04/18 Zolpidem Tartrate [Ambien] 10 mg PO HS 04/17/18 Levothyroxine [Synthroid -] 125 mcg PO DAILY #30 tablet 04/20/18 Losartan Potassium 50 mg PO DAILY 06/11/18 Oxycodone HCl 30 mg PO TID 06/11/18 Family Disease History - Family Disease History Family Disease History: Heart Disease: Mother ( of [place] at 46), Sister (x2 of [place] age 56 and 60) Physical Exam Vital Signs: Vital Signs Temperature 97.8 F 10/27/18 13:47 Pulse Rate 55 L 10/27/18 13:47 Respiratory Rate 20 10/27/18 13:47 Blood Pressure 134/60 10/27/18 13:47 O2 Sat by Pulse Oximetry (%) 97 10/26/18 21:00 Labs: CBC, BMP 10/27/18 07:54 10/27/18 07:54 Assessment/Plan Bilateral hydronephrosis OAB Recurrent UTIs Plan: continue cefotriaxone will do bilateral jj stent insertion
[2018-10-27] MEDS: SODIUM CHLORIDE 1,000 ML IV SCH (16:52)
[2018-10-27] MEDS: oxyCODONE HCL 5 MG TABLET PO PRN (19:53)
[2018-10-27] MEDS ORDERED: PT OWN MED DRAWER 7, Y5N ONE (21:33)
[2018-10-27] MEDS: ATORVASTATIN CA 20 MG TABLET (FP) PO SCH (21:51)
[2018-10-27] MEDS: ZOLPIDEM TARTRATE 5 MG TABLET PO PRN (22:15)
[2018-10-27] MEDS ORDERED: INSULIN (NOVOLOG) ASPART 100 UNITS/ML 10ML VIAL ONE (22:35)
[2018-10-28] MEDS ORDERED: PT OWN MED DRAWER 7, Y5N ONE ×3 (03:45→21:28)
[2018-10-28] MEDS: LEVOTHYROXINE NA 125 MCG TABLET (FP) PO SCH (06:03)
[2018-10-28] MEDS ORDERED: DEXTROSE 5%-WATER - 50 ML IVPB ONE (08:39)
[2018-10-28] MEDS ORDERED: cefTRIAXone SODIUM 1 GM VIAL ONE (08:39)
[2018-10-28] MEDS: LOSARTAN POTASSIUM 50 MG TABLET (FP) PO SCH (09:16)
[2018-10-28] MEDS: DULoxetine HCL 30 MG CAPSULE.DR (FP) PO SCH (09:16)
[2018-10-28] MEDS: CEFTRIAXONE 1 GM in DEXTROSE 5%-WATER - 50 ML IVPB SCH (09:17)
--- NOTE | 2018-10-28 09:24 | PN ---
Progress Note, Physician Chief Complaint: Pyelonephritis UTI History of Present Illness: Previous notes and events reviewed awake and alert NAD complain of b/l flank pain - Current Medication List Current Medications: Active Medications Acetaminophen (Tylenol -) 650 mg PO Q6H PRN PRN Reason: PAIN OR FEVER Atorvastatin Calcium (Lipitor -) 20 mg PO HS [facility] Last Admin: 10/27/18 21:51 Dose: 20 mg Clonazepam (Klonopin -) 0.5 mg PO Q12H PRN PRN Reason: ANXIETY Last Admin: 10/26/18 21:56 Dose: 0.5 mg Docusate Sodium (Colace -) 100 mg PO Q8H PRN PRN Reason: CONSTIPATION Duloxetine HCl (Cymbalta -) 30 mg PO DAILY [facility] Last Admin: 10/28/18 09:16 Dose: 30 mg Sodium Chloride (Normal Saline -) 1,000 mls @ 83 mls/hr IV ASDIR [facility] Last Admin: 10/27/18 16:52 Dose: 83 mls/hr Ceftriaxone Sodium 1 gm/ (Dextrose) 50 mls @ 200 mls/hr IVPB DAILY [facility]; Protocol Last Admin: 10/28/18 09:17 Dose: 200 mls/hr Levothyroxine Sodium (Synthroid -) 125 mcg PO DAILY@0700 [facility] Last Admin: 10/28/18 06:03 Dose: 125 mcg Losartan Potassium (Cozaar -) 100 mg PO DAILY [facility] Last Admin: 10/28/18 09:16 Dose: 100 mg Morphine Sulfate (Morphine Sulfate) 4 mg IVPUSH Q6H PRN PRN Reason: PAIN LEVEL 7 - 10 Last Admin: 10/27/18 11:02 Dose: 4 mg Oxycodone HCl (Roxicodone -) 15 mg PO Q6H PRN PRN Reason: PAIN LEVEL 6-10 Last Admin: 10/27/18 19:53 Dose: 15 mg Polyethylene Glycol (Miralax (For Daily Use) -) 17 gm PO DAILY [facility] Last Admin: 10/27/18 10:58 Dose: 17 grams Sodium Chloride ([place] Nasal [place] -) 2 spray NS BID PRN PRN Reason: NASAL CONGESTION Last Admin: 10/27/18 03:36 Dose: 2 sprays Zolpidem Tartrate (Ambien -) 10 mg PO HS PRN PRN Reason: INSOMNIA Last Admin: 10/27/18 22:15 Dose: 10 mg - Objective Vital Signs: Vital Signs Temperature 98.6 F 10/28/18 06:00 Pulse Rate 50 L 10/28/18 06:00 Respiratory Rate 20 10/28/18 06:00 Blood Pressure 175/86 H 10/28/18 06:00 O2 Sat by Pulse Oximetry (%) 93 L 10/27/18 20:56 Constitutional: Yes: No Distress, Calm Eyes: Yes: Conjunctiva Clear HENT: Yes: Atraumatic Cardiovascular: Yes: Regular Rate and Rhythm Respiratory: Yes: Regular, CTA Bilaterally Gastrointestinal: Yes: Normal Bowel Sounds, Soft, Tenderness (diffuse) Genitourinary: Yes: CVA Tenderness - Left, CVA Tenderness - Right Extremities: Yes: Calf Tenderness (B/L) Edema: No Neurological: Yes: Alert, Oriented Psychiatric: Yes: Alert, Oriented Labs: CBC, BMP 10/27/18 07:54 10/27/18 07:54 Microbiology 10/26/18 14:09 Urine - Urine Clean Catch Urine Culture - Final Escherichia Coli Problem List - Problems (1) Hydronephrosis Assessment/Plan: -urology on board -CT scan show moderate to marked bilateral hydronephrosis which is probably mildly increased bilaterally since previous exam. -s/p JJ stent placement Code(s): N13.30 - UNSPECIFIED HYDRONEPHROSIS (2) Pyelonephritis Assessment/Plan: -urology on board -continue ceftriaxone IV -WBC 8.6 -ID on board -UC positive Laboratory Tests 10/26/18 10/26/18 10/26/18 14:09 14:11 14:11 WBC 10.0 RBC 4.26 Hgb 13.7 Hct 39.7 MCV 93.0 MCH 32.0 MCHC 34.4 RDW 13.6 Plt Count 269 MPV 7.4 L Absolute Neuts (auto) 6.8 Neutrophils % 68.7 Lymphocytes % 23.5 Monocytes % 5.9 Eosinophils % 1.4 Basophils % 0.5 Nucleated RBC % 0 Sodium 141 Potassium 3.9 Chloride 105 Carbon Dioxide 31 Anion Gap 5 L BUN 16 Creatinine 0.9 Creat Clearance w eGFR 65.25 Random Glucose 85 Calcium 8.8 Total Bilirubin 0.3 AST 24 ALT 30 Alkaline Phosphatase 117 Total Protein 8.4 H Albumin 4.2 Lipase 126 Urine Color Yellow Urine Appearance Cloudy Urine pH 5.5 Ur Specific [place] 1.015 Urine Protein Negative Urine Glucose (UA) Negative Urine Ketones Negative Urine Blood 1+ H Urine Nitrite Positive H Urine Bilirubin Negative Urine Urobilinogen 1.0 Ur Leukocyte Esterase 3+ H Urine WBC (Auto) 156 Urine RBC (Auto) 13 Urine Casts (Auto) 44.05 U Pathogenic Cast Auto None seen U Epithel Cells (Auto) 4.8 Urine Bacteria (Auto) 4558.23 Urine HCG, Qual 10/26/18 10/27/18 10/27/18 22:30 07:54 07:54 WBC 8.6 RBC 4.13 Hgb 12.9 Hct 38.0 MCV 92.0 MCH 31.3 MCHC 34.0 RDW 14.1 Plt Count 280 MPV 7.8 Absolute Neuts (auto) Neutrophils % Lymphocytes % Monocytes % Eosinophils % Basophils % Nucleated RBC % Sodium 140 Potassium 3.5 Chloride 105 Carbon Dioxide 29 Anion Gap 6 L BUN 13 Creatinine 0.9 Creat Clearance w eGFR 65.25 Random Glucose 85 Calcium 8.6 Total Bilirubin 0.8 AST 17 ALT 24 Alkaline Phosphatase 112 Total Protein 7.9 Albumin 3.9 Lipase Urine Color Urine Appearance Urine pH Ur Specific [place] Urine Protein Urine Glucose (UA) Urine Ketones Urine Blood Urine Nitrite Urine Bilirubin Urine Urobilinogen Ur Leukocyte Esterase Urine WBC (Auto) Urine RBC (Auto) Urine Casts (Auto) U Pathogenic Cast Auto U Epithel Cells (Auto) Urine Bacteria (Auto) Urine HCG, Qual Negative Code(s): N12 - TUBULO-INTERSTITIAL NEPHRITIS, NOT SPCF ACUTE OR CHRONIC (3) Constipation Assessment/Plan: -continue miralax and colace Code(s): K59.00 - CONSTIPATION, UNSPECIFIED Qualifiers: Constipation type: unspecified constipation type Qualified Code(s): K59.00 - Constipation, unspecified (4) HTN (hypertension) Assessment/Plan: -continue losartan Code(s): I10 - ESSENTIAL (PRIMARY) HYPERTENSION (5) Hypothyroid Assessment/Plan: -continue levothyroxine Code(s): E03.9 - HYPOTHYROIDISM, UNSPECIFIED (6) UTI (urinary tract infection) Assessment/Plan: -continue ceftriaxone IV -ID on board -WBC 8.6 -UC positive Microbiology 10/26/18 14:09 Urine - Urine Clean Catch Urine Culture - Final Escherichia Coli Code(s): N39.0 - URINARY TRACT INFECTION, SITE NOT SPECIFIED Qualifiers: Assessment/Plan see problem list dvt ppx
[2018-10-28] MEDS: POLYETHYLENE GLYCOL 3350 119 GM BTL PO SCH (11:47)
[2018-10-28] MEDS: morphine SULFATE 4 MG/ML VIAL IVPUSH PRN (12:48)
--- NOTE | 2018-10-28 12:51 | PN ---
Progress Note, Physician History of Present Illness: patient stable still with abd pain urology note noted - Current Medication List Current Medications: Active Medications Acetaminophen (Tylenol -) 650 mg PO Q6H PRN PRN Reason: PAIN OR FEVER Atorvastatin Calcium (Lipitor -) 20 mg PO HS [facility] Last Admin: 10/27/18 21:51 Dose: 20 mg Clonazepam (Klonopin -) 0.5 mg PO Q12H PRN PRN Reason: ANXIETY Last Admin: 10/26/18 21:56 Dose: 0.5 mg Docusate Sodium (Colace -) 100 mg PO Q8H PRN PRN Reason: CONSTIPATION Duloxetine HCl (Cymbalta -) 30 mg PO DAILY [facility] Last Admin: 10/28/18 09:16 Dose: 30 mg Sodium Chloride (Normal Saline -) 1,000 mls @ 83 mls/hr IV ASDIR [facility] Last Admin: 10/27/18 16:52 Dose: 83 mls/hr Ceftriaxone Sodium 1 gm/ (Dextrose) 50 mls @ 200 mls/hr IVPB DAILY [facility]; Protocol Last Admin: 10/28/18 09:17 Dose: 200 mls/hr Levothyroxine Sodium (Synthroid -) 125 mcg PO DAILY@0700 [facility] Last Admin: 10/28/18 06:03 Dose: 125 mcg Losartan Potassium (Cozaar -) 100 mg PO DAILY [facility] Last Admin: 10/28/18 09:16 Dose: 100 mg Morphine Sulfate (Morphine Sulfate) 4 mg IVPUSH Q6H PRN PRN Reason: PAIN LEVEL 7 - 10 Last Admin: 10/27/18 11:02 Dose: 4 mg Oxycodone HCl (Roxicodone -) 15 mg PO Q6H PRN PRN Reason: PAIN LEVEL 6-10 Last Admin: 10/27/18 19:53 Dose: 15 mg Polyethylene Glycol (Miralax (For Daily Use) -) 17 gm PO DAILY [facility] Last Admin: 10/28/18 11:47 Dose: Not Given Sodium Chloride ([place] Nasal [place] -) 2 spray NS BID PRN PRN Reason: NASAL CONGESTION Last Admin: 10/27/18 03:36 Dose: 2 sprays Zolpidem Tartrate (Ambien -) 10 mg PO HS PRN PRN Reason: INSOMNIA Last Admin: 10/27/18 22:15 Dose: 10 mg - Objective Vital Signs: Vital Signs Temperature 98.1 F 10/28/18 10:00 Pulse Rate 50 L 10/28/18 06:00 Respiratory Rate 18 10/28/18 10:00 Blood Pressure 133/80 10/28/18 10:00 O2 Sat by Pulse Oximetry (%) 96 10/28/18 09:00 Constitutional: Yes: Calm, Mild Distress, Obese Cardiovascular: Yes: S1, S2 Respiratory: Yes: Regular, CTA Bilaterally Gastrointestinal: Yes: Normal Bowel Sounds, Soft Musculoskeletal: Yes: WNL Extremities: Yes: WNL Neurological: Yes: Alert, Oriented Psychiatric: Yes: Alert, Oriented Labs: CBC, BMP 10/27/18 07:54 10/27/18 07:54 Assessment/Plan Problem List - Problems (1) Hydronephrosis Code(s): N13.30 - UNSPECIFIED HYDRONEPHROSIS (2) UTI (urinary tract infection) Code(s): N39.0 - URINARY TRACT INFECTION, SITE NOT SPECIFIED Qualifiers: obesity abd pain patient has recived ro and now on cefriaxone looked a the cx plan fconitue ceftriaxone rest as per urology
[2018-10-28] MEDS ORDERED: PROMETHAZINE HCL 25 MG/1 ML VIAL IVPB PRN (14:21)
[2018-10-28] MEDS ORDERED: ONDANSETRON 4 MG/2 ML VIAL IVPUSH PRN (14:21)
[2018-10-28] MEDS ORDERED: LACTATED RINGERS SOLUTION 1,000 ML IV SCH (14:30)
[2018-10-28] MEDS ORDERED: PROPOFOL 20 ML ONE (15:25)
[2018-10-28] MEDS ORDERED: MIDAZOLAM HCL 2 MG/2 ML SINGLE DOSE VIAL ONE (15:25)
--- NOTE | 2018-10-28 16:24 | OP ---
Operative Note - Note: Operative Date: 10/28/18 Pre-Operative Diagnosis: Bilateral Hydronephrosis Operation: Cysto Bilateral Stent Placement Post-Operative Diagnosis: Same as Pre-op Surgeon: Nano Oliver Anesthesia: General Drains & Tubes with Location: 22 F 6mm Stents Operative Report Dictated: Yes
[2018-10-28] MEDS: SODIUM CHLORIDE 1,000 ML IV SCH (17:20)
[2018-10-28] MEDS: ZOLPIDEM TARTRATE 5 MG TABLET PO PRN (21:40)
[2018-10-28] MEDS: ATORVASTATIN CA 20 MG TABLET (FP) PO SCH (21:40)
[2018-10-28] MEDS: oxyCODONE HCL 5 MG TABLET PO PRN (21:58)
[2018-10-29] MEDS ORDERED: PT OWN MED DRAWER 7, Y5N ONE ×3 (01:52→05:08)
[2018-10-29] MEDS: LEVOTHYROXINE NA 125 MCG TABLET (FP) PO SCH (06:11)
[2018-10-29 07:27] LABS: HEMATOCRIT 38.7 % (32.4-45.2); HEMOGLOBIN 12.5 GM/dL (10.7-15.3); MCH 29.3 pg (25.7-33.7); MCHC 32.4 g/dl (32.0-36.0); MEAN CELL VOLUME 90.3 fl (80-96); MEAN PLT VOLUME 7.8 fl (7.5-11.1); PLATELET COUNT 269 K/MM3 (134-434); RBC 4.28 M/mm3 (3.60-5.2); RDW 13.5 % (11.6-15.6); WHITE BLOOD COUNT 7.8 K/mm3 (4.0-10.0)
[2018-10-29 07:56] LABS: ALBUMIN 3.6 g/dl (3.4-5.0); ALK PHOS 91 U/L (45-117); ANION GAP 7 MMOL/L (8-16); BILIRUBIN,TOTAL 0.5 mg/dL (0.2-1); BLOOD UREA NITROGEN 11 mg/dL (7-18); CALCIUM 9.1 mg/dL (8.5-10.1); CHLORIDE 105 mmol/L (98-107); CO2 27 mmol/L (21-32); CREATININE 0.7 mg/dL (0.55-1.3); GLUCOSE,RANDOM 94 mg/dL (74-106); SGOT/AST 16 U/L (15-37); SGPT/ALT 21 U/L (13-61); SODIUM 138 mmol/L (136-145); TOT PROT 7.6 g/dl (6.4-8.2)
[2018-10-29] MEDS ORDERED: cefTRIAXone SODIUM 1 GM VIAL ONE (09:00)
[2018-10-29] MEDS ORDERED: DEXTROSE 5%-WATER - 50 ML IVPB ONE (09:00)
[2018-10-29] MEDS: clonazePAM 0.5 MG TABLET PO PRN (09:34)
[2018-10-29] MEDS: DULoxetine HCL 30 MG CAPSULE.DR (FP) PO SCH (09:34)
[2018-10-29] MEDS: POLYETHYLENE GLYCOL 3350 119 GM BTL PO SCH (09:35)
[2018-10-29] MEDS: LOSARTAN POTASSIUM 50 MG TABLET (FP) PO SCH (09:35)
[2018-10-29] MEDS: CEFTRIAXONE 1 GM in DEXTROSE 5%-WATER - 50 ML IVPB SCH (09:36)
--- NOTE | 2018-10-29 11:02 | DS ---
Physical Examination Vital Signs: Vital Signs Temperature 98.2 F 10/29/18 05:00 Pulse Rate 72 10/29/18 05:00 Respiratory Rate 20 10/29/18 05:00 Blood Pressure 156/89 10/29/18 05:00 O2 Sat by Pulse Oximetry (%) 93 L 10/28/18 20:26 Findings/Remarks: S/P URETRAL STENT COMFORTABLE WANTS TO GO HOME Constitutional: Yes: No Distress Eyes: Yes: WNL HENT: Yes: WNL Neck: Yes: WNL Cardiovascular: Yes: WNL Respiratory: Yes: WNL Gastrointestinal: Yes: WNL Renal/: Yes: WNL Musculoskeletal: Yes: WNL Extremities: Yes: WNL Edema: No Peripheral Pulses WNL: Yes Integumentary: Yes: WNL Wound/Incision: Yes: Clean/Dry Neurological: Yes: WNL ...Motor Strength: WNL Psychiatric: Yes: WNL Labs: CBC, BMP 10/29/18 06:30 10/29/18 06:30 Discharge Summary Reason For Visit: PYELONEPHRITIS Current Active Problems Hydronephrosis (Acute) Pyelonephritis (Acute) Procedures: Principal: URETRAL STENTS Hospital Course: ADMITTED ACUTE HYDRONEPHROSIS WITH PYELONEPHROSIS, TREATED IV ABX AND URETRALS TENTING Condition: Fair - Instructions Diet, Activity, Other Instructions: SEE YOUR DOCTOR IN 2 DAYS AND UROLOGY IN 1 WEEK COMPLETE ABX AT HOME FOR 7 DAYS DIRECTED Disposition: HOME - Home Medications Comprehensive Discharge Medication List: Ambulatory Orders Atorvastatin Ca [Lipitor] 20 mg PO DAILY 08/17/15 Omeprazole [Prilosec] 20 mg PO DAILY 08/17/15 Duloxetine HCl [Cymbalta -] 30 mg PO DAILY #0 tab 04/30/17 Trazodone HCl 100 mg PO HS #0 tab 06/06/17 Polyethylene Glycol 3350 [Miralax 119 gm Btl -] 17 gm PO BID 02/04/18 clonazePAM [Clonazepam] 0.5 mg PO BID 02/04/18 Zolpidem Tartrate [Ambien] 10 mg PO HS 04/17/18 Levothyroxine [Synthroid -] 125 mcg PO DAILY #30 tablet 04/20/18 Losartan Potassium 50 mg PO DAILY 06/11/18 Oxycodone HCl 30 mg PO TID 06/11/18 Acetaminophen [Tylenol .Regular Strength -] 650 mg PO Q6H PRN tablet 10/29/18 Atorvastatin Ca [Lipitor] 20 mg PO HS tablet 10/29/18 Cefuroxime Axetil [Ceftin -] 500 mg PO Q12H #14 tablet 10/29/18 Docusate Sodium [Colace -] 100 mg PO Q8H PRN capsule 10/29/18 Duloxetine HCl [Cymbalta -] 30 mg PO DAILY capsule. 10/29/18 Levothyroxine [Synthroid -] 125 mcg PO DAILY@0700 tablet 10/29/18 Losartan Potassium [Cozaar -] 100 mg PO DAILY tablet 10/29/18 Polyethylene Glycol 3350 [Miralax 119 gm Btl -] 17 gm PO DAILY bottle 10/29/18 Sodium Chloride Nasal [place] [[place] Nasal [place] -] 2 spray NS BID PRN spray 10/29/18 Zolpidem Tartrate [Ambien] 10 mg PO HS PRN tablet MDD 1 10/29/18 clonazePAM [Klonopin -] 0.5 mg PO Q12H PRN tablet MDD 2 10/29/18
[2018-10-29 13:21] VITALS: BP 132/63; PULSE 53; TEMP 97.7
--- NOTE | 2018-11-10 13:41 | OP ---
DATE OF OPERATION: 10/28/2018 Redictating the operative note. SURGEON: Nano Oliver MD ANESTHESIA: General. PREOPERATIVE DIAGNOSIS: Bilateral hydronephrosis. POSTOPERATIVE DIAGNOSIS: Bilateral hydronephrosis. PROCEDURE: Cystoscopy, bilateral stent placement. FINDINGS: Urethra normal. Bladder appears normal. Both ureteral orifices normally located with gaping oval shape. PROCEDURE: Patient in the lithotomy position under anesthesia was prepped and draped in the usual manner. Using 22 scope cystoscopy performed and a guidewire was placed in the left kidney, confirmed with x-ray. Then stent was placed, a 22-[place], 6 mm. A similar procedure was done on the right side, confirmed with the x-ray. Patient tolerated the procedure well. The instrument withdrawn and left the operating room under satisfactory condition. NANO OLIVER M.D. CRISTINA/[id number]
== END 2018-10-29 13:15 | disposition home or self-care (01) | DRG 661 ==
LOC: JER 13:03 → JERBED 15:04 → J7W 19:07
PROVIDERS: ADMIT Family Medicine; ATTEND Family Medicine
PROC: 0T788DZ Dilation of Bilateral Ureters with Intraluminal Device, Via Natural or Artificial Opening Endoscopic (ICD-10-PCS; principal; 2018-10-28 14:00)
DX: N13.6 Pyonephrosis (principal); I10 Essential (primary) hypertension; E78.5 Hyperlipidemia, unspecified; K21.9 Gastro-esophageal reflux disease without esophagitis; F41.8 Other specified anxiety disorders; M79.7 Fibromyalgia; E03.9 Hypothyroidism, unspecified; E66.9 Obesity, unspecified; Z68.38 Body mass index [BMI] 38.0-38.9, adult; K59.00 Constipation, unspecified; G47.30 Sleep apnea, unspecified; Z86.19 Personal history of other infectious and parasitic diseases
CPT/HCPCS: 36415; 74176-TC; 76000-TC-FY; 80053; 81003; 83690; 84703; 85025; 85027; 87086; 87186; 90688; 93005; 93010; 93970-TC; 94760; 99283-25; G0008; J0131; J7030

== ENCOUNTER 2020-05-16 05:29 | Day surgery (SDC) | payer OTHER ==
--- OUTSIDE RECORDS SUMMARY | 2020-05-10 10:58 | XMS ---
:1965 [facility] Providers Name Role Phone Mitzi Bonilla Unavailable Unavailab Corey Goldstein Unavailable [phone] TANIYA BRIDGES Unavailable Unavailable Lois HOSPITAL PLAN ADMINISTRATOR, HOSPITAL PLAN ADMINISTRATOR Titi Unavailable [phone] Lois HOSPITAL PLAN ADMINISTRATOR, HOSPITAL PLAN ADMINISTRATOR Titi Unavailable [phone] SHANTANU DENZEL, DENZEL Unavailable Unavailable CONGREGATIONAL, HUMAYUN Unavailable Unavailable JILLIAN HERNANDEZ Unavailable Unavailable Ian Vega DPM Unavailable Unavailable Prashant Vega DPM Unavailable Unavailable Prashant Vega DPM Unavailable Unavailable Knutson Unavailable [phone] Jennifer-Hutchison Unavailable [phone] Jennifer-Hutchison Unavailable [phone] MARITA MACIEL Unavailable Unavailable [facility] Unavailable Unavailable Marcella Unavailable [phone] Marcella Unavailable [phone] Marcella Unavailable [phone] Marcella Unavailable [phone] Marcella Unavailable [phone] Darer Unavailable [phone] Shantanu MD Unavailable Unavailable Shantanu MD Unavailable Unavailable MARCELLA RICH Unavailable Unavailable Nelda Unavailable [phone] Nelda Unavailable [phone] Re-disclosure Warning The records that you are about to access may contain information from federally- assisted alcohol or drug abuse programs. If such information is present, then the following federally mandated warning applies: This information has been disclosed to you from records protected by federal confidentiality rules (42 CFR part 2). The federal rules prohibit you from making any further disclosure of this information unless further disclosure is expressly permitted by the written consent of the person to whom it pertains or as otherwise permitted by 42 CFR part 2. A general authorization for the release of medical or other information is NOT sufficient for this purpose. The Federal rules restrict any use of the information to criminally investigate or prosecute any alcohol or drug abuse patient.The records that you are about to access may contain highly sensitive health information, the redisclosure of which is protected by Article 27-F of the [facility] Public Health law. If you continue you may haveaccess to information: Regarding HIV / AIDS; Provided by facilities licensed or operated by the [facility] Office of Mental Health; or Provided by the [facility] Office for People With Developmental Disabilities. If such information is present, then the following [facility] mandated warning applies: This information has been disclosed to you from confidential records which are protected by state law. State law prohibits you from making any further disclosure of this information without the specific written consent of the person to whom it pertains, or as otherwise permitted by law. Any unauthorized further disclosure in violation of state law may result in a fine or long-term sentence or both. A general authorization for the release of medical or other information is NOT sufficient authorization for further disclosure. Allergies and Adverse Reactions Type Description Substance Reaction Status Data Source(s ) Drug allergy No Known Drug No Known Drug [facility] ren Allergies Allergies [facility] on Propensity to Propensity to Propensity to NEXTG EN ([facility] adverse reactions adverse reactions adverse reactions [facility] (disorder) (disorder) (disorder) Center) Encounters Encounter Providers Location Date Indications Data Source(s ) Outpatient Attender: DENZEL Carroll 05/10/2020 [facility] SHANTANU ARNABAdmitter: 10:05:00 AM [facility] DENZEL SHANTANU DENZEL EDT Outpatient Attender: PMH9 05/08/2020 [facility] ([place] [facility] 03:38:47 PM Care [facility] n) EDT Patient admitted. Individual Attender: 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 04/20/2020 NEXTGE N ([facility] ([facility] 03:17:00 PM EDT - [facility] Min) 04/20/2020 Medical 03:17:00 PM EDT Center) OutpatientOFFICE/OUTP Att[facility]: [facility] ATIENT VISIT, TERRY Reeder MD Clinic 04:00:00 PM EDT - [facility] 04/13/2020 Medical 04:00:00 PM EDT Center) Individual Attender: [facility] 04/05/2020 NEXTGE N ([facility] (30 [facility] 01:51:00 PM EDT - [facility] Min) 04/05/2020 Medical 01:51:00 PM EDT Center) Individual Attender: [facility] 03/22/2020 NEXTGE N ([facility] ([facility] 01:40:00 PM EDT - [facility] Min) 03/22/2020 Medical 01:40:00 PM EDT Center) OutpatientOFFICE/OUTP Attender: [facility] 03/14/2020 NEXTGEN ([facility] ATIENT VISIT, TERRY Reeder MD Clinic 04:44:00 PM EDT - Ronald 03/14/2020 Medical 04:44:00 PM EDT Center) Individual Attender: [facility] 03/08/2020 NEXTGE N ([facility] ([facility] 01:53:00 PM EDT - [facility] Min) 03/08/2020 Medical 01:53:00 PM EDT Center) Outpatient Attender: PMH9 03/04/2020 [facility] ([facility] 11:24:36 AM EDT [facility]) Patient admitted. Attender: [facility] 02/21/2020 NEXTGE N [facility] 10:43:00 AM EDT ([facility] 02/21/2020 [facility] 10:43:00 AM EDT Medical Center) Attender: [facility] 02/17/2020 NEXTGE N Shantanu AHUJA Clinic 11:00:00 AM EDT ([facility] 02/17/2020 [facility] 11:00:00 AM EDT Medical Center) OutpatientOFFICE/OUT Attender: [facility] 02/15/2020 [facility] PATIENT VISIT, TERRY Maldonado 04:09:00 PM EDT ( [facility] 02/15/2020 [facility] 04:09:00 PM EDT Medical Center) Attender: [facility] 02/15/2020 [facility] N Shantanu AHUJA Clinic 04:09:00 PM EDT ([facility] 02/15/2020 [facility] 04:09:00 PM EDT Medical Center) Individual Attender: [facility] 02/07/2020 NEXTGE N Psychotherapy (30 [facility] 01:52:00 PM EDT ( [facility]) - 02/07/2020 [facility] 01:52:00 PM EDT Medical Center) Individual Attender: [facility] 01/24/2020 NEXTGE N Psychotherapy (30 [facility] 12:43:00 PM EDT ( [facility]) - 01/24/2020 [facility] 12:43:00 PM EDT Medical Center) Individual Attender: [facility] 01/18/2020 NEXTGE N Psychotherapy (30 [facility] 12:54:00 PM EDT ( [facility]) - 01/18/2020 [facility] 12:54:00 PM EDT Medical Center) OutpatientOFFICE/OUT Attender: [facility] 01/18/2020 [facility] PATIENT VISIT, TERRY Maldonado 10:58:00 AM EDT ( [facility] 01/18/2020 [facility] 10:58:00 AM EDT Medical Center) [facility]OFF[facility]EXT[facility] PATIENT VISIT, TERRY Morales 03:41:00 PM EDT ( [facility] 12/21/2019 [facility] 03:41:00 PM EDT Medical Center) Individual Attender: [facility] 12/21/2019 NEXTGE N Psychotherapy (30 [facility] 02:51:00 PM EDT ( [facility]) - 12/21/2019 [facility] 02:51:00 PM EDT Medical Center) Individual Attender: [facility] 12/07/2019 NEXTGE N Psychotherapy (30 [facility] 12:14:00 PM EDT ( [facility]) - 12/07/2019 [facility] 12:14:00 PM EDT Medical Center) Attender: [facility] 11/23/2019 [facility] 11:24:00 AM ED[facility] ([facility] 11/23/2019 [facility] 11:24:00 AM EDT Medical Center) Individual Attender: [facility] 11/23/2019 NEXTGE N Psychotherapy (30 [facility] 10:41:00 AM EDT ( [facility]) - 11/23/2019 [facility] 10:41:00 AM EDT Medical Center) Individual Attender: [facility] 11/16/2019 NEXTGE N Psychotherapy (30 [facility] 12:37:00 PM EDT ( [facility]) - 11/16/2019 [facility] 12:37:00 PM EDT Medical Center) Individual Attender: [facility] 11/02/2019 NEXTGE N Psychotherapy (30 [facility] 10:04:00 AM EDT ( [facility]) - 11/02/2019 [facility] 10:04:00 AM EDT Medical Center) Attender: Mental Health 10/26/2019 [facility] Mitzi Clinic 02:18:00 PM EDT ([facility] - 10/26/2019 [facility] 02:18:00 PM EDT Medical Center) OutpatientOFFICE/OUT Attender: AILEEN Walls Mental Health 10/26/2019 [facility] PATIENT VISITTERRY NPAttender: Clinic 11:25:00 AM EDT [facility] - 10/26/2019 [place] 11:25:00 AM EDT Medical Center) Individual Attender: [facility] 10/26/2019 NEXTGE N Psychotherapy (30 [facility] 11:01:00 AM EDT ( [facility]) - 10/26/2019 [facility] 11:01:[address] [facility]) Individual Attender: Corey Mental Health 10/12/2019 NEXTGE N Psychotherapy (30 [facility] 02:03:00 PM EDT ( [facility]) - 10/12/2019 [facility] 02:03:00 PM EDT Medical [place]) Individual Attender: [facility] 09/28/2019 NEXTGE N Psychotherapy (30 [facility] 12:11:00 PM EST ( [facility]) - 09/28/2019 [facility] 12:11:00 PM EST Medical [place]) OutpatientOFFICE/OUT Attender: [facility]28[facility] 11:50:00 AM EST ( [facility] - 09/28/2019 [facility] 11:50[facility]00 AM [facility] Medical [place]) Attender[facility] Axel [facility] 09[facility]28/2019 [facility] 11:41:00 AM EST ([facility] 09/28/2019 [facility] 11:41:00 AM [facility] Medical [place]) Outpatient Attender: PM9 09/21/2019 [facility] ([facility] 11:51:59 AM EST [facility]) Patient admitted. Individual Attender: Corey Mental 09/13/2019 NEXTGEN ( [facility] ([facility] 02:33:00 PM EST J [facility]ph[facility] Medical Min) Clinic - 09/13/2019 [place]) 02:33:00 PM EST Individual Attender: Corey Mental 08/31/2019 NEXTGEN ( [facility] (30 [facility] 03:54:00 PM EST J [facility]sephs Medical Min) Clinic - 08/31/2019 [place]) 03:54:00 PM EST OutpatientOFFICE/OU Attender: Corey Mental 08/31/2019 [facility] ([facility] TPATIENT VISIT, EST [facility] 12:14:00 PM EST [facility] - 08/31/2019 [place]) Axel Pickard 12:14:00 PM EST Outpatient Attender: MARITA Carroll 08/14/2019 [facility]ELAttender: 02:31:00 PM EST Medic al Center TANIYA DEVRIESdmitter: MARITA MACIEL Attender: Taniya Mental 08/14/2019 NEXTGEN ([facility] 02:31:00 PM EST [facility] - 08/14/2019 Center) 02:31:00 PM EST Individual Attender: Corey Mental 08/13/2019 NEXTGEN ( [facility] (30 [facility] 03:17:00 PM EST J osephs Medical Min) Clinic - 08/13/2019 [place]) 03:17:00 PM EST Outpatient Attender: MARITA Carroll 08/13/2019 [facility] MACIELAdmitter: 02:31:00 PM EST Medic al Center MARITA MACIEL Attender: Axel Mental 08/06/2019 NEXTGEN ( [facility] 03:56:00 PM EST [facility] M edical Clinic - 08/06/2019 [place]) 03:56:00 PM EST Individual Attender: Corey Mental 07/13/2019 NEXTGEN ( [facility] (30 [facility] 02:05:00 PM EST J [facility]sephs Medical Min) Clinic - 07/13/2019 [place]) 02:05:00 PM EST Individual Attender: Corey Mental 06/29/2019 NEXTGEN ( [facility] (30 [facility] 03:22:00 PM EST J osephs Medical Min) Clinic - 06/29/2019 [place]) 03:22:00 PM EST OutpatientOFFICE/OU Attender: Corey Mental 06/29/2019 NEXTGEN (Saint TPATIENT VISIT, [facility] 01:15:00 PM EST [facility] Medical GarciaAttender: Clinic - 06/29/2019 [place]) Axel Pickard 01:15:00 PM EST Attender: Corey Mental 06/18/2019 NEXTGEN ( [facility] 12:20:00 PM EST [facility] - 06/18/2019 [place]) 12:20:00 PM EST OutpatientOFFICE/OU Attender: Corye Mental 06/02/2019 NEXTGEN (Saint TPATIENT VISIT, [facility] 11:23:00 AM EDT [facility] Medical GarciaAttender: Clinic - 06/02/2019 [place]) Axel Pickard 11:23:00 AM EDT Individual Attender: Corey Mental 06/02/2019 NEXTGEN ( [facility] (30 [facility] 10:36:00 AM EDT J osephs Medical Min) Clinic - 06/02/2019 [place]) 10:36:00 AM EDT Individual Attender: Corey Mental 05/21/2019 [facility] ( [facility] ([facility] 03:10:00 PM EDT [facility] Medical Min) Clinic - 05/21/2019 [place]) 03:10:00 PM EDT Outpatient Attender: 05/17/2019 M79.7 [facility], 02:19:00 PM EDT ,K59. Coun Health BETHAdmitter: 00,F1 Care Corpor ation CONGREGATIONAL, 1.20, HUMAYUNReferrer: [facility] FOR MEDICAL SCIENCESELROY, JILLIAN M79.7,K59.00,F11.20, Outpatient Attender: [facility] 05/11/2019 02:08:15 PM I ([facility]T [facility] Patient admitted. Outpatient 05/11/2019 [facility] 10:58:00 AM EDT Medical C enter Outpatient 05/11/2019 [facility] 12:00:00 AM EDT Medical C enter Individual Attender: [facility] 05/07/2019 NEXTGE N ([facility] Psychotherapy (30 [facility] 03:48:00 PM EDT - [facility] Min) 05/07/2019 Medical 03:48:00 PM EDT Center) OutpatientOFFICE/OUTP Attender: [facility] 05/05/2019 [facility] ([facility] 11:48:00 AM [facility] 05/05/2019 Medical Axel Darer 11:48:00 AM EDT Center) Outpatient 05/04/2019 [facility] 12:08:00 PM EDT Medical C enter Outpatient 05/04/2019 [facility] 12:00:00 AM EDT Medical C enter Individual Attender: [facility] 04/29/2019 NEXTGE N ([facility] (30 [facility] 12:06:00 PM EDT - [facility] Min) 04/29/2019 Medical 12:06:00 PM EDT Center) Individual Attender: [facility] 04/16/2019 NEXTGE N ([facility] (30 [facility] 02:31:00 PM EDT - Ronald Min) 04/16/2019 Medical 02:31:00 PM EDT Center) OutpatientOFFICE/OUTP Attender: [facility] 04/06/2019 NEXTGEN (Saint ATIENT VISIT, EST [facility] 11:04:00 AM EDT - Ronald GarciaAttender: 04/06/2019 Medical Axel Darer 11:04:00 AM EDT Center) Outpatient 03/24/2019 [facility] 04:03:00 PM EDT Medical C enter Outpatient Attender: Ian Carroll 03/24/2019 [facility] 02:27:00 PM EDT Medical C enter DPMAdmitter: Ian Vega DPMReferrer: Ian Vega DPM OutpatientOFFICE/OUTP Attender: [facility] ATIENT VISIT, EST [facility] 02:27:00 PM EDT - Ronald 03/24/2019 Medical 02:27:00 PM EDT Center) Outpatient 03/24/2019 [facility] Ronald 12:00:00 AM EDT Medical C enter Individual Attender: [facility] 03/11/2019 NEXTGE N ([facility] (30 [facility] 04:02:00 PM EDT - Ronald Min) 03/11/2019 Medical 04:02:00 PM EDT Center) OutpatientOFFICE/OUTP Attender: [facility] 03/09/2019 ANGEL (Saint ATIENT VISIT, EST [facility] 03:48:00 PM EDT - Ronald GarciaAttender: 03/09/2019 Medical Axel Darer 03:48:00 PM EDT Center) Individual Attender: [facility] 02/19/2019 NEXTGE N ([facility] ([facility] 04:25:00 PM EDT - Ronald Min) 02/19/2019 Medical 04:25:00 PM EDT Center) OutpatientOFFICE/OUTP Attender: [facility] 02/08/2019 DENISSEGEN (Saint ATIENT VISIT, EST [facility] 04:11:00 PM EDT - Ronald GarciaAttender: 02/08/2019 Medical Axel Darer 04:11:00 PM EDT Center) Individual Attender: [facility] 01/22/2019 NEXTGE N ([facility] (30 [facility] 03:58:00 PM EDT - Ronald Min) 01/22/2019 Medical 03:58:00 PM EDT Center) Outpatient 01/20/2019 [facility] 12:25:00 PM EDT Medical C enter Outpatient 01/20/2019 [facility] 12:00:00 AM EDT Medical C enter Outpatient Admitter: NAYEL H 01/12/2019 [facility] NAYEL 11:18:00 AM EDT Medical Center Outpatient Attender: NAYEL H 01/12/2019 [facility] 11:15:00 AM EDT - Medical Center NAYELAdmitter: 01/12/2019 NAYEL MARCELLA 05:08:00 PM EDT NAYELReferrer: LAYLA NARANJO NAYEL Attender: [facility] 01/12/2019 [facility] ( [facility] 11[facility]00 AM [facility] 01/12/2019 Medical 11:15:00 AM EDT Center) OutpatientOFFICE/OUTP Attender: [facility] 01/08/2019 NEXTGEN ([facility] 12:13:00 PM EDT - [facility] 01/08/2019 Medical Axel Darer 12:13:00 PM EDT Center) Individual Attender: [facility] 01/08/2019 NEXTGE N ([facility] ([facility] 12:04:00 PM EDT - Ronald Min) 01/08/2019 Medical 12:04:00 PM EDT Center) Outpatient 01/07/2019 [facility] 10:33:00 AM EDT Medical C enter Outpatient 01/07/2019 [facility] 12:00:00 AM EDT Medical C enter Individual Attender: [facility] 12/25/2018 NEXTGE N ([facility] (30 [facility] 04:12:00 PM EDT - Ronald Min) 12/25/2018 Medical 04:12:00 PM EDT Center) Outpatient 12/21/2018 [facility] 01:20:00 PM EDT Medical C enter Outpatient 12/21/2018 [facility] 12:00:00 AM EDT Medical C enter Individual Attender: [facility] 12/18/2018 NEXTGE N ([facility] (30 [facility] 11:08:00 AM EDT - [facility] Min) 12/18/2018 Medical 11:08:00 AM EDT Center) Outpatient 12/17/2018 [facility] 02:15:00 PM EDT Medical C enter Outpatient Attender: Ian Carroll 12/17/2018 [facility] 09:44:00 AM EDT Medical C enter DPMAdmitter: Ian Vega DPMReferrer: Ian Vega DPM OutpatientOFFICE/OUTP Attender: [facility] 12/17/2018 [facility] (Saint ATIENT VISIT, EST [place] 09:44:00 AM EDT [facility] 12/17/2018 Medical 09:44:00 AM EDT Center) Outpatient 12/17/2018 [facility] 12:00:00 AM EDT Medical C enter Individual Attender: [facility] 12/11/2018 MORENO Chong ([facility] (30 [facility] 04:46:00 PM EDT [facility]) 12/11/2018 Medical 04:46:00 PM EDT Center) OutpatientOFFICE/OUTP Attender: [facility] 12/11/2018 [facility] (Saint ATIENT VISIT, EST [facility] 12:17:00 PM EDT - [facility] 12/11/2018 Medical Axel Vyaser 12:17:00 PM EDT Center) Outpatient 12/09/2018 [facility] 02:43:00 PM EDT Medical C enter Outpatient Attender: Ian Carroll 12/09/2018 [facility] 01:23:00 PM EDT Medical C enter DPMAdmitter: Ian Vega DPMReferrer: Ian Vega DPTerrence OutpatientOFFICE/OUTP Attender: [facility] 12/09/2018 [facility] (Saint ATIENT VISIT, EST [place] 01:23:00 PM EDT - [facility] 12/09/2018 Medical 01:23:00 PM EDT Center) Outpatient 12/09/2018 [facility] 12:00:00 AM EDT Medical C enter Individual Attender: [facility] 12/01/2018 MORENO Chong ([facility] (30 [facility] 06:25:00 PM EDT - [facility]) 12/01/2018 Medical 06:25:00 PM EDT Center) Individual Attender: [facility] 11/26/2018 MORENO Chong ([facility] (45 [facility] 04:47:00 PM EDT - Ronald Min) 11/26/2018 Medical 04:47:00 PM EDT Center) OutpatientOFFICE/OUTP Attender: [facility] 11/13/2018 NEXTGEN (Saint ATIENT VISIT, EST [facility] 04:15:00 PM EDT - Ronald 11/13/2018 Medical 04:15:00 PM EDT Center) Attender: [facility] 11/13/2018 NEXTGE N ([facility] 01:15:00 PM EDT - Ronald GarciaAttender: 11/13/2018 Medical Axel Darer 01:15:00 PM EDT Center) Outpatient 11/12/2018 [facility] 12:11:00 PM EDT Medical C enter Outpatient 11/12/2018 [facility] Ronald 12:00:00 AM EDT Medical C enter Individual Attender: [facility] 11/02/2018 NEXTGE N ([facility] (30 [facility] 05:02:00 PM EDT - Ronald Min) 11/02/2018 Medical 05:02:00 PM EDT Center) OutpatientOFFICE/OUTP Attender: [facility] 2018 NEXTGEN (Saint ATIENT VISIT, EST [facility] 01:56:00 PM EDT - Ronald GarciaAttender: 2018 Medical Axel Darer 01:56:00 PM EDT Center) Individual Attender: [facility] 08/28/2018 NEXTGE N ([facility] (30 [facility] 05:10:00 PM EST - Ronald Min) 08/28/2018 Medical 05:10:00 PM EST Center) Individual Attender: [facility] 08/14/2018 NEXTGE N ([facility] (45 [facility] 04:28:00 PM EST - Ronald Min) 08/14/2018 Medical 04:28:00 PM EST Center) Outpatient Attender: MARITA Carroll 08/14/2018 Ezi[facility]armelo MACIELAdmitter: 10:05:00 AM EST Medic al Center MARITA MACIEL Attender: Axel 08/14/2018 NEXTGEN ( [facility] 10:05:00 AM EST - Ronald 08/14/2018 Medical 10:05:00 AM EST Center) Individual Attender: [facility] 07/17/2018 NEXTGE N ([facility] (30 [facility] 12:30:00 PM EST - [facility] Min) 07/17/2018 Medical 12:30:00 PM EST Center) [facility] ([facility] (45 [facility] 02:46:00 PM EST - Ronald Min) 07/03/2018 Medical 02:46:00 PM EST Center) Attender: Axel 08/15/2017 NEXTGEN ( [facility] 10:05:00 AM EST - Ronald 08/15/2017 [facility] 10:05:[address] [facility] [place] Medications Medication Brand Start Product Dose Route Administrative Pharmacy [facility] Indications Reaction Description Data Name Date Form Instructions Instructions Source(s) Zolpidem Ambien .00 ORAL active zolpidem N EXTGEN tartrate 10 10 mg 2020 {tabl tartrate 10 ([facility] MG Oral tablet 12:00: et} MG Oral [facility] hs Tablet 00 AM Tablet Medical [Ambien] EDT [Ambien] Center) Ambien 10 mg tablet I stop # [id number] Diazepam 5 Valium 5 04/13/2020 1 {tablet} ORAL completed diazepam 5 NEXTGEN MG Oral mg 12:00:00 AM MG Oral (S aint Tablet tablet EDT Tablet Ronald [Valium] [Valium] Medical Valium 5 mg Center) tablet Medication administered onsite Clonazepam 0.5 Klonopin 04/13/2020 1 ORAL active clonazepam NEXTGEN MG Oral Tablet 0.5 mg 12:00:00 AM {tablet} 0.5 MG Oral ([facility] [Klonopin] tablet EDT Tablet [facility] hs Klonopin 0.5 mg [Klonopin ] Medical tablet Center) Trazodone trazodone 04/13/2020 1 ORAL active ta ke 1 NEXTGEN Hydrochloride 150 mg 12:00:00 AM {tablet} tablet by ([facility] 150 MG Oral tablet EDT oral route Ronald Tablet every Medical trazodone [address]) mg tablet Zolpidem Ambien 10 03/14/2020 1.00 ORAL completed zolpidem NEXTGEN tartrate 10 MG mg tablet 12:00:00 AM {tablet} tartrate 10 ([facility] Oral Tablet EDT MG Oral [facility] hs [Ambien] Ambien Tablet Me dical 10 mg tablet [Ambien] [place] [facility]) I stop # [id number] Diazepam 5 MG Valium 5 mg 03/14/2020 1 ORAL completed diazepam NEXTGEN Oral Tablet tablet 12:00:00 AM {tablet} 5 MG Oral ([facility] [Valium] Valium EDT Tablet Traci sephs 5 mg tablet [Valium] [facility] jian [facility]) Trazodone trazodone 03/14/2020 1 ORAL completed take 1 NEXTGEN Hydrochloride 150 mg 12:00:00 AM {tablet} tablet by ([facility] 150 MG Oral tablet EDT oral Joe s Tablet route Medical trazodone 150 every Cente r) mg tablet bedtime Diazepam 5 MG Valium 5 mg 03/14/2020 1 ORAL completed diazepam NEXTGEN Oral Tablet tablet 12:00:00 AM {tablet} 5 MG Oral ([facility] [Valium] Valium EDT Tablet Traci sephs 5 mg tablet [Valium] Medi jian [facility]) Medication administered onsite Trazodone trazodone 02/17/2020 1 ORAL completed take 1 NEXTGEN Hydrochloride 150 mg 12:00:00 AM {tablet} tablet by ([facility] 150 MG Oral tablet EDT oral Joe s Tablet route Medical trazodone 150 every Cent[facility] r) mg tablet bedtime Diazepam 5 MG Valium 5 mg 02/17/2020 1 ORAL completed diazepam NEXTGEN Oral Tablet tablet 12:00:00 AM {tablet} 5 MG Oral ([facility] [Valium] Valium EDT Tablet Traci sephs 5 mg tablet [Valium] [facility]) Zolpidem Ambien 10 02/17/2020 1.00 ORAL completed zolpidem NEXTGEN tartrate 10 MG mg tablet 12:00:00 AM {tablet} tartrate ([facility] Oral Tablet EDT 10 MG Ronald [Ambien] Ambien Oral Medi jian 10 mg tablet Tablet Cente r) [Ambien] I stop # [id number] Diazepam 5 Valium 5 02/15/2020 1 {tbl} ORAL completed Diazepam 5 NEXTGEN MG Oral mg tablet 12:00:00 AM MG Or al ([facility] Tablet EDT Tablet Ronald [Valium] [Valium] Medical Valium 5 mg [facility]) tablet Zolpidem Ambien 10 02/15/2020 1.00 ORAL completed Zolpidem NEXTGEN tartrate 10 mg tablet 12:00:00 AM {tbl} tartrate ([facility] MG Oral EDT 10 MG Oral Joe s Tablet Tablet Medical [Ambien] [Ambien] [facility]) Ambien 10 mg tablet I stop # [id number] Trazodone trazodone 02/15/2020 1 {tbl} ORAL completed take 1 NEXTGEN Hydrochloride 150 mg 12:00:00 AM ta blet by ([facility] 150 MG Oral tablet EDT oral Joe s Tablet route Medical trazodone 150 every Cente r) mg tablet bedtime Diazepam 5 MG Valium 5 mg 01/18/2020 1 {tbl} ORAL completed Diazepam NEXTGEN Oral Tablet tablet 12:00:00 AM 5 MG Oral ([facility] [Valium] Valium EDT Tablet Traci sephs 5 mg tablet [Valium] Medi jian [facility]) Zolpidem Ambien 10 01/18/2020 1.00 ORAL completed Zolpidem NEXTGEN tartrate 10 MG mg tablet 12:00:00 AM {tbl} tartrate ([facility] Oral Tablet EDT 10 MG Ronald [Ambien] Ambien Oral Medi jian 10 mg tablet Tablet Cente r) [Ambien] I stop # [id number] Trazodone trazodone 01/18/2020 1 {tbl} ORAL completed take 1 NEXTGEN Hydrochloride 150 mg 12:00:00 AM ta blet by ([facility] 150 MG Oral tablet EDT oral Joe s Tablet route Medical trazodone 150 every Cente r) mg tablet bedtime Zolpidem Ambien 10 12/21/2019 1.00 ORAL completed Zolpidem NEXTGEN tartrate 10 MG mg tablet 12:00:00 AM {tbl} tartrate ([facility] Oral Tablet EDT 10 MG Ronald [Ambien] Ambien Oral Medi jian 10 mg tablet Tablet Cente r) [Ambien] I stop # [id number] Clonazepam 0.5 Klonopin 12/21/2019 completed Clonazepam NEXTGEN MG Oral Tablet 0.5 mg 12:00:00 AM 0 .5 MG Oral ([facility] [Klonopin] tablet EDT Tablet [facility] Klonopin 0.5 [Klonopin] M edical mg tablet [facility]) I stop # [id number] Trazodone trazodone 12/21/2019 1 {tbl} ORAL completed take 1 NEXTGEN Hydrochloride 150 mg 12:00:00 AM ta blet by ([facility] 150 MG Oral tablet EDT oral route Ronald Tablet every Medical trazodone [address]) mg tablet Clonazepam 0.5 Klonopin 11/23/2019 completed Clonazepam NEXTGEN MG Oral Tablet 0.5 mg 12:00:00 AM 0 .5 MG Oral ([facility] [Klonopin] tablet EDT Tablet [facility] hs Klonopin 0.5 mg [Klonopin ] Medical tablet [facility]) I stop # [id number] Trazodone trazodone 11/23/2019 1 {tbl} ORAL completed take 1 NEXTGEN Hydrochloride 150 mg 12:00:00 AM ta blet by ([facility] 150 MG Oral tablet EDT oral Joe s Tablet route Medical trazodone 150 every Cente r) mg tablet bedtime Zolpidem Ambien 10 11/23/2019 1.00 ORAL completed Zolpidem NEXTGEN tartrate 10 MG mg tablet 12:00:00 AM {tbl} tartrate ([facility] Oral Tablet EDT 10 MG Ronald [Ambien] Ambien Oral Medi jian 10 mg tablet Tablet Cente r) [Ambien] I stop # [id number] Trazodone trazodone 10/26/2019 1 {tbl} ORAL completed take 1 NEXTGEN Hydrochloride 150 mg 12:00:00 AM ta blet by ([facility] 150 MG Oral tablet EDT oral route Ronald Tablet every Medical trazodone [address]) mg tablet Clonazepam 0.5 Klonopin 10/26/2019 completed Clonazepam NEXTGEN MG Oral Tablet 0.5 mg 12:00:00 AM 0 .5 MG Oral ([facility] [Klonopin] tablet EDT Tablet [facility] hs Klonopin 0.5 mg [Klonopin ] Medical tablet [facility]) I stop # [id number] Zolpidem Ambien 10 10/26/2019 1.00 ORAL completed Zolpidem NEXTGEN tartrate 10 mg tablet 12:00:00 AM {tbl} tartrate ([facility] MG Oral EDT 10 MG Oral Joe s Tablet Tablet Medical [Ambien] [Ambien] Center) Ambien 10 mg tablet I stop # [id number] Trazodone trazodone 09/28/2019 1 {tbl} ORAL completed take 1 NEXTGEN Hydrochloride 150 mg 12:00:00 AM ta blet by ([facility] 150 MG Oral tablet EST oral route Ronald Tablet every Medical trazodone [address]) mg tablet Clonazepam 0.5 Klonopin 09/28/2019 completed Clonazepam NEXTGEN MG Oral Tablet 0.5 mg 12:00:00 AM 0 .5 MG Oral ([facility] [Klonopin] tablet EST Tablet [facility] hs Klonopin 0.5 mg [Klonopin ] Medical tablet Center) I stop # [id number] Zolpidem Ambien 10 09/28/2019 1.00 ORAL completed Zolpidem NEXTGEN tartrate 10 mg tablet 12:00:00 AM {tbl} tartrate ([facility] MG Oral EST 10 MG Oral Joe s Tablet Tablet Medical [Ambien] [Ambien] [facility]) Ambien 10 mg tablet I stop # [id number] Clonazepam 0.5 Klonopin 08/31/2019 completed Clonazepam NEXTGEN MG Oral Tablet 0.5 mg 12:00:00 AM 0 .5 MG Oral ([facility] [Klonopin] tablet EST Tablet [facility] hs Klonopin 0.5 [Klonopin] M edical mg tablet Center) I stop # [id number] Zolpidem Ambien 10 08/31/2019 1.00 ORAL completed Zolpidem NEXTGEN tartrate 10 mg tablet 12:00:00 AM {tbl} tartrate ([facility] MG Oral EST 10 MG Oral Joe s Tablet Tablet Medical [Ambien] [Ambien] [facility]) Ambien 10 mg tablet I stop # [id number] Trazodone trazodone 08/31/2019 1 {tbl} ORAL completed take 1 NEXTGEN Hydrochloride 150 mg 12:00:00 AM ta blet by ([facility] 150 MG Oral tablet EST oral route Ronald Tablet every Medical trazodone [address]) mg tablet Clonazepam 0.5 Klonopin 08/06/2019 completed Clonazepam NEXTGEN MG Oral Tablet 0.5 mg 12:00:00 AM 0 .5 MG Oral ([facility] [Klonopin] tablet EST Tablet [facility] hs Klonopin 0.5 mg [Klonopin ] Medical tablet [facility]) I stop # [id number] Trazodone trazodone 08/06/2019 1 {tbl} ORAL completed take 1 NEXTGEN Hydrochloride 150 mg 12:00:00 AM ta blet by ([facility] 150 MG Oral tablet EST oral Joe s Tablet route Medical trazodone 150 every Cente r) mg tablet bedtime Zolpidem Ambien 10 08/06/2019 1.00 ORAL completed Zolpidem NEXTGEN tartrate 10 MG mg tablet 12:00:00 AM {tbl} tartrate ([facility] Oral Tablet EST 10 MG Ronald [Ambien] Ambien Oral Medi jian 10 mg tablet Tablet Cente r) [Ambien] I stop # [id number] Clonazepam 0.5 Klonopin 06/29/2019 completed Clonazepam NEXTGEN MG Oral Tablet 0.5 mg 12:00:00 AM 0 .5 MG Oral ([facility] [Klonopin] tablet EST Tablet [facility] hs Klonopin 0.5 [Klonopin] M edical mg tablet Center) I stop # [id number] Trazodone trazodone 06/29/2019 1 {tbl} ORAL completed take 1 NEXTGEN Hydrochloride 150 mg 12:00:00 AM ta blet by ([facility] 150 MG Oral tablet EST oral Joe s Tablet route Medical trazodone 150 every Cente r) mg tablet bedtime Zolpidem Ambien 10 06/29/2019 1.00 ORAL completed Zolpidem NEXTGEN tartrate 10 MG mg tablet 12:00:00 AM {tbl} tartrate ([facility] Oral Tablet EST 10 MG Ronald [Ambien] Ambien Oral Medi jian 10 mg tablet Tablet Cente r) [Ambien] I stop # [id number] Clonazepam 0.5 Klonopin 06/02/2019 completed Clonazepam NEXTGEN MG Oral Tablet 0.5 mg 12:00:00 AM 0 .5 MG Oral ([facility] [Klonopin] tablet EDT Tablet [facility] hs Klonopin 0.5 [Klonopin] M edical mg tablet [facility]) I stop # [id number] Trazodone trazodone 06/02/2019 1 {tbl} ORAL completed take 1 NEXTGEN Hydrochloride 150 mg 12:00:00 AM ta blet by ([facility] 150 MG Oral tablet EDT oral route Ronald Tablet every Medical trazodone [address]) mg tablet Clonazepam 0.5 Klonopin 06/02/2019 completed Clonazepam NEXTGEN MG Oral Tablet 0.5 mg 12:00:00 AM 0 .5 MG Oral ([facility] [Klonopin] tablet EDT Tablet [facility] hs Klonopin 0.5 mg [Klonopin ] Medical tablet Center) I stop # [id number] Zolpidem Ambien 10 06/02/2019 1.00 ORAL completed Zolpidem NEXTGEN tartrate 10 mg tablet 12:00:00 AM {tbl} tartrate ([facility] MG Oral EDT 10 MG Oral Joe s Tablet Tablet Medical [Ambien] [Ambien] [facility]) Ambien 10 mg tablet I stop # [id number] Trazodone trazodone 05/05/2019 1 ORAL completed take 1 tablet NEXTGEN Hydrochloride 150 mg 12:00:00 AM {tbl} b y oral route ([facility] 150 MG Oral tablet EDT every [facility] Tablet bedtime Medical trazodone 150 [facility] ) mg tablet aripiprazole 10 Abilify 10 05/05/2019 1 ORAL completed aripiprazole NEXTGEN MG Oral Tablet mg tablet 12:00:00 AM {tbl} 10 MG Oral ([facility] [Abilify] EDT Tablet Ronald Abilify 10 mg [Abilify] M edical tablet [facility]) Clonazepam 0.5 Klonopin 05/05/2019 completed Clonazepam NEXTGEN MG Oral Tablet 0.5 mg 12:00:00 AM 0 .5 MG Oral ([facility] [Klonopin] tablet EDT Tablet [facility] hs Klonopin 0.5 mg [Klonopin ] Medical tablet [facility]) I stop # [id number] Zolpidem Ambien 10 05/05/2019 1.00 ORAL completed Zolpidem NEXTGEN tartrate 10 mg tablet 12:00:00 AM {tbl} tartrate ([facility] MG Oral EDT 10 MG Oral Joe s Tablet Tablet Medical [Ambien] [Ambien] [facility]) Ambien 10 mg tablet I stop # [id number] aripiprazole Abilify 10 04/06/2019 1 {tbl} ORAL completed aripiprazole NEXTGEN 10 MG Oral mg tablet 12:00:00 AM 10 MG Oral ([facility] Tablet EDT Tablet Ronald [Abilify] [Abilify] Medic al Abilify 10 mg [facility] ) tablet Clonazepam 0.5 Klonopin 04/06/2019 completed Clonazepam NEXTGEN MG Oral Tablet 0.5 mg 12:00:00 AM 0 .5 MG Oral ([facility] [Klonopin] tablet EDT Tablet [facility] hs Klonopin 0.5 [Klonopin] M edical mg tablet Center) I stop # [id number] Trazodone trazodone 04/06/2019 1 {tbl} ORAL completed take 1 NEXTGEN Hydrochloride 150 mg 12:00:00 AM ta blet by ([facility] 150 MG Oral tablet EDT oral Joe s Tablet route Medical trazodone 150 every Cente r) mg tablet bedtime Zolpidem Ambien 10 04/06/2019 1.00 ORAL completed Zolpidem NEXTGEN tartrate 10 MG mg tablet 12:00:00 AM {tbl} tartrate ([facility] Oral Tablet EDT 10 MG Ronald [Ambien] Ambien Oral Medi jian 10 mg tablet Tablet Cente r) [Ambien] I stop # [id number] Clotrimazole clotrimazole 1 03/24/2019 TOPICAL active apply by NEXTGEN 10 MG/ML % topical 12:00:00 AM topi jian ([facility] Topical solution EDT route 2 [facility] hs Solution times every Medi jian clotrimazole 1 day to the [facility]) % topical affected and solution surrounding areas of skin in the morning and evening Diclofenac Voltaren 1 % 03/24/2019 active diclofenac NEXTGEN Sodium 0.01 topical gel 12:00:00 AM sodium 0.01 ([facility] MG/MG Topical EDT MG/MG [facility] hs Gel [Voltaren] Topical Ge l Medical Voltaren 1 % [Voltaren] C enter) topical gel Clotrimazole clotrimazole 1 03/24/2019 TOPICAL active apply by NEXTGEN 10 MG/ML % topical 12:00:00 AM topi jian ([facility] Topical Cream cream EDT route 2 [facility] clotrimazole 1 times ever y Medical % topical day to the [facility] er) cream affected and surrounding areas of skin in the morning and evening Zolpidem Ambien 10 mg 03/09/2019 1 ORAL completed Zolpidem NEXTGEN tartrate 10 MG tablet 12:00:00 AM . t artrate 10 ([facility] Oral Tablet EDT 0 MG Oral [facility] hs [Ambien] 0 Tablet Medical Ambien 10 mg { [Ambien] [address]) tablet t b l } I stop # [id number] Clonazepam 0.5 Klonopin 03/09/2019 completed Clonazepam NEXTGEN MG Oral Tablet 0.5 mg 12:00:00 AM 0 .5 MG Oral ([facility] [Klonopin] tablet EDT Tablet [facility] hs Klonopin 0.5 [Klonopin] M edical mg tablet [facility]) I stop # [id number] aripiprazole 10 Abilify 10 03/09/2019 1 ORAL completed aripiprazole NEXTGEN MG Oral Tablet mg tablet 12:00:00 AM {tbl} 10 MG Oral ([facility] [Abilify] EDT Tablet Ronald Abilify 10 mg [Abilify] M edical tablet [facility]) Trazodone trazodone 03/09/2019 1 ORAL completed take 1 tablet NEXTGEN Hydrochloride 150 mg 12:00:00 AM {tbl} b y oral route ([facility] 150 MG Oral tablet EDT every [facility] Tablet bedtime Medical trazodone 150 [facility] ) mg tablet Trazodone trazodone 02/08/2019 1 ORAL completed take 1 tablet NEXTGEN Hydrochloride 150 mg 12:00:00 AM {tbl} b y oral route ([facility] 150 MG Oral tablet EDT every [facility] Tablet bedtime Medical trazodone 150 [facility] ) mg tablet Zolpidem Ambien 10 02/08/2019 1.00 ORAL completed Zolpidem NEXTGEN tartrate 10 MG mg tablet 12:00:00 AM {tbl} tartrate 10 ([facility] Oral Tablet EDT MG Oral [facility] hs [Ambien] Ambien Tablet Me dical 10 mg tablet [Ambien] [facility]) I stop # [id number] aripiprazole Abilify 10 02/08/2019 1 {tbl} ORAL completed aripiprazole NEXTGEN 10 MG Oral mg tablet 12:00:00 AM 10 MG Oral ([facility] Tablet EDT Tablet Ronald [Abilify] [Abilify] Medic al Abilify 10 mg [facility] ) tablet Clonazepam 0.5 Klonopin 02/08/2019 completed Clonazepam NEXTGEN MG Oral Tablet 0.5 mg 12:00:00 AM 0 .5 MG Oral ([facility] [Klonopin] tablet EDT Tablet [facility] hs Klonopin 0.5 [Klonopin] M edical mg tablet [facility]) I stop # [id number] aripiprazole Abilify 10 01/08/2019 1 {tbl} ORAL completed aripiprazole NEXTGEN 10 MG Oral mg tablet 12:00:00 AM 10 MG Oral ([facility] Tablet EDT Tablet Ronald [Abilify] [Abilify] Medic al Abilify 10 mg Center ) tablet Clonazepam 0.5 Klonopin 01/08/2019 completed Clonazepam NEXTGEN MG Oral Tablet 0.5 mg 12:00:00 AM 0 .5 MG Oral ([facility] [Klonopin] tablet EDT Tablet [facility] hs Klonopin 0.5 [Klonopin] M edical mg tablet Center) I stop # [id number] Zolpidem Ambien 10 01/08/2019 1.00 ORAL completed Zolpidem NEXTGEN tartrate 10 mg tablet 12:00:00 AM {tbl} tartrate ([facility] MG Oral EDT 10 MG Oral Joe s Tablet Tablet Medical [Ambien] [Ambien] Center) Ambien 10 mg tablet I stop # [id number] Trazodone trazodone 01/08/2019 1 {tbl} ORAL completed take 1 NEXTGEN Hydrochloride 150 mg 12:00:00 AM ta blet by ([facility] 150 MG Oral tablet EDT oral Joe s Tablet route Medical trazodone 150 every Cente r) mg tablet bedtime Zolpidem Ambien 10 12/11/2018 1.00 ORAL completed Zolpidem NEXTGEN tartrate 10 MG mg tablet 12:00:00 AM {tbl} tartrate ([facility] Oral Tablet EDT 10 MG Ronald [Ambien] Ambien Oral Medi jian 10 mg tablet Tablet Cente r) [Ambien] I stop # [id number] aripiprazole 10 Abilify 10 12/11/2018 1 ORAL completed aripiprazole NEXTGEN MG Oral Tablet mg tablet 12:00:00 AM {tbl} 10 MG Oral ([facility] [Abilify] EDT Tablet Ronald Abilify 10 mg [Abilify] M edical tablet Center) Trazodone trazodone 12/11/2018 1 ORAL completed take 1 tablet NEXTGEN Hydrochloride 150 mg 12:00:00 AM {tbl} b y oral route ([facility] 150 MG Oral tablet EDT every [facility] Tablet bedtime Medical trazodone 150 Center ) mg tablet Clonazepam 0.5 Klonopin 12/11/2018 completed Clonazepam NEXTGEN MG Oral Tablet 0.5 mg 12:00:00 AM 0 .5 MG Oral ([facility] [Klonopin] tablet EDT Tablet [facility] hs Klonopin 0.5 mg [Klonopin ] Medical tablet Center) I stop # [id number] Clotrimazole clotrimazole 12/09/2018 TOPICAL completed apply by NEXTGEN 10 MG/ML 1 % topical 12:00:00 AM to pical route ([facility] Topical solution EDT 2 times every Ronald Solution day to the Medic al clotrimazole 1 affected a nd Center) % topical surrounding solution areas of skin in the morning and evening Clotrimazole clotrimazole 12/09/2018 TOPICAL completed apply by NEXTGEN 10 MG/ML 1 % topical 12:00:00 AM to pical route ([facility] Topical solution EDT 2 times every Ronald Solution day to the Medic al clotrimazole 1 affected a nd Center) % topical surrounding solution areas of skin in the morning and evening Clotrimazole clotrimazole 12/09/2018 TOPICAL completed apply by NEXTGEN 10 MG/ML 1 % topical 12:00:00 AM to pical route ([facility] Topical solution EDT 2 times every Ronald Solution day to the Medic al clotrimazole 1 affected a nd Center) % topical surrounding solution areas of skin in the morning and evening Zolpidem Ambien 10 mg 11/13/2018 1. ORAL completed Zolpidem NEXTGEN tartrate 10 MG tablet 12:00:00 AM 00 t artrate 10 MG ([facility] Oral Tablet EDT {t Oral Tablet J [facility]sephs [Ambien] bl [Ambien] Medical Ambien 10 mg } Center) tablet Clonazepam 0.5 Klonopin 0.5 11/13/2018 completed Clonazepam 0.5 NEXTGEN MG Oral Tablet mg tablet 12:00:00 AM MG Oral Tablet ([facility] [Klonopin] EDT [Klonopin] [facility] Klonopin 0.5 Medical mg tablet Center) aripiprazole Abilify 10 mg 11/13/2018 1 ORAL completed aripiprazole NEXTGEN 10 MG Oral tablet 12:00:00 AM {t 10 MG Oral ([facility] Tablet EDT bl Tablet Ronald [Abilify] } [Abilify] Medic al Abilify 10 mg Center ) tablet Trazodone trazodone 150 11/13/2018 1 ORAL completed take 1 tablet NEXTGEN Hydrochloride mg tablet 12:00:00 AM {t by oral route ([facility] 150 MG Oral EDT bl every bedtime Ronald Tablet } Medical trazodone 150 [facility] ) mg tablet Clonazepam 0.5 Klonopin 0.5 2018 1 ORAL completed Clonazepam 0.5 NEXTGEN MG Oral Tablet mg tablet 12:00:00 AM {t MG Oral Tablet ([facility] [Klonopin] EDT bl [Klonopin] [facility] Klonopin 0.5 } Medical mg tablet [facility]) lubiprostone Amitiza 24 2018 1 ORAL active lubiprostone NEXTGEN 0.024 MG Oral mcg capsule 12:00:00 AM {c 0.024 MG Oral ([facility] Capsule EDT ap Capsule Ronald [Amitiza] roger [Amitiza] Medic al Amitiza 24 mcg le [facility]) capsule } Levothyroxine Synthroid 75 2018 1. ORAL active levothyroxine NEXTGEN Sodium 0.075 mcg tablet 12:00:00 AM 00 sodium 0.075 ([facility] MG Oral Tablet EDT {t MG Oral Ta blet Ronald [Synthroid] ab [Synthroid] M edical Synthroid [address] [place] [address]) mcg tablet t} Lisinopril 10 lisinopril 10 2018 1. ORAL active take 1 tablet NEXTGEN MG Oral Tablet mg tablet 12:00:00 AM 00 by oral route ([facility] lisinopril 10 EDT {t every day [facility] mg tablet [facility]) t} aripiprazole Abilify 10 mg 2018 1 ORAL completed aripiprazole NEXTGEN 10 MG Oral tablet 12:00:00 AM {t 10 MG Oral ([facility] Tablet EDT bl Tablet Ronald [Abilify] } [Abilify] Medic al Abilify 10 mg [facility] ) tablet Furosemide 40 Lasix 40 mg 2018 1. ORAL active furosemide 40 NEXTGEN MG Oral Tablet tablet 12:00:00 AM 00 M G Oral Tablet ([facility] [Lasix] Lasix EDT {t [Lasix] [facility] 40 mg tablet ab [facility]) t} Trazodone trazodone 150 2018 1 ORAL completed take 1 tablet NEXTGEN Hydrochloride mg tablet 12:00:00 AM {t by oral route ([facility] 150 MG Oral EDT bl every bedtime Ronald Tablet } Medical trazodone 150 Center ) mg tablet Zolpidem Ambien 10 mg 2018 1. ORAL completed Zolpidem NEXTGEN tartrate 10 MG tablet 12:00:00 AM 00 t artrate 10 MG ([facility] Oral Tablet EDT {t Oral Tablet J [facility]sephs [Ambien] bl [Ambien] Medical Ambien 10 mg } [facility]) tablet Insurance Providers Payer name Policy type Policy ID Covered Covered democrat's Policy P ness / Coverage democrat ID relationship to Cheek Inf ormation type cheek M [id number] 01 [id number] O [facility] O [id number] 01 [id number] [employer] W [id number] [place] MEDICARE [id number] SP [id number] [employer] [id number] SP [id number] MEDICARE [facility] O [id number] 01 [id number] [employer] O [id number] 01 [id number] [facility] MED[facility] [id number] SP [id number] MEDICAID [id number] [place] MEDICARE [id number] SP [id number] [employer] [id number] SP [id number] MEDICARE O [id number] Medicare [id number] S [id number] A [facility] Medicaid [id number] S [id number] Regular Clinic Visit [place] [id number] S [id number] Medicare Manage Care Problems, Conditions, and Diagnoses Code Display Name Description Problem Type Effective Data Sour ce(s) Dates F33.2 Major depressive MAJOR DEPRESSV Diagnosis 05/10/2020 [facility] Cardenas disorder, DISORDER, 10:05:00 AM Medical Chintan ramsey recurrent severe RECURRENT SEVERE EDT without psychotic W/O PSYCH FEATURES features G89.29 Other chronic pain OTHER CHRONIC PAIN Diagnosis 9 [place] 02:19:00 PM [facility] [employer] R10.12 Left upper LEFT UPPER Diagnosis 05/17/2019 [place] quadrant pain QUADRANT PAIN 02:19:00 PM [facility] [employer] K59.03 Drug induced DRUG INDUCED Diagnosis 05/17/2019 [place] constipation CONSTIPATION 02:19:00 PM [facility] [employer] K63.5 Polyp of colon POLYP OF COLON Diagnosis 05/17/2019 [place] 02:19:00 PM [facility] EDT [employer] R10.9 Unspecified UNSPECIFIED Diagnosis 05/17/2019 [place] abdominal pain ABDOMINAL PAIN 02:19:00 PM [facility] EDT [employer] R10.13 Epigastric pain EPIGASTRIC PAIN Diagnosis 05/17/2019 [place] 02:19:00 PM [facility] EDT [employer] R10.11 Right upper RIGHT UPPER Diagnosis 05/17/2019 [place] quadrant pain QUADRANT PAIN 02:19:00 PM [facility] EDT [employer] F11.20 Opioid dependence, OPIOID DEPENDENCE, Diagnosis 9 [facility] uncomplicated UNCOMPLICATED 02:19:00 PM [facility] EDT [employer] K59.00 Constipation, CONSTIPATION, Diagnosis 05/17/2019 [facility] unspecified UNSPECIFIED 02:19:00 PM [facility] EDT [employer] M79.7 Fibromyalgia FIBROMYALGIA Diagnosis 05/17/2019 [facility] r 02:19:00 PM [facility] EDT [employer] B35.1 Tinea unguium TINEA UNGUIUM Diagnosis 03/24/2019 [facility] 02:27:00 PM [facility] Cent[facility] EDT M79.671 Pain in right foot PAIN IN RIGHT FOOT Diagnosis 9 [facility] 02:27:00 PM [facility] Cent[facility] r EDT M25.572 Pain in left ankle PAIN IN LEFT ANKLE Diagnosis 9 [facility] and joints of left AND JOINTS OF LEFT 02:27:00 PM Medical [facility] foot FOOT EDT M25.571 Pain in right PAIN IN RIGHT Diagnosis 03/24/2019 [facility] ankle and joints ANKLE AND JOINTS 02:27:00 PM M edical Center of right foot OF RIGHT FOOT EDT R26.89 Other OTHER Diagnosis 03/24/2019 [facility] abnormalities of ABNORMALITIES OF 02:27:00 PM M edical Center gait and mobility GAIT AND MOBILITY EDT M79.7 Fibromyalgia FIBROMYALGIA Diagnosis 03/24/2019 [facility] 02:27:00 PM [facility] Cent[facility] r EDT B35.3 Tinea pedis TINEA PEDIS Diagnosis 03/24/2019 [place] 02:27:00 PM [facility] Cent[facility] EDT 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 03/24/2019 [facility] tendon (acquired), TENDON (ACQUIRED), 02:27:00 PM Medical Center right ankle RIGHT ANKLE EDT 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 Diagnosis 03/24/2019 [facility] tendon (acquired), TENDON (ACQUIRED), 02:27:00 PM Medical Center left ankle LEFT ANKLE EDT M21.42 Flat foot [pes FLAT FOOT (PES Diagnosis 03/24/2019 [facility] planus] PLANUS) 02:27:00 PM Medical Cente r (acquired), left (ACQUIRED), LEFT EDT foot FOOT M21.41 Flat foot [pes FLAT FOOT (PES Diagnosis 03/24/2019 [facility]] PLANUS) 02:27:00 PM [facility] (acquired), right (ACQUIRED), RIGHT EDT foot FOOT N23 Unspecified renal UNSPECIFIED RENAL Diagnosis 01/12/2019 [facility] colic COLIC 11:15:00 AM Medical [facility] EDT N13.1 Hydronephrosis HYDRONEPHROSIS W Diagnosis 01/12/2019 [facility] with ureteral URETERAL 11:15:00 AM Medical Ce nter stricture, not STRICTURE, NEC EDT elsewhere classified N13.30 Unspecified UNSPECIFIED Diagnosis 01/12/2019 [facility] hydronephrosis HYDRONEPHROSIS 11:15:00 AM [facility] EDT M79.673 Pain in PAIN IN Diagnosis 12/17/2018 [facility] unspecified foot UNSPECIFIED FOOT 09:44:00 AM [facility] EDT M79.9 Soft tissue SOFT TISSUE Diagnosis 12/17/2018 [facility] disorder, DISORDER, 09:44:00 AM [facility] unspecified UNSPECIFIED EDT 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 EDT R60.9 Edema, unspecified EDEMA, UNSPECIFIED Diagnosis 9 [facility] I87.2 Venous VENOUS Diagnosis 12/09/2018 [facility] insufficiency INSUFFICIENCY 01:23:00 PM Medical Center (chronic) (CHRONIC) EDT (peripheral) (PERIPHERAL) 278.00 OBESITY OBESITY NOS Diagnosis 10/02/2018 [facility] (Nichelle nt UNSPECIFIED 04:14:40 PM [facility] Diagnosis [facility] ([facility]) Diagnosis [facility] ([facility]) Diagnosis [facility] ([facility]) Diagnosis [facility] ([facility]) Diagnosis [facility] ([facility]) Surgeries/Procedures Procedure Description Date Indications Data Source(s) Individual Psychotherapy 05/04/2020 NEX TGEN ([facility] (30 Min) 12:00:00 AM EDT [facility] - 05/04/2020 [place]) 12:00:00 AM EDT Individual Psychotherapy 04/20/2020 NEX TGEN ([facility] (30 Min) 12:00:00 AM EDT [facility] - 04/20/2020 [place]) 12:00:00 AM EDT Psychotherapy (30 Mins) 04/13/2020 NEXT GEN ([facility] W/ E&M 12:00:00 AM EDT [facility] 04/13/2020 [place]) 12:00:00 AM EDT OFFICE/OUTPATIENT VISIT, 04/13/2020 NEX TGEN ([facility] EST 12:00:00 AM EDT [facility] 04/13/2020 [place]) 12:00:00 AM EDT Individual Psychotherapy 04/05/2020 NEX TGEN ([facility] (30 Min) 12:00:00 AM EDT [facility] - 04/05/2020 [place]) 12:00:00 AM EDT Individual Psychotherapy 03/22/2020 NEX TGEN ([facility] (30 Min) 12:00:00 AM EDT [facility] 03/22/2020 [place]) 12:00:00 AM EDT Psychotherapy (30 Mins) 03/14/2020 NEXT GEN ([facility] W/ E&M 12:00:00 AM EDT [facility] 03/14/2020 [place]) 12:00:00 AM EDT OFFICE/OUTPATIENT VISIT, 03/14/2020 NEX TGEN ([facility] EST 12:00:00 AM EDT [facility] - 03/14/2020 [place]) 12:00:00 AM EDT Individual Psychotherapy 03/08/2020 NEX TGEN ([facility] (30 Min) 12:00:00 AM EDT [facility] 03/08/2020 [place]) 12:00:00 AM EDT Psychotherapy (30 Mins) 02/15/2020 NEXT GEN ([facility] W/ E&M 12:00:00 AM EDT [facility] - 02/15/2020 [place]) 12:00:00 AM EDT OFFICE/OUTPATIENT VISIT, 02/15/2020 NEX TGEN ([facility] EST 12:00:00 AM EDT [facility] - 02/15/2020 [place]) 12:00:00 AM EDT Individual Psychotherapy 02/07/2020 NEX TGEN ([facility] (30 Min) 12:00:00 AM EDT [facility] - 02/07/2020 [place]) 12:00:00 AM EDT Individual Psychotherapy 01/24/2020 NEX TGEN ([facility] (30 Min) 12:00:00 AM EDT [facility] 01/24/2020 [place]) 12:00:00 AM EDT Psychotherapy (30 Mins) 01/18/2020 NEXT GEN ([facility] W/ E&M 12:00:00 AM EDT [facility] 01/18/2020 [place]) 12:00:00 AM EDT OFFICE/OUTPATIENT VISIT, 01/18/2020 NEX TGEN ([facility] EST 12:00:00 AM EDT [facility] 01/18/2020 [place]) 12:00:00 AM EDT Individual Psychotherapy 01/18/2020 NEX TGEN ([facility] (30 Min) 12:00:00 AM EDT [facility] 01/18/2020 [place]) 12:00:00 AM EDT Individual Psychotherapy 12/21/2019 NEX TGEN ([facility] (30 Min) 12:00:00 AM EDT [facility] 12/21/2019 [place]) 12:00:00 AM EDT Psychotherapy (30 Mins) 12/21/2019 NEXT GEN ([facility] W/ E&M 12:00:00 AM EDT [facility] 12/21/2019 [place]) 12:00:00 AM EDT OFFICE/OUTPATIENT VISIT, 12/21/2019 NEX TGEN ([facility] EST 12:00:00 AM EDT [facility] 12/21/2019 [place]) 12:00:00 AM EDT Individual Psychotherapy 12/07/2019 NEX TGEN ([facility] (30 Min) 12:00:00 AM EDT [facility] 12/07/2019 [place]) 12:00:00 AM EDT Individual Psychotherapy 11/23/2019 NEX TGEN ([facility] (30 Min) 12:00:00 AM EDT [facility] 11/23/2019 [place]) 12:00:00 AM EDT Individual Psychotherapy 11/16/2019 NEX TGEN ([facility] (30 Min) 12:00:00 AM EDT [facility] - 11/16/2019 [place]) 12:00:00 AM EDT Individual Psychotherapy 11/02/2019 NEX TGEN ([facility] (30 Min) 12:00:00 AM EDT [facility] 11/02/2019 [place]) 12:00:00 AM EDT Individual Psychotherapy 10/26/2019 NEX TGEN ([facility] (30 Min) 12:00:00 AM EDT [facility] 10/26/2019 [place]) 12:00:00 AM EDT Psychotherapy (30 Mins) 10/26/2019 NEXT GEN ([facility] W/ E&M 12:00:00 AM EDT [facility] 10/26/2019 [place]) 12:00:00 AM EDT OFFICE/OUTPATIENT VISIT, 10/26/2019 NEX TGEN ([facility] EST 12:00:00 AM EDT [facility] 10/26/2019 [place]) 12:00:00 AM EDT Individual Psychotherapy 10/12/2019 NEX TGEN ([facility] (30 Min) 12:00:00 AM EDT [facility] 10/12/2019 [place]) 12:00:00 AM EDT OFFICE/OUTPATIENT VISIT, 09/28/2019 NEX TGEN ([facility] EST 12:00:00 AM EST [facility] 09/28/2019 [place]) 12:00:00 AM EST Individual Psychotherapy 09/28/2019 NEX TGEN ([facility] (30 Min) 12:00:00 AM EST [facility] 09/28/2019 [place]) 12:00:00 AM EST Individual Psychotherapy 09/13/2019 NEX TGEN ([facility] (45 Min) 12:00:00 AM EST [facility] 09/13/2019 [place]) 12:00:00 AM EST OFFICE/OUTPATIENT VISIT, 08/31/2019 NEX TGEN ([facility] EST 12:00:00 AM EST [facility] 08/31/2019 [place]) 12:00:00 AM EST Individual Psychotherapy 08/31/2019 NEX TGEN ([facility] (30 Min) 12:00:00 AM EST [facility] 08/31/2019 [place]) 12:00:00 AM EST Individual Psychotherapy 08/13/2019 NEX TGEN ([facility] (30 Min) 12:00:00 AM EST [facility] 08/13/2019 [place]) 12:00:00 AM EST Individual Psychotherapy 07/13/2019 NEX TGEN ([facility] (30 Min) 12:00:00 AM EST [facility] 07/13/2019 [place]) 12:00:00 AM EST Psychotherapy (30 Mins) 06/29/2019 NEXT GEN ([facility] W/ E&M 12:00:00 AM EST [facility] 06/29/2019 [place]) 12:00:00 AM EST OFFICE/OUTPATIENT VISIT, 06/29/2019 NEX TGEN ([facility] EST 12:00:00 AM EST [facility] 06/29/2019 [place]) 12:00:00 AM EST Individual Psychotherapy 06/29/2019 NEX TGEN ([facility] (30 Min) 12:00:00 AM EST [facility] 06/29/2019 [place]) 12:00:00 AM EST Individual Psychotherapy 06/02/2019 NEX TGEN ([facility] (30 Min) 12:00:00 AM EDT [facility] 06/02/2019 [place]) 12:00:00 AM EDT Psychotherapy (30 Mins) 06/02/2019 NEXT GEN ([facility] W/ E&M 12:00:00 AM EDT [facility] 06/02/2019 [place]) 12:00:00 AM EDT OFFICE/OUTPATIENT VISIT, 06/02/2019 NEX TGEN ([facility] EST 12:00:00 AM EDT [facility] 06/02/2019 [place]) 12:00:00 AM EDT Individual Psychotherapy 05/21/2019 NEX TGEN ([facility] (30 Min) 12:00:00 AM EDT [facility] 05/21/2019 [place]) 12:00:00 AM EDT Individual Psychotherapy 05/07/2019 NEX TGEN ([facility] (30 Min) 12:00:00 AM EDT [facility] 05/07/2019 [place]) 12:00:00 AM EDT Psychotherapy (30 Mins) 05/05/2019 NEXT GEN ([facility] W/ E&M 12:00:00 AM EDT [facility] 05/05/2019 [place]) 12:00:00 AM EDT OFFICE/OUTPATIENT VISIT, 05/05/2019 NEX TGEN ([facility] EST 12:00:00 AM EDT [facility] 05/05/2019 [place]) 12:00:00 AM EDT Individual Psychotherapy 04/29/2019 NEX TGEN ([facility] (30 Min) 12:00:00 AM EDT [facility] - 04/29/2019 [place]) 12:00:00 AM EDT Individual Psychotherapy 04/16/2019 NEX TGEN ([facility] (30 Min) 12:00:00 AM EDT [facility] - 04/16/2019 [place]) 12:00:00 AM EDT Psychotherapy (30 Mins) 04/06/2019 NEXT GEN ([facility] W/ E&M 12:00:00 AM EDT [facility] - 04/06/2019 [place]) 12:00:00 AM EDT OFFICE/OUTPATIENT VISIT, 04/06/2019 NEX TGEN ([facility] EST 12:00:00 AM EDT [facility] 04/06/2019 [place]) 12:00:00 AM EDT OFFICE/OUTPATIENT VISIT, 03/24/2019 NEX TGEN ([facility] EST 12:00:00 AM EDT [facility] 03/24/2019 [place]) 12:00:00 AM EDT DEBRIDE NAIL, 6 OR MORE 03/24/2019 NEXT GEN ([facility] 12:00:00 AM EDT [facility] - 03/24/2019 [place]) 12:00:00 AM EDT Individual Psychotherapy 03/11/2019 NEX TGEN ([facility] (30 Min) 12:00:00 AM EDT [facility] - 03/11/2019 [place]) 12:00:00 AM EDT Psychotherapy (30 Mins) 03/09/2019 NEXT GEN ([facility] W/ E&M 12:00:00 AM EDT [facility] 03/09/2019 [place]) 12:00:00 AM EDT OFFICE/OUTPATIENT VISIT, 03/09/2019 NEX TGEN ([facility] EST 12:00:00 AM EDT [facility] - 03/09/2019 [place]) 12:00:00 AM EDT Individual Psychotherapy 02/19/2019 NEX TGEN ([facility] (45 Min) 12:00:00 AM EDT [facility] - 02/19/2019 [place]) 12:00:00 AM EDT Psychotherapy (30 Mins) 02/08/2019 NEXT GEN ([facility] W/ E&M 12:00:00 AM EDT [facility] 02/08/2019 [place]) 12:00:00 AM EDT OFFICE/OUTPATIENT VISIT, 02/08/2019 NEX TGEN ([facility] EST 12:00:00 AM EDT [facility] - 02/08/2019 [place]) 12:00:00 AM EDT Individual Psychotherapy 01/22/2019 NEX TGEN ([facility] (30 Min) 12:00:00 AM EDT [facility] 01/22/2019 [place]) 12:00:00 AM EDT Individual Psychotherapy 01/08/2019 NEX TGEN ([facility] (30 Min) 12:00:00 AM EDT [facility] 01/08/2019 [place]) 12:00:00 AM EDT Psychotherapy (30 Mins) 01/08/2019 NEXT GEN ([facility] W/ E&M 12:00:00 AM EDT [facility] 01/08/2019 [place]) 12:00:00 AM EDT OFFICE/OUTPATIENT VISIT, 01/08/2019 NEX TGEN ([facility] EST 12:00:00 AM EDT [facility] 01/08/2019 [place]) 12:00:00 AM EDT Individual Psychotherapy 12/25/2018 NEX TGEN ([facility] (30 Min) 12:00:00 AM EDT [facility] 12/25/2018 [place]) 12:00:00 AM EDT Individual Psychotherapy 12/18/2018 NEX TGEN ([facility] (30 Min) 12:00:00 AM EDT [facility] 12/18/2018 [place]) 12:00:00 AM EDT OFFICE/OUTPATIENT VISIT, 12/17/2018 NEX TGEN ([facility] EST 12:00:00 AM EDT [facility] 12/17/2018 [place]) 12:00:00 AM EDT Psychotherapy (30 Mins) 12/11/2018 NEXT GEN ([facility] W/ E&M 12:00:00 AM EDT [facility] 12/11/2018 [place]) 12:00:00 AM EDT OFFICE/OUTPATIENT VISIT, 12/11/2018 NEX TGEN ([facility] EST 12:00:00 AM EDT [facility] 12/11/2018 [place]) 12:00:00 AM EDT Individual Psychotherapy 12/11/2018 NEX TGEN ([facility] (30 Min) 12:00:00 AM EDT [facility] 12/11/2018 [place]) 12:00:00 AM EDT OFFICE/OUTPATIENT VISIT, 12/09/2018 NEX TGEN ([facility] EST 12:00:00 AM EDT [facility] - 12/09/2018 [facility]) 12:00:00 AM EDT Individual Psychotherapy 12/01/2018 NEX TGEN ([facility] (30 Min) 12:00:00 AM EDT [facility] - 12/01/2018 [facility]) 12:00:00 AM EDT Individual Psychotherapy 11/26/2018 NEX TGEN ([facility] (45 Min) 12:00:00 AM EDT [facility] 11/26/2018 [place]) 12:00:00 AM EDT Psychotherapy (30 Mins) 11/13/2018 NEXT GEN ([facility] W/ E&M 12:00:00 AM EDT [facility] 11/13/2018 [place]) 12:00:00 AM EDT OFFICE/OUTPATIENT VISIT, 11/13/2018 NEX TGEN ([facility] EST 12:00:00 AM EDT [facility] 11/13/2018 [place]) 12:00:00 AM EDT Individual Psychotherapy 11/02/2018 NEX TGEN ([facility] (30 Min) 12:00:00 AM EDT [facility] - 11/02/2018 [facility]) 12:00:00 AM EDT Psychotherapy (30 Mins) 2018 NEXT GEN ([facility] W/ E&M 12:00:00 AM EDT [facility] 2018 [place]) 12:00:00 AM EDT OFFICE/OUTPATIENT VISIT, 2018 NEX TGEN ([facility] EST 12:00:00 AM EDT [facility] 2018 [place]) 12:00:00 AM EDT Individual Psychotherapy 08/28/2018 NEX TGEN ([facility] (30 Min) 12:00:00 AM EST [facility] - 08/28/2018 [facility]) 12:00:00 AM EST Individual Psychotherapy 08/14/2018 NEX TGEN ([facility] (45 Min) 12:00:00 AM EST [facility] - 08/14/2018 [place]) 12:00:00 AM EST Individual Psychotherapy 07/17/2018 NEX TGEN ([facility] (30 Min) 12:00:00 AM EST [facility] - 07/17/2018 [place]) 12:00:00 AM EST Individual Psychotherapy 07/03/2018 NEX TGEN ([facility] (45 Min) 12:00:00 AM EST [facility] 07/03/2018 [facility]) 12:00:00 AM EST Results ID Date Data Source [id number] 03/13/2020 01:00:00 PM EDT [facility] Name Value Range Interpretation Description Data Sup porting Code Source(s) Document(s ) SARS [facility] coronavirus 2 RNA This lab was ordered by [facility] and reported by [facility]. ID Date Data Source [id number] 01/27/2020 12:00:00 AM EDT [facility] Name Value Range Interpretation Code Description Data Jessie rce(s) Supporting Document(s ) 2019-nCoV [facility] RNA XXX HILL+probe- Imp This lab was ordered by [facility] and reported by [facility]. ID Date Data Source [id number] 01/12/2019 03:44:[address] [facility] [address] Name Value Range Interpretation Code Description Data Jessie rce(s) Supporting Document(s ) UNK <item><content [facility] styleCode="Bold"> Medical [facility] er Culture Report </content>
<t able><tbody><tr>< td>Specimen Number:</td><td>[id number]</td></tr ><tr><td>Sample Collection Date/Time: </td><td> 9 3:44 PM</td></tr><tr>< td>Specimen Source:</td><td>U RINE</td></tr><tr ><td>Urine Culture:</td><td> Collection Plate Date: 01/12/2019 17:46 </td></tr><tr><td >Culture Status:</td><td>F inal </td></tr><tr><td >Culture Report:</td><td>N O FURTHER WORKUP </td></tr><tr><td >Organism 1:</td><td>YEAST </td></tr></tbody ></table>
<ta ble border="2"><tbody ><tr><td></td><td >1</td></tr><tr>< td>Comment</td><t d></td></tr><tr>< td>Result Value</td><td>YEA ST </td></tr><tr><td >Result Status</td><td>Fi nal Result</td></tr>< tr><td></td><td>< /td></tr></tbody> </table></item> UNK <item><content [facility] styleCode="Bold"> Medical Cent er Culture Status </content>
<t able><tbody><tr>< td>Specimen Number:</td><td>[id number]</td></tr ><tr><td>Sample Collection Date/Time: </td><td> 9 3:44 PM</td></tr><tr>< td>Specimen Source:</td><td>U RINE</td></tr><tr ><td>Culture Status:</td><td>F inal </td></tr><tr><td >Culture Report:</td><td>N O FURTHER WORKUP </td></tr><tr><td >Urine Culture:</td><td> Collection Plate Date: 01/12/2019 17:46 </td></tr><tr><td >Organism 1:</td><td>YEAST </td></tr></tbody ></table>
<ta ble border="2"><tbody ><tr><td></td><td >1</td></tr><tr>< td>Comment</td><t d></td></tr><tr>< td>Result Value</td><td>YEA ST </td></tr><tr><td >Result Status</td><td>Fi nal Result</td></tr>< tr><td></td><td>< /td></tr></tbody> </table></item> Procedure Social History Code Duration Value Status Description Data Source(s ) Caffeine Use 05/03/2020 completed [facility] ([facility] Details 12:00:00 AM EDT [facility]) Smoking 05/03/2020 Unknown if completed Unknown if ever [facility]EXTGEN ( [facility] 12:00:00 AM EDT ever smoked smoked [facility]) Caffeine Use 02/15/2020 completed NEXTGEN ([facility] Details 12:00:00 AM EDT [facility]) Alcohol Use completed NEXTGEN ([facility]) Smoking Unknown if completed Unknown if ever [facility] ever smoked smoked [facility] Vital Signs ID Date Data Source UNK Name Value Range Interpretation Code Description Data Source(s) Body surface area 2.22 m2 2.22 m2 [facility]EXTGEN ([facility] Derived from [facility]) Body mass index 37.80 kg/m2 Overweight 37.80 kg/m2 [facility] ([facility] (BMI) [Ratio] [facility]) [facility] rate 20 /min 20 /[facility] Body temperature 37.17 Nisreen 37.17 Nisreen [facility] ([facility]) Heart rate 69 /min 69 /min [facility] ([facility]) Diastolic blood 87 mm[Hg] 87 mm[Hg] [facility]) Systolic blood 130 mm[Hg] 130 mm[Hg] [facility] Body weight 106.231 kg 106.231 kg [facility] ([facility]) Body height 167.64 cm 167.64 cm [facility] ([facility]) Respiratory rate 20 /min 20 /min [facility] ([facility]) Body temperature 36.28 Nisreen 36.28 Nisreen [facility] ([facility]) Heart rate 91 /min 91 /min [facility] ([facility]) Diastolic blood 102 mm[Hg] 102 mm[Hg] [facility]) Systolic blood 152 mm[Hg] 152 mm[Hg] [facility]EXT[facility] (S aint pressure [facility]) Body height 167.64 cm 167.64 cm [facility] ([facility]) Oxygen saturation 96 % 96 % NEXTGEN ([facility] in Arterial blood [facility] by Pulse oximetry Center) Body mass index 37.12 kg/m2 Overweight 37.12 kg/m2 NEXTGEN ([facility] (BMI) [Ratio] [facility] Respiratory rate 18 /min 18 /min [facility] ([facility]) Body temperature 37.33 Nisreen 37.33 Nisreen [facility] ([facility]) Heart rate 66 /min 66 /min [facility] Diastolic blood 75 mm[Hg] 75 mm[Hg] [facility] ( [facility] pressure [facility]) Systolic blood 129 mm[Hg] 129 mm[Hg] [facility] Body weight 104.326 kg 104.326 kg [facility] Body height 167.64 cm 167.64 cm [facility] ([facility]) Patient Treatment Plan of Care Planned Activity Planned Date Details Description Data Source (s) Clonazepam 0.5 MG Oral 04/13/2020 12:00:00 [facility] ([facility] Tablet [Klonopin] [facility]) Trazodone Hydrochloride 04/13/2020 12:00:00 [facility] ([facility] 150 MG Oral Tablet [facility]) Zolpidem tartrate 10 MG 04/13/2020 12:00[facility] Oral Tablet [Ambien] [facility]) Diazepam 5 MG Oral Tablet 04/13/2020 12:00:00 [facility] ([facility] [Valium] [facility]) Diazepam 5 MG Oral Tablet 03/14/2020 12:00:00 [facility] ([facility] [Valium] [facility]) Trazodone Hydrochloride 03/14/2020 12:00:00 [facility] ([facility] 150 MG Oral Tablet [facility]) Zolpidem tartrate 10 MG 03/14/2020 12:00:00 [facility] Oral Tablet [Ambien] [facility]) Diazepam 5 MG Oral Tablet 03/14/2020 12:00:00 [facility] ([facility] [Valium] [facility]) Zolpidem tartrate 10 MG 02/17/2020 12:00:00 [facility] ([facility] Oral Tablet [Ambien] [facility]) Trazodone Hydrochloride 02/17/2020 12:00:00 [facility] ([facility] 150 MG Oral Tablet AM [facility]) Diazepam 5 MG Oral Tablet 02/17/2020 12:00:00 [facility]EXT[facility] ([facility] [Valium] [facility]) Zolpidem tartrate 10 MG 02/15/2020 12:00:00 [facility] ([facility] Oral Tablet [Ambien] [facility]) Diazepam 5 MG Oral Tablet 02/15/2020 12:00:00 [facility]EXT[facility] ([facility] [Valium] [facility]) Trazodone Hydrochloride 02/15/2020 12:00:00 [facility] ([facility] 150 MG Oral Tablet [facility]) Trazodone Hydrochloride 01/18/2020 12:00:00 [facility] ([facility] 150 MG Oral Tablet [facility]) Zolpidem tartrate 10 MG 01/18/2020 12:00:00 [facility] ([facility] Oral Tablet [Ambien] [facility]) Diazepam 5 MG Oral Tablet 01/18/2020 12:00:00 [facility]EXT[facility] ([facility] [Valium] [facility]) Trazodone Hydrochloride 12/21/2019 12:00:00 [facility]EXT[facility] ([facility] 150 MG Oral Tablet [facility]) Zolpidem tartrate 10 MG 12/21/2019 12:00:00 [facility] ([facility] Oral Tablet [Ambien] [facility]) Clonazepam 0.5 MG Oral 12/21/2019 12:00:00 [facility] ([facility] Tablet [Klonopin] [facility]) Zolpidem tartrate 10 MG 11/23/2019 12:00:00 [facility]EXT[facility] ([facility] Oral Tablet [Ambien] [facility]) Clonazepam 0.5 MG Oral 11/23/2019 12:00:00 [facility] ([facility] Tablet [Klonopin] AM [facility]) Trazodone Hydrochloride 11/23/2019 12:00:00 [facility] ([facility] 150 MG Oral Tablet AM [facility]) Trazodone Hydrochloride 10/26/2019 12:00:00 [facility] ([facility] 150 MG Oral Tablet AM [facility]) Clonazepam 0.5 MG Oral 10/26/2019 12:00:00 [facility]EXT[facility] ([facility] Tablet [Klonopin] AM [facility]) Zolpidem tartrate 10 MG 10/26/2019 12:00:00 [facility]EXT[facility] ([facility] Oral Tablet [Ambien] [facility]) Trazodone Hydrochloride 09/28/2019 12:00:00 [facility]EXT[facility] ([facility] 150 MG Oral Tablet [facility]) Zolpidem tartrate 10 MG 09/28/2019 12:00:00 [facility]EXT[facility] ([facility] Oral Tablet [Ambien] [facility]) Clonazepam 0.5 MG Oral 09/28/2019 12:00:00 [facility]EXT[facility] ([facility] Tablet [Klonopin] AM [facility]) Clonazepam 0.5 MG Oral 08/31/2019 12:00:00 [facility]EXT[facility] ([facility] Tablet [Klonopin] AM [facility]) Zolpidem tartrate 10 MG 08/31/2019 12:00:00 [facility]EXT[facility] ([facility] Oral Tablet [Ambien] [facility]) Trazodone Hydrochloride 08/31/2019 12:00:00 [facility]EXT[facility] ([facility] 150 MG Oral Tablet AM [facility]) Clonazepam 0.5 MG Oral 08/06/2019 12:00:00 NEXTGEN ([facility] Tablet [Klonopin] AM [facility]) Zolpidem tartrate 10 MG 08/06/2019 12:00:00 NEXTGEN ([facility] Oral Tablet [Ambien] [facility]) Trazodone Hydrochloride 08/06/2019 12:00:00 NEXT[facility] ([facility] 150 MG Oral Tablet AM [facility]) Zolpidem tartrate 10 MG 06/29/2019 12:00:00 [facility]EXT[facility] ([facility] Oral Tablet [Ambien] [facility]) Clonazepam 0.5 MG Oral 06/29/2019 12:00:00 NEXTGEN ([facility] Tablet [Klonopin] AM [facility]) Trazodone Hydrochloride 06/29/2019 12:00:00 NEXTGEN ([facility] 150 MG Oral Tablet AM [facility]) Trazodone Hydrochloride 06/02/2019 12:00:00 [facility]EXT[facility] ([facility] 150 MG Oral Tablet AM [facility]) Zolpidem tartrate 10 MG 06/02/2019 12:00:00 [facility]EXT[facility] ([facility] Oral Tablet [Ambien] AM [facility]) Clonazepam 0.5 MG Oral 06/02/2019 12:00:00 [facility]EXT[facility] ([facility] Tablet [Klonopin] AM [facility]) Clonazepam 0.5 MG Oral 06/02/2019 12:00:00 NEXT[facility] ([facility] Tablet [Klonopin] [facility]) Clonazepam 0.5 MG Oral 05/05/2019 12:00:00 [facility]EXT[facility] ([facility] Tablet [Klonopin] AM [facility]) Zolpidem tartrate 10 MG 05/05/2019 12:00:00 [facility]EXT[facility] ([facility] Oral Tablet [Ambien] [facility]) Trazodone Hydrochloride 05/05/2019 12:00:00 [facility]EXT[facility] ([facility] 150 MG Oral Tablet AM [facility]) aripiprazole 10 MG Oral 05/05/2019 12:00:00 [facility]EXT[facility] (Saint Tablet [Abilify] AM [facility]) Trazodone Hydrochloride 04/06/2019 12:00:00 [facility]EXT[facility] ([facility] 150 MG Oral Tablet AM [facility]) Clonazepam 0.5 MG Oral 04/06/2019 12:00:00 [facility]EXT[facility] ([facility] Tablet [Klonopin] AM [facility]) Zolpidem tartrate 10 MG 04/06/2019 12:00:00 [facility]EXT[facility] ([facility] Oral Tablet [Ambien] [facility]) aripiprazole 10 MG Oral 04/06/2019 12:00:00 [facility]EXT[facility] ([facility] Tablet [Abilify] AM [facility]) Diclofenac Sodium 0.01 03/24/2019 12:00:00 [facility]EXT[facility] (Saint MG/MG Topical Gel AM [facility] dical [Voltaren] [place]) Clotrimazole 10 MG/ML 03/24/2019 12:00:00 [facility]EXTGEN ([facility] Topical Cream AM [facility]) Clotrimazole 10 MG/ML 03/24/2019 12:00:00 NEXTGEN ([facility] Topical Solution AM [facility]) Trazodone Hydrochloride 03/09/2019 12:00:00 [facility]EXT[facility] ([facility] 150 MG Oral Tablet AM [facility]) Clonazepam 0.5 MG Oral 03/09/2019 12:00:00 NEXTGEN ([facility] Tablet [Klonopin] AM [facility]) Zolpidem tartrate 10 MG 03/09/2019 12:00:00 [facility]EXT[facility] ([facility] Oral Tablet [Ambien] [facility]) aripiprazole 10 MG Oral 03/09/2019 12:00:00 NEXTGEN ([facility] Tablet [Abilify] AM [facility]) aripiprazole 10 MG Oral 02/08/2019 12:00:00 NEXTGEN ([facility] Tablet [Abilify] [facility]) Zolpidem tartrate 10 MG 02/08/2019 12:00:00 NEXTGEN ([facility] Oral Tablet [Ambien] [facility]) Clonazepam 0.5 MG Oral 02/08/2019 12:00:00 NEXTGEN ([facility] Tablet [Klonopin] AM [facility]) Trazodone Hydrochloride 02/08/2019 12:00:00 NEXTGEN ([facility] 150 MG Oral Tablet AM [facility]) Trazodone Hydrochloride 01/08/2019 12:00:00 NEXTGEN ([facility] 150 MG Oral Tablet AM [facility]) Clonazepam 0.5 MG Oral 01/08/2019 12:00:00 NEXTGEN ([facility] Tablet [Klonopin] AM [facility]) Zolpidem tartrate 10 MG 01/08/2019 12:00:00 NEXTGEN ([facility] Oral Tablet [Ambien] [facility]) aripiprazole 10 MG Oral 01/08/2019 12:00:00 NEXTGEN ([facility] Tablet [Abilify] [facility]) Zolpidem tartrate 10 MG 12/11/2018 12:00:00 NEXTGEN ([facility] Oral Tablet [Ambien] [facility]) Clonazepam 0.5 MG Oral 12/11/2018 12:00:00 NEXTGEN ([facility] Tablet [Klonopin] [facility]) Trazodone Hydrochloride 12/11/2018 12:00:00 NEXTGEN ([facility] 150 MG Oral Tablet [facility]) aripiprazole 10 MG Oral 12/11/2018 12:00:00 NEXTGEN ([facility] Tablet [Abilify] [facility]) Clotrimazole 10 MG/ML 12/09/2018 12:00:00 NEXTGEN ([facility] Topical Solution [facility]) Clotrimazole 10 MG/ML 12/09/2018 12:00:00 NEXTGEN ([facility] Topical Solution [facility]) Clotrimazole 10 MG/ML 12/09/2018 12:00:00 NEXTGEN ([facility] Topical Solution [facility]) aripiprazole 10 MG Oral 11/13/2018 12:00:00 NEXTGEN ([facility] Tablet [Abilify] [facility]) Clonazepam 0.5 MG Oral 11/13/2018 12:00:00 NEXTGEN ([facility] Tablet [Klonopin] [facility]) Zolpidem tartrate 10 MG 11/13/2018 12:00:00 NEXTGEN ([facility] Oral Tablet [Ambien] [facility]) Trazodone Hydrochloride 11/13/2018 12:00:00 NEXTGEN ([facility] 150 MG Oral Tablet [facility]) Furosemide 40 MG Oral 2018 12:00:00 NEXTGEN ([facility] Tablet [Lasix] [facility]) lubiprostone 0.024 MG 2018 12:00:00 NEXTGEN ([facility] Oral Capsule [Amitiza] [facility]) Lisinopril 10 MG Oral 2018 12:00:00 NEXTGEN ([facility] Tablet AM [facility]) Levothyroxine Sodium 2018 12:00:00 NEXTGEN ([facility] 0.075 MG Oral Tablet [facility] [Synthroid[facility]) aripiprazole 10 MG Oral 2018 12:00:00 NEXTGEN ([facility] Tablet [Abilify] [facility] [place]) Clonazepam 0.5 MG Oral 2018 12:00:00 NEXTGEN ([facility]Klonopin] [facility] Zolpidem tartrate 10 MG 2018 12:00:00 NEXTGEN ([facility] Oral Tablet [Ambien] [facility]) Trazodone Hydrochloride 2018 12:00:00 NEXTGEN ([facility] 150 MG Oral Tablet [facility])
--- OUTSIDE RECORDS SUMMARY | 2020-05-16 05:34 | XMS ---
:1965 Author Organization [facility] Care Team Providers Name Role Phone Elinqui VENEER PRESS OPERATOR-R Unavailable Unavailable Abhi Unavailable [phone] NELDA MCKEON Unavailable Unavailable Lois BRIDGE MAINTENANCE WORKER, BRIDGE MAINTENANCE WORKER Unavailable [phone] Lois BRIDGE MAINTENANCE WORKER, BRIDGE MAINTENANCE WORKER Unavailable [phone] BAPTISM, HUMAYUN Unavailable Unavailable Dargaston Unavailable [phone] SHANTANU CARMINE Unavailable Unavailable JILLIAN HERNANDEZ Unavailable Unavailable Auricchio, Prashant DPM Unavailable Unavailable Auricchio, Prashant DPM Unavailable Unavailable Auricchio, Prashant DPM Unavailable Unavailable Shantanu MD Unavailable Unavailable Shantanu Unavailable Unavailable Jennifer-Hutchison Unavailable [phone] Jennifer-Hutchison Unavailable [phone] Nelda Unavailable [phone] Nelda Unavailable [phone] [facility] Unavailable Unavailable MARITA MACIEL Unavailable Unavailable Re-disclosure Warning The records that you are [...] is protected by Article 27-F of the [facility] Public Health law. If you continue you may haveaccess to information: Regarding HIV / AIDS; Provided by facilities licensed or operated by the [facility] Office of Mental Health; or Provided by the [facility] Office for People With Developmental Disabilities. If such information is present, then the following [facility] mandated warning applies: This information has [...] law may result in a fine or penitentiary sentence or both. A general authorization for the release of medical or other information is NOT sufficient authorization for further disclosure. Encounters Encounter Providers Location Date Indications Data Source(s ) Outpatient Attender: CARMINE Carroll 05/10/2020 [facility] SHEARERTA ARNABAdmitter: 10:05:00 AM [facility] CARMINE SHANTANU ANAYAAB EDT Outpatient Attender: PMH9 05/08/2020 [facility] ([facility] 03:38:47 PM Care [facility] mary ellen) EDT Patient admitted. Individual Attender: [facility] 05/04/2020 MORENO Hyde ([facility] 05:22:00 PM EDT - Ronald Aguilar) 05/04/2020 Medical 05:22:00 PM EDT Center) Outpatient Attender: CARMINE Carroll 05/04/2020 [facility] SHANTANU 10:05:00 AM EDT Medical C enter ARNABAdmitter: CARMINE LOU Attender: Mental Health 05/03/2020 [facility] ([facility] 01:19:00 PM EDT - Ronald Liao-Isamar 05/03/2020 Medical VENEER PRESS OPERATOR-R 01:19:00 PM EDT Center) Individual Attender: [facility] 04/20/2020 [facility] ([facility] ([facility] 03:17:00 PM EDT - Ronald Min) 04/20/2020 Medical 03:17:00 PM EDT Center) OutpatientOFFICE/OUTP Attender: [facility] 04/13/2020 [facility] ([facility] ATIENT VISIT, TERRY Reeder MD Clinic 04:00:00 PM EDT - Ronald 04/13/2020 Medical 04:00:00 PM EDT Center) Individual Attender: [facility] 04/05/2020 [facility] N ([facility] ([facility] 01:51:00 PM EDT - Ronald Min) 04/05/2020 Medical 01:51:00 PM EDT Center) Individual Attender: [facility] 03/22/2020 [facility] N ([facility] ([facility] 01:40:00 PM EDT - [facility] Min) 03/22/2020 Medical 01:40:00 PM EDT Center) OutpatientOFFICE/OUTP Attender: [facility] 03/14/2020 [facility] ([facility] ATIENT VISIT, TERRY Reeder MD Clinic 04:44:00 PM EDT - Ronald 03/14/2020 Medical 04:44:00 PM EDT Center) Individual Attender: [facility] 03/08/2020 [facility] N ([facility] ([facility] 01:53:00 PM EDT - [facility] Min) 03/08/2020 Medical 01:53:00 PM EDT Center) Outpatient Attender: PMH9 03/04/2020 [facility] ([facility] 11:24:36 AM EDT [facility]) Patient admitted. Attender: [facility] 02/21/2020 [facility] 10:43:00 AM EDT ([facility] 02/21/2020 [facility] 10:43:00 AM EDT Medical Center) Attender: [facility] 02/17/2020 [facility] N Shantanu AHUJA Clinic 11:00:00 AM EDT ([facility] 02/17/2020 [facility] 11:00:00 AM EDT Medical Center) OutpatientOFFICE/OUT Attender: [facility] 02/15/2020 [facility] PATIENT VISIT, TERRY Reeder MD Clinic 04:09:00 PM EDT ( [facility] 02/15/2020 [facility] 04:09:00 PM EDT Medical Center) Attender: [facility] 02/15/2020 [facility] N Shantanu AHUJA Clinic 04:09:00 PM EDT ([facility] 02/15/2020 [facility] 04:09:00 PM EDT Medical Center) Individual Attender: [facility] 02/07/2020 [facility] N Psychotherapy (30 [facility] 01:52:00 PM EDT ( [facility]) - 02/07/2020 [facility] 01:52:00 PM EDT Medical Center) Individual Attender: [facility] 01/24/2020 [facility] N Psychotherapy ([facility] 12:43:00 PM EDT ( [facility]) - 01/24/2020 [facility] 12:43:00 PM EDT Medical Center) Individual Attender: [facility] 01/18/2020 [facility] N Psychotherapy (30 [facility] 12:54:00 PM EDT ( [facility]) - 01/18/2020 [facility] 12:54:00 PM EDT Medical Center) OutpatientOFFICE/OUT Attender: [facility] 01/18/2020 [facility] PATIENT VISIT, TERRY Reeder MD Clinic 10:58:00 AM EDT ( [facility] 01/18/2020 [facility] 10:58:00 AM EDT Medical Center) OutpatientOFFICE/OUT Attender: [facility] 12/21/2019 [facility] PATIENT VISIT, TERRY Reeder MD Directions 03:41:00 PM EDT ( [facility] 12/21/2019 [facility] 03:41:00 PM EDT Medical Center) Individual Attender: [facility] 12/21/2019 [facility] N Psychotherapy ([facility] 02:51:00 PM EDT ( [facility]) - 12/21/2019 [facility] 02:51:00 PM EDT Medical Center) Individual Attender: [facility] 12/07/2019 [facility] N Psychotherapy ([facility] 12:14:00 PM EDT ( [facility]) - 12/07/2019 [facility] 12:14:00 PM EDT Medical Center) Attender: [facility] 11/23/2019 [facility] 11:24:00 AM EDT ([facility] - 11/23/2019 Ronald 11:24:00 AM EDT Medical Center) Individual Attender: [facility] 11/23/2019 [facility] N Psychotherapy (30 [facility] 10:41:00 AM EDT ( [facility] Min) - 11/23/2019 Ronald 10:41:00 AM EDT Medical Center) Individual Attender: [facility] 11/16/2019 [facility] N Psychotherapy ([facility] 12:37:00 PM EDT ( [facility]) - 11/16/2019 [facility] 12:37:00 PM EDT Medical Center) Individual Attender: [facility] 11/02/2019 [facility] N Psychotherapy (30 [facility] 10:04:00 AM EDT ( [facility]) - 11/02/2019 [facility] 10:04:00 AM EDT Medical Center) Attender: Mental Health 10/26/2019 [facility] 02:18:00 PM EDT ([facility] - 10/26/2019 [facility] 02:18:00 PM EDT Medical Center) OutpatientOFFICE/OUT Attender: AILEEN Walls [facility] 10/26/2019 [facility] PATIENT VISIT, TERRY Abreu NPAttender: Clinic 11:25:00 AM EDT ([facility] - 10/26/2019 [facility] 11:25:00 AM EDT Medical Center) Individual Attender: [facility] 10/26/2019 [facility] N Psychotherapy (30 [facility] 11:01:00 AM EDT ( [facility]) - 10/26/2019 [facility] 11:01:00 AM EDT Medical Center) Individual Attender: [facility] 10/12/2019 [facility] N Psychotherapy (30 [facility] 02:03:00 PM EDT ( [facility]) - 10/12/2019 Ronald 02:03:00 PM EDT Medical Center) Individual Attender: [facility] 09/28/2019 [facility] N Psychotherapy ([facility] 12:11:00 PM EST ( [facility]) - 09/28/2019 [facility] 12:11:00 PM EST Medical Center) OutpatientOFFICE/OUT Att[facility] 11:50:00 AM [facility] ( [facility] 09[facility]28/2019 [facility] 11:50:00 AM EST Medical Center) Attender: [facility]el [facility] 09/28/2019 MORENO [facility] 11:41:00 AM EST ([facility] - 09/28/2019 Ronald 11:41:00 AM EST Medical Center) Outpatient Attender: PM9 09/21/2019 [facility] ([facility] 11:51:59 AM EST [facility]) Patient admitted. Individual Attender: [facility] 02:33:00 PM EST [facility]) Clinic - 09/13/2019 [place]) 02:33:00 PM EST Individual Attender: [facility]2019 [facility] ( [facility] (30 [facility] 03:54:00 PM EST [facility] Min) Clinic - 08/31/2019 [place]) 03:54:00 PM EST OutpatientOFFICE/OU Attender: [facility] Mental 08/31/2019 [facility] ([facility] TPATIENT VISIT, EST [facility] 12:14:00 PM EST [facility] - 08/31/2019 [place]) Axel Pickard 12:14:00 PM EST Outpatient Attender: MARITA Carroll 08/14/2019 [facility] MACIELAttender: 02:31:00 PM EST Medic al Center TANIYA DEVRIESdmitter: MARITA MACIEL Attender: Taniya Mental 08/14/2019 [facility] ([facility] 02:31:00 PM EST [facility] - 08/14/2019 [place]) 02:31:00 PM EST Individual Attender: [facility] Mental 08/13/2019 [facility] ( [facility] (30 [facility] 03:17:00 PM EST [facility]) Clinic - 08/13/2019 [place]) 03:17:00 PM EST Outpatient Attender: MARITA Carroll 08/13/2019 [facility] JACOBAdmitter: 02:31:00 PM EST Medic al Center SERGIOER AXEL Attender: Axel Moore 08/06/2019 NEXT[facility] ( [facility] 03:56:00 PM EST Ronald edical Clinic - 08/06/2019 Center) 03:56:00 PM EST Individual Attender: Corey Mental 07/13/2019 [facility] ( [facility] (30 [facility] 02:05:00 PM EST J [facility] Medical Min) Clinic - 07/13/2019 [place]) 02:05:00 PM EST Individual Attender: Corey Mental 06/29/2019 [facility] ( [facility] (30 [facility] 03:22:00 PM EST [facility] Medical Min) Clinic - 06/29/2019 [place]) 03:22:00 PM EST OutpatientOFFICE/OU Attender: Corey Mental 06/29/2019 [facility] ([facility] TPATIENT VISIT, EST [facility] 01:15:00 PM EST [facility] Medical GarciaAttender: Clinic - 06/29/2019 [place]) Axel Pickard 01:15:00 PM EST Attender: Corey Mental 06/18/2019 [facility]EXT[facility] ( [facility] 12:20:00 PM EST [facility] - 06/18/2019 [place]) 12:20:00 PM EST OutpatientOFFICE/OU Attender: Corey Mental 06/02/2019 [facility] ([facility] TPATIENT VISIT, EST [facility] 11:23:00 AM EDT [facility] Medical GarciaAttender: Clinic - 06/02/2019 [place]) Axel Pickard 11:23:00 AM EDT Individual Attender: Corey Mental 06/02/2019 [facility] ( [facility] ([facility] 10:36:00 AM EDT [facility] Medical Min) Clinic - 06/02/2019 [place]) 10:36:00 AM EDT Individual Attender: Corey Mental 05/21/2019 [facility] ( [facility] (30 [facility] 03:10:00 PM EDT J osephs Medical Min) Clinic - 05/21/2019 [place]) 03:10:00 PM EDT Outpatient Attender: 05/17/2019 M79.7 [place] CATHYJADA, 02:19:00 PM EDT ,K59. Coun Health BETHAdmitter: 00,F1 Care Corpor attee AGUILERA, 1.20, HUMAYUNReferrer: JILLIAN HERNANDEZ M79.7,K59.00,F11.20, Outpatient Attender: PM9 [facility] 05/11/2019 02:08:15 PM I ([facility] Patient admitted. Outpatient 05/11/2019 [facility] 10:58:00 AM EDT Medical C enter Outpatient 05/11/2019 [facility] 12:00:00 AM EDT Medical C enter Individual Attender: [facility] 05/07/2019 MORENO N ([facility] ([facility] 03:48:00 PM EDT - Ronald Min) 05/07/2019 Medical 03:48:00 PM EDT Center) OutpatientOFFICE/OUTP Attender: [facility] 05/05/2019 [facility] ([facility] ATIENT VISIT, EST [facility] 11:48:00 AM EDT - [facility] AbhiAttender: 05/05/2019 Medical Axel [place] 11:48:00 AM EDT Center) Outpatient 05/04/2019 [facility] 12:08:00 PM EDT Medical C enter Outpatient 05/04/2019 [facility] 12:00:00 AM EDT Medical C enter Individual Attender: [facility] 04/29/2019 MORENO N ([facility] ([facility] 12:06:00 PM EDT - Ronald Min) 04/29/2019 Medical 12:06:00 PM EDT Center) Individual Attender: [facility] 04/16/2019 MORENO N ([facility] ([facility] 02:31:00 PM EDT - Ronald Min) 04/16/2019 Medical 02:31:00 PM EDT Center) OutpatientOFFICE/OUTP Attender: [facility] 04/06/2019 [facility]IS[facility] ([facility] ATIENT VISIT, EST [facility] 11:04:00 AM EDT - Ronald GarciaAttender: 04/06/2019 Medical Axel Darer 11:04:00 AM EDT Center) Outpatient 03/24/2019 [facility] 04:03:00 PM EDT Medical C enter Outpatient Attender: Ian Carroll 03/24/2019 [facility] 02:27:00 PM EDT Medical C enter DPMAdmitter: Ian Vega DPMReferrer: Ian Vega DPM OutpatientOFFICE/OUTP Attender: [facility] 03/24/2019 [facility] (Saint ATIENT VISIT, EST Jerry Moe 02:27:00 PM EDT - Ronald 03/24/2019 Medical 02:27:00 PM EDT Center) Outpatient 03/24/2019 [facility] 12:00:00 AM EDT Medical C enter Outpatient Attender: MARITA Carroll 08/14/2018 [facility] JACOBAdmitter: 10:05:00 AM EST Medic al [place] MARITA MACIEL Medications Medication Brand Start Product Dose Route Administrative Pharmacy [facility] Indications Reaction Description Data Name Date Form Instructions Instructions Source(s) Zolpidem Ambien .00 ORAL active zolpidem N EXTGEN tartrate 10 10 mg 2020 {tabl tartrate 10 ([facility] MG Oral tablet 12:00: et} MG Oral [facility] Tablet 00 AM Tablet Medical [Ambien] EDT [Ambien] [place]) Ambien 10 mg tablet I stop # [id number] Diazepam 5 Valium 5 04/13/2020 1 {tablet} ORAL completed diazepam 5 [facility] MG Oral mg 12:00:00 AM MG Oral (S aint Tablet tablet EDT Tablet Ronald [Valium] [Valium] Medical Valium 5 mg [place]) tablet Medication administered onsite Clonazepam 0.5 Klonopin [...] tablet [Ambien] [address]) I stop # [id number] Diazepam 5 MG Valium 5 mg 03/14/2020 1 ORAL completed diazepam NEXT[facility] Oral Tablet tablet 12:00:00 AM {tablet} 5 MG Oral (Saint [Valium] Valium EDT Tablet Traci sephs 5 mg tablet [Valium] Medi jian Center) Trazodone trazodone 03/14/2020 1 ORAL completed take [...] sephs 5 mg tablet [Valium] Medi jian [place]) Medication administered onsite Trazodone trazodone 02/17/2020 1 [...] sephs 5 mg tablet [Valium] Medi jian Center) Zolpidem Ambien 10 02/17/2020 1.00 ORAL completed zolpidem NEXTGEN tartrate 10 MG mg tablet 12:00:00 AM {tablet} tartrate (Saint Oral Tablet EDT 10 MG Ronald [Ambien] Ambien Oral Medi jian 10 mg tablet Tablet Cente r) [Ambien] I stop # [id number] Diazepam 5 Valium 5 02/15/2020 1 {tbl} ORAL completed Diazepam 5 [facility]EXT[facility] MG Oral mg tablet 12:00:00 AM MG Or al (Saint Tablet EDT Tablet Ronald [Valium] [Valium] Medical Valium 5 mg [place]) tablet Zolpidem Ambien 10 02/15/2020 1.00 ORAL completed Zolpidem NEXTGEN tartrate 10 mg tablet 12:00:00 AM {tbl} tartrate (Saint MG Oral EDT 10 MG Oral Joe s Tablet Tablet Medical [Ambien] [Ambien] [place]) Ambien 10 mg tablet I stop # [id number] Trazodone trazodone 02/15/2020 1 {tbl} ORAL completed [...] sephs 5 mg tablet [Valium] Medi jian [place]) Zolpidem Ambien 10 01/18/2020 1.00 ORAL completed Zolpidem NEXTGEN tartrate 10 MG mg tablet 12:00:00 AM {tbl} tartrate (Saint Oral Tablet EDT 10 MG Ronald [Ambien] Ambien Oral Medi jian 10 mg tablet Tablet Cente r) [Ambien] I stop # [id number] Trazodone trazodone 01/18/2020 1 {tbl} ORAL completed [...] Tablet Cente r) [Ambien] I stop # [id number] Clonazepam 0.5 Klonopin 12/21/2019 completed Clonazepam NEXT[facility] MG Oral Tablet 0.5 mg 12:00:00 AM 0 .5 MG Oral (Saint [Klonopin] tablet EDT Tablet [facility] Klonopin 0.5 [Klonopin] M edical mg tablet [place]) I stop # [id number] Trazodone trazodone 12/21/2019 1 {tbl} ORAL completed [...] Klonopin 0.5 mg [Klonopin ] Medical tablet [place]) I stop # [id number] Trazodone trazodone 11/23/2019 1 {tbl} ORAL completed [...] Tablet Cente r) [Ambien] I stop # [id number] Trazodone trazodone 10/26/2019 1 {tbl} ORAL completed [...] Klonopin 0.5 mg [Klonopin ] Medical tablet [place]) I stop # [id number] Zolpidem Ambien 10 10/26/2019 1.00 ORAL completed Zolpidem NEXTGEN tartrate 10 mg tablet 12:00:00 AM {tbl} tartrate (Saint MG Oral EDT 10 MG Oral Joe s Tablet Tablet Medical [Ambien] [Ambien] Center) Ambien 10 mg tablet I stop # [id number] Trazodone trazodone 09/28/2019 1 {tbl} ORAL completed [...] Klonopin 0.5 mg [Klonopin ] Medical tablet [place]) I stop # [id number] Zolpidem Ambien 10 09/28/2019 1.00 ORAL completed Zolpidem NEXTGEN tartrate 10 mg tablet 12:00:00 AM {tbl} tartrate (Saint MG Oral EST 10 MG Oral Joe s Tablet Tablet Medical [Ambien] [Ambien] [place]) Ambien 10 mg tablet I stop # [id number] Clonazepam 0.5 Klonopin 08/31/2019 completed Clonazepam NEXTGEN MG Oral Tablet 0.5 mg 12:00:00 AM 0 .5 MG Oral (Saint [Klonopin] tablet EST Tablet [facility] Klonopin 0.5 [Klonopin] M edical mg tablet [place]) I stop # [id number] Zolpidem Ambien 10 08/31/2019 1.00 ORAL completed Zolpidem NEXTGEN tartrate 10 mg tablet 12:00:00 AM {tbl} tartrate (Saint MG Oral EST 10 MG Oral Joe s Tablet Tablet Medical [Ambien] [Ambien] [place]) Ambien 10 mg tablet I stop # [id number] Trazodone trazodone 08/31/2019 1 {tbl} ORAL completed [...] Klonopin 0.5 mg [Klonopin ] Medical tablet [place]) I stop # [id number] Trazodone trazodone 08/06/2019 1 {tbl} ORAL completed [...] Tablet Cente r) [Ambien] I stop # [id number] Clonazepam 0.5 Klonopin 06/29/2019 completed Clonazepam NEXTGEN MG Oral Tablet 0.5 mg 12:00:00 AM 0 .5 MG Oral (Saint [Klonopin] tablet EST Tablet [facility] Klonopin 0.5 [Klonopin] M edical mg tablet Center) I stop # [id number] Trazodone trazodone 06/29/2019 1 {tbl} ORAL completed [...] Tablet Cente r) [Ambien] I stop # [id number] Clonazepam 0.5 Klonopin 06/02/2019 completed Clonazepam NEXTGEN MG Oral Tablet 0.5 mg 12:00:00 AM 0 .5 MG Oral (Saint [Klonopin] tablet EDT Tablet [facility] Klonopin 0.5 [Klonopin] M edical mg tablet Center) I stop # [id number] Trazodone trazodone 06/02/2019 1 {tbl} ORAL completed [...] Klonopin 0.5 mg [Klonopin ] Medical tablet [place]) I stop # [id number] Zolpidem Ambien 10 06/02/2019 1.00 ORAL completed Zolpidem NEXTGEN tartrate 10 mg tablet 12:00:00 AM {tbl} tartrate (Saint MG Oral EDT 10 MG Oral Joe s Tablet Tablet Medical [Ambien] [Ambien] [place]) Ambien 10 mg tablet I stop # [id number] Trazodone trazodone 05/05/2019 1 ORAL completed take 1 tablet NEXTGEN Hydrochloride 150 mg 12:00:00 AM {tbl} b y oral route (Saint 150 MG Oral tablet EDT every Matthew phs Tablet bedtime Medical trazodone 150 [place] ) mg tablet aripiprazole 10 Abilify 10 05/05/2019 1 ORAL completed aripiprazole NEXTGEN MG Oral Tablet mg tablet 12:00:00 AM {tbl} 10 MG Oral (Saint [Abilify] EDT Tablet Ronald Abilify 10 mg [Abilify] M edical tablet [place]) Clonazepam 0.5 Klonopin 05/05/2019 completed Clonazepam NEXTGEN MG Oral Tablet 0.5 mg 12:00:00 AM 0 .5 MG Oral (Saint [Klonopin] tablet EDT Tablet [facility] Klonopin 0.5 mg [Klonopin ] Medical tablet [place]) I stop # [id number] Zolpidem Ambien 10 05/05/2019 1.00 ORAL completed Zolpidem NEXTGEN tartrate 10 mg tablet 12:00:00 AM {tbl} tartrate (Saint MG Oral EDT 10 MG Oral Joe s Tablet Tablet Medical [facility] [Ambien] [place]) Ambien 10 mg tablet I stop # [id number] aripiprazole Abilify 10 04/06/2019 1 {tbl} ORAL completed aripiprazole NEXTGEN 10 MG Oral mg tablet 12:00:00 AM 10 MG Oral (Saint Tablet EDT Tablet Ronald [Abilify] [Abilify] Medic al Abilify 10 mg [place] ) tablet Clonazepam 0.5 Klonopin 04/06/2019 completed Clonazepam NEXTGEN MG Oral Tablet 0.5 mg 12:00:00 AM 0 .5 MG Oral (Saint [Klonopin] tablet EDT Tablet [facility] Klonopin 0.5 [Klonopin] M edical mg tablet Center) I stop # [id number] Trazodone trazodone 04/06/2019 1 {tbl} ORAL completed [...] Tablet Cente r) [Ambien] I stop # [id number] Clotrimazole clotrimazole 1 03/24/2019 TOPICAL active apply by NEXTGEN 10 MG/ML % topical 12:00:00 AM topi jian ([facility] Topical solution EDT route 2 [facility] Solution times every Medi jian clotrimazole 1 day to the [place]) % topical affected and solution surrounding areas [...] y Medical % topical day to the [facility] er) cream affected and surrounding areas of skin in the morning and evening Zolpidem Ambien 10 mg 03/09/2019 1 ORAL completed Zolpidem NEXTGEN tartrate 10 MG tablet 12:00:00 AM . t artrate 10 ([facility] Oral Tablet EDT 0 MG Oral [facility] [Ambien] 0 Tablet Medical Ambien 10 mg { [Ambien] [address]) tablet t b l } I stop # [id number] Clonazepam 0.5 Klonopin 03/09/2019 completed Clonazepam NEXTGEN MG Oral Tablet 0.5 mg 12:00:00 AM 0 .5 MG Oral (Saint [Klonopin] tablet EDT Tablet [facility] Klonopin 0.5 [Klonopin] M edical mg tablet Center) I stop # [id number] aripiprazole Abilify 10 03/09/2019 1 ORAL completed aripiprazole NEXTGEN 10 MG Oral mg tablet 12:00:00 AM {tbl} 1 0 MG Oral (Saint Tablet EDT Tablet Ronald [Abilify] [Abilify] Medic al Abilify 10 mg [place] ) tablet Trazodone trazodone 03/09/2019 1 ORAL completed take 1 tablet NEXTGEN Hydrochloride 150 mg 12:00:00 AM {tbl} b y oral route ([facility] 150 MG Oral tablet EDT every Matthew phs Tablet bedtime Medical trazodone 150 [place] ) mg tablet Clotrimazole clotrimazol 12/09/2018 TOPICAL completed apply by NEXTGEN 10 MG/ML e 1 % 12:00:00 AM topical route ([facility] Topical topical EDT 2 times every Ronald Solution solution day to the M edical clotrimazole 1 affected a nd Center) % topical surrounding solution areas of skin in the morning and evening Insurance Providers Payer name Policy type Policy ID Covered Covered republican's Policy P ness / Coverage republican ID relationship to Cheek Inf ormation type cheek [employer] [id number] SP [id number] 75 MEDICARE [place] MEDIC[place] [id number] SP [id number] 01 [id number] [facility] O [id number] 01 [id number] [employer] W [id number] [employer] O [id number] 01 [id number] [employer] O [id number] 01 [id number] O [facility] MEDICAID [id number] SP [id number] MEDICAID [id number] SP [id number] [place] MEDICARE [id number] SP [id number] [employer] [id number] SP [id number] MEDICARE O [id number] Medicare [id number] S [id number] A [facility] Medicaid [id number] S [id number] Regular Clinic Visit [place] [id number] S [id number] Medicare Manage Care Problems, Conditions, and Diagnoses Code Display Name Description Problem Type Effective Data Sour ce(s) Dates F33.2 Major depressive MAJOR DEPRESSV Diagnosis 05/10/2020 Ron t Ronald disorder, DISORDER, 10:05:00 AM Medical Chintan r recurrent severe RECURRENT SEVERE EDT without psychotic W/O PSYCH FEATURES features G89.29 Other chronic pain OTHER CHRONIC PAIN Diagnosis 9 [place] 02:19:00 PM [facility] EDT Care Fiksu R10.12 Left upper LEFT UPPER Diagnosis 05/17/2019 [place] quadrant pain QUADRANT PAIN 02:19:00 PM [facility] EDT Care Fiksu K59.03 Drug induced DRUG INDUCED Diagnosis 05/17/2019 [facility] r constipation CONSTIPATION 02:19:00 PM [facility] EDT [facility] Fiksu K63.5 Polyp of colon POLYP OF COLON Diagnosis 05/17/2019 [facility] 02:19:00 PM [facility] EDT Care Fiksu R10.9 Unspecified UNSPECIFIED Diagnosis 05/17/2019 [place] abdominal pain ABDOMINAL PAIN 02:19:00 PM [facility] EDT Care Fiksu R10.13 Epigastric pain EPIGASTRIC PAIN Diagnosis 05/17/2019 [place] 02:19:00 PM [facility] EDT Care Fiksu R10.11 Right upper RIGHT UPPER Diagnosis 05/17/2019 [place] quadrant pain QUADRANT PAIN 02:19:00 [facility] EDT [facility] [employer] F11.20 Opioid dependence, OPIOID DEPENDENCE, Diagnosis 9 [place] uncomplicated UNCOMPLICATED 02:19:00 PM [facility] EDT Care Fiksu K59.00 Constipation, CONSTIPATION, Diagnosis 05/17/2019 [facility] unspecified UNSPECIFIED 02:19:00 PM [facility] EDT Care Fiksu M79.7 Fibromyalgia FIBROMYALGIA Diagnosis 05/17/2019 [facility] r 02:19:00 PM [facility] EDT Care Fiksu B35.1 Tinea unguium TINEA UNGUIUM Diagnosis 03/24/2019 [facility] EDT M79.671 Pain in right foot PAIN IN RIGHT FOOT Diagnosis 9 [facility] 02:27:00 [facility] EDT M25.572 Pain in left ankle PAIN IN LEFT ANKLE Diagnosis 9 [facility] and joints of left AND JOINTS OF LEFT 02:27:00 PM [facility] Center foot FOOT EDT M25.571 Pain in right PAIN IN RIGHT Diagnosis 03/24/2019 [facility] ankle and joints ANKLE AND JOINTS 02:27:00 PM [facility] of right foot OF RIGHT FOOT EDT R26.89 Other OTHER Diagnosis 03/24/2019 [facility] abnormalities of ABNORMALITIES OF 02:27:00 PM edical Center gait and mobility GAIT AND MOBILITY EDT M79.7 Fibromyalgia FIBROMYALGIA Diagnosis 03/24/2019 [facility] 02:27:00 PM [facility] EDT B35.3 Tinea pedis TINEA PEDIS Diagnosis 03/24/2019 [facility] 02:27:[facility] EDT 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 03/24/2019 [facility] tendon (acquired), TENDON (ACQUIRED), 02:27:00 PM Medical Center right ankle RIGHT ANKLE EDT 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 Diagnosis 03/24/2019 [facility] tendon (acquired), TENDON (ACQUIRED), 02:27:00 PM Medical Center left ankle LEFT ANKLE EDT M21.42 Flat foot [pes FLAT FOOT (PES Diagnosis 03/24/2019 [facility] planus] PLANUS) 02:27:00 PM [facility] r (acquired), left (ACQUIRED), LEFT EDT foot FOOT M21.41 Flat foot [pes FLAT FOOT (PES Diagnosis 03/24/2019 [facility] planus] PLANUS) 02:27:00 PM [facility] Cent[facility] r (acquired), right (ACQUIRED), RIGHT EDT foot FOOT Surgeries/Procedures Procedure Description Date Indications Data Source(s) Individual Psychotherapy 05/04/2020 NEX TGEN ([facility] (30 Min) 12:00:00 AM EDT [facility] - 05/04/2020 [place]) 12:00:00 AM EDT Individual Psychotherapy 04/20/2020 NEX TGEN ([facility] (30 Min) 12:00:00 AM EDT [facility] 04/20/2020 [place]) 12:00:00 AM EDT Psychotherapy (30 Mins) 04/13/2020 NEXT GEN ([facility] W/ E&M 12:00:00 AM EDT [facility] 04/13/2020 [place]) 12:00:00 AM EDT OFFICE/OUTPATIENT VISIT, 04/13/2020 NEX TGEN ([facility] EST 12:00:00 AM EDT [facility] 04/13/2020 [place]) 12:00:00 AM EDT Individual Psychotherapy 04/05/2020 NEX TGEN ([facility] (30 Min) 12:00:00 AM EDT [facility] - 04/05/2020 [place]) 12:00:00 AM EDT Individual Psychotherapy 03/22/2020 NEX TGEN ([facility] (30 Min) 12:00:00 AM EDT [facility] - 03/22/2020 [place]) 12:00:00 AM EDT Psychotherapy (30 Mins) 03/14/2020 NEXT GEN ([facility] W/ E&M 12:00:00 AM EDT [facility] - 03/14/2020 [place]) 12:00:00 AM EDT OFFICE/OUTPATIENT VISIT, 03/14/2020 NEX TGEN ([facility] EST 12:00:00 AM EDT [facility] 03/14/2020 [place]) 12:00:00 AM EDT Individual Psychotherapy 03/08/2020 NEX TGEN ([facility] (30 Min) 12:00:00 AM EDT [facility] 03/08/2020 [place]) 12:00:00 AM EDT Psychotherapy (30 Mins) 02/15/2020 NEXT GEN ([facility] W/ E&M 12:00:00 AM EDT [facility] - 02/15/2020 [place]) 12:00:00 AM EDT OFFICE/OUTPATIENT VISIT, 02/15/2020 NEX TGEN ([facility] EST 12:00:00 AM EDT [facility] 02/15/2020 [place]) 12:00:00 AM EDT Individual Psychotherapy 02/07/2020 NEX TGEN ([facility] (30 Min) 12:00:00 AM EDT [facility] - 02/07/2020 [place]) 12:00:00 AM EDT Individual Psychotherapy 01/24/2020 NEX TGEN ([facility] (30 Min) 12:00:00 AM EDT [facility] - 01/24/2020 [place]) 12:00:00 AM EDT Psychotherapy (30 Mins) 01/18/2020 NEXT GEN ([facility] W/ E&M 12:00:00 AM EDT [facility] - 01/18/2020 [place]) 12:00:00 AM EDT OFFICE/OUTPATIENT VISIT, 01/18/2020 NEX TGEN ([facility] EST 12:00:00 AM EDT [facility] 01/18/2020 [place]) 12:00:00 AM EDT Individual Psychotherapy 01/18/2020 NEX TGEN ([facility] (30 Min) 12:00:00 AM EDT [facility] 01/18/2020 [place]) 12:00:00 AM EDT Individual Psychotherapy 12/21/2019 NEX TGEN ([facility] (30 Min) 12:00:00 AM EDT [facility] 12/21/2019 [place]) 12:00:00 AM EDT Psychotherapy (30 Mins) 12/21/2019 NEXT GEN ([facility] W/ E&M 12:00:00 AM EDT [facility] 12/21/2019 [place]) 12:00:00 AM EDT OFFICE/OUTPATIENT VISIT, 12/21/2019 NEX TGEN ([facility] EST 12:00:00 AM EDT [facility] 12/21/2019 [place]) 12:00:00 AM EDT Individual Psychotherapy 12/07/2019 NEX TGEN ([facility] (30 Min) 12:00:00 AM EDT [facility] 12/07/2019 [place]) 12:00:00 AM EDT Individual Psychotherapy 11/23/2019 NEX TGEN ([facility] (30 Min) 12:00:00 AM EDT [facility] 11/23/2019 [place]) 12:00:00 AM EDT Individual Psychotherapy 11/16/2019 NEX TGEN ([facility] (30 Min) 12:00:00 AM EDT [facility] 11/16/2019 [place]) 12:00:00 AM EDT Individual Psychotherapy 11/02/2019 NEX TGEN ([facility] (30 Min) 12:00:00 AM EDT [facility] 11/02/2019 [place]) 12:00:00 AM EDT Individual Psychotherapy 10/26/2019 NEX TGEN ([facility] (30 Min) 12:00:00 AM EDT [facility] 10/26/2019 [place]) 12:00:00 AM EDT Psychotherapy (30 Mins) 10/26/2019 NEXT GEN ([facility] W/ E&M 12:00:00 AM EDT [facility] 10/26/2019 [place]) 12:00:00 AM EDT OFFICE/OUTPATIENT VISIT, 10/26/2019 NEX TGEN ([facility] EST 12:00:00 AM EDT [facility] 10/26/2019 [place]) 12:00:00 AM EDT Individual Psychotherapy 10/12/2019 NEX TGEN ([facility] (30 Min) 12:00:00 AM EDT [facility] - 10/12/2019 [place]) 12:00:00 AM EDT OFFICE/OUTPATIENT VISIT, 09/28/2019 NEX TGEN ([facility] EST 12:00:00 AM EST [facility] 09/28/2019 [place]) 12:00:00 AM EST Individual Psychotherapy 09/28/2019 NEX TGEN ([facility] (30 Min) 12:00:00 AM EST [facility] 09/28/2019 [place]) 12:00:00 AM EST Individual Psychotherapy 09/13/2019 NEX TGEN ([facility] (45 Min) 12:00:00 AM EST [facility] 09/13/2019 [place]) 12:00:00 AM EST OFFICE/OUTPATIENT VISIT, 08/31/2019 NEX TGEN ([facility] EST 12:00:00 AM EST [facility] 08/31/2019 [place]) 12:00:00 AM EST Individual Psychotherapy 08/31/2019 NEX TGEN ([facility] (30 Min) 12:00:00 AM EST [facility] 08/31/2019 [place]) 12:00:00 AM EST Individual Psychotherapy 08/13/2019 NEX TGEN ([facility] (30 Min) 12:00:00 AM EST [facility] 08/13/2019 [place]) 12:00:00 AM EST Individual Psychotherapy 07/13/2019 NEX TGEN ([facility] (30 Min) 12:00:00 AM EST [facility] 07/13/2019 [place]) 12:00:00 AM EST Psychotherapy (30 Mins) 06/29/2019 NEXT GEN ([facility] W/ E&M 12:00:00 AM EST [facility] 06/29/2019 [place]) 12:00:00 AM EST OFFICE/OUTPATIENT VISIT, 06/29/2019 NEX TGEN ([facility] EST 12:00:00 AM EST [facility] 06/29/2019 [place]) 12:00:00 AM EST Individual Psychotherapy 06/29/2019 NEX TGEN ([facility] (30 Min) 12:00:00 AM EST [facility] 06/29/2019 [place]) 12:00:00 AM EST Individual Psychotherapy 06/02/2019 NEX TGEN ([facility] (30 Min) 12:00:00 AM EDT [facility] 06/02/2019 [place]) 12:00:00 AM EDT Psychotherapy (30 Mins) 06/02/2019 NEXT GEN ([facility] W/ E&M 12:00:00 AM EDT [facility] 06/02/2019 [place]) 12:00:00 AM EDT OFFICE/OUTPATIENT VISIT, 06/02/2019 NEX TGEN ([facility] EST 12:00:00 AM EDT [facility] 06/02/2019 [place]) 12:00:00 AM EDT Individual Psychotherapy 05/21/2019 NEX TGEN ([facility] (30 Min) 12:00:00 AM EDT [facility] 05/21/2019 [place]) 12:00:00 AM EDT Individual Psychotherapy 05/07/2019 NEX TGEN ([facility] (30 Min) 12:00:00 AM EDT [facility] 05/07/2019 [place]) 12:00:00 AM EDT Psychotherapy (30 Mins) 05/05/2019 NEXT GEN ([facility] W/ E&M 12:00:00 AM EDT [facility] 05/05/2019 [place]) 12:00:00 AM EDT OFFICE/OUTPATIENT VISIT, 05/05/2019 NEX TGEN ([facility] EST 12:00:00 AM EDT [facility] 05/05/2019 [place]) 12:00:00 AM EDT Individual Psychotherapy 04/29/2019 NEX TGEN ([facility] (30 Min) 12:00:00 AM EDT [facility] 04/29/2019 [place]) 12:00:00 AM EDT Individual Psychotherapy 04/16/2019 NEX TGEN ([facility] (30 Min) 12:00:00 AM EDT [facility] 04/16/2019 [place]) 12:00:00 AM EDT Psychotherapy (30 Mins) 04/06/2019 NEXT GEN ([facility] W/ E&M 12:00:00 AM EDT [facility] 04/06/2019 [place]) 12:00:00 AM EDT OFFICE/OUTPATIENT VISIT, 04/06/2019 NEX TGEN ([facility] EST 12:00:00 AM EDT [facility] 04/06/2019 [place]) 12:00:00 AM EDT OFFICE/OUTPATIENT VISIT, 03/24/2019 NEX TGEN ([facility] EST 12:00:00 AM EDT [facility] 03/24/2019 [place]) 12:00:00 AM EDT DEBRIDE NAIL, 6 OR MORE 03/24/2019 NEXT GEN ([facility] 12:00:00 AM EDT [facility] - 03/24/2019 Center) 12:00:00 AM EDT Results ID Date Data Source [id number] 05/11/2020 09:38:00 AM EDT [facility] Name Value Range Interpretation Description Data Sup porting Code Source(s) Document(s ) SARS [facility] coronavirus 2 RNA This lab was ordered by [facility] and reported by [facility]. ID Date Data Source [id number] 03/13/2020 01:00:00 PM EDT [facility] Name Value Range Interpretation Description Data Sup porting Code Source(s) Document(s ) SARS [facility] coronavirus 2 RNA This lab was ordered by [facility] and reported by [facility]. ID Date Data Source [id number] 01/27/2020 12:00:00 AM EDT [facility] Name Value Range Interpretation Code Description Data Jessie rce(s) Supporting Document(s ) 2019-nCoV [facility] RNA XXX HILL+probe- Imp This lab was ordered by [facility] and reported by [email or web address] Procedure Social History Code Duration Value Status Description Data Source(s ) Caffeine Use 05/03/2020 completed NEXTGEN ([facility] nt Details 12:00:00 AM EDT [facility]) Smoking 05/03/2020 Unknown if completed Unknown if ever NEXTGEN ( [facility] 12:00:00 AM EDT ever smoked smoked [facility]) Caffeine Use 02/15/2020 completed NEXTGEN ([facility] nt Details 12:00:00 AM EDT [facility]) Vital Signs ID Date Data Source UNK Name Value Range Interpretation Code Description Data Source(s) Body surface area 2.22 m2 2.22 m2 NEXTGEN ([facility] Derived from [facility] formula Center) Body mass index 37.80 kg/m2 Overweight 37.80 kg/m2 NEXTGEN ([facility] (BMI) [Ratio] [facility]) [facility] 20 [facility]min 20 [facility] Body temperature 37.17 Nisreen 37.17 Nisreen [facility] Heart rate 69 /min 69 /min [facility] Diastolic blood 87 mm[Hg] 87 mm[Hg] NEXTGEN ( [facility] pressure [facility]) Systolic blood 130 mm[Hg] 130 mm[Hg] NEXTGEN (S aint pressure [facility]) Body weight 106.231 kg 106.231 kg NEXTGEN ([facility]) Body height 167.64 cm 167.64 cm NEXTGEN ([facility]) Patient Treatment Plan of Care Planned Activity Planned Date Details Description Data Source (s) Clonazepam 0.5 MG Oral 04/13/2020 12:00:00 NEXT[facility] ([facility] Tablet [Klonopin] [facility]) Trazodone Hydrochloride 04/13[facility]2020 [facility] Zolpidem tartrate 10 MG 04/13/2020 [facility]] [facility]) Diazepam 5 MG Oral Tablet 04/13/2020 12:00:00 [facility] ([facility] [Valium] [facility]) Diazepam 5 MG Oral Tablet 03/14/2020 [facility] Trazodone Hydrochloride 03/14/2020 12:00:00 [facility] ([facility] 150 MG Oral Tablet [facility]) Zolpidem tartrate 10 MG 03/14/2020 12:00:00 NEXTGEN ([facility] Oral Tablet [Ambien] [facility]) Diazepam 5 MG Oral Tablet 03/14/2020 [facility] Zolpidem tartrate 10 MG 02/17/2020 [facility] [Ambien] [facility]) Trazodone Hydrochloride 02/17/2020 12:00:00 [facility] ([facility] 150 MG Oral Tablet [facility]) Diazepam 5 MG Oral Tablet 02/17/2020 12:[facility] Zolpidem tartrate 10 MG 02/15/2020 12:00:00 NEXTGEN ([facility] Oral Tablet [Ambien] AM [facility]) Diazepam 5 MG Oral Tablet 02/15/2020 12:00:00 NEXTGEN ([facility] [Valium] [facility]) Trazodone Hydrochloride 02/15/2020 12:00:00 NEXTGEN ([facility] 150 MG Oral Tablet AM [facility]) Trazodone Hydrochloride 01/18/2020 12:00:00 NEXTGEN ([facility] 150 MG Oral Tablet AM [facility]) Zolpidem tartrate 10 MG 01/18/2020 12:00:00 NEXTGEN ([facility] Oral Tablet [Ambien] [facility]) Diazepam 5 MG Oral Tablet 01/18/2020 12:00:00 NEXTGEN ([facility] [Valium] [facility]) Trazodone Hydrochloride 12/21/2019 12:00:00 NEXT[facility] ([facility] 150 MG Oral Tablet AM [facility]) Zolpidem tartrate 10 MG 12/21/2019 12:00:00 NEXTGEN ([facility] Oral Tablet [Ambien] [facility]) Clonazepam 0.5 MG Oral 12/21/2019 12:00:00 NEXTGEN ([facility] Tablet [Klonopin] AM [facility]) Zolpidem tartrate 10 MG 11/23/2019 12:00:00 NEXTGEN ([facility] Oral Tablet [Ambien] [facility]) Clonazepam 0.5 MG Oral 11/23/2019 12:00:00 NEXTGEN ([facility] Tablet [Klonopin] AM [facility]) Trazodone Hydrochloride 11/23/2019 12:00:00 NEXT[facility] ([facility] 150 MG Oral Tablet AM [facility]) Trazodone Hydrochloride 10/26/2019 12:00:00 NEXT[facility] ([facility] 150 MG Oral Tablet AM [facility]) Clonazepam 0.5 MG Oral 10/26/2019 12:00:00 NEXTGEN ([facility] Tablet [Klonopin] AM [facility]) Zolpidem tartrate 10 MG 10/26/2019 12:00:00 NEXTGEN ([facility] Oral Tablet [Ambien] [facility]) Trazodone Hydrochloride 09/28/2019 12:00:00 NEXTGEN ([facility] 150 MG Oral Tablet AM [facility]) Zolpidem tartrate 10 MG 09/28/2019 12:00:00 NEXTGEN ([facility] Oral Tablet [Ambien] [facility]) Clonazepam 0.5 MG Oral 09/28/2019 12:00:00 NEXTGEN ([facility] Tablet [Klonopin] [facility]) Clonazepam 0.5 MG Oral 08/31/2019 12:00:00 NEXTGEN ([facility] Tablet [Klonopin] AM [facility]) Zolpidem tartrate 10 MG 08/31/2019 12:00:00 NEXTGEN ([facility] Oral Tablet [Ambien] [facility]) Trazodone Hydrochloride 08/31/2019 12:00:00 NEXTGEN ([facility] 150 MG Oral Tablet [facility]) Clonazepam 0.5 MG Oral 08/06/2019 12:00:00 NEXTGEN ([facility] Tablet [Klonopin] AM [facility]) Zolpidem tartrate 10 MG 08/06/2019 12:00:00 NEXTGEN ([facility] Oral Tablet [Ambien] [facility]) Trazodone Hydrochloride 08/06/2019 12:00:00 NEXTGEN ([facility] 150 MG Oral Tablet [facility]) Zolpidem tartrate 10 MG 06/29/2019 12:00:00 NEXTGEN ([facility] Oral Tablet [Ambien] [facility]) Clonazepam 0.5 MG Oral 06/29/2019 12:00:00 NEXTGEN ([facility] Tablet [Klonopin] [facility]) Trazodone Hydrochloride 06/29/2019 12:00:00 NEXTGEN ([facility] 150 MG Oral Tablet AM [facility]) Trazodone Hydrochloride 06/02/2019 12:00:00 NEXT[facility] ([facility] 150 MG Oral Tablet [facility]) Zolpidem tartrate 10 MG 06/02/2019 12:00:00 NEXTGEN ([facility] Oral Tablet [Ambien] [facility]) Clonazepam 0.5 MG Oral 06/02/2019 12:00:00 NEXTGEN ([facility] Tablet [Klonopin] AM [facility]) Clonazepam 0.5 MG Oral 06/02/2019 12:00:00 NEXTGEN ([facility] Tablet [Klonopin] AM [facility]) Clonazepam 0.5 MG Oral 05/05/2019 12:00:00 NEXTGEN ([facility] Tablet [Klonopin] AM [facility]) Zolpidem tartrate 10 MG 05/05/2019 12:00:00 NEXTGEN ([facility] Oral Tablet [Ambien] AM [facility]) Trazodone Hydrochloride 05/05/2019 12:00:00 NEXT[facility] ([facility] 150 MG Oral Tablet AM [facility]) aripiprazole 10 MG Oral 05/05/2019 12:00:00 NEXTGEN ([facility] Tablet [Abilify] AM [facility]) Trazodone Hydrochloride 04/06/2019 12:00:00 NEXT[facility] ([facility] 150 MG Oral Tablet AM [facility]) Clonazepam 0.5 MG Oral 04/06/2019 12:00:00 NEXTGEN ([facility] Tablet [Klonopin] AM [facility]) Zolpidem tartrate 10 MG 04/06/2019 12:00:00 NEXTGEN ([facility] Oral Tablet [Ambien] [facility]) aripiprazole 10 MG Oral 04/06/2019 12:00:00 NEXTGEN ([facility] Tablet [Abilify] [facility]) Diclofenac Sodium 0.01 03/24/2019 12:00:00 NEXTGEN ([facility] MG/MG Topical Gel AM [facility] dical [Voltaren] [place]) Clotrimazole 10 MG/ML 03/24/2019 12:00:00 NEXTGEN [facility] Clotrimazole 10 MG/ML 03/24/2019 12:00:00 NEXTGEN ([facility] Topical Solution AM [facility]) Trazodone Hydrochloride 03/09/2019 12:00:00 NEXTGEN ([facility] 150 MG Oral Tablet [facility]) Clonazepam 0.5 MG Oral 03/09/2019 12:00:00 NEXTGEN ([facility] Tablet [Klonopin] [facility]) Zolpidem tartrate 10 MG 03/09/2019 12:00:00 NEXTGEN ([facility] Oral Tablet [Ambien] [facility]) aripiprazole 10 MG Oral 03/09/2019 [facility] [[facility]) Clotrimazole 10 MG/ML 12/09/2018 12:00:00 [facility] ([facility] Topical Solution [facility])
[2020-05-16 07:56] VITALS: BMI 30.8
[2020-05-16 09:16] VITALS: TEMP 98.2
[2020-05-16 09:53] VITALS: BP 118/71; PULSE 63
== END 2020-05-16 10:30 | disposition home or self-care (01) ==
LOC: JASU-ENDO 05:29
PROVIDERS: ATTEND Internal Medicine Gastroenterology
PROC: 0DJD8ZZ Inspection of Lower Intestinal Tract, Via Natural or Artificial Opening Endoscopic (ICD-10-PCS; principal; 2020-05-16 09:00)
DX: K59.00 Constipation, unspecified (principal); K63.89 Other specified diseases of intestine; K57.30 Diverticulosis of large intestine without perforation or abscess without bleeding